=== PATIENT | female | born 1960 ===

== ENCOUNTER 2019-03-21 16:37 | Emergency (ER) | payer SELFPAY ==
[2019-03-21] MEDS ORDERED: SODIUM CHLORIDE 0.9% 1000 ML 1,000 ML IV ONE ×2 (17:40→20:28)
[2019-03-21] MEDS ORDERED: diphenhydrAMINE 50 MG/ML VIAL IV ONE (17:40)
[2019-03-21] MEDS ORDERED: METOCLOPRAMIDE 10 MG/2 ML INJ IV ONE (17:40)
[2019-03-21] MEDS ORDERED: HYOSCYAMINE SUBL 0.125 MG TAB SL ONE (17:41)
--- NOTE | 2019-03-21 17:43 | Emergency Department Report ---
Blank Doc - Documentation Documentation: 58-year-old -Citizen Of [place] female status post gastric balloon procedure for weight loss reports emergency department complaining of profuse nausea vomiting and abdominal pain since the procedure which was just over 1 week ago. She is been unable to keep down food and has had a decreased appetite. Reports no hemoptysis no hematemesis no hematochezia or diarrhea. Reports no fever, chills, sweats no chest pain no palpitations no shortness of breath. Plan GI labs and a CT scan as well as urine she will be started on IV fluids in conjunction with anti-medic and antispasmodic
[2019-03-21 18:58] LABS: Basophils # (Auto) 0.1 K/mm3 (0.0-0.1); Basophils % (Auto) 0.4 % (0.0-1.8); Eosinophils % (Auto) 0.1 % (0.0-4.3); Hemoglobin 16.9 gm/dl (10.1-14.3); Lymphocytes # (Auto) 0.7 K/mm3 (1.2-5.4); Lymphocytes % (Auto) 5.6 % (13.4-35.0); Mean Corpuscular HGB Conc 33 % (30-34); Mean Corpuscular Volume 91 fl (79-97); Monocytes # (Auto) 1.1 K/mm3 (0.0-0.8); Monocytes % (Auto) 8.1 % (0.0-7.3); Platelet Count 216 K/mm3 (140-440); Red Blood Count 5.74 M/mm3 (3.65-5.03); Red Cell Distribution Width 13.7 % (13.2-15.2)
[2019-03-21] MEDS ORDERED: MORPHINE 4 MG/1 ML INJ IV ONE (19:15)
[2019-03-21 19:18] LABS: Albumin 4.3 g/dL (3.9-5); BUN/Creatinine Ratio 31; Blood Urea Nitrogen 28 mg/dL (7-17); Calcium 9.5 mg/dL (8.4-10.2); Hemolysis Index 93
[2019-03-21] MEDS ORDERED: PANTOPRAZOLE 40 MG INJ IV ONE (19:20)
[2019-03-21 19:28] LABS: Alanine Aminotransferase 12 units/L (7-56)
--- NOTE | 2019-03-21 20:37 | Emergency Department Report ---
ED N/V/D HPI - General Chief complaint: Nausea/Vomiting/Diarrhea Stated complaint: N/V/WEAKNESS Time Seen by Provider: 03/21/19 18:36 Source: EMS Mode of arrival: Stretcher Limitations: No Limitations - History of Present Illness Initial comments: 58-year-old female w with no known past medical history status post endoscopic bariatric procedure on March 07 presents to the hospital complaining of persistent nausea and vomiting without bowel movement for the past 2 weeks since her surgery. Patient states her last bowel movement was March 06. She has been unable to tolerate any food or liquid intake since this bariatric procedure. She states a balloon was placed down her esophagus and inflated in her stomach. Patient has had 2 visits to this surgical clinic since her procedure for IV hydration due to persistent nausea and vomiting. She last saw the doctors today and received 2 L of IV fluids and a prescription for Zofran. Patient presents here due to persistent symptoms. She complains of generalized body pain and now is having bloody emesis. Patient denies any other previous abdominal surgery. Patient's bariatric surgeons are affiliated with [facility] [phone] Dr. Reinaldo Vidal evaluated pt today office Dr Mikael Galdamez performed initial surgery - Related Data Allergies Allergy/AdvReac Type Severity Reaction Status Date / Time No Known Allergies Allergy Unverified 03/21/19 17:21 ED Review of Systems ROS: Stated complaint: N/V/WEAKNESS Other details as noted in HPI ED Past Medical Hx - Past Medical History Previous Medical History?: No - Surgical History Past Surgical History?: Yes Additional Surgical History: Endoscopic bariatric surgery with balloon placement 03/07/19 - Social History Smoking Status: Light Tobacco Smoker Substance Use Type: Alcohol ED Physical Exam - General Limitations: No Limitations ED Course Vital Signs 03/21/19 03/21/19 03/21/19 17:13 17:15 17:18 Temperature Pulse Rate 86 Respiratory 14 Rate Blood Pressure 122/60 Blood Pressure 122/60 [Right] O2 Sat by Pulse 100 100 100 Oximetry 03/21/19 03/21/19 03/21/19 17:31 17:45 18:00 Temperature Pulse Rate Respiratory Rate Blood Pressure 122/60 122/60 141/68 Blood Pressure [Right] O2 Sat by Pulse 97 75 L 89 Oximetry 03/21/19 03/21/19 03/21/19 18:15 18:31 18:49 Temperature Pulse Rate Respiratory Rate Blood Pressure 141/68 141/68 141/68 Blood Pressure [Right] O2 Sat by Pulse 89 99 93 Oximetry 03/21/19 03/21/19 03/21/19 19:01 19:28 19:40 Temperature 97.4 F L Pulse Rate Respiratory Rate Blood Pressure 141/68 128/69 Blood Pressure [Right] O2 Sat by Pulse 91 Oximetry 03/21/19 03/21/19 03/21/19 20:01 20:15 20:31 Temperature Pulse Rate Respiratory Rate Blood Pressure 128/69 128/69 142/84 Blood Pressure [Right] O2 Sat by Pulse 98 91 87 Oximetry 03/21/19 03/21/19 03/21/19 20:45 21:00 21:15 Temperature Pulse Rate Respiratory Rate Blood Pressure 128/69 147/76 147/76 Blood Pressure [Right] O2 Sat by Pulse 91 95 91 Oximetry 03/21/19 03/21/19 03/21/19 21:31 21:45 22:01 Temperature Pulse Rate Respiratory Rate Blood Pressure 147/76 147/76 159/78 Blood Pressure [Right] O2 Sat by Pulse 94 95 99 Oximetry 03/21/19 22:08 Temperature 97.4 F L Pulse Rate 79 Respiratory 20 Rate Blood Pressure Blood Pressure 159/78 [Right] O2 Sat by Pulse 96 Oximetry - Consultations Consultation #1: 03/21/19 21:06 case d/w [employer] vessel operator surgeon Dr Reid. He does not have bariatric surgery experience and requests transfer to the care of her primary surgeons. 03/21/19 21:25 Case d/w Dr Thompson with [facility], he discussed case with Dr. Campbell and request that patient be sent to [facility] ER so that she may be reevaluated by the bariatric surgeon group for possible balloon deflation. 03/21/19 21:39 Case d/w Dr Vu, ER doctor at [facility]. He will verify with surgeon and call back. 03/21/19 21:54 pt accepted by [facility] ED at this time Surgeon requests Zosysn 4.5g IV x 1 prior to transfer Nurse here provided Number to give nurse to nurse report for transfer ED Medical Decision Making - Lab Data Result diagrams: 03/21/19 18:36 03/21/19 18:36 Lab Results 03/21/19 03/21/19 03/21/19 Range/Units 18:36 18:36 Unknown WBC 13.3 H (4.5-11.0) K/mm3 RBC 5.74 H (3.65-5.03) M/mm3 Hgb 16.9 H (10.1-14.3) gm/dl Hct 52.0 H (30.3-42.9) % MCV 91 (79-97) fl MCH 30 (28-32) pg MCHC 33 (30-34) % RDW 13.7 (13.2-15.2) % Plt Count 216 (140-440) K/mm3 Lymph % (Auto) 5.6 L (13.4-35.0) % Curry % (Auto) 8.1 H (0.0-7.3) % Eos % (Auto) 0.1 (0.0-4.3) % Baso % (Auto) 0.4 (0.0-1.8) % Lymph # 0.7 L (1.2-5.4) K/mm3 Curry # 1.1 H (0.0-0.8) K/mm3 Eos # 0.0 (0.0-0.4) K/mm3 Baso # 0.1 (0.0-0.1) K/mm3 Seg Neutrophils % 85.8 H (40.0-70.0) % Seg Neutrophils # 11.4 H (1.8-7.7) K/mm3 Sodium 138 (137-145) mmol/L Potassium 2.9 L* (3.6-5.0) mmol/L Chloride 77.8 L (98-107) mmol/L Carbon Dioxide 36 H (22-30) mmol/L Anion Gap 27 mmol/L BUN 28 H (7-17) mg/dL Creatinine 0.9 (0.7-1.2) mg/dL Estimated GFR > 60 ml/min BUN/Creatinine Ratio 31 % Glucose 147 H (65-100) mg/dL Calcium 9.5 (8.4-10.2) mg/dL Magnesium 3.10 H (1.7-2.3) mg/dL Total Bilirubin 0.70 (0.1-1.2) mg/dL AST 26 (5-40) units/L ALT 12 (7-56) units/L Alkaline Phosphatase 72 (35-129) units/L Total Protein 8.1 (6.3-8.2) g/dL Albumin 4.3 (3.9-5) g/dL Albumin/Globulin Ratio 1.1 % Lipase 28 (13-60) units/L - Radiology Data Radiology results: report reviewed CT abdomen pelvis w con INDICATION / CLINICAL INFORMATION: Nausea, Vomiting and Diarrhea. Recent gastric bypass surgery on 03/07/2019 TECHNIQUE: Axial CT imaging of abdomen and pelvis was obtained with IV contrast. Coronal and sagittal r eformatted imaging obtained and reviewed. All CT scans at this location are performed using CT dose reduction for ALARA by means of automated exposure control. COMPARISON: None available. FINDINGS: CT abdomen demonstrates a large balloon type device within the distal gastric antrum, there is small amount of air surrounding this balloon device. There is some gastric wall thickening more proximally as well as possible pneumatosis in the distal gastric antrum. Additionally, and if significant concern, is the presence of a large amount of portal venous gas throughout the liver. I do not see any free air or free fluid within the abdomen. Spleen, pancreas, kidneys, and adrenal glands are unremarka ble. Incidental note is made of a small hemangioma in the posterior aspect of the liver. CT pelvis with contrast demonstrates normal appearance of the appendix. No pelvic mass, free fluid, or focal inflammatory change is noted. The small bowel and colon all appear grossly unremarkable. Visualized lung bases are clear. No significant osseous abnormality. IMPRESSION: 1. This is an abnormal CT scan. 2. Large balloon foreign object device is present in the distal stomach, presumably placed there is part of bariatric weight loss surgery. There is the suggestion of pneumatosis of the stomach surrounding this foreign object. Additionally there is large amount of portal venous gas noted throughout the liver. This would imply the presence of ischemic bowel, presumably from the stomach as the remainder of the intestinal tract is unremarkable. 3. No other significant finding. 4. 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 - Medical Decision Making Patient presents with vomiting and p.o. intolerance after bariatric procedure. CT concerning for pneumatosis of the stomach and air in portal venous system. Case discussed with patient's bariatric surgeon who request transfer to [facility] ER for definitive management. Patient treated in the ED with normal saline, Reglan, Protonix, morphine, and Zosyn. IV potassium was ordered to s upplement hypokalemia. - Differential Diagnosis Gastric outlet obstruction, dehydration, electrolyte abnormality Critical Care Time: Yes Critical care time in (mins) excluding proc time.: 35 Critical care attestation.: If time is entered above; I have spent that time in minutes in the direct care of this critically ill patient, excluding procedure time. ED Disposition Clinical Impression: Intractable nausea and vomiting, S/P bariatric surgery, Hypokalemia, Dehydration, Hematemesis Disposition: DC/TX-70 ANOTHER TYPE HLTHCARE Is pt being admited?: No Condition: Stable Time of Disposition: 22:06 (Transfer to ER at [facility] accepted by Dr. Vu/Zan low)
--- NOTE | 2019-03-21 20:56 | Cat Scan Report ---
CT abdomen pelvis w con INDICATION / CLINICAL INFORMATION: Nausea, Vomiting and Diarrhea. Recent gastric bypass surgery on 03/07/2019 TECHNIQUE: Axial CT imaging of abdomen and pelvis was obtained with IV contrast. Coronal and sagittal reformatte d imaging obtained and reviewed. All CT scans at this location are performed using CT dose reductio n for ALARA by means of automated exposure control. COMPARISON: None available. FINDINGS: CT abdomen demonstrates a large balloon type device within the distal gastric antrum, there is small amount of air surrounding this balloon device. There is some gastric wall thickening more proximally as well as possible pneumatosis in the distal gastric antrum. Additionally, and if significant concer n, is the presence of a large amount of portal venous gas throughout the liver. I do not see any free air or free fluid within the abdomen. Spleen, pancreas, kidneys, and adrenal glands are unremarkable. Incidental note is made of a small he mangioma in the posterior aspect of the liver. CT pelvis with contrast demonstrates normal appearance of the appendix. No pelvic mass, free fluid, o r focal inflammatory change is noted. The small bowel and colon all appear grossly unremarkable. Visualized lung bases are clear. No significant osseous abnormality. IMPRESSION: 1. This is an abnormal CT scan. 2. Large balloon foreign object device is present in the distal stomach, presumably placed there is p art of bariatric weight loss surgery. There is the suggestion of pneumatosis of the stomach surroundi ng this foreign object. Additionally there is large amount of portal venous gas noted throughout the liver. This would imply the presence of ischemic bowel, presumably from the stomach as the remainder of the intestinal tract is unremarkable. 3. No other significant finding. 4. This report was called to Dr. 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 Signer Name: Brianna Preston MD Signed: 03/21/2019 8:52 PM Workstation Name: [id number]
[2019-03-21] MEDS: POTASSIUM CHLORIDE 10 MEQ 10 MEQ/100 ML BAG IV SCH ×2 (21:08→23:12)
[2019-03-21] MEDS ORDERED: PIPERACIL/TAZOBACTA 4.5/NS 100 4.5 GM/100 ML VIAL IV ONE (21:53)
[2019-03-21 22:05] VITALS: BP 159/78
== END 2019-03-21 23:40 | disposition other institution (70) ==
LOC: ED 16:37
DX: E87.6 Hypokalemia (principal); E86.0 Dehydration; K92.0 Hematemesis; F17.200 Nicotine dependence, unspecified, uncomplicated; Z98.84 Bariatric surgery status
CPT/HCPCS: 36415; 74177; 80053; 83690; 83735; 85025; 96365; 96366; 96375; 99285; C9113; J1200; J2270; J2543; J2765; J3480; J7030; Q9967

== ENCOUNTER 2020-09-22 12:41 | Inpatient (IN) | payer OTHER, SELFPAY ==
[2020-09-22] MEDS ORDERED: ACETAMINOPHEN 325 MG TAB PO ONE (15:19)
--- NOTE | 2020-09-22 15:19 | Event Note ---
ED Screening Note ED Screening Note: pt reports she has not "been feeling well" for over a week +SOB +cough +chest pain with coughing no n/v/d no fever no chills no sore throat or ear pain states she was tested for COVID 19 on Sunday and is awaiting results she has not been vaccinated no PMHx no allergies +cigar use no sick contact +traveled [place] just return on 09/19/20 This initial assessment/diagnostic orders/clinical plan/treatment(s) is/are subject to change based on patients health status, clinical progression and re-assessment by fellow clinical providers in the ED. Further treatment and workup at subsequent clinical providers discretion. Patient/guardian urged not to elope from the ED as their condition may be serious if not clinically assessed and managed. Initial orders include: labs, xr oxygen is 83% at rest placed on 4L NC given tylenol charge nurse notified pt needs room SAD[facility]
[2020-09-22] MEDS ORDERED: dexAMETHasone 4 MG/ML VIAL IV ONE (15:42)
[2020-09-22] MEDS ORDERED: AZITHROMYCIN/NS 500 MG/250 ML 500 MG/250 ML BAG IV ONE (15:42)
[2020-09-22] MEDS ORDERED: cefTRIAXone/NS 1 GM/50 ML 1 GM/50 ML BAG IV ONE (15:42)
[2020-09-22] MEDS ORDERED: SODIUM CHLORIDE 0.9% 1000 ML 1,000 ML IV ONE (15:42)
--- NOTE | 2020-09-22 15:49 | Emergency Department Report ---
HPI - General Chief Complaint: Dyspnea/Respdistress Time Seen by Provider: 09/22/20 15:14 - HPI HPI: 60-year-old -[place] female presents to the emergency department with a complaint of a 1 week history of chills, shortness of breath, mixed dry and productive cough, chest discomfort, and body aches. She denies any past medical history. She is a cigarette smoker, but denies any illicit drug use. The patient just recently traveled to and from [place]. She has not taken anything for symptoms prior to presentation today. She is not vaccinated against COVID-19. Patient was found to have a room air pulse ox of 76% through triage. She was placed on 4 L oxygen via nasal cannula and went up to 90%. ED Past Medical Hx - Past Medical History Previous Medical History?: No - Surgical History Past Surgical History?: Yes Additional Surgical History: Endoscopic bariatric surgery with balloon placement 03/07/19 - Social History Smoking Status: Smoker, Current Status Unknown Substance Use Type: Alcohol ED Review of Systems ROS: Stated complaint: ERIC Other details as noted in HPI Comment: All other systems reviewed and negative Constitutional: chills. denies: fever Eyes: denies: eye pain, vision change ENT: denies: ear pain, throat pain Respiratory: cough, shortness of breath Cardiovascular: chest pain. denies: edema Gastrointestinal: denies: abdominal pain, vomiting Genitourinary: denies: dysuria, discharge Musculoskeletal: myalgia. denies: joint swelling Skin: denies: rash, lesions Neurological: denies: numbness, paresthesias Physical Exam - Physical Exam Vital Signs: Vital Signs 09/22/20 09/22/20 13:21 13:22 Temperature 100 F H 100.2 F H Pulse Rate 83 Respiratory 18 Rate Blood Pressure 121/52 O2 Sat by Pulse 76 L Oximetry Physical Exam: GENERAL: The patient is well-developed well-nourished. HENT: Normocephalic. Atraumatic. Patient has moist mucous membranes. EYES: Extraocular motions are intact. NECK: Supple. Trachea is midline. CHEST/LUNGS: Bilateral rhonchi heard. There is tachypnea. HEART/CARDIOVASCULAR: Regular. There is mild tachycardia. There is no murmur. ABDOMEN: Abdomen is soft, nontender. Patient has normal bowel sounds. SKIN: Skin is warm and dry. NEURO: The patient is awake, alert, and oriented. The patient is cooperative. The patient has no focal neurologic deficits. Normal speech. MUSCULOSKELETAL: There is no tenderness or deformity. There is no limitation range of motion. ED Course Vital Signs 09/22/20 09/22/20 13:21 13:22 Temperature 100 F H 100.2 F H Pulse Rate 83 Respiratory 18 Rate Blood Pressure 121/52 O2 Sat by Pulse 76 L Oximetry ED Medical Decision Making - Lab Data Result diagrams: 09/22/20 15:17 09/22/20 15:17 Lab Results 09/22/20 09/22/20 09/22/20 Range/Units 15:17 15:17 15:30 WBC 6.2 (4.5-11.0) K/mm3 RBC 4.41 (3.65-5.03) M/mm3 Hgb 13.3 (10.1-14.3) gm/dl Hct 39.8 (30.3-42.9) % MCV 90 (79-97) fl MCH 30 (28-32) pg MCHC 33 (30-34) % RDW 14.4 (13.2-15.2) % Plt Count 349 (140-440) K/mm3 Lymph % (Auto) 8.0 L (13.4-35.0) % Bradford % (Auto) 6.7 (0.0-7.3) % Eos % (Auto) 0.0 (0.0-4.3) % Baso % (Auto) 0.5 (0.0-1.8) % Lymph # (Auto) 0.5 L (1.2-5.4) K/mm3 Bradford # (Auto) 0.4 (0.0-0.8) K/mm3 Eos # (Auto) 0.0 (0.0-0.4) K/mm3 Baso # (Auto) 0.0 (0.0-0.1) K/mm3 Seg Neutrophils % 84.8 H (40.0-70.0) % Seg Neutrophils # 5.2 (1.8-7.7) K/mm3 D-Dimer 1693.52 H (0-234) ng/mlDDU Sodium 134 L (137-145) mmol/L Chloride 98.9 (98-107) mmol/L Carbon Dioxide 26 (22-30) mmol/L Anion Gap 14 mmol/L BUN 16 (7-17) mg/dL Creatinine 0.8 (0.6-1.2) mg/dL Estimated GFR > 60 ml/min BUN/Creatinine Ratio 20 % Glucose 101 H (65-100) mg/dL Calcium 8.1 L (8.4-10.2) mg/dL Ferritin (10.0-200.0) ng/mL Total Bilirubin 0.40 (0.1-1.2) mg/dL Lactate Dehydrogenase 666 H (91-180) units/L C-Reactive Protein 14.50 H (0.00-1.30) mg/dL Total Protein 7.2 (6.3-8.2) g/dL Albumin 2.9 L (3.9-5) g/dL Albumin/Globulin Ratio 0.7 % // Range/Units 15:30 WBC (4.5-11.0) K/mm3 RBC (3.65-5.03) M/mm3 Hgb (10.1-14.3) gm/dl Hct (30.3-42.9) % MCV (79-97) fl MCH (28-32) pg MCHC (30-34) % RDW (13.2-15.2) % Plt Count (140-440) K/mm3 Lymph % (Auto) (13.4-35.0) % Bradford % (Auto) (0.0-7.3) % Eos % (Auto) (0.0-4.3) % Baso % (Auto) (0.0-1.8) % Lymph # (Auto) (1.2-5.4) K/mm3 Bradford # (Auto) (0.0-0.8) K/mm3 Eos # (Auto) (0.0-0.4) K/mm3 Baso # (Auto) (0.0-0.1) K/mm3 Seg Neutrophils % (40.0-70.0) % Seg Neutrophils # (1.8-7.7) K/mm3 D-Dimer (0-234) ng/mlDDU Sodium (137-145) mmol/L Chloride (98-107) mmol/L Carbon Dioxide (22-30) mmol/L Anion Gap mmol/L BUN (7-17) mg/dL Creatinine (0.6-1.2) mg/dL Estimated GFR ml/min BUN/Creatinine Ratio % Glucose (65-100) mg/dL Calcium (8.4-10.2) mg/dL Ferritin 723.4 H (10.0-200.0) ng/mL Total Bilirubin (0.1-1.2) mg/dL Lactate Dehydrogenase (91-180) units/L C-Reactive Protein (0.00-1.30) mg/dL Total Protein (6.3-8.2) g/dL Albumin (3.9-5) g/dL Albumin/Globulin Ratio % - EKG Data -: EKG Interpreted by Me EKG shows normal: sinus rhythm, axis, intervals, QRS complexes, ST-T waves Rate: normal - EKG Data When compared to previous EKG there are: previous EKG unavailable Interpretation: normal EKG - Radiology Data Radiology results: image reviewed interpreted by me: Chest x-ray shows bilateral patchy opacities concerning for pneumonia. No widened mediastinum. No pneumothorax. - Medical Decision Making This patient presents to the emergency department with progressively worsening URI symptoms. She had a room air pulse ox of 76%. She was placed on 5 L oxygen via nasal cannula and went up into the mid to high nineties. Patient is not vaccinated against COVID-19. Chest x-ray shows bilateral patchy opacities concerning for pneumonia. With the patient's URI symptoms, hypoxia, or unvaccinated status, and bilateral pneumonia on x-ray, the patient has high suspicion for COVID-19. Patient was given some IV Decadron, IV antibiotics, IV fluid resuscitation. Labs show elevated inflammatory markers of D-dimer, CRP, LDH and ferritin levels. She will be admitted to the hospital for further evaluation and treatment was accepted for admission by the hospitalist, Dr. Her. Critical Care Time: Yes Critical care time in (mins) excluding proc time.: 31 Critical care attestation.: If time is entered above; I have spent that time in minutes in the direct care of this critically ill patient, excluding procedure time. Critical care time was spent on this patient in doing her initial evaluation, multiple reevaluations, ordering and interpretation of labs and imaging, IV steroids, IV antibiotics, IV fluid resuscitation, multiple discussions with the patient, supplemental oxygen for her hypoxia. Critical Care Time: 31 minutes ED Disposition Clinical Impression: Suspected COVID-19 virus infection, Hypoxia Bilateral pneumonia Qualifiers: Pneumonia type: due to unspecified organism Lung location: unspecified part of lung Qualified Code(s): J18.9 - Pneumonia, unspecified organism Disposition: 09 ADMITTED INPATIENT Is pt being admited?: Yes Condition: Serious Time of Disposition: 19:37
--- NOTE | 2020-09-22 16:05 | XRay Report ---
CHEST 1 VIEW INDICATION: cough, sob, fever. COMPARISON: None. FINDINGS: Support devices: None. Heart: Normal. Lungs/Pleura: There is somewhat diffuse, mild to moderate bilateral airspace disease. No pleural abno rmality. IMPRESSION: 1. Bilateral airspace disease. Given the patient's symptoms, this is concerning for bilateral pneumon ia. Signer Name: Remy Owens MD Signed: 09/22/2020 4:01 PM Workstation Name: [id number]
--- NOTE | 2020-09-22 18:15 | History and Physical Report ---
History of Present Illness Chief complaint: I have not been feeling well History of present illness: 60 YO Female with Obesity Hypoventilation Syndrome, Nicotine Dependence presents to ED for evaluation. Patient reports I have not been feeling well". Patient states that she has experienced mixed dry and productive cough, shortness of breath, subjective fever, chills, body aches, chest discomfort, malaise, fatigue over the past 1 week with persistent and worsening symptoms over the same timeframe. Patient acknowledges loss of sense of smell, as well as loss of sense of taste. EMS was notified and upon arrival the patient was found to be in distress and subsequently transported to [facility] for further care and evaluation of the aforementioned symptoms. The patient was seen and evaluated in the emergency department. All lab and imaging studies reviewed. Patient was found to have a pulse oximetry of 70% percent on room air which is consistent with acute hypoxemic respiratory failure. Patient was placed on supplemental oxygen with mild improvement in symptoms. Chest x-ray revealed bilateral pneumonia. Patient admitted to medical floor and initiated on pneumonia protocol as well as coronavirus protocol. Patient denies chest pain, palpitation, skin rash, recent ill contacts. No prior admission for review. NO medication listed at time of admission. Past History Past Medical History: other (see HPI) Past Surgical History: Other (bariatric surgery) Social history: single. denies: smoking, alcohol abuse Family history: hypertension Medications and Allergies Allergies Allergy/AdvReac Type Severity Reaction Status Date / Time No Known Allergies Allergy Verified 09/22/20 13:21 Active Meds: Active Medications Sodium Chloride (Nacl 0.9% 1000 Ml) 1,000 mls @ 125 mls/hr IV ONCE ONE Stop: 09/22/20 23:41 Last Admin: 09/22/20 16:22 Dose: 125 mls/hr Documented by: Review of Systems Constitutional: fever, fatigue, weakness, malaise, lethargy, no weight loss, no weight gain Ears, nose, mouth and throat: no ear pain, no nasal congestion, no nasal discharge, no sinus pressure Breasts: no change in shape, no swelling, no mass Cardiovascular: no chest pain, no orthopnea, no palpitations Respiratory: cough, cough with sputum, no hemoptysis, no shortness of breath Gastrointestinal: no abdominal pain, no nausea, no vomiting, no constipation Genitourinary Female: no pelvic pain, no flank pain, no dysuria, no urinary frequency, no urgency Rectal: no pain, no incontinence, no bleeding Musculoskeletal: no neck stiffness, no shooting arm pain, no arm numbness /tingling, no shooting leg pain, no leg numbness/tingling Integumentary: no rash, no pruritis, no redness, no sores, no wounds, no jaundice Neurological: no head injury, no paralysis, no weakness, no parathesias, no tingling, no seizures, no syncope Psychiatric: no change in sleep habits, no insomnia, no change in appetite Endocrine: no cold intolerance, no heat intolerance, no polyphagia, no excessive thirst, no polydipsia Hematologic/Lymphatic: no easy bruising Allergic/Immunologic: no urticaria, no persistent infections, no angioedema Exam - Constitutional Vitals: Temp Pulse Resp BP Pulse Ox 99.1 F 83 24 127/54 95 09/22/20 13:40 09/22/20 16:31 09/22/20 16:31 09/22/20 16:31 09/22/20 16:31 General appearance: Present: mild distress, obese - EENT Eyes: Present: PERRL ENT: hearing intact, clear oral mucosa - Neck Neck: Present: supple, normal ROM - Respiratory Respiratory effort: labored, accessory muscle use Respiratory: bilateral: diminished, rhonchi - Cardiovascular Heart Sounds: Present: S1 & S2. Absent: rub, click - Extremities Extremities: pulses symmetrical, No edema Peripheral Pulses: within normal limits - Abdominal General gastrointestinal: Present: soft, non-tender, non-distended, normal bowel sounds Female genitourinary: Present: normal - Integumentary Integumentary: Present: clear, warm, dry - Musculoskeletal Musculoskeletal: generalized weakness - Psychiatric Psychiatric: appropriate mood/affect, intact judgment & insight - Neurologic Neurologic: CNII-XII intact, moves all extremities Results - Labs CBC & Chem 7: 09/22/20 15:17 09/22/20 15:17 Assessment and Plan - Patient Problems (1) Acute hypoxemic respiratory failure Current Visit: Yes Status: Acute Plan to address problem: Supplemental oxygen, pulse oximetry, Chest X ray, nebulizer therapy (2) Bilateral pneumonia Current Visit: Yes Status: Acute Qualifiers: Pneumonia type: due to unspecified organism Lung location: unspecified part of lung Qualified Code(s): J18.9 - Pneumonia, unspecified organism Plan to address problem: Pneumonia Protocol: IV antibiotic therapy, supplemental oxygen, pulse oximetry, nebulizer therapy, chest x ray, blood culture (3) Suspected COVID-19 virus infection Current Visit: Yes Status: Acute Plan to address problem: coronavirus protocol: IV steroid therapy, IV antibiotic therapy, vitamin c therapy, vitamin d therapy, zinc therapy, supplemental oxygen, pulse oximetry, (4) Obesity hypoventilation syndrome Current Visit: Yes Status: Acute Plan to address problem: balanced diet, increased physical activity at discharge, outpatient pulmonary f/u for sleep study (5) DVT prophylaxis Current Visit: Yes Status: Acute Plan to address problem: SCD to BLE while in bed, prophylactic anticoagulation.
[2020-09-22] MEDS ORDERED: ALBUTEROL 2.5 MG/3 ML NEBU IH PRN (18:16)
[2020-09-22] MEDS ORDERED: ONDANSETRON 4 MG/2 ML INJ IV PRN (18:16)
[2020-09-22 18:41] LABS: Basophils % (Auto) 0.5 % (0.0-1.8); Hematocrit 39.8 % (30.3-42.9); Hemoglobin 13.3 gm/dl (10.1-14.3); Lymphocytes # (Auto) 0.5 K/mm3 (1.2-5.4); Mean Corpuscular HGB Conc 33 % (30-34); Mean Corpuscular Volume 90 fl (79-97); Monocytes # (Auto) 0.4 K/mm3 (0.0-0.8); Monocytes % (Auto) 6.7 % (0.0-7.3); Platelet Count 349 K/mm3 (140-440); Red Blood Count 4.41 M/mm3 (3.65-5.03); Red Cell Distribution Width 14.4 % (13.2-15.2)
[2020-09-22 18:59] LABS: Alanine Aminotransferase 30 units/L (7-56); Albumin 2.9 g/dL (3.9-5); BUN/Creatinine Ratio 20; Blood Urea Nitrogen 16 mg/dL (7-17); Calcium 8.1 mg/dL (8.4-10.2); Hemolysis Index 298
[2020-09-22] MEDS ORDERED: cefTRIAXone/NS 2 GM/100 ML 2 GM/100 ML BAG IV SCH (19:00)
[2020-09-22] MEDS: ASCORBIC ACID 500 MG TAB PO SCH (21:35)
[2020-09-22] MEDS: HEPARIN 5,000 UNIT/1 ML VIAL SUB-Q SCH (21:35)
[2020-09-22] MEDS: methylPREDNISolone Sod Succinate 40 MG/1 ML INJ IV SCH (21:35)
[2020-09-22] MEDS: ZINC SULFATE 220 MG CAP PO SCH (21:36)
[2020-09-23] MEDS: methylPREDNISolone Sod Succinate 40 MG/1 ML INJ IV SCH ×3 (06:27→22:34)
[2020-09-23 07:04] LABS: Basophils % (Auto) 0.6 % (0.0-1.8); Hematocrit 41.7 % (30.3-42.9); Hemoglobin 13.6 gm/dl (10.1-14.3); Lymphocytes # (Auto) 0.4 K/mm3 (1.2-5.4); Lymphocytes % (Auto) 12.3 % (13.4-35.0); Mean Corpuscular HGB Conc 33 % (30-34); Mean Corpuscular Volume 90 fl (79-97); Monocytes # (Auto) 0.3 K/mm3 (0.0-0.8); Monocytes % (Auto) 7.6 % (0.0-7.3); Platelet Count 306 K/mm3 (140-440); Red Blood Count 4.64 M/mm3 (3.65-5.03); Red Cell Distribution Width 14.1 % (13.2-15.2)
[2020-09-23 07:33] LABS: Alanine Aminotransferase 33 units/L (7-56); Albumin 3.2 g/dL (3.9-5); Blood Urea Nitrogen 17 mg/dL (7-17); Calcium 8.2 mg/dL (8.4-10.2); Hemolysis Index 10
[2020-09-23 07:45] LABS: BUN/Creatinine Ratio 24
--- NOTE | 2020-09-23 10:00 | Electrocardiograph Report ---
[facility] Test Date: 2020-09-22 Test Time: 13:32:05 Pat Name: CHRISTOS LOCO Department: Room: [facility] Gender: F Traffic Representative: NOEMY : 1960 Requested By: ED DOC Order Number: [id number] Reading MD: Omid Martinez Measurements Intervals [place] Rate: 80 P: 68 LA: 155 QRS: 21 QRSD: 73 T: 48 QT: 369 QTc: 427 Interpretive Statements Sinus rhythm Probable left atrial enlargement NSTW'S No previous ECG available for comparison Electronically Signed On 09-23-2020 9:59:34 EDT by Omid Martinez
[2020-09-23] MEDS: HYDROmorphone 1 MG/1 ML INJ IV PRN (10:33)
[2020-09-23] MEDS: HEPARIN 5,000 UNIT/1 ML VIAL SUB-Q SCH (10:34)
[2020-09-23] MEDS: ASCORBIC ACID 500 MG TAB PO SCH ×2 (10:37→22:34)
[2020-09-23] MEDS: CHOLECALCIFEROL (VIT D3) 1000 UNIT (25 mcg) TAB PO SCH (10:37)
[2020-09-23] MEDS: ZINC SULFATE 220 MG CAP PO SCH ×2 (10:37→22:34)
--- NOTE | 2020-09-23 14:47 | Progress Note ---
Assessment and Plan Assessment and plan: -- Acute hypoxemic respiratory failure/on high flow oxygen/BiPAP Current Visit: Yes Status: Acute Supplemental oxygen, high flow oxygen Hypoxia, wean as tolerated Pulmonary consult as needed -- Bilateral pneumonia Current Visit: Yes Status: Acute Empiric antibiotics, follow cultures Follow procalcitonin levels --Positive COVID-19 virus infection Current Visit: Yes Status: Acute Isolation droplet and contact, ID consult Patient is hypoxic, remdesivir, Solu-Medrol Inflammatory markers, pulmonary consult if needed Prone positioning, home O2 evaluation Supportive medications zinc, vitamin D, ascorbic acid --Hyperkalemia; Current Visit: Yes Status: Acute Kayexalate, calcium gluconate Closely monitor electrolytes -- Obesity hypoventilation syndrome/BMI 36.0 Current Visit: Yes Status: Acute Dietary modification , exercise as tolerated , lifestyle changes Weight reduction when medically stable Outpatient sleep study to rule out obstructive sleep apnea --Severe protein calorie malnutrition; hypoalbuminemia Current Visit: Yes Status: Chronic Nutrition supplements, nutrition consult -- DVT prophylaxis Current Visit: Yes Status: Acute SCD to BLE while in bed, prophylactic anticoagulation. Closely monitor the patient and adjust management as needed Plan of care reviewed with the patient and her nurse Patient is obese critically ill, severe Covid infection Guarded prognosis 09/23/2020; Positive COVID-19, Hypoxemia on high flow oxygen Morbidly obese, ID following Continue therapies per protocol Consult pulmonary in the morning History Interval history: I have seen and examined the patient in ER awaiting room assignment Patient's chart and medications reviewed Patient is positive COVID-19 admitted with worsening shortness of breath On high flow oxygen In mild distress Vital signs noted Hospitalist Physical - Constitutional Vitals: Temp Pulse Resp BP Pulse Ox 99.1 F 74 28 H 123/79 96 09/22/20 13:40 09/23/20 13:31 09/23/20 13:31 09/23/20 13:31 09/23/20 13:31 General appearance: Present: severe distress, obese, other (On high flow oxygen) - EENT Eyes: Present: PERRL, EOM intact - Neck Neck: Present: supple, normal ROM - Respiratory Respiratory effort: normal Respiratory: bilateral: diminished, rhonchi, negative: rales, wheezing - Cardiovascular Rhythm: regular Heart Sounds: Present: S1 & S2 - Extremities Extremities: no ischemia, No edema - Abdominal General gastrointestinal: soft, non-tender, non-distended, normal bowel sounds - Integumentary Integumentary: Present: clear, warm - Psychiatric Psychiatric: appropriate mood/affect, cooperative - Neurologic Neurologic: CNII-XII intact, moves all extremities Results - Labs CBC & Chem 7: 09/23/20 06:16 09/23/20 15:28 Labs: Laboratory Last Values WBC 3.7 K/mm3 (4.5-11.0) L 09/23/20 06:16 RBC 4.64 M/mm3 (3.65-5.03) 09/23/20 06:16 Hgb 13.6 gm/dl (10.1-14.3) 09/23/20 06:16 Hct 41.7 % (30.3-42.9) 09/23/20 06:16 MCV 90 fl (79-97) 09/23/20 06:16 MCH 29 pg (28-32) 09/23/20 06:16 MCHC 33 % (30-34) 09/23/20 06:16 RDW 14.1 % (13.2-15.2) 09/23/20 06:16 Plt Count 306 K/mm3 (140-440) 09/23/20 06:16 Lymph % (Auto) 12.3 % (13.4-35.0) L 09/23/20 06:16 [place] % (Auto) 7.6 % (0.0-7.3) H 09/23/20 06:16 Eos % (Auto) 0.0 % (0.0-4.3) 09/23/20 06:16 Baso % (Auto) 0.6 % (0.0-1.8) 09/23/20 06:16 Lymph # (Auto) 0.4 K/mm3 (1.2-5.4) L 09/23/20 06:16 [place] # (Auto) 0.3 K/mm3 (0.0-0.8) 09/23/20 06:16 Eos # (Auto) 0.0 K/mm3 (0.0-0.4) 09/23/20 06:16 Baso # (Auto) 0.0 K/mm3 (0.0-0.1) 09/23/20 06:16 Seg Neutrophils % 79.5 % (40.0-70.0) H 09/23/20 06:16 Seg Neutrophils # 2.9 K/mm3 (1.8-7.7) 09/23/20 06:16 D-Dimer 1693.52 ng/mlDDU (0-234) H 09/22/20 15:30 Sodium 137 mmol/L (137-145) 09/23/20 06:16 Potassium 4.4 mmol/L (3.6-5.0) 09/23/20 06:16 Chloride 100.4 mmol/L (98-107) 09/23/20 06:16 Carbon Dioxide 26 mmol/L (22-30) 09/23/20 06:16 Anion Gap 15 mmol/L 09/23/20 06:16 BUN 17 mg/dL (7-17) 09/23/20 06:16 Creatinine 0.7 mg/dL (0.6-1.2) 09/23/20 06:16 Estimated GFR > 60 ml/min 09/23/20 06:16 BUN/Creatinine Ratio 24 % 09/23/20 06:16 Glucose 110 mg/dL (65-100) H 09/23/20 06:16 Lactic Acid 1.10 mmol/L (0.7-2.0) 09/22/20 18:17 Calcium 8.2 mg/dL (8.4-10.2) L 09/23/20 06:16 Ferritin 723.4 ng/mL (10.0-200.0) H 09/22/20 15:30 Total Bilirubin 0.40 mg/dL (0.1-1.2) 09/23/20 06:16 AST 52 units/L (5-40) H 09/23/20 06:16 ALT 33 units/L (7-56) 09/23/20 06:16 Alkaline Phosphatase 78 units/L (35-129) 09/23/20 06:16 Lactate Dehydrogenase 666 units/L (91-180) H 09/22/20 15:17 C-Reactive Protein 14.50 mg/dL (0.00-1.30) H 09/22/20 15:17 Total Protein 6.6 g/dL (6.3-8.2) 09/23/20 06:16 Albumin 3.2 g/dL (3.9-5) L 09/23/20 06:16 Albumin/Globulin Ratio 0.9 % 09/23/20 06:16 Procalcitonin 0.06 ng/mL (<0.15) 09/22/20 18:17 Coronavirus (PCR) Positive (Negative) A 09/23/20 Unknown Microbiology: Microbiology 09/22/20 18:03 Peripheral/Venous Blood Culture - Preliminary Culture in Progress 09/22/20 18:03 Peripheral/Venous Blood Culture - Preliminary Culture in Progress Active Medications - Current Medications Current Medications: Generic Name Dose Route Start Last Admin Trade Name Freq PRN Reason Stop Dose Admin Acetaminophen 650 mg 09/22/20 18:16 Acetaminophen 325 Mg Tab PO Q4H PRN Pain MILD(1-3)/Fever >100.5/GRAMAJO Albuterol 2.5 mg 09/22/20 18:16 Albuterol 2.5 Mg/3 Ml Nebu IH Q4HRT PRN Shortness Of Breath Ascorbic Acid 500 mg 09/22/20 22:00 09/23/20 10:37 Ascorbic Acid 500 Mg Tab PO Not Given BID SAYDA Cholecalciferol 1,000 unit 09/23/20 10:00 09/23/20 10:37 Cholecalciferol (Vit D3) 1000 Unit (25 Mcg) Tab PO Not Given QDAY SAYDA Heparin Sodium (Porcine) 5,000 unit 09/22/20 22:00 09/23/20 10:34 Heparin 5,000 Unit/1 Ml Vial SUB-Q 5,000 unit Q12HR SAYDA Administration Hydromorphone HCl 0.5 mg 09/22/20 18:16 09/23/20 10:33 Hydromorphone 1 Mg/1 Ml Inj IV 0.5 mg Q12H PRN Administration Pain , Severe (7-10) Ceftriaxone Sodium 2 gm in 100 mls @ 200 mls/hr 09/22/20 19:00 09/22/20 21:22 Rocephin/Ns 2 Gm/100 Ml IV 09/26/20 19:29 200 mls/hr Q24H SAYDA Administration Protocol Azithromycin 500 mg in 250 mls @ 250 mls/hr 09/23/20 16:00 Zithromax/Ns IV 09/26/20 16:59 Q24H SAYDA Protocol Methylprednisolone Sodium Succinate 40 mg 09/22/20 22:00 09/23/20 06:27 Methylprednisolone Sod Succinate 40 Mg/1 Ml Inj IV 40 mg Q8H SAYDA Administration Ondansetron HCl 4 mg 09/22/20 18:16 09/23/20 10:34 Ondansetron 4 Mg/2 Ml Inj IV 4 mg Q8H PRN Administration Nausea And Vomiting Oxycodone/Acetaminophen 1 tab 09/22/20 18:16 Oxycodone /Acetaminophen 5-325mg Tab PO Q12H PRN Pain, Moderate (4-6) Sodium Chloride 10 ml 09/22/20 22:00 09/23/20 10:37 Sodium Chloride 0.9% 10 Ml Flush Syringe IV 10 ml BID SAYDA Administration Sodium Chloride 10 ml 09/22/20 18:16 Sodium Chloride 0.9% 10 Ml Flush Syringe IV PRN PRN LINE FLUSH Zinc Sulfate 220 mg 09/22/20 22:00 09/23/20 10:37 Zinc Sulfate 220 Mg Cap PO Not Given BID SAYDA
[2020-09-23] MEDS ORDERED: TOCILIZUMAB 800 MG in SODIUM CHLORIDE 0.9% 100 ML IV ONE (14:59)
--- NOTE | 2020-09-23 15:01 | Consultation ---
History of Present Illness - Reason for Consult Consult date: 09/23/20 COVID pneumonia requiring HFNC Requesting physician: CARRIE ROSE - History of Present Illness The patient is a 60-year-old female with tobacco use, obesity hypoventilation, obesity was admitted with COVID-19 and bilateral pneumonia with significant hypoxia. She is currently on high flow nasal cannula. Infectious diseases was consulted for additional evaluation. Low-grade fevers present. Labs revealed procalcitonin 0.06, ferritin 723, LDH 666, CRP 14.5, D-dimer 1693 Review of Systems: reviewed in the chart, unable to obtain, minimize risk of transmission Past History Past Medical History: other (see HPI) Past Surgical History: Other (bariatric surgery) Social history: single. denies: smoking, alcohol abuse Family history: hypertension Medications and Allergies Allergies Allergy/AdvReac Type Severity Reaction Status Date / Time No Known Allergies Allergy Verified 09/22/20 13:21 Active Meds: Active Medications Acetaminophen (Acetaminophen 325 Mg Tab) 650 mg PO Q4H PRN PRN Reason: Pain MILD(1-3)/Fever >100.5/GRAMAJO Albuterol (Albuterol 2.5 Mg/3 Ml Nebu) 2.5 mg IH Q4HRT PRN PRN Reason: Shortness Of Breath Ascorbic Acid (Ascorbic Acid 500 Mg Tab) 500 mg PO BID [facility] Last Admin: 09/23/20 10:37 Dose: Not Given Documented by: Cholecalciferol (Cholecalciferol (Vit D3) 1000 Unit (25 Mcg) Tab) 1,000 unit PO QDAY [facility] Last Admin: 09/23/20 10:37 Dose: Not Given Documented by: Heparin Sodium (Porcine) (Heparin 5,000 Unit/1 Ml Vial) 5,000 unit SUB-Q Q12HR [facility] Last Admin: 09/23/20 10:34 Dose: 5,000 unit Documented by: Hydromorphone HCl (Hydromorphone 1 Mg/1 Ml Inj) 0.5 mg IV Q12H PRN PRN Reason: Pain , Severe (7-10) Last Admin: 09/23/20 10:33 Dose: 0.5 mg Documented by: REMDESIVIR 200 mg/ Sodium (Chloride) 250 mls @ 500 mls/hr IV ONCE ONE Stop: 09/23/20 15:19 REMDESIVIR 100 mg/ Sodium (Chloride) 250 mls @ 500 mls/hr IV Q24HR@2100 [facility] Stop: 09/27/20 21:29 TOCILIZUMAB 800 mg/ Sodium (Chloride) 140 mls @ 120 mls/hr IV ONCE ONE Stop: 09/23/20 16:08 Methylprednisolone Sodium Succinate (Methylprednisolone Sod Succinate 40 Mg/1 Ml Inj) 40 mg IV Q8H [facility] Last Admin: 09/23/20 06:27 Dose: 40 mg Documented by: Ondansetron HCl (Ondansetron 4 Mg/2 Ml Inj) 4 mg IV Q8H PRN PRN Reason: Nausea And Vomiting Last Admin: 09/23/20 10:34 Dose: 4 mg Documented by: Oxycodone/Acetaminophen (Oxycodone /Acetaminophen 5-325mg Tab) 1 tab PO Q12H PRN PRN Reason: Pain, Moderate (4-6) Sodium Chloride (Sodium Chloride 0.9% 10 Ml Flush Syringe) 10 ml IV BID [facility] Last Admin: 09/23/20 10:37 Dose: 10 ml Documented by: Sodium Chloride (Sodium Chloride 0.9% 10 Ml Flush Syringe) 10 ml IV PRN PRN PRN Reason: LINE FLUSH Sodium Chloride (Sodium Chloride 0.9% 50 Ml Ivpb) 50 ml IV Q24HR@2100 [facility] Stop: 09/27/20 21:01 Zinc Sulfate (Zinc Sulfate 220 Mg Cap) 220 mg PO BID [facility] Last Admin: 09/23/20 10:37 Dose: Not Given Documented by: Physical Examination - Physical Exam Narrative exam: Physical Exam (reviewed in chart to minimize risk of transmission) Constitutional: deferred Head, Ears, Nose: deferred Eyes: deferred Neck: deferred Oral: deferred Cardiovascular: deferred Respiratory: deferred GI: deferred Musculoskeletal: deferred Skin: deferred Hem/Lymphatic: deferred Psych: deferred Neurological: deferred - Constitutional Vitals: Vital Signs Temp Pulse Resp BP Pulse Ox 99.1 F 74 28 H 123/79 96 09/22/20 13:40 09/23/20 13:31 09/23/20 13:31 09/23/20 13:31 09/23/20 13:31 Results - Labs CBC & Chem 7: 09/23/20 06:16 09/23/20 06:16 Labs: Abnormal lab results 09/22/20 09/22/20 09/22/20 Range/Units 15:17 15:17 15:30 WBC (4.5-11.0) K/mm3 Lymph % (Auto) 8.0 L (13.4-35.0) % [place] % (Auto) (0.0-7.3) % Lymph # (Auto) 0.5 L (1.2-5.4) K/mm3 Seg Neutrophils % 84.8 H (40.0-70.0) % D-Dimer 1693.52 H (0-234) ng/mlDDU Sodium 134 L (137-145) mmol/L Potassium 5.3 H (3.6-5.0) mmol/L Glucose 101 H (65-100) mg/dL Calcium 8.1 L (8.4-10.2) mg/dL Ferritin (10.0-200.0) ng/mL AST 60 H (5-40) units/L Lactate Dehydrogenase 666 H (91-180) units/L C-Reactive Protein 14.50 H (0.00-1.30) mg/dL Albumin 2.9 L (3.9-5) g/dL Coronavirus (PCR) (Negative) 09/22/20 09/23/20 09/23/20 Range/Units 15:30 06:16 06:16 WBC 3.7 L (4.5-11.0) K/mm3 Lymph % (Auto) 12.3 L (13.4-35.0) % [place] % (Auto) 7.6 H (0.0-7.3) % Lymph # (Auto) 0.4 L (1.2-5.4) K/mm3 Seg Neutrophils % 79.5 H (40.0-70.0) % D-Dimer (0-234) ng/mlDDU Sodium (137-145) mmol/L Potassium (3.6-5.0) mmol/L Glucose 110 H (65-100) mg/dL Calcium 8.2 L (8.4-10.2) mg/dL Ferritin 723.4 H (10.0-200.0) ng/mL AST 52 H (5-40) units/L Lactate Dehydrogenase (91-180) units/L C-Reactive Protein (0.00-1.30) mg/dL Albumin 3.2 L (3.9-5) g/dL Coronavirus (PCR) (Negative) 09/23/20 Range/Units Unknown WBC (4.5-11.0) K/mm3 Lymph % (Auto) (13.4-35.0) % [place] % (Auto) (0.0-7.3) % Lymph # (Auto) (1.2-5.4) K/mm3 Seg Neutrophils % (40.0-70.0) % D-Dimer (0-234) ng/mlDDU Sodium (137-145) mmol/L Potassium (3.6-5.0) mmol/L Glucose (65-100) mg/dL Calcium (8.4-10.2) mg/dL Ferritin (10.0-200.0) ng/mL AST (5-40) units/L Lactate Dehydrogenase (91-180) units/L C-Reactive Protein (0.00-1.30) mg/dL Albumin (3.9-5) g/dL Coronavirus (PCR) Positive A (Negative) - Imaging and Cardiology Chest x-ray: report reviewed (b/l PNA) Assessment and Plan Cultures: SARS CoV2 PCR: Positive 09/22/2020 blood culture: In process A/P: 60-year-old female with obesity hypoventilation, tobacco abuse admitted with: #Bilateral pneumonia: Secondary to COVID-19. Severe disease. #Acute hypoxic respiratory failure: Secondary to above. On high flow nasal cannula and possible BiPAP. #Obesity #Leukopenia, likely secondary to viral illness Recs: IV/PO Dexamethasone 6 mg daily x 10 days Remdesivir and Actemra ordered Antibiotics discontinued prophylactic anticoagulation based on d-dimer per hospital protocol trend ferritin, LDH, d-dimer, CRP every 2-3 days for risk stratification and to assess disease progression Janet Kelley MD, FACP [facility] O: [phone] F: [phone]
[2020-09-23] MEDS ORDERED: REMDESIVIR 200 MG in SODIUM CHLORIDE 0.9% 250ML 250 ML IV ONE (16:00)
[2020-09-23] MEDS ORDERED: AZITHROMYCIN/NS 500 MG/250 ML 500 MG/250 ML BAG IV SCH (16:00)
[2020-09-23 16:12] LABS: Alanine Aminotransferase 36 units/L (7-56); Albumin 3.1 g/dL (3.9-5); Blood Urea Nitrogen 20 mg/dL (7-17); Calcium 8.2 mg/dL (8.4-10.2); Hemolysis Index 232
[2020-09-23 16:16] LABS: BUN/Creatinine Ratio 33
[2020-09-23] MEDS: SODIUM CHLORIDE 0.9% 50 ML IVPB IV SCH ×2 (19:01→22:17)
[2020-09-23] MEDS: LORazepam 2 MG/ML VIAL IV PRN (20:24)
[2020-09-23] MEDS ORDERED: SODIUM POLYSTYRENE 15 GM/60 ML ORAL LIQD PO NR (20:35)
[2020-09-23] MEDS ORDERED: CALCIUM GLUCONATE 1,000 MG in SODIUM CHLORIDE 0.9% 100 ML IV ONE (21:30)
[2020-09-23] MEDS: ENOXAPARIN 100 MG/1 ML INJ SUB-Q SCH (22:33)
[2020-09-24] MEDS: methylPREDNISolone Sod Succinate 40 MG/1 ML INJ IV SCH ×3 (06:39→23:57)
--- NOTE | 2020-09-24 10:20 | Electrocardiograph Report ---
[facility] Test Date: 2020-09-23 Test Time: 00:12:08 Pat Name: CHRISTOS LOCO Department: Room: [place] [address] Gender: F Shingle Sawyer: PADILLA : 1960 Requested By: ODIN WHITMAN Order Number: [id number] Reading MD: Omid Martinez Measurements Intervals [place] Rate: 73 P: 55 CO: 172 QRS: 18 QRSD: 74 T: 11 QT: 417 QTc: 460 Interpretive Statements Sinus rhythm [id number] Compared to ECG 09/22/2020 13:32:05 No significant changes Electronically Signed On 09-24-2020 10:20:42 EDT by Omid Martinez
[2020-09-24] MEDS: ZINC SULFATE 220 MG CAP PO SCH ×2 (11:10→22:44)
[2020-09-24] MEDS: CHOLECALCIFEROL (VIT D3) 1000 UNIT (25 mcg) TAB PO SCH (11:10)
[2020-09-24] MEDS: ASCORBIC ACID 500 MG TAB PO SCH ×2 (11:10→22:44)
[2020-09-24] MEDS: LORazepam 2 MG/ML VIAL IV PRN (11:16)
[2020-09-24] MEDS: ENOXAPARIN 100 MG/1 ML INJ SUB-Q SCH ×2 (11:17→22:43)
[2020-09-24] MEDS ORDERED: TOCILIZUMAB 810 MG in SODIUM CHLORIDE 0.9% 100 ML IV ONE (13:00)
--- NOTE | 2020-09-24 14:02 | Progress Note ---
Assessment and Plan Cultures: SARS CoV2 PCR: Positive 09/22/2020 blood culture: no growth A/P: 60-year-old female with obesity hypoventilation, tobacco abuse admitted with: #Bilateral pneumonia: Secondary to COVID-19. Severe disease. #Acute hypoxic respiratory failure: Secondary to above. On high flow nasal sylvia jacklyn and BiPAP. #Obesity #Leukopenia, likely secondary to viral illness Recs: continue steroids x 10 days continue Remdesivir Actemra administered today prophylactic anticoagulation based on d-dimer per hospital protocol trend ferritin, LDH, d-dimer, CRP every 2-3 days for risk stratification and to assess disease progression, repeats ordered Janet Kelley MD, FACP [facility] ([facility] O: [phone] F: [phone] Subjective Date of service: 09/24/20 Interval history: Afebrile today. Remains on BiPAP. Actemra administered today. Objective - Exam Narrative Exam: Physical Exam (reviewed in chart to minimize risk of transmission) Constitutional: deferred Head, Ears, Nose: deferred Eyes: deferred Neck: deferred Oral: deferred Cardiovascular: deferred Respiratory: deferred GI: deferred Musculoskeletal: deferred Skin: deferred Hem/Lymphatic: deferred Psych: deferred Neurological: deferred - Constitutional Vitals: Vital Signs Temp Pulse Resp BP Pulse Ox 97.9 F 71 32 H 132/56 90 09/24/20 08:25 09/24/20 10:30 09/24/20 10:30 09/24/20 11:02 09/24/20 11:02 Temperature -Last 24 Hours Temperature 97.9 F - Labs CBC & Chem 7: 09/23/20 06:16 09/23/20 15:28 Labs: Abnormal lab results 09/23/20 09/23/20 Range/Units 15:28 Unknown Sodium 133 L (137-145) mmol/L Potassium 5.8 H D (3.6-5.0) mmol/L Carbon Dioxide 20 L (22-30) mmol/L BUN 20 H (7-17) mg/dL Glucose 115 H (65-100) mg/dL Calcium 8.2 L (8.4-10.2) mg/dL AST 49 H (5-40) units/L Albumin 3.1 L (3.9-5) g/dL Coronavirus (PCR) Positive A (Negative)
[2020-09-24 16:20] LABS: Alanine Aminotransferase 28 units/L (7-56); Albumin 3.3 g/dL (3.9-5); Basophils # (Auto) 0.1 K/mm3 (0.0-0.1); Basophils % (Auto) 0.7 % (0.0-1.8); Blood Urea Nitrogen 26 mg/dL (7-17); Calcium 8.2 mg/dL (8.4-10.2); Hematocrit 42.2 % (30.3-42.9); Hemoglobin 13.8 gm/dl (10.1-14.3); Hemolysis Index 22; Lymphocytes # (Auto) 0.6 K/mm3 (1.2-5.4); Lymphocytes % (Auto) 5.5 % (13.4-35.0); Mean Corpuscular HGB Conc 33 % (30-34); Mean Corpuscular Volume 91 fl (79-97); Monocytes # (Auto) 0.9 K/mm3 (0.0-0.8); Monocytes % (Auto) 8.1 % (0.0-7.3); Platelet Count 333 K/mm3 (140-440); Red Blood Count 4.65 M/mm3 (3.65-5.03); Red Cell Distribution Width 14.5 % (13.2-15.2)
[2020-09-24 16:25] LABS: BUN/Creatinine Ratio 43
--- NOTE | 2020-09-24 19:12 | Progress Note ---
Assessment and Plan - Patient Problems (1) Acute hypoxemic respiratory failure Current Visit: Yes Status: Acute Plan to address problem: Supplemental oxygen, pulse oximetry, Chest X ray, nebulizer therapy, high flow submental oxygen, prone positioning while in bed. (2) Bilateral pneumonia Current Visit: Yes Status: Acute Qualifiers: Pneumonia type: due to unspecified organism Lung location: unspecified part of lung Qualified Code(s): J18.9 - Pneumonia, unspecified organism Plan to address problem: Pneumonia Protocol: IV antibiotic therapy, supplemental oxygen, pulse oximetry, nebulizer therapy, chest x ray, blood culture (3) Suspected COVID-19 virus infection Current Visit: Yes Status: Acute Plan to address problem: coronavirus protocol: IV steroid therapy, IV antibiotic therapy, vitamin c therapy, vitamin d therapy, zinc therapy, supplemental oxygen, pulse oximetry, (4) Obesity hypoventilation syndrome Current Visit: Yes Status: Acute Plan to address problem: balanced diet, increased physical activity at discharge, outpatient pulmonary f/u for sleep study (5) DVT prophylaxis Current Visit: Yes Status: Acute Plan to address problem: SCD to BLE while in bed, prophylactic anticoagulation. History Interval history: 60 YO Female HD #3 with Pneumonia, Coronavirus Infection, Acute hypoxemic Respiratory failure on High Flow supplemental oxygen. Patient understands see you shortness of breath. Patient is comfortable. Patient denies pain. Patient continues to have mild respiratory distress. Hospitalist Physical - Constitutional Vitals: Temp Pulse Resp BP Pulse Ox 97.9 F 73 40 H 107/78 81 L 09/24/20 08:25 09/24/20 18:30 09/24/20 18:30 09/24/20 18:30 09/24/20 18:30 General appearance: Present: severe distress, obese, other (On high flow oxygen) - EENT Eyes: Present: PERRL, EOM intact ENT: hearing intact - Neck Neck: Present: supple - Respiratory Respiratory effort: labored Respiratory: bilateral: diminished, rhonchi - Cardiovascular Rhythm: regular Heart Sounds: Present: S1 & S2 - Extremities Extremities: no ischemia Peripheral Pulses: within normal limits - Abdominal General gastrointestinal: soft, non-distended - Integumentary Integumentary: Present: clear, dry - Psychiatric Psychiatric: cooperative - Neurologic Neurologic: CNII-XII intact Results - Labs CBC & Chem 7: 09/24/20 15:20 09/24/20 15:20 Labs: Laboratory Last Values WBC 11.1 K/mm3 (4.5-11.0) H 09/24/20 15:20 RBC 4.65 M/mm3 (3.65-5.03) 09/24/20 15:20 Hgb 13.8 gm/dl (10.1-14.3) 09/24/20 15:20 Hct 42.2 % (30.3-42.9) 09/24/20 15:20 MCV 91 fl (79-97) 09/24/20 15:20 MCH 30 pg (28-32) 09/24/20 15:20 MCHC 33 % (30-34) 09/24/20 15:20 RDW 14.5 % (13.2-15.2) 09/24/20 15:20 Plt Count 333 K/mm3 (140-440) 09/24/20 15:20 Lymph % (Auto) 5.5 % (13.4-35.0) L 09/24/20 15:20 [place] % (Auto) 8.1 % (0.0-7.3) H 09/24/20 15:20 Eos % (Auto) 0.0 % (0.0-4.3) 09/24/20 15:20 Baso % (Auto) 0.7 % (0.0-1.8) 09/24/20 15:20 Lymph # (Auto) 0.6 K/mm3 (1.2-5.4) L 09/24/20 15:20 [place] # (Auto) 0.9 K/mm3 (0.0-0.8) H 09/24/20 15:20 Eos # (Auto) 0.0 K/mm3 (0.0-0.4) 09/24/20 15:20 Baso # (Auto) 0.1 K/mm3 (0.0-0.1) 09/24/20 15:20 Seg Neutrophils % 85.7 % (40.0-70.0) H 09/24/20 15:20 Seg Neutrophils # 9.6 K/mm3 (1.8-7.7) H 09/24/20 15:20 D-Dimer 1693.52 ng/mlDDU (0-234) H 09/22/20 15:30 Sodium 139 mmol/L (137-145) 09/24/20 15:20 Potassium 4.7 mmol/L (3.6-5.0) 09/24/20 15:20 Chloride 103.7 mmol/L (98-107) 09/24/20 15:20 Carbon Dioxide 24 mmol/L (22-30) 09/24/20 15:20 Anion Gap 16 mmol/L 09/24/20 15:20 BUN 26 mg/dL (7-17) H 09/24/20 15:20 Creatinine 0.6 mg/dL (0.6-1.2) 09/24/20 15:20 Estimated GFR > 60 ml/min 09/24/20 15:20 BUN/Creatinine Ratio 43 % 09/24/20 15:20 Glucose 111 mg/dL (65-100) H 09/24/20 15:20 Lactic Acid 1.10 mmol/L (0.7-2.0) 09/22/20 18:17 Calcium 8.2 mg/dL (8.4-10.2) L 09/24/20 15:20 Magnesium 3.10 mg/dL (1.7-2.3) H 09/24/20 15:20 Ferritin 723.4 ng/mL (10.0-200.0) H 09/22/20 15:30 Total Bilirubin 0.30 mg/dL (0.1-1.2) 09/24/20 15:20 AST 29 units/L (5-40) 09/24/20 15:20 ALT 28 units/L (7-56) 09/24/20 15:20 Alkaline Phosphatase 79 units/L (35-129) 09/24/20 15:20 Lactate Dehydrogenase 666 units/L (91-180) H 09/22/20 15:17 C-Reactive Protein 14.50 mg/dL (0.00-1.30) H 09/22/20 15:17 Total Protein 6.8 g/dL (6.3-8.2) 09/24/20 15:20 Albumin 3.3 g/dL (3.9-5) L 09/24/20 15:20 Albumin/Globulin Ratio 0.9 % 09/24/20 15:20 Procalcitonin 0.06 ng/mL (<0.15) 09/22/20 18:17 Coronavirus (PCR) Positive (Negative) A 09/23/20 Unknown Microbiology: Microbiology 09/22/20 18:03 Peripheral/Venous Blood Culture - Preliminary NO GROWTH AFTER 24 HOURS 09/22/20 18:03 Peripheral/Venous Blood Culture - Preliminary NO GROWTH AFTER 24 HOURS Active Medications - Current Medications Current Medications: Generic Name Dose Route Start Last Admin Trade Name Freq PRN Reason Stop Dose Admin Acetaminophen 650 mg 09/22/20 18:16 Acetaminophen 325 Mg Tab PO Q4H PRN Pain MILD(1-3)/Fever >100.5/GRAMAJO Albuterol 2.5 mg 09/22/20 18:16 Albuterol 2.5 Mg/3 Ml Nebu IH Q4HRT PRN Shortness Of Breath Ascorbic Acid 500 mg 09/22/20 22:00 09/24/20 11:10 Ascorbic Acid 500 Mg Tab PO 500 mg BID SAYDA Administration Cholecalciferol 1,000 unit 09/23/20 10:00 09/24/20 11:10 Cholecalciferol (Vit D3) 1000 Unit (25 Mcg) Tab PO 1,000 unit QDAY [facility] Administration Enoxaparin Sodium 100 mg 09/23/20 22:00 09/24/20 11:17 Enoxaparin 100 Mg/1 Ml Inj 1 mg/kg (100 mg) 100 mg SUB-Q Administration Q12HR [facility] Protocol Hydromorphone HCl 0.5 mg 09/22/20 18:16 09/23/20 10:33 Hydromorphone 1 Mg/1 Ml Inj IV 0.5 mg Q12H PRN Administration Pain , Severe (7-10) REMDESIVIR 100 mg/ Sodium 250 mls @ 500 mls/hr 09/24/20 21:00 Chloride IV 09/27/20 21:29 Q24HR@2100 [facility] Lorazepam 1 mg 09/23/20 20:07 09/24/20 11:16 Lorazepam 2 Mg/Ml Vial IV 1 mg Q3H PRN Administration Anxiety Methylprednisolone Sodium Succinate 40 mg 09/22/20 22:00 09/24/20 17:35 Methylprednisolone Sod Succinate 40 Mg/1 Ml Inj IV 40 mg Q8H SAYDA Administration Ondansetron HCl 4 mg 09/22/20 18:16 09/23/20 10:34 Ondansetron 4 Mg/2 Ml Inj IV 4 mg Q8H PRN Administration Nausea And Vomiting Oxycodone/Acetaminophen 1 tab 09/22/20 18:16 Oxycodone /Acetaminophen 5-325mg Tab PO Q12H PRN Pain, Moderate (4-6) Sodium Chloride 10 ml 09/22/20 22:00 09/24/20 11:17 Sodium Chloride 0.9% 10 Ml Flush Syringe IV 10 ml BID SAYDA Administration Sodium Chloride 10 ml 09/22/20 18:16 Sodium Chloride 0.9% 10 Ml Flush Syringe IV PRN PRN LINE FLUSH Sodium Chloride 50 ml 09/23/20 16:00 09/23/20 22:17 Sodium Chloride 0.9% 50 Ml Ivpb IV 09/26/20 21:01 Not Given Q24HR@2100 SAYDA Zinc Sulfate 220 mg 09/22/20 22:00 09/24/20 11:10 Zinc Sulfate 220 Mg Cap PO 220 mg BID SAYDA Administration
[2020-09-24] MEDS: REMDESIVIR 100 MG in SODIUM CHLORIDE 0.9% 250ML 250 ML IV SCH (23:57)
[2020-09-25] MEDS: SODIUM CHLORIDE 0.9% 50 ML IVPB IV SCH ×2 (01:00→23:52)
[2020-09-25 06:07] LABS: Alanine Aminotransferase 27 units/L (7-56); Albumin 3.1 g/dL (3.9-5); Blood Urea Nitrogen 27 mg/dL (7-17); Calcium 8.8 mg/dL (8.4-10.2); Hemolysis Index 21
[2020-09-25 06:08] LABS: BUN/Creatinine Ratio 39
[2020-09-25] MEDS: methylPREDNISolone Sod Succinate 40 MG/1 ML INJ IV SCH ×3 (10:40→21:51)
[2020-09-25] MEDS: ENOXAPARIN 100 MG/1 ML INJ SUB-Q SCH ×2 (10:41→21:48)
[2020-09-25] MEDS: ASCORBIC ACID 500 MG TAB PO SCH ×2 (10:41→21:50)
[2020-09-25] MEDS: CHOLECALCIFEROL (VIT D3) 1000 UNIT (25 mcg) TAB PO SCH (10:41)
[2020-09-25] MEDS: ZINC SULFATE 220 MG CAP PO SCH ×2 (10:41→21:50)
--- NOTE | 2020-09-25 16:58 | Consultation ---
History of Present Illness Consult date: 09/25/20 Requesting physician: FISH MAURICE Reason for consult: dyspnea History of present illness: 60 yo with progressively worsening SOB, cough, fatigue, fevers. Found to be Covid-19 positive and hypoxic in ED, now on BIPAP alternating with HFNC. Active Medications Acetaminophen (Acetaminophen 325 Mg Tab) 650 mg PO Q4H PRN PRN Reason: Pain MILD(1-3)/Fever >100.5/GRAMAJO Albuterol (Albuterol 2.5 Mg/3 Ml Nebu) 2.5 mg IH Q4HRT PRN PRN Reason: Shortness Of Breath Ascorbic Acid (Ascorbic Acid 500 Mg Tab) 500 mg PO BID [facility] Last Admin: 09/25/20 10:41 Dose: 500 mg Documented by: Cholecalciferol (Cholecalciferol (Vit D3) 1000 Unit (25 Mcg) Tab) 1,000 unit PO QDAY [facility] Last Admin: 09/25/20 10:41 Dose: 1,000 unit Documented by: Enoxaparin Sodium (Enoxaparin 100 Mg/1 Ml Inj) 100 mg 1 mg/kg (100 mg) SUB-Q Q12HR [facility]; Protocol Last Admin: 09/25/20 10:41 Dose: 100 mg Documented by: Hydromorphone HCl (Hydromorphone 1 Mg/1 Ml Inj) 0.5 mg IV Q12H PRN PRN Reason: Pain , Severe (7-10) Last Admin: 09/23/20 10:33 Dose: 0.5 mg Documented by: REMDESIVIR 100 mg/ Sodium (Chloride) 250 mls @ 500 mls/hr IV Q24HR@2100 [facility] Stop: 09/27/20 21:29 Last Admin: 09/24/20 23:57 Dose: 500 mls/hr Documented by: Lorazepam (Lorazepam 2 Mg/Ml Vial) 1 mg IV Q3H PRN PRN Reason: Anxiety Last Admin: 09/24/20 11:16 Dose: 1 mg Documented by: Methylprednisolone Sodium Succinate (Methylprednisolone Sod Succinate 40 Mg/1 Ml Inj) 40 mg IV Q8H [facility] Last Admin: 09/25/20 10:40 Dose: 40 mg Documented by: Ondansetron HCl (Ondansetron 4 Mg/2 Ml Inj) 4 mg IV Q8H PRN PRN Reason: Nausea And Vomiting Last Admin: 09/23/20 10:34 Dose: 4 mg Documented by: Oxycodone/Acetaminophen (Oxycodone /Acetaminophen 5-325mg Tab) 1 tab PO Q12H PRN PRN Reason: Pain, Moderate (4-6) Sodium Chloride (Sodium Chloride 0.9% 10 Ml Flush Syringe) 10 ml IV BID [facility] Last Admin: 09/25/20 10:41 Dose: 10 ml Documented by: Sodium Chloride (Sodium Chloride 0.9% 10 Ml Flush Syringe) 10 ml IV PRN PRN PRN Reason: LINE FLUSH Sodium Chloride (Sodium Chloride 0.9% 50 Ml Ivpb) 50 ml IV Q24HR@2100 [facility] Stop: 09/26/20 21:01 Last Admin: 09/25/20 01:00 Dose: 50 ml Documented by: Zinc Sulfate (Zinc Sulfate 220 Mg Cap) 220 mg PO BID [facility] Last Admin: 09/25/20 10:41 Dose: 220 mg Documented by: Past History Past Medical History: other (None) Past Surgical History: Other (bariatric surgery) Social history: single, full code. denies: smoking, alcohol abuse, prescription drug abuse, IV drug use Family history: hypertension Medications and Allergies Allergies Allergy/AdvReac Type Severity Reaction Status Date / Time No Known Allergies Allergy Verified 09/22/20 13:21 Active Meds: Active Medications Acetaminophen (Acetaminophen 325 Mg Tab) 650 mg PO Q4H PRN PRN Reason: Pain MILD(1-3)/Fever >100.5/GRAMAJO Albuterol (Albuterol 2.5 Mg/3 Ml Nebu) 2.5 mg IH Q4HRT PRN PRN Reason: Shortness Of Breath Ascorbic Acid (Ascorbic Acid 500 Mg Tab) 500 mg PO BID [facility] Last Admin: 09/25/20 10:41 Dose: 500 mg Documented by: Cholecalciferol (Cholecalciferol (Vit D3) 1000 Unit (25 Mcg) Tab) 1,000 unit PO QDAY [facility] Last Admin: 09/25/20 10:41 Dose: 1,000 unit Documented by: Enoxaparin Sodium (Enoxaparin 100 Mg/1 Ml Inj) 100 mg 1 mg/kg (100 mg) SUB-Q Q12HR [facility]; Protocol Last Admin: 09/25/20 10:41 Dose: 100 mg Documented by: Hydromorphone HCl (Hydromorphone 1 Mg/1 Ml Inj) 0.5 mg IV Q12H PRN PRN Reason: Pain , Severe (7-10) Last Admin: 09/23/20 10:33 Dose: 0.5 mg Documented by: REMDESIVIR 100 mg/ Sodium (Chloride) 250 mls @ 500 mls/hr IV Q24HR@2100 [facility] Stop: 09/27/20 21:29 Last Admin: 09/24/20 23:57 Dose: 500 mls/hr Documented by: Lorazepam (Lorazepam 2 Mg/Ml Vial) 1 mg IV Q3H PRN PRN Reason: Anxiety Last Admin: 09/24/20 11:16 Dose: 1 mg Documented by: Methylprednisolone Sodium Succinate (Methylprednisolone Sod Succinate 40 Mg/1 Ml Inj) 40 mg IV Q8H [facility] Last Admin: 09/25/20 10:40 Dose: 40 mg Documented by: Ondansetron HCl (Ondansetron 4 Mg/2 Ml Inj) 4 mg IV Q8H PRN PRN Reason: Nausea And Vomiting Last Admin: 09/23/20 10:34 Dose: 4 mg Documented by: Oxycodone/Acetaminophen (Oxycodone /Acetaminophen 5-325mg Tab) 1 tab PO Q12H PRN PRN Reason: Pain, Moderate (4-6) Sodium Chloride (Sodium Chloride 0.9% 10 Ml Flush Syringe) 10 ml IV BID [facility] Last Admin: 09/25/20 10:41 Dose: 10 ml Documented by: Sodium Chloride (Sodium Chloride 0.9% 10 Ml Flush Syringe) 10 ml IV PRN PRN PRN Reason: LINE FLUSH Sodium Chloride (Sodium Chloride 0.9% 50 Ml Ivpb) 50 ml IV Q24HR@2100 [facility] Stop: 09/26/20 21:01 Last Admin: 09/25/20 01:00 Dose: 50 ml Documented by: Zinc Sulfate (Zinc Sulfate 220 Mg Cap) 220 mg PO BID [facility] Last Admin: 09/25/20 10:41 Dose: 220 mg Documented by: Review of Systems All systems: negative Physical Examination Vital signs: Vital Signs Temp 100 F H 09/22/20 13:21 Exam deferred to reduce risk of Covid-19 transmission and preserve PPE (Reviewed exams in chart) Results - Laboratory Findings CBC and BMP: 09/24/20 15:20 09/25/20 05:10 PT/INR, D-dimer D-Dimer 1267.92 ng/mlDDU (0-234) H 09/25/20 05:10 Abnormal lab findings: Abnormal Labs 09/22/20 09/22/20 09/22/20 15:17 15:17 15:30 WBC Lymph % (Auto) 8.0 L [place] % (Auto) Lymph # (Auto) 0.5 L [place] # (Auto) Seg Neutrophils % 84.8 H Seg Neutrophils # D-Dimer 1693.52 H Sodium 134 L Potassium 5.3 H Carbon Dioxide BUN Glucose 101 H Calcium 8.1 L Magnesium Ferritin AST 60 H Lactate Dehydrogenase 666 H C-Reactive Protein 14.50 H Albumin 2.9 L Coronavirus (PCR) 09/22/20 09/23/20 09/23/20 15:30 06:16 06:16 WBC 3.7 L Lymph % (Auto) 12.3 L [place] % (Auto) 7.6 H Lymph # (Auto) 0.4 L [place] # (Auto) Seg Neutrophils % 79.5 H Seg Neutrophils # D-Dimer Sodium Potassium Carbon Dioxide BUN Glucose 110 H Calcium 8.2 L Magnesium Ferritin 723.4 H AST 52 H Lactate Dehydrogenase C-Reactive Protein Albumin 3.2 L Coronavirus (PCR) 09/23/20 09/23/20 09/24/20 15:28 Unknown 15:20 WBC Lymph % (Auto) [place] % (Auto) Lymph # (Auto) [place] # (Auto) Seg Neutrophils % Seg Neutrophils # D-Dimer Sodium 133 L Potassium 5.8 H D Carbon Dioxide 20 L BUN 20 H 26 H Glucose 115 H 111 H Calcium 8.2 L 8.2 L Magnesium Ferritin AST 49 H Lactate Dehydrogenase C-Reactive Protein Albumin 3.1 L 3.3 L Coronavirus (PCR) Positive A 09/24/20 09/24/20 09/25/20 15:20 15:20 05:10 WBC 11.1 H Lymph % (Auto) 5.5 L [place] % (Auto) 8.1 H Lymph # (Auto) 0.6 L [place] # (Auto) 0.9 H Seg Neutrophils % 85.7 H Seg Neutrophils # 9.6 H D-Dimer Sodium Potassium Carbon Dioxide BUN 27 H Glucose 104 H Calcium Magnesium 3.10 H Ferritin AST Lactate Dehydrogenase C-Reactive Protein Albumin 3.1 L Coronavirus (PCR) 09/25/20 09/25/20 09/25/20 05:10 05:10 05:10 WBC Lymph % (Auto) [place] % (Auto) Lymph # (Auto) [place] # (Auto) Seg Neutrophils % Seg Neutrophils # D-Dimer 1267.92 H Sodium Potassium Carbon Dioxide BUN Glucose Calcium Magnesium Ferritin 847.4 H AST Lactate Dehydrogenase C-Reactive Protein 4.10 H Albumin Coronavirus (PCR) - Diagnostic Findings Chest x-ray: report reviewed, image reviewed Assessment and Plan Imp: 1. Covid-19 2. Viral pneumonia 3. Acute respiratory failure, hypoxia 4. Hyperkalemia 5. Obesity Rec: 1. Remdesivir 2. IV Steroids 3. S/p Actemra 4. Proning 5. Wean HFNC as tolerated to keep sats 88% or >; would do BIPAP QHS and prn 6. Full dose anticoagulation 7. Prognosis guarded Thanks for the consult. Will follow.
--- NOTE | 2020-09-25 20:28 | Progress Note ---
Assessment and Plan - Patient Problems (1) Acute hypoxemic respiratory failure Current Visit: Yes Status: Acute Plan to address problem: Supplemental oxygen, pulse oximetry, , nebulizer therapy, high flow supplemental oxygen, prone positioning while in bed. HFNC wean as tolerated, NIPPV qhs (2) Bilateral pneumonia Current Visit: Yes Status: Acute Qualifiers: Pneumonia type: due to unspecified organism Lung location: unspecified part of lung Qualified Code(s): J18.9 - Pneumonia, unspecified organism Plan to address problem: Pneumonia Protocol: IV antibiotic therapy, supplemental oxygen, pulse oximetry, nebulizer therapy, chest x ray, blood culture (3) Suspected COVID-19 virus infection Current Visit: Yes Status: Acute Plan to address problem: coronavirus protocol: IV steroid therapy, IV antibiotic therapy, vitamin c therapy, vitamin d therapy, zinc therapy, supplemental oxygen, pulse oximetry, (4) Obesity hypoventilation syndrome Current Visit: Yes Status: Acute Plan to address problem: balanced diet, increased physical activity at discharge, outpatient pulmonary f/u for sleep study (5) DVT prophylaxis Current Visit: Yes Status: Acute Plan to address problem: SCD to BLE while in bed, prophylactic anticoagulation. History Interval history: 60 YO Female HD #4 with Severe Pneumonia, Coronavirus Infection, Acute hypoxemic Respiratory failure on High Flow supplemental oxygen/NIPPV. Patient acknowledges continued shortness of breath. Patient is comfortable. Patient denies pain. No significant improvement in symptoms overnight. Hospitalist Physical - Constitutional Vitals: Temp Pulse Resp BP Pulse Ox 97.9 F 65 27 H 117/62 97 09/24/20 08:25 09/25/20 19:00 09/25/20 19:00 09/25/20 19:00 09/25/20 19:00 General appearance: Present: severe distress, obese, other (On high flow oxygen) - EENT Eyes: Present: PERRL - Neck Neck: Present: supple - Respiratory Respiratory effort: labored Respiratory: bilateral: diminished, rhonchi - Cardiovascular Rhythm: regular Heart Sounds: Present: S1 & S2 - Extremities Extremities: no ischemia Peripheral Pulses: within normal limits - Abdominal General gastrointestinal: soft, non-tender, non-distended - Integumentary Integumentary: Present: clear, dry - Psychiatric Psychiatric: cooperative - Neurologic Neurologic: CNII-XII intact Results - Labs CBC & Chem 7: 09/24/20 15:20 09/25/20 05:10 Labs: Laboratory Last Values WBC 11.1 K/mm3 (4.5-11.0) H 09/24/20 15:20 RBC 4.65 M/mm3 (3.65-5.03) 09/24/20 15:20 Hgb 13.8 gm/dl (10.1-14.3) 09/24/20 15:20 Hct 42.2 % (30.3-42.9) 09/24/20 15:20 MCV 91 fl (79-97) 09/24/20 15:20 MCH 30 pg (28-32) 09/24/20 15:20 MCHC 33 % (30-34) 09/24/20 15:20 RDW 14.5 % (13.2-15.2) 09/24/20 15:20 Plt Count 333 K/mm3 (140-440) 09/24/20 15:20 Lymph % (Auto) 5.5 % (13.4-35.0) L 09/24/20 15:20 [place] % (Auto) 8.1 % (0.0-7.3) H 09/24/20 15:20 Eos % (Auto) 0.0 % (0.0-4.3) 09/24/20 15:20 Baso % (Auto) 0.7 % (0.0-1.8) 09/24/20 15:20 Lymph # (Auto) 0.6 K/mm3 (1.2-5.4) L 09/24/20 15:20 [place] # (Auto) 0.9 K/mm3 (0.0-0.8) H 09/24/20 15:20 Eos # (Auto) 0.0 K/mm3 (0.0-0.4) 09/24/20 15:20 Baso # (Auto) 0.1 K/mm3 (0.0-0.1) 09/24/20 15:20 Seg Neutrophils % 85.7 % (40.0-70.0) H 09/24/20 15:20 Seg Neutrophils # 9.6 K/mm3 (1.8-7.7) H 09/24/20 15:20 D-Dimer 1267.92 ng/mlDDU (0-234) H 09/25/20 05:10 Sodium 139 mmol/L (137-145) 09/25/20 05:10 Potassium 4.3 mmol/L (3.6-5.0) 09/25/20 05:10 Chloride 103.5 mmol/L (98-107) 09/25/20 05:10 Carbon Dioxide 25 mmol/L (22-30) 09/25/20 05:10 Anion Gap 15 mmol/L 09/25/20 05:10 BUN 27 mg/dL (7-17) H 09/25/20 05:10 Creatinine 0.7 mg/dL (0.6-1.2) 09/25/20 05:10 Estimated GFR > 60 ml/min 09/25/20 05:10 BUN/Creatinine Ratio 39 % 09/25/20 05:10 Glucose 104 mg/dL (65-100) H 09/25/20 05:10 Lactic Acid 1.10 mmol/L (0.7-2.0) 09/22/20 18:17 Calcium 8.8 mg/dL (8.4-10.2) 09/25/20 05:10 Magnesium 3.10 mg/dL (1.7-2.3) H 09/24/20 15:20 Ferritin 847.4 ng/mL (10.0-200.0) H 09/25/20 05:10 Total Bilirubin 0.40 mg/dL (0.1-1.2) 09/25/20 05:10 AST 32 units/L (5-40) 09/25/20 05:10 ALT 27 units/L (7-56) 09/25/20 05:10 Alkaline Phosphatase 72 units/L (35-129) 09/25/20 05:10 Lactate Dehydrogenase 666 units/L (91-180) H 09/22/20 15:17 C-Reactive Protein 4.10 mg/dL (0.00-1.30) H 09/25/20 05:10 Total Protein 7.2 g/dL (6.3-8.2) 09/25/20 05:10 Albumin 3.1 g/dL (3.9-5) L 09/25/20 05:10 Albumin/Globulin Ratio 0.8 % 09/25/20 05:10 Procalcitonin 0.06 ng/mL (<0.15) 09/22/20 18:17 Coronavirus (PCR) Positive (Negative) A 09/23/20 Unknown Microbiology: Microbiology 09/22/20 18:03 Peripheral/Venous Blood Culture - Preliminary NO GROWTH AFTER 48 HOURS 09/22/20 18:03 Peripheral/Venous Blood Culture - Preliminary NO GROWTH AFTER 48 HOURS Active Medications - Current Medications Current Medications: Generic Name Dose Route Start Last Admin Trade Name Freq PRN Reason Stop Dose Admin Acetaminophen 650 mg 09/22/20 18:16 Acetaminophen 325 Mg Tab PO Q4H PRN Pain MILD(1-3)/Fever >100.5/GRAMAJO Albuterol 2.5 mg 09/22/20 18:16 Albuterol 2.5 Mg/3 Ml Nebu IH Q4HRT PRN Shortness Of Breath Ascorbic Acid 500 mg 09/22/20 22:00 09/25/20 10:41 Ascorbic Acid 500 Mg Tab PO 500 mg BID SAYDA Administration Cholecalciferol 1,000 unit 09/23/20 10:00 09/25/20 10:41 Cholecalciferol (Vit D3) 1000 Unit (25 Mcg) Tab PO 1,000 unit QDAY [facility] Administration Enoxaparin Sodium 100 mg 09/23/20 22:00 09/25/20 10:41 Enoxaparin 100 Mg/1 Ml Inj 1 mg/kg (100 mg) 100 mg SUB-Q Administration Q12HR [facility] Protocol Hydromorphone HCl 0.5 mg 09/22/20 18:16 09/23/20 10:33 Hydromorphone 1 Mg/1 Ml Inj IV 0.5 mg Q12H PRN Administration Pain , Severe (7-10) REMDESIVIR 100 mg/ Sodium 250 mls @ 500 mls/hr 09/24/20 21:00 09/24/20 23:57 Chloride IV 09/27/20 21:29 500 mls/hr Q24HR@2100 [facility] Administration Lorazepam 1 mg 09/23/20 20:07 09/24/20 11:16 Lorazepam 2 Mg/Ml Vial IV 1 mg Q3H PRN Administration Anxiety Methylprednisolone Sodium Succinate 40 mg 09/22/20 22:00 09/25/20 18:21 Methylprednisolone Sod Succinate 40 Mg/1 Ml Inj IV 40 mg Q8H SAYDA Administration Ondansetron HCl 4 mg 09/22/20 18:16 09/23/20 10:34 Ondansetron 4 Mg/2 Ml Inj IV 4 mg Q8H PRN Administration Nausea And Vomiting Oxycodone/Acetaminophen 1 tab 09/22/20 18:16 Oxycodone /Acetaminophen 5-325mg Tab PO Q12H PRN Pain, Moderate (4-6) Sodium Chloride 10 ml 09/22/20 22:00 09/25/20 10:41 Sodium Chloride 0.9% 10 Ml Flush Syringe IV 10 ml BID SAYDA Administration Sodium Chloride 10 ml 09/22/20 18:16 Sodium Chloride 0.9% 10 Ml Flush Syringe IV PRN PRN LINE FLUSH Sodium Chloride 50 ml 09/23/20 16:00 09/25/20 01:00 Sodium Chloride 0.9% 50 Ml Ivpb IV 09/26/20 21:01 50 ml Q24HR@2100 SAYDA Administration Zinc Sulfate 220 mg 09/22/20 22:00 09/25/20 10:41 Zinc Sulfate 220 Mg Cap PO 220 mg BID SAYDA Administration
[2020-09-25] MEDS: REMDESIVIR 100 MG in SODIUM CHLORIDE 0.9% 250ML 250 ML IV SCH (21:46)
[2020-09-26] MEDS: methylPREDNISolone Sod Succinate 40 MG/1 ML INJ IV SCH ×3 (05:55→21:31)
[2020-09-26] MEDS: ZINC SULFATE 220 MG CAP PO SCH ×2 (10:20→21:29)
[2020-09-26] MEDS: CHOLECALCIFEROL (VIT D3) 1000 UNIT (25 mcg) TAB PO SCH (10:20)
[2020-09-26] MEDS: ASCORBIC ACID 500 MG TAB PO SCH ×2 (10:20→21:29)
[2020-09-26] MEDS: ENOXAPARIN 100 MG/1 ML INJ SUB-Q SCH ×2 (10:20→21:29)
[2020-09-26 11:06] LABS: Alanine Aminotransferase 45 units/L (7-56); Albumin 3.4 g/dL (3.9-5); Blood Urea Nitrogen 30 mg/dL (7-17); Calcium 8.7 mg/dL (8.4-10.2); Hemolysis Index 5
[2020-09-26 11:07] LABS: BUN/Creatinine Ratio 43
[2020-09-26] MEDS: HYDROmorphone 1 MG/1 ML INJ IV PRN (15:30)
--- NOTE | 2020-09-26 17:00 | Progress Note ---
Assessment and Plan Imp: 1. Covid-19 2. Viral pneumonia 3. Acute respiratory failure, hypoxia 4. Hyperkalemia, better 5. Obesity Rec: 1. Remdesivir 2. IV Steroids 3. S/p Actemra 4. Proning 5. Wean HFNC as tolerated to keep sats 88% or >; would do BIPAP QHS and prn 6. Full dose anticoagulation 7. Prognosis guarded Subjective Date of service: 09/26/20 Principal diagnosis: Covid-19 Interval history: No events. On HFNC 100% FiO2 and 40LPM. + SOB and cough. Active Medications Acetaminophen (Acetaminophen 325 Mg Tab) 650 mg PO Q4H PRN PRN Reason: Pain MILD(1-3)/Fever >100.5/GRAMAJO Albuterol (Albuterol 2.5 Mg/3 Ml Nebu) 2.5 mg IH Q4HRT PRN PRN Reason: Shortness Of Breath Ascorbic Acid (Ascorbic Acid 500 Mg Tab) 500 mg PO BID [facility] Last Admin: 09/26/20 10:20 Dose: 500 mg Documented by: Cholecalciferol (Cholecalciferol (Vit D3) 1000 Unit (25 Mcg) Tab) 1,000 unit PO QDAY [facility] Last Admin: 09/26/20 10:20 Dose: 1,000 unit Documented by: Enoxaparin Sodium (Enoxaparin 100 Mg/1 Ml Inj) 100 mg 1 mg/kg (100 mg) SUB-Q Q12HR [facility]; Protocol Last Admin: 09/26/20 10:20 Dose: 100 mg Documented by: Hydromorphone HCl (Hydromorphone 1 Mg/1 Ml Inj) 0.5 mg IV Q12H PRN PRN Reason: Pain , Severe (7-10) Last Admin: 09/26/20 15:30 Dose: 0.5 mg Documented by: REMDESIVIR 100 mg/ Sodium (Chloride) 250 mls @ 500 mls/hr IV Q24HR@2100 [facility] Stop: 09/27/20 21:29 Last Admin: 09/25/20 21:46 Dose: 500 mls/hr Documented by: Lorazepam (Lorazepam 2 Mg/Ml Vial) 1 mg IV Q3H PRN PRN Reason: Anxiety Last Admin: 09/24/20 11:16 Dose: 1 mg Documented by: Methylprednisolone Sodium Succinate (Methylprednisolone Sod Succinate 40 Mg/1 Ml Inj) 40 mg IV Q8H [facility] Last Admin: 09/26/20 15:06 Dose: 40 mg Documented by: Ondansetron HCl (Ondansetron 4 Mg/2 Ml Inj) 4 mg IV Q8H PRN PRN Reason: Nausea And Vomiting Last Admin: 09/23/20 10:34 Dose: 4 mg Documented by: Oxycodone/Acetaminophen (Oxycodone /Acetaminophen 5-325mg Tab) 1 tab PO Q12H PRN PRN Reason: Pain, Moderate (4-6) Sodium Chloride (Sodium Chloride 0.9% 10 Ml Flush Syringe) 10 ml IV BID [facility] Last Admin: 09/26/20 10:20 Dose: 10 ml Documented by: Sodium Chloride (Sodium Chloride 0.9% 10 Ml Flush Syringe) 10 ml IV PRN PRN PRN Reason: LINE FLUSH Sodium Chloride (Sodium Chloride 0.9% 50 Ml Ivpb) 50 ml IV Q24HR@2100 [facility] Stop: 09/26/20 21:01 Last Admin: 09/25/20 23:52 Dose: 50 ml Documented by: Zinc Sulfate (Zinc Sulfate 220 Mg Cap) 220 mg PO BID [facility] Last Admin: 09/26/20 10:20 Dose: 220 mg Documented by: Objective - Exam Narrative Exam: Physical Exam (reviewed in chart to minimize risk of transmission) Constitutional: deferred Head, Ears, Nose: deferred Eyes: deferred Neck: deferred Oral: deferred Cardiovascular: deferred Respiratory: deferred GI: deferred Musculoskeletal: deferred Skin: deferred Hem/Lymphatic: deferred Psych: deferred Neurological: deferred Vital Signs - 12hr 09/26/20 09/26/20 09/26/20 05:00 05:11 05:16 Temperature Pulse Rate 61 57 L Respiratory 24 26 H 22 Rate Blood Pressure 153/84 153/84 O2 Sat by Pulse 91 95 94 Oximetry 09/26/20 09/26/20 09/26/20 05:30 05:46 06:00 Temperature Pulse Rate 56 L 57 L 57 L Respiratory 26 H 22 25 H Rate Blood Pressure 156/78 156/78 149/68 O2 Sat by Pulse 97 97 98 Oximetry 09/26/20 09/26/20 09/26/20 06:16 06:30 07:00 Temperature Pulse Rate 78 62 78 Respiratory 17 26 H 25 H Rate Blood Pressure 149/68 149/68 149/68 O2 Sat by Pulse 99 93 96 Oximetry 09/26/20 09/26/20 09/26/20 07:16 07:30 07:46 Temperature Pulse Rate 68 60 63 Respiratory 28 H 21 25 H Rate Blood Pressure 149/68 149/68 149/68 O2 Sat by Pulse 99 94 97 Oximetry 09/26/20 09/26/20 09/26/20 08:00 08:16 08:19 Temperature Pulse Rate 76 63 75 Respiratory 16 21 28 H Rate Blood Pressure 149/68 149/68 O2 Sat by Pulse 95 96 95 Oximetry 09/26/20 09/26/20 09/26/20 08:30 08:53 10:00 Temperature Pulse Rate 67 74 Respiratory 24 Rate Blood Pressure 149/68 O2 Sat by Pulse 95 98 Oximetry 09/26/20 09/26/20 09/26/20 10:12 10:44 12:33 Temperature Pulse Rate 80 Respiratory Rate Blood Pressure 99/76 O2 Sat by Pulse 92 Oximetry 09/26/20 09/26/20 09/26/20 12:42 12:48 12:50 Temperature 97.6 F Pulse Rate Respiratory Rate Blood Pressure O2 Sat by Pulse 96 94 Oximetry 09/26/20 09/26/20 09/26/20 13:00 13:10 14:00 Temperature Pulse Rate Respiratory Rate Blood Pressure 124/68 99/76 O2 Sat by Pulse 95 97 97 Oximetry CBC and BMP: 09/24/20 15:20 09/26/20 10:35 ABG, PT/INR, D-dimer: PT/INR, D-dimer D-Dimer 1267.92 ng/mlDDU (0-234) H 09/25/20 05:10 Abnormal lab findings: Abnormal Labs 09/22/20 09/22/20 09/22/20 15:17 15:17 15:30 WBC Lymph % (Auto) 8.0 L [place] % (Auto) Lymph # (Auto) 0.5 L [place] # (Auto) Seg Neutrophils % 84.8 H Seg Neutrophils # D-Dimer 1693.52 H Sodium 134 L Potassium 5.3 H Carbon Dioxide BUN Glucose 101 H Calcium 8.1 L Magnesium Ferritin AST 60 H Lactate Dehydrogenase 666 H C-Reactive Protein 14.50 H Albumin 2.9 L Coronavirus (PCR) 09/22/20 09/23/20 09/23/20 15:30 06:16 06:16 WBC 3.7 L Lymph % (Auto) 12.3 L [place] % (Auto) 7.6 H Lymph # (Auto) 0.4 L [place] # (Auto) Seg Neutrophils % 79.5 H Seg Neutrophils # D-Dimer Sodium Potassium Carbon Dioxide BUN Glucose 110 H Calcium 8.2 L Magnesium Ferritin 723.4 H AST 52 H Lactate Dehydrogenase C-Reactive Protein Albumin 3.2 L Coronavirus (PCR) 09/23/20 09/23/20 09/24/20 15:28 Unknown 15:20 WBC Lymph % (Auto) [place] % (Auto) Lymph # (Auto) [place] # (Auto) Seg Neutrophils % Seg Neutrophils # D-Dimer Sodium 133 L Potassium 5.8 H D Carbon Dioxide 20 L BUN 20 H 26 H Glucose 115 H 111 H Calcium 8.2 L 8.2 L Magnesium Ferritin AST 49 H Lactate Dehydrogenase C-Reactive Protein Albumin 3.1 L 3.3 L Coronavirus (PCR) Positive A 09/24/20 09/24/20 09/25/20 15:20 15:20 05:10 WBC 11.1 H Lymph % (Auto) 5.5 L [place] % (Auto) 8.1 H Lymph # (Auto) 0.6 L [place] # (Auto) 0.9 H Seg Neutrophils % 85.7 H Seg Neutrophils # 9.6 H D-Dimer Sodium Potassium Carbon Dioxide BUN 27 H Glucose 104 H Calcium Magnesium 3.10 H Ferritin AST Lactate Dehydrogenase C-Reactive Protein Albumin 3.1 L Coronavirus (PCR) 09/25/20 09/25/20 09/25/20 05:10 05:10 05:10 WBC Lymph % (Auto) [place] % (Auto) Lymph # (Auto) [place] # (Auto) Seg Neutrophils % Seg Neutrophils # D-Dimer 1267.92 H Sodium Potassium Carbon Dioxide BUN Glucose Calcium Magnesium Ferritin 847.4 H AST Lactate Dehydrogenase C-Reactive Protein 4.10 H Albumin Coronavirus (PCR) 09/26/20 10:35 WBC Lymph % (Auto) [place] % (Auto) Lymph # (Auto) [place] # (Auto) Seg Neutrophils % Seg Neutrophils # D-Dimer Sodium Potassium Carbon Dioxide BUN 30 H Glucose 102 H Calcium Magnesium Ferritin AST 53 H Lactate Dehydrogenase C-Reactive Protein Albumin 3.4 L Coronavirus (PCR) Chest x-ray: report reviewed, image reviewed
--- NOTE | 2020-09-26 20:58 | Progress Note ---
Assessment and Plan - Patient Problems (1) Acute hypoxemic respiratory failure Current Visit: Yes Status: Acute Plan to address problem: Supplemental oxygen, pulse oximetry, , nebulizer therapy, high flow supplemental oxygen, prone positioning while in bed. HFNC wean as tolerated, NIPPV qhs (2) Bilateral pneumonia Current Visit: Yes Status: Acute Qualifiers: Pneumonia type: due to unspecified organism Lung location: unspecified part of lung Qualified Code(s): J18.9 - Pneumonia, unspecified organism Plan to address problem: Pneumonia Protocol: IV antibiotic therapy, supplemental oxygen, pulse oximetry, nebulizer therapy, chest x ray, blood culture (3) Suspected COVID-19 virus infection Current Visit: Yes Status: Acute Plan to address problem: coronavirus protocol: IV steroid therapy, IV antibiotic therapy, vitamin c therapy, vitamin d therapy, zinc therapy, supplemental oxygen, pulse oximetry, (4) Obesity hypoventilation syndrome Current Visit: Yes Status: Acute Plan to address problem: balanced diet, increased physical activity at discharge, outpatient pulmonary f/u for sleep study (5) DVT prophylaxis Current Visit: Yes Status: Acute Plan to address problem: SCD to BLE while in bed, prophylactic anticoagulation. History Interval history: 60 YO Female HD #5 with Severe Pneumonia, Coronavirus Infection, Acute hypoxemic Respiratory failure on High Flow supplemental oxygen/NIPPV. Patient acknowledges continued shortness of breath. Patient is comfortable. Patient denies pain. No significant improvement in symptoms overnight. Patient remains in previous date of health. Hospitalist Physical - Constitutional Vitals: Temp Pulse Resp BP Pulse Ox 98.6 F 59 L 19 144/67 100 09/26/20 20:00 09/26/20 18:30 09/26/20 18:30 09/26/20 18:30 09/26/20 20:26 General appearance: Present: severe distress, obese, other (On high flow oxygen) - EENT Eyes: Present: PERRL ENT: hearing intact - Neck Neck: Present: supple - Respiratory Respiratory effort: labored Respiratory: bilateral: diminished, rhonchi - Cardiovascular Rhythm: regular Heart Sounds: Present: S1 & S2 - Extremities Extremities: no ischemia Peripheral Pulses: within normal limits - Abdominal General gastrointestinal: soft, non-tender, non-distended - Integumentary Integumentary: Present: clear, dry - Psychiatric Psychiatric: cooperative - Neurologic Neurologic: CNII-XII intact Results - Labs CBC & Chem 7: 09/24/20 15:20 09/26/20 10:35 Labs: Laboratory Last Values WBC 11.1 K/mm3 (4.5-11.0) H 09/24/20 15:20 RBC 4.65 M/mm3 (3.65-5.03) 09/24/20 15:20 Hgb 13.8 gm/dl (10.1-14.3) 09/24/20 15:20 Hct 42.2 % (30.3-42.9) 09/24/20 15:20 MCV 91 fl (79-97) 09/24/20 15:20 MCH 30 pg (28-32) 09/24/20 15:20 MCHC 33 % (30-34) 09/24/20 15:20 RDW 14.5 % (13.2-15.2) 09/24/20 15:20 Plt Count 333 K/mm3 (140-440) 09/24/20 15:20 Lymph % (Auto) 5.5 % (13.4-35.0) L 09/24/20 15:20 [place] % (Auto) 8.1 % (0.0-7.3) H 09/24/20 15:20 Eos % (Auto) 0.0 % (0.0-4.3) 09/24/20 15:20 Baso % (Auto) 0.7 % (0.0-1.8) 09/24/20 15:20 Lymph # (Auto) 0.6 K/mm3 (1.2-5.4) L 09/24/20 15:20 [place] # (Auto) 0.9 K/mm3 (0.0-0.8) H 09/24/20 15:20 Eos # (Auto) 0.0 K/mm3 (0.0-0.4) 09/24/20 15:20 Baso # (Auto) 0.1 K/mm3 (0.0-0.1) 09/24/20 15:20 Seg Neutrophils % 85.7 % (40.0-70.0) H 09/24/20 15:20 Seg Neutrophils # 9.6 K/mm3 (1.8-7.7) H 09/24/20 15:20 D-Dimer 1267.92 ng/mlDDU (0-234) H 09/25/20 05:10 Sodium 141 mmol/L (137-145) 09/26/20 10:35 Potassium 4.4 mmol/L (3.6-5.0) 09/26/20 10:35 Chloride 104.2 mmol/L (98-107) 09/26/20 10:35 Carbon Dioxide 28 mmol/L (22-30) 09/26/20 10:35 Anion Gap 13 mmol/L 09/26/20 10:35 BUN 30 mg/dL (7-17) H 09/26/20 10:35 Creatinine 0.7 mg/dL (0.6-1.2) 09/26/20 10:35 Estimated GFR > 60 ml/min 09/26/20 10:35 BUN/Creatinine Ratio 43 % 09/26/20 10:35 Glucose 102 mg/dL (65-100) H 09/26/20 10:35 Lactic Acid 1.10 mmol/L (0.7-2.0) 09/22/20 18:17 Calcium 8.7 mg/dL (8.4-10.2) 09/26/20 10:35 Magnesium 3.10 mg/dL (1.7-2.3) H 09/24/20 15:20 Ferritin 847.4 ng/mL (10.0-200.0) H 09/25/20 05:10 Total Bilirubin 0.50 mg/dL (0.1-1.2) 09/26/20 10:35 AST 53 units/L (5-40) H 09/26/20 10:35 ALT 45 units/L (7-56) 09/26/20 10:35 Alkaline Phosphatase 69 units/L (35-129) 09/26/20 10:35 Lactate Dehydrogenase 666 units/L (91-180) H 09/22/20 15:17 C-Reactive Protein 4.10 mg/dL (0.00-1.30) H 09/25/20 05:10 Total Protein 6.5 g/dL (6.3-8.2) 09/26/20 10:35 Albumin 3.4 g/dL (3.9-5) L 09/26/20 10:35 Albumin/Globulin Ratio 1.1 % 09/26/20 10:35 Procalcitonin 0.06 ng/mL (<0.15) 09/22/20 18:17 Coronavirus (PCR) Positive (Negative) A 09/23/20 Unknown Microbiology: Microbiology 09/22/20 18:03 Peripheral/Venous Blood Culture - Preliminary NO GROWTH AFTER 72 HOURS 09/22/20 18:03 Peripheral/Venous Blood Culture - Preliminary NO GROWTH AFTER 72 HOURS Dhillon/IV: Voiding Method External Female Catheter Active Medications - Current Medications Current Medications: Generic Name Dose Route Start Last Admin Trade Name Freq PRN Reason Stop Dose Admin Acetaminophen 650 mg 09/22/20 18:16 Acetaminophen 325 Mg Tab PO Q4H PRN Pain MILD(1-3)/Fever >100.5/GRAMAJO Albuterol 2.5 mg 09/22/20 18:16 Albuterol 2.5 Mg/3 Ml Nebu IH Q4HRT PRN Shortness Of Breath Ascorbic Acid 500 mg 09/22/20 22:00 09/26/20 10:20 Ascorbic Acid 500 Mg Tab PO 500 mg BID SAYDA Administration Cholecalciferol 1,000 unit 09/23/20 10:00 09/26/20 10:20 Cholecalciferol (Vit D3) 1000 Unit (25 Mcg) Tab PO 1,000 unit QDAY SAYDA Administration Enoxaparin Sodium 100 mg 09/23/20 22:00 09/26/20 10:20 Enoxaparin 100 Mg/1 Ml Inj 1 mg/kg (100 mg) 100 mg SUB-Q Administration Q12HR [facility] Protocol Hydromorphone HCl 0.5 mg 09/22/20 18:16 09/26/20 15:30 Hydromorphone 1 Mg/1 Ml Inj IV 0.5 mg Q12H PRN Administration Pain , Severe (7-10) REMDESIVIR 100 mg/ Sodium 250 mls @ 500 mls/hr 09/24/20 21:00 09/25/20 21:46 Chloride IV 09/27/20 21:29 500 mls/hr Q24HR@2100 SAYDA Administration Lorazepam 1 mg 09/23/20 20:07 09/24/20 11:16 Lorazepam 2 Mg/Ml Vial IV 1 mg Q3H PRN Administration Anxiety Methylprednisolone Sodium Succinate 40 mg 09/22/20 22:00 09/26/20 15:06 Methylprednisolone Sod Succinate 40 Mg/1 Ml Inj IV 40 mg Q8H SAYDA Administration Ondansetron HCl 4 mg 09/22/20 18:16 09/23/20 10:34 Ondansetron 4 Mg/2 Ml Inj IV 4 mg Q8H PRN Administration Nausea And Vomiting Oxycodone/Acetaminophen 1 tab 09/22/20 18:16 Oxycodone /Acetaminophen 5-325mg Tab PO Q12H PRN Pain, Moderate (4-6) Sodium Chloride 10 ml 09/22/20 22:00 09/26/20 10:20 Sodium Chloride 0.9% 10 Ml Flush Syringe IV 10 ml BID SAYDA Administration Sodium Chloride 10 ml 09/22/20 18:16 Sodium Chloride 0.9% 10 Ml Flush Syringe IV PRN PRN LINE FLUSH Sodium Chloride 50 ml 09/23/20 16:00 09/25/20 23:52 Sodium Chloride 0.9% 50 Ml Ivpb IV 09/26/20 21:01 50 ml Q24HR@2100 SAYDA Administration Zinc Sulfate 220 mg 09/22/20 22:00 09/26/20 10:20 Zinc Sulfate 220 Mg Cap PO 220 mg BID SAYDA Administration
[2020-09-26] MEDS: REMDESIVIR 100 MG in SODIUM CHLORIDE 0.9% 250ML 250 ML IV SCH (21:28)
[2020-09-26] MEDS: ACETAMINOPHEN 325 MG TAB PO PRN (21:29)
[2020-09-26] MEDS: oxyCODONE /ACETAMINOPHEN 5-325MG TAB PO PRN (21:31)
[2020-09-26] MEDS: SODIUM CHLORIDE 0.9% 50 ML IVPB IV SCH (21:32)
[2020-09-27] MEDS: HYDROmorphone 1 MG/1 ML INJ IV PRN (03:04)
[2020-09-27] MEDS: methylPREDNISolone Sod Succinate 40 MG/1 ML INJ IV SCH ×3 (06:09→22:12)
[2020-09-27] MEDS: ENOXAPARIN 100 MG/1 ML INJ SUB-Q SCH ×2 (10:30→22:07)
[2020-09-27] MEDS: ZINC SULFATE 220 MG CAP PO SCH ×2 (10:30→22:08)
[2020-09-27] MEDS: ASCORBIC ACID 500 MG TAB PO SCH ×2 (10:30→22:08)
[2020-09-27] MEDS: CHOLECALCIFEROL (VIT D3) 1000 UNIT (25 mcg) TAB PO SCH (10:30)
[2020-09-27] MEDS: oxyCODONE /ACETAMINOPHEN 5-325MG TAB PO PRN (10:43)
--- NOTE | 2020-09-27 11:29 | Progress Note ---
Assessment and Plan Cultures: SARS CoV2 PCR: Positive 09/22/2020 blood culture: no growth A/P: 60-year-old female with obesity hypoventilation, tobacco abuse admitted with: #Bilateral pneumonia: Secondary to COVID-19. Severe disease. #Acute hypoxic respiratory failure: Secondary to above. On high flow nasal sylvia jacklyn and BiPAP. #Obesity #Leukopenia, likely secondary to viral illness Recs: continue steroids x 10 days continue Remdesivir s/p Actemra prophylactic anticoagulation based on d-dimer per hospital protocol trend d-dimer, CRP every 2-3 days Janet Kelley MD, FACP [facility] ([facility] O: [phone] F: [phone] Subjective Date of service: 09/27/20 Principal diagnosis: Covid-19 Interval history: No fever. On HFNC. Objective - Exam Narrative Exam: Physical Exam (reviewed in chart to minimize risk of transmission) Constitutional: deferred Head, Ears, Nose: deferred Eyes: deferred Neck: deferred Oral: deferred Cardiovascular: deferred Respiratory: deferred GI: deferred Musculoskeletal: deferred Skin: deferred Hem/Lymphatic: deferred Psych: deferred Neurological: deferred - Constitutional Vitals: Vital Signs Temp Pulse Resp BP Pulse Ox 97.5 F L 65 22 141/115 100 09/27/20 07:42 09/27/20 10:00 09/27/20 10:00 09/27/20 10:00 09/27/20 10:00 Temperature -Last 24 Hours Temperature 97.5 F Temperature 97.5 F Temperature 97.8 F Temperature 98.6 F Temperature 97.9 F Temperature 97.6 F - Labs CBC & Chem 7: 09/24/20 15:20 09/26/20 10:35
--- NOTE | 2020-09-27 13:01 | Progress Note ---
Assessment and Plan 60 y/o female with acute respiratory failure secondary to COVID 19 pneumonia, unvaccinated. 1. Long discussion at bedside about proning. Patient has agreed to do so and numbers are better already. Wean for sats >88% 2. Continue IV steroids 3. Continue Remdesivir 4. Follow up ID recs 5. Agree with full dose anticoagulation Guarded prognosis. Subjective Date of service: 09/27/20 Principal diagnosis: Covid-19 Interval history: Sitting up in room, no mask and actively coughing. on HFNC at 40 and 100 Objective Vital Signs - 12hr 09/27/20 09/27/20 09/27/20 01:00 01:10 01:20 Temperature Pulse Rate 60 60 60 Pulse Rate [ From Monitor] Respiratory 20 19 17 Rate Blood Pressure 146/67 146/67 146/67 O2 Sat by Pulse 100 100 100 Oximetry 09/27/20 09/27/20 09/27/20 01:30 01:40 01:50 Temperature Pulse Rate 61 64 65 Pulse Rate [ From Monitor] Respiratory 20 12 23 Rate Blood Pressure 158/68 158/68 158/68 O2 Sat by Pulse 100 100 100 Oximetry 09/27/20 09/27/20 09/27/20 02:00 02:10 02:20 Temperature Pulse Rate 64 62 60 Pulse Rate [ From Monitor] Respiratory 18 19 17 Rate Blood Pressure 158/68 147/63 147/63 O2 Sat by Pulse 99 100 100 Oximetry 09/27/20 09/27/20 09/27/20 02:30 02:40 02:50 Temperature Pulse Rate 82 80 76 Pulse Rate [ From Monitor] Respiratory 35 H 16 23 Rate Blood Pressure 171/80 171/80 171/80 O2 Sat by Pulse 97 98 99 Oximetry 09/27/20 09/27/20 09/27/20 03:00 03:04 03:10 Temperature Pulse Rate 69 69 Pulse Rate [ From Monitor] Respiratory 23 20 21 Rate Blood Pressure 171/80 149/57 O2 Sat by Pulse 100 100 Oximetry 09/27/20 09/27/20 09/27/20 03:20 03:30 03:40 Temperature Pulse Rate 61 62 62 Pulse Rate [ From Monitor] Respiratory 16 20 19 Rate Blood Pressure 149/57 132/58 132/58 O2 Sat by Pulse 100 98 98 Oximetry 09/27/20 09/27/20 09/27/20 03:50 04:00 04:25 Temperature 97.5 F L Pulse Rate 67 65 61 Pulse Rate [ From Monitor] Respiratory 20 16 Rate Blood Pressure 132/58 155/65 O2 Sat by Pulse 97 99 Oximetry 09/27/20 09/27/20 09/27/20 04:30 05:00 05:30 Temperature Pulse Rate 62 59 L 63 Pulse Rate [ From Monitor] Respiratory 17 20 21 Rate Blood Pressure 156/74 147/71 148/74 O2 Sat by Pulse 95 98 96 Oximetry 09/27/20 09/27/20 09/27/20 06:00 06:30 07:00 Temperature Pulse Rate 66 76 66 Pulse Rate [ 65 From Monitor] Respiratory 16 18 26 H Rate Blood Pressure 149/67 149/67 157/80 O2 Sat by Pulse 99 82 L 100 Oximetry 09/27/20 09/27/20 09/27/20 07:30 07:42 08:00 Temperature 97.5 F L Pulse Rate 58 L 60 Pulse Rate [ From Monitor] Respiratory 18 15 Rate Blood Pressure 152/74 136/75 O2 Sat by Pulse 100 99 Oximetry 09/27/20 09/27/20 09/27/20 08:30 08:44 09:00 Temperature Pulse Rate 54 L 83 Pulse Rate [ From Monitor] Respiratory 21 22 Rate Blood Pressure 136/75 147/121 O2 Sat by Pulse 99 94 93 Oximetry 09/27/20 09/27/20 09/27/20 09:09 09:30 10:00 Temperature Pulse Rate 84 65 Pulse Rate [ From Monitor] Respiratory 27 H 22 Rate Blood Pressure 141/115 141/115 O2 Sat by Pulse 98 94 100 Oximetry 09/27/20 09/27/20 09/27/20 10:30 11:00 11:30 Temperature Pulse Rate 75 Pulse Rate [ From Monitor] Respiratory 17 Rate Blood Pressure 110/57 101/49 114/44 O2 Sat by Pulse 97 100 100 Oximetry 09/27/20 09/27/20 12:00 12:12 Temperature 97.7 F Pulse Rate Pulse Rate [ From Monitor] Respiratory Rate Blood Pressure 125/66 O2 Sat by Pulse 100 Oximetry CBC and BMP: 09/24/20 15:20 09/26/20 10:35 ABG, PT/INR, D-dimer: PT/INR, D-dimer D-Dimer 1267.92 ng/mlDDU (0-234) H 09/25/20 05:10 Abnormal lab findings: Abnormal Labs 09/22/20 09/22/20 09/22/20 15:17 15:17 15:30 WBC Lymph % (Auto) 8.0 L [place] % (Auto) Lymph # (Auto) 0.5 L [place] # (Auto) Seg Neutrophils % 84.8 H Seg Neutrophils # D-Dimer 1693.52 H Sodium 134 L Potassium 5.3 H Carbon Dioxide BUN Glucose 101 H Calcium 8.1 L Magnesium Ferritin AST 60 H Lactate Dehydrogenase 666 H C-Reactive Protein 14.50 H Albumin 2.9 L Coronavirus (PCR) 09/22/20 09/23/20 09/23/20 15:30 06:16 06:16 WBC 3.7 L Lymph % (Auto) 12.3 L [place] % (Auto) 7.6 H Lymph # (Auto) 0.4 L [place] # (Auto) Seg Neutrophils % 79.5 H Seg Neutrophils # D-Dimer Sodium Potassium Carbon Dioxide BUN Glucose 110 H Calcium 8.2 L Magnesium Ferritin 723.4 H AST 52 H Lactate Dehydrogenase C-Reactive Protein Albumin 3.2 L Coronavirus (PCR) 09/23/20 09/23/20 09/24/20 15:28 Unknown 15:20 WBC Lymph % (Auto) [place] % (Auto) Lymph # (Auto) [place] # (Auto) Seg Neutrophils % Seg Neutrophils # D-Dimer Sodium 133 L Potassium 5.8 H D Carbon Dioxide 20 L BUN 20 H 26 H Glucose 115 H 111 H Calcium 8.2 L 8.2 L Magnesium Ferritin AST 49 H Lactate Dehydrogenase C-Reactive Protein Albumin 3.1 L 3.3 L Coronavirus (PCR) Positive A 09/24/20 09/24/20 09/25/20 15:20 15:20 05:10 WBC 11.1 H Lymph % (Auto) 5.5 L [place] % (Auto) 8.1 H Lymph # (Auto) 0.6 L [place] # (Auto) 0.9 H Seg Neutrophils % 85.7 H Seg Neutrophils # 9.6 H D-Dimer Sodium Potassium Carbon Dioxide BUN 27 H Glucose 104 H Calcium Magnesium 3.10 H Ferritin AST Lactate Dehydrogenase C-Reactive Protein Albumin 3.1 L Coronavirus (PCR) 09/25/20 09/25/20 09/25/20 05:10 05:10 05:10 WBC Lymph % (Auto) [place] % (Auto) Lymph # (Auto) [place] # (Auto) Seg Neutrophils % Seg Neutrophils # D-Dimer 1267.92 H Sodium Potassium Carbon Dioxide BUN Glucose Calcium Magnesium Ferritin 847.4 H AST Lactate Dehydrogenase C-Reactive Protein 4.10 H Albumin Coronavirus (PCR) 09/26/20 10:35 WBC Lymph % (Auto) [place] % (Auto) Lymph # (Auto) [place] # (Auto) Seg Neutrophils % Seg Neutrophils # D-Dimer Sodium Potassium Carbon Dioxide BUN 30 H Glucose 102 H Calcium Magnesium Ferritin AST 53 H Lactate Dehydrogenase C-Reactive Protein Albumin 3.4 L Coronavirus (PCR)
[2020-09-27] MEDS: LORazepam 2 MG/ML VIAL IV PRN ×2 (13:30→22:09)
--- NOTE | 2020-09-27 21:07 | Progress Note ---
Assessment and Plan - Patient Problems (1) Acute hypoxemic respiratory failure Current Visit: Yes Status: Acute Plan to address problem: Supplemental oxygen, pulse oximetry, , nebulizer therapy, high flow supplemental oxygen, prone positioning while in bed. HFNC wean as tolerated, NIPPV qhs (2) Bilateral pneumonia Current Visit: Yes Status: Acute Qualifiers: Pneumonia type: due to unspecified organism Lung location: unspecified part of lung Qualified Code(s): J18.9 - Pneumonia, unspecified organism Plan to address problem: Pneumonia Protocol: IV antibiotic therapy, supplemental oxygen, pulse oximetry, nebulizer therapy, chest x ray, blood culture (3) Suspected COVID-19 virus infection Current Visit: Yes Status: Acute Plan to address problem: coronavirus protocol: IV steroid therapy, IV antibiotic therapy, vitamin c therapy, vitamin d therapy, zinc therapy, supplemental oxygen, pulse oximetry, (4) Obesity hypoventilation syndrome Current Visit: Yes Status: Acute Plan to address problem: balanced diet, increased physical activity at discharge, outpatient pulmonary f/u for sleep study (5) DVT prophylaxis Current Visit: Yes Status: Acute Plan to address problem: SCD to BLE while in bed, prophylactic anticoagulation. History Interval history: 60 YO Female HD #6 with Severe Pneumonia, Coronavirus Infection, Acute hypoxemic Respiratory failure on High Flow supplemental oxygen. Patient acknowledges continued shortness of breath. Patient comfortable. Patient denies pain. No significant improvement in symptoms overnight. Hospitalist Physical - Constitutional Vitals: Temp Pulse Resp BP Pulse Ox 97.6 F 64 23 117/57 95 09/27/20 20:00 09/27/20 18:00 09/27/20 18:00 09/27/20 18:00 09/27/20 18:00 General appearance: Present: severe distress, obese, other (On high flow oxygen) - EENT Eyes: Present: PERRL, EOM intact ENT: hearing intact - Neck Neck: Present: supple - Respiratory Respiratory effort: labored Respiratory: bilateral: diminished, rhonchi - Cardiovascular Rhythm: regular Heart Sounds: Present: S1 & S2 - Extremities Extremity abnormal: edema Peripheral Pulses: within normal limits - Abdominal General gastrointestinal: soft, non-tender, non-distended - Integumentary Integumentary: Present: clear, dry - Psychiatric Psychiatric: cooperative - Neurologic Neurologic: CNII-XII intact Results - Labs CBC & Chem 7: 09/24/20 15:20 09/26/20 10:35 Labs: Laboratory Last Values WBC 11.1 K/mm3 (4.5-11.0) H 09/24/20 15:20 RBC 4.65 M/mm3 (3.65-5.03) 09/24/20 15:20 Hgb 13.8 gm/dl (10.1-14.3) 09/24/20 15:20 Hct 42.2 % (30.3-42.9) 09/24/20 15:20 MCV 91 fl (79-97) 09/24/20 15:20 MCH 30 pg (28-32) 09/24/20 15:20 MCHC 33 % (30-34) 09/24/20 15:20 RDW 14.5 % (13.2-15.2) 09/24/20 15:20 Plt Count 333 K/mm3 (140-440) 09/24/20 15:20 Lymph % (Auto) 5.5 % (13.4-35.0) L 09/24/20 15:20 [place] % (Auto) 8.1 % (0.0-7.3) H 09/24/20 15:20 Eos % (Auto) 0.0 % (0.0-4.3) 09/24/20 15:20 Baso % (Auto) 0.7 % (0.0-1.8) 09/24/20 15:20 Lymph # (Auto) 0.6 K/mm3 (1.2-5.4) L 09/24/20 15:20 [place] # (Auto) 0.9 K/mm3 (0.0-0.8) H 09/24/20 15:20 Eos # (Auto) 0.0 K/mm3 (0.0-0.4) 09/24/20 15:20 Baso # (Auto) 0.1 K/mm3 (0.0-0.1) 09/24/20 15:20 Seg Neutrophils % 85.7 % (40.0-70.0) H 09/24/20 15:20 Seg Neutrophils # 9.6 K/mm3 (1.8-7.7) H 09/24/20 15:20 D-Dimer 1267.92 ng/mlDDU (0-234) H 09/25/20 05:10 Sodium 141 mmol/L (137-145) 09/26/20 10:35 Potassium 4.4 mmol/L (3.6-5.0) 09/26/20 10:35 Chloride 104.2 mmol/L (98-107) 09/26/20 10:35 Carbon Dioxide 28 mmol/L (22-30) 09/26/20 10:35 Anion Gap 13 mmol/L 09/26/20 10:35 BUN 30 mg/dL (7-17) H 09/26/20 10:35 Creatinine 0.7 mg/dL (0.6-1.2) 09/26/20 10:35 Estimated GFR > 60 ml/min 09/26/20 10:35 BUN/Creatinine Ratio 43 % 09/26/20 10:35 Glucose 102 mg/dL (65-100) H 09/26/20 10:35 Lactic Acid 1.10 mmol/L (0.7-2.0) 09/22/20 18:17 Calcium 8.7 mg/dL (8.4-10.2) 09/26/20 10:35 Magnesium 3.10 mg/dL (1.7-2.3) H 09/24/20 15:20 Ferritin 847.4 ng/mL (10.0-200.0) H 09/25/20 05:10 Total Bilirubin 0.50 mg/dL (0.1-1.2) 09/26/20 10:35 AST 53 units/L (5-40) H 09/26/20 10:35 ALT 45 units/L (7-56) 09/26/20 10:35 Alkaline Phosphatase 69 units/L (35-129) 09/26/20 10:35 Lactate Dehydrogenase 666 units/L (91-180) H 09/22/20 15:17 C-Reactive Protein 4.10 mg/dL (0.00-1.30) H 09/25/20 05:10 Total Protein 6.5 g/dL (6.3-8.2) 09/26/20 10:35 Albumin 3.4 g/dL (3.9-5) L 09/26/20 10:35 Albumin/Globulin Ratio 1.1 % 09/26/20 10:35 Procalcitonin 0.06 ng/mL (<0.15) 09/22/20 18:17 Coronavirus (PCR) Positive (Negative) A 09/23/20 Unknown Microbiology: Microbiology 09/22/20 18:03 Peripheral/Venous Blood Culture - Preliminary NO GROWTH AFTER 4 DAYS 09/22/20 18:03 Peripheral/Venous Blood Culture - Preliminary NO GROWTH AFTER 4 DAYS Dhillon/IV: Voiding Method External Female Catheter Active Medications - Current Medications Current Medications: Generic Name Dose Route Start Last Admin Trade Name Freq PRN Reason Stop Dose Admin Acetaminophen 650 mg 09/22/20 18:16 09/26/20 21:29 Acetaminophen 325 Mg Tab PO 650 mg Q4H PRN Administration Pain MILD(1-3)/Fever >100.5/GRAMAJO Albuterol 2.5 mg 09/22/20 18:16 Albuterol 2.5 Mg/3 Ml Nebu IH Q4HRT PRN Shortness Of Breath Ascorbic Acid 500 mg 09/22/20 22:00 09/27/20 10:30 Ascorbic Acid 500 Mg Tab PO 500 mg BID SAYDA Administration Cholecalciferol 1,000 unit 09/23/20 10:00 09/27/20 10:30 Cholecalciferol (Vit D3) 1000 Unit (25 Mcg) Tab PO 1,000 unit QDAY [facility] Administration Enoxaparin Sodium 100 mg 09/23/20 22:00 09/27/20 10:30 Enoxaparin 100 Mg/1 Ml Inj 1 mg/kg (100 mg) 100 mg SUB-Q Administration Q12HR [facility] Protocol Hydromorphone HCl 0.5 mg 09/22/20 18:16 09/27/20 03:04 Hydromorphone 1 Mg/1 Ml Inj IV 0.5 mg Q12H PRN Administration Pain , Severe (7-10) REMDESIVIR 100 mg/ Sodium 250 mls @ 500 mls/hr 09/24/20 21:00 09/26/20 21:28 Chloride IV 09/27/20 21:29 500 mls/hr Q24HR@2100 SAYDA Administration Lorazepam 1 mg 09/27/20 12:59 09/27/20 13:30 Lorazepam 2 Mg/Ml Vial IV 1 mg Q4H PRN Administration Anxiety Methylprednisolone Sodium Succinate 40 mg 09/22/20 22:00 09/27/20 14:26 Methylprednisolone Sod Succinate 40 Mg/1 Ml Inj IV 40 mg Q8H SAYDA Administration Ondansetron HCl 4 mg 09/22/20 18:16 09/23/20 10:34 Ondansetron 4 Mg/2 Ml Inj IV 4 mg Q8H PRN Administration Nausea And Vomiting Oxycodone/Acetaminophen 1 tab 09/22/20 18:16 09/27/20 10:43 Oxycodone /Acetaminophen 5-325mg Tab PO 1 tab Q12H PRN Administration Pain, Moderate (4-6) Sodium Chloride 10 ml 09/22/20 22:00 09/27/20 16:38 Sodium Chloride 0.9% 10 Ml Flush Syringe IV 10 ml BID SAYDA Administration Sodium Chloride 10 ml 09/22/20 18:16 Sodium Chloride 0.9% 10 Ml Flush Syringe IV PRN PRN LINE FLUSH Zinc Sulfate 220 mg 09/22/20 22:00 09/27/20 10:30 Zinc Sulfate 220 Mg Cap PO 220 mg BID SAYDA Administration Nutrition/Malnutrition Assess - Dietary Evaluation Nutrition/Malnutrition Findings: Nutrition Notes Start: 09/27/20 15:17 Freq: Status: Active Protocol: Document 09/27/20 15:18 (Rec: 09/27/20 15:25 [id number]) Nutrition Notes 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 Unable to contact pt. RN did not answer phone x3. Is patient on ventilator? No Is Patient Ambulatory and/or Out of Bed No REE-([facility]-confined to bed) 1990.376 Kcal/Kg value to use for calculation 14 Approximate Energy Requirements Using 1461 kcal/Kg Calculation Used for Recommendations Kcal/kg Additional Notes Protein: (0.8-1g/kg AdjBW: 83kg) 66-83g Fluid: 1 ml/kcal Nutrition Intervention Add Supplement/Snack (indicate name/kcal Ensure daily /protein ) Provides kCal: 350 Provides Protein (gm) 20 Follow-Up By: 09/28/20 Additional Comments F/u: assessment and intakes
[2020-09-27] MEDS: REMDESIVIR 100 MG in SODIUM CHLORIDE 0.9% 250ML 250 ML IV SCH (22:06)
[2020-09-27] MEDS: ACETAMINOPHEN 325 MG TAB PO PRN (22:07)
[2020-09-28] MEDS: methylPREDNISolone Sod Succinate 125 MG/2 ML INJ IV SCH ×3 (06:59→22:15)
--- NOTE | 2020-09-28 08:17 | Progress Note ---
Assessment and Plan Assessment and plan: --COVID-19 positive infection; with hypoxia -- Acute hypoxemic respiratory failure/on high flow oxygen/BiPAP Current Visit: Yes Status: Acute prone positioning while in bed. Patient remains on high flow nasal cannula oxygen; 30 L FiO2 90% O2 sats 96% With intermittent BiPAP, wean as tolerated Home O2 evaluation prior to discharge Pulmonary following -- Bilateral pneumonia Current Visit: Yes Status: Acute Empiric antibiotics discontinued As procalcitonin level is normal --Positive COVID-19 virus infection Current Visit: Yes Status: Acute Isolation droplet and contact, ID consult Patient is hypoxic, on high flow nasal cannula oxygen Completed remdesivir, continue Solu-Medrol Inflammatory markers, pulmonary following Prone positioning, home O2 evaluation Supportive medications zinc, vitamin D, ascorbic acid --Hyperkalemia; resolved Current Visit: Yes Status: Acute Monitor electrolytes -- Obesity hypoventilation syndrome/BMI 36.0 Current Visit: Yes Status: Acute Dietary modification , exercise as tolerated , lifestyle changes Weight reduction when medically stable Outpatient sleep study to rule out obstructive sleep apnea --Severe protein calorie malnutrition; hypoalbuminemia Current Visit: Yes Status: Chronic Nutrition supplements, nutrition consult -- DVT prophylaxis Current Visit: Yes Status: Acute Full dose therapeutic anticoagulation with Lovenox Closely monitor the patient and adjust management as needed Plan of care reviewed with the patient and her nurse Patient is obese critically ill, severe Covid infection Guarded prognosis The high probability of a clinically significant, sudden or life threatening deterioration of the multiple system(s) required my full and direct attention, intervention and personal management. The aggregate critical care time was [45] minutes. This time is in addition to time spent performing reported procedures but includes the following: [x] Data Review and interpretation [x] Patient assessment and monitoring of vital signs [x] Documentation [x] Medication orders and management Daily management 09/23/2020; Positive COVID-19, Hypoxemia on high flow oxygen Morbidly obese, ID following Continue therapies per protocol Consult pulmonary in the morning Resume service; 09/28/2020; Patient continues to require high flow nasal cannula oxygen with intermittent BiPAP Wean as tolerated, home O2 evaluation at discharge History Interval history: I have seen and examined the patient in IMCU this morning at bedside Strict isolation precautions and PPE protocols followed per COVID-19 guidelines Patient remains on high flow oxygen at 30 L of 90% FiO2 saturating 96% Patient complains of mild shortness of breath and generalized weakness Vital signs noted Hospitalist Physical - Constitutional Vitals: Temp Pulse Resp BP Pulse Ox 97.6 F 61 29 H 138/51 95 09/27/20 20:00 09/28/20 07:30 09/28/20 07:30 09/28/20 07:30 09/28/20 07:30 General appearance: Present: mild distress, obese, other (On high flow nasal cannula oxygen) - EENT Eyes: Present: PERRL, EOM intact - Neck Neck: Present: supple, normal ROM - Respiratory Respiratory effort: normal Respiratory: bilateral: diminished, rhonchi, negative: rales, wheezing - Cardiovascular Rhythm: regular Heart Sounds: Present: S1 & S2 - Extremities Extremities: no ischemia, No edema - Abdominal General gastrointestinal: soft, non-tender, non-distended, normal bowel sounds - Integumentary Integumentary: Present: clear, warm - Psychiatric Psychiatric: agitated - Neurologic Neurologic: moves all extremities Results - Labs CBC & Chem 7: 09/24/20 15:20 09/26/20 10:35 Labs: Laboratory Last Values WBC 11.1 K/mm3 (4.5-11.0) H 09/24/20 15:20 RBC 4.65 M/mm3 (3.65-5.03) 09/24/20 15:20 Hgb 13.8 gm/dl (10.1-14.3) 09/24/20 15:20 Hct 42.2 % (30.3-42.9) 09/24/20 15:20 MCV 91 fl (79-97) 09/24/20 15:20 MCH 30 pg (28-32) 09/24/20 15:20 MCHC 33 % (30-34) 09/24/20 15:20 RDW 14.5 % (13.2-15.2) 09/24/20 15:20 Plt Count 333 K/mm3 (140-440) 09/24/20 15:20 Lymph % (Auto) 5.5 % (13.4-35.0) L 09/24/20 15:20 [place] % (Auto) 8.1 % (0.0-7.3) H 09/24/20 15:20 Eos % (Auto) 0.0 % (0.0-4.3) 09/24/20 15:20 Baso % (Auto) 0.7 % (0.0-1.8) 09/24/20 15:20 Lymph # (Auto) 0.6 K/mm3 (1.2-5.4) L 09/24/20 15:20 [place] # (Auto) 0.9 K/mm3 (0.0-0.8) H 09/24/20 15:20 Eos # (Auto) 0.0 K/mm3 (0.0-0.4) 09/24/20 15:20 Baso # (Auto) 0.1 K/mm3 (0.0-0.1) 09/24/20 15:20 Seg Neutrophils % 85.7 % (40.0-70.0) H 09/24/20 15:20 Seg Neutrophils # 9.6 K/mm3 (1.8-7.7) H 09/24/20 15:20 D-Dimer 1267.92 ng/mlDDU (0-234) H 09/25/20 05:10 Sodium 141 mmol/L (137-145) 09/26/20 10:35 Potassium 4.4 mmol/L (3.6-5.0) 09/26/20 10:35 Chloride 104.2 mmol/L (98-107) 09/26/20 10:35 Carbon Dioxide 28 mmol/L (22-30) 09/26/20 10:35 Anion Gap 13 mmol/L 09/26/20 10:35 BUN 30 mg/dL (7-17) H 09/26/20 10:35 Creatinine 0.7 mg/dL (0.6-1.2) 09/26/20 10:35 Estimated GFR > 60 ml/min 09/26/20 10:35 BUN/Creatinine Ratio 43 % 09/26/20 10:35 Glucose 102 mg/dL (65-100) H 09/26/20 10:35 Lactic Acid 1.10 mmol/L (0.7-2.0) 09/22/20 18:17 Calcium 8.7 mg/dL (8.4-10.2) 09/26/20 10:35 Magnesium 3.10 mg/dL (1.7-2.3) H 09/24/20 15:20 Ferritin 847.4 ng/mL (10.0-200.0) H 09/25/20 05:10 Total Bilirubin 0.50 mg/dL (0.1-1.2) 09/26/20 10:35 AST 53 units/L (5-40) H 09/26/20 10:35 ALT 45 units/L (7-56) 09/26/20 10:35 Alkaline Phosphatase 69 units/L (35-129) 09/26/20 10:35 Lactate Dehydrogenase 666 units/L (91-180) H 09/22/20 15:17 C-Reactive Protein 4.10 mg/dL (0.00-1.30) H 09/25/20 05:10 Total Protein 6.5 g/dL (6.3-8.2) 09/26/20 10:35 Albumin 3.4 g/dL (3.9-5) L 09/26/20 10:35 Albumin/Globulin Ratio 1.1 % 09/26/20 10:35 Procalcitonin 0.06 ng/mL (<0.15) 09/22/20 18:17 Coronavirus (PCR) Positive (Negative) A 09/23/20 Unknown Microbiology: Microbiology 09/22/20 18:03 Peripheral/Venous Blood Culture - Final NO GROWTH AFTER 5 DAYS 09/22/20 18:03 Peripheral/Venous Blood Culture - Final NO GROWTH AFTER 5 DAYS Dhillon/IV: Voiding Method External Female Catheter Active Medications - Current Medications Current Medications: Generic Name Dose Route Start Last Admin Trade Name Freq PRN Reason Stop Dose Admin Acetaminophen 650 mg 09/22/20 18:16 09/27/20 22:07 Acetaminophen 325 Mg Tab PO 650 mg Q4H PRN Administration Pain MILD(1-3)/Fever >100.5/GRAMAJO Albuterol 2.5 mg 09/22/20 18:16 Albuterol 2.5 Mg/3 Ml Nebu IH Q4HRT PRN Shortness Of Breath Ascorbic Acid 500 mg 09/22/20 22:00 09/27/20 22:08 Ascorbic Acid 500 Mg Tab PO 500 mg BID SAYDA Administration Cholecalciferol 1,000 unit 09/23/20 10:00 09/27/20 10:30 Cholecalciferol (Vit D3) 1000 Unit (25 Mcg) Tab PO 1,000 unit QDAY SAYDA Administration Enoxaparin Sodium 100 mg 09/23/20 22:00 09/27/20 22:07 Enoxaparin 100 Mg/1 Ml Inj 1 mg/kg (100 mg) 100 mg SUB-Q Administration Q12HR [facility] Protocol Hydromorphone HCl 0.5 mg 09/22/20 18:16 09/27/20 03:04 Hydromorphone 1 Mg/1 Ml Inj IV 0.5 mg Q12H PRN Administration Pain , Severe (7-10) Lorazepam 1 mg 09/27/20 12:59 09/27/20 22:09 Lorazepam 2 Mg/Ml Vial IV 1 mg Q4H PRN Administration Anxiety Methylprednisolone Sodium Succinate 40 mg 09/28/20 06:00 09/28/20 06:59 Methylprednisolone Sod Succinate 125 Mg/2 Ml Inj IV 10/07/20 22:01 40 mg Q8H SAYDA Administration Ondansetron HCl 4 mg 09/22/20 18:16 09/23/20 10:34 Ondansetron 4 Mg/2 Ml Inj IV 4 mg Q8H PRN Administration Nausea And Vomiting Oxycodone/Acetaminophen 1 tab 09/22/20 18:16 09/27/20 10:43 Oxycodone /Acetaminophen 5-325mg Tab PO 1 tab Q12H PRN Administration Pain, Moderate (4-6) Sodium Chloride 10 ml 09/22/20 22:00 09/27/20 22:12 Sodium Chloride 0.9% 10 Ml Flush Syringe IV 10 ml BID SAYDA Administration Sodium Chloride 10 ml 09/22/20 18:16 Sodium Chloride 0.9% 10 Ml Flush Syringe IV PRN PRN LINE FLUSH Zinc Sulfate 220 mg 09/22/20 22:00 09/27/20 22:08 Zinc Sulfate 220 Mg Cap PO 220 mg BID SAYDA Administration Nutrition/Malnutrition Assess - Dietary Evaluation Nutrition/Malnutrition Findings: Nutrition Notes Start: 09/27/20 15:17 Freq: Status: Active Protocol: Document 09/27/20 15:18 SOTO (Rec: 09/27/20 15:25 SOTO [id number]) Nutrition Notes 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 Unable to contact pt. RN did not answer phone x3. Is patient on ventilator? No Is Patient Ambulatory and/or Out of Bed No REE-([facility]-confined to bed) 1990.376 Kcal/Kg value to use for calculation 14 Approximate Energy Requirements Using 1461 kcal/Kg Calculation Used for Recommendations Kcal/kg Additional Notes Protein: (0.8-1g/kg AdjBW: 83kg) 66-83g Fluid: 1 ml/kcal Nutrition Intervention Add Supplement/Snack (indicate name/kcal Ensure daily /protein ) Provides kCal: 350 Provides Protein (gm) 20 Follow-Up By: 09/28/20 Additional Comments F/u: assessment and intakes
[2020-09-28] MEDS: CHOLECALCIFEROL (VIT D3) 1000 UNIT (25 mcg) TAB PO SCH (09:20)
[2020-09-28] MEDS: ENOXAPARIN 100 MG/1 ML INJ SUB-Q SCH ×2 (09:20→22:14)
[2020-09-28] MEDS: ZINC SULFATE 220 MG CAP PO SCH ×2 (09:20→22:15)
[2020-09-28] MEDS: ASCORBIC ACID 500 MG TAB PO SCH ×2 (09:20→22:15)
[2020-09-28] MEDS: oxyCODONE /ACETAMINOPHEN 5-325MG TAB PO PRN (09:34)
[2020-09-28 10:05] LABS: C-Reactive Protein 0.6 mg/dL (0.00-1.30)
--- NOTE | 2020-09-28 10:22 | Progress Note ---
Assessment and Plan 60 y/o female with acute respiratory failure secondary to COVID 19 pneumonia, unvaccinated. 09/28/20: Continue proning. Continue Remdesivir and IV steroids. Monitor fluid intake and fluid balance. Guarded prognosis. 1. Long discussion at bedside about proning. Patient has agreed to do so and numbers are better already. Wean for sats >88% 2. Continue IV steroids 3. Continue Remdesivir 4. Follow up ID recs 5. Agree with full dose anticoagulation Guarded prognosis. Subjective Date of service: 09/28/20 Principal diagnosis: Covid-19 Interval history: Patient did well when proned. Down to 30 and 90. Awake eating breakfast but just spilled her OJ all over herself. Still coughing. Objective Vital Signs - 12hr 09/27/20 09/27/20 09/27/20 22:30 23:00 23:07 Pulse Rate 73 70 Pulse Rate [ From Monitor] Respiratory 32 H 15 20 Rate Blood Pressure 121/58 124/58 O2 Sat by Pulse 95 94 Oximetry 09/27/20 09/27/20 09/28/20 23:30 23:42 00:00 Pulse Rate 72 64 63 Pulse Rate [ From Monitor] Respiratory 21 30 H 30 H Rate Blood Pressure 124/58 124/58 115/56 O2 Sat by Pulse 98 96 98 Oximetry 09/28/20 09/28/20 09/28/20 00:05 00:30 01:00 Pulse Rate 63 64 65 Pulse Rate [ From Monitor] Respiratory 28 H 29 H Rate Blood Pressure 115/56 115/56 O2 Sat by Pulse 99 97 Oximetry 09/28/20 09/28/20 09/28/20 01:30 02:00 02:30 Pulse Rate 71 64 74 Pulse Rate [ From Monitor] Respiratory 12 17 26 H Rate Blood Pressure 121/56 121/64 121/64 O2 Sat by Pulse 97 99 100 Oximetry 09/28/20 09/28/20 09/28/20 03:00 03:30 03:40 Pulse Rate 60 61 60 Pulse Rate [ From Monitor] Respiratory 25 H 24 Rate Blood Pressure 115/49 115/49 O2 Sat by Pulse 100 98 Oximetry 09/28/20 09/28/20 09/28/20 04:00 05:00 05:30 Pulse Rate 62 58 L 78 Pulse Rate [ 26 L From Monitor] Respiratory 26 H 26 H 12 Rate Blood Pressure 117/52 100/41 100/41 O2 Sat by Pulse 100 100 99 Oximetry 09/28/20 09/28/20 09/28/20 06:00 06:30 07:00 Pulse Rate 73 68 74 Pulse Rate [ From Monitor] Respiratory 25 H 17 24 Rate Blood Pressure 112/68 133/66 138/51 O2 Sat by Pulse 91 94 100 Oximetry 09/28/20 09/28/20 09/28/20 07:30 08:00 08:30 Pulse Rate 61 59 L 56 L Pulse Rate [ 59 L From Monitor] Respiratory 29 H 34 H 21 Rate Blood Pressure 138/51 124/58 124/58 O2 Sat by Pulse 95 95 95 Oximetry 09/28/20 09/28/20 09/28/20 09:00 09:30 10:00 Pulse Rate 61 80 74 Pulse Rate [ From Monitor] Respiratory 35 H 45 H 34 H Rate Blood Pressure 118/52 118/52 118/52 O2 Sat by Pulse 94 91 89 Oximetry CBC and BMP: 09/24/20 15:20 09/26/20 10:35 ABG, PT/INR, D-dimer: PT/INR, D-dimer D-Dimer 1267.92 ng/mlDDU (0-234) H 09/25/20 05:10 Abnormal lab findings: Abnormal Labs 09/22/20 09/22/20 09/22/20 15:17 15:17 15:30 WBC Lymph % (Auto) 8.0 L Price % (Auto) Lymph # (Auto) 0.5 L Price # (Auto) Seg Neutrophils % 84.8 H Seg Neutrophils # D-Dimer 1693.52 H Sodium 134 L Potassium 5.3 H Carbon Dioxide BUN Glucose 101 H Calcium 8.1 L Magnesium Ferritin AST 60 H Lactate Dehydrogenase 666 H C-Reactive Protein 14.50 H Albumin 2.9 L Coronavirus (PCR) 09/22/20 09/23/20 09/23/20 15:30 06:16 06:16 WBC 3.7 L Lymph % (Auto) 12.3 L Price % (Auto) 7.6 H Lymph # (Auto) 0.4 L Price # (Auto) Seg Neutrophils % 79.5 H Seg Neutrophils # D-Dimer Sodium Potassium Carbon Dioxide BUN Glucose 110 H Calcium 8.2 L Magnesium Ferritin 723.4 H AST 52 H Lactate Dehydrogenase C-Reactive Protein Albumin 3.2 L Coronavirus (PCR) 09/23/20 09/23/20 09/24/20 15:28 Unknown 15:20 WBC Lymph % (Auto) Price % (Auto) Lymph # (Auto) Price # (Auto) Seg Neutrophils % Seg Neutrophils # D-Dimer Sodium 133 L Potassium 5.8 H D Carbon Dioxide 20 L BUN 20 H 26 H Glucose 115 H 111 H Calcium 8.2 L 8.2 L Magnesium Ferritin AST 49 H Lactate Dehydrogenase C-Reactive Protein Albumin 3.1 L 3.3 L Coronavirus (PCR) Positive A 09/24/20 09/24/20 09/25/20 15:20 15:20 05:10 WBC 11.1 H Lymph % (Auto) 5.5 L Price % (Auto) 8.1 H Lymph # (Auto) 0.6 L Price # (Auto) 0.9 H Seg Neutrophils % 85.7 H Seg Neutrophils # 9.6 H D-Dimer Sodium Potassium Carbon Dioxide BUN 27 H Glucose 104 H Calcium Magnesium 3.10 H Ferritin AST Lactate Dehydrogenase C-Reactive Protein Albumin 3.1 L Coronavirus (PCR) 09/25/20 09/25/20 09/25/20 05:10 05:10 05:10 WBC Lymph % (Auto) Price % (Auto) Lymph # (Auto) Price # (Auto) Seg Neutrophils % Seg Neutrophils # D-Dimer 1267.92 H Sodium Potassium Carbon Dioxide BUN Glucose Calcium Magnesium Ferritin 847.4 H AST Lactate Dehydrogenase C-Reactive Protein 4.10 H Albumin Coronavirus (PCR) 09/26/20 09/28/20 09/28/20 10:35 09:07 09:07 WBC Lymph % (Auto) Price % (Auto) Lymph # (Auto) Price # (Auto) Seg Neutrophils % Seg Neutrophils # D-Dimer Sodium Potassium Carbon Dioxide BUN 30 H Glucose 102 H Calcium Magnesium Ferritin 795.8 H AST 53 H Lactate Dehydrogenase 455 H C-Reactive Protein Albumin 3.4 L Coronavirus (PCR)
--- NOTE | 2020-09-28 14:26 | Progress Note ---
Assessment and Plan Cultures: SARS CoV2 PCR: Positive 09/22/2020 blood culture: no growth A/P: 60-year-old female with obesity hypoventilation, tobacco abuse admitted with: #Bilateral pneumonia: Secondary to COVID-19. Severe disease. #Acute hypoxic respiratory failure: Secondary to above. On high flow nasal sylvia jacklyn. #Obesity #Leukopenia, likely secondary to viral illness Recs: continue steroids x 10 days completed Remdesivir s/p Actemra prophylactic anticoagulation based on d-dimer per hospital protocol trend d-dimer, CRP every 2-3 days Janet Kelley MD, FACP [facility] O: [phone] F: [phone] Subjective Date of service: 09/28/20 Principal diagnosis: Covid-19 Interval history: No fever. Remains on high flow nasal cannula. Objective - Exam Narrative Exam: Physical Exam (reviewed in chart to minimize risk of transmission) Constitutional: deferred Head, Ears, Nose: deferred Eyes: deferred Neck: deferred Oral: deferred Cardiovascular: deferred Respiratory: deferred GI: deferred Musculoskeletal: deferred Skin: deferred Hem/Lymphatic: deferred Psych: deferred Neurological: deferred - Constitutional Vitals: Vital Signs Temp Pulse Resp BP Pulse Ox 98.5 F 60 10 L 118/52 100 09/28/20 12:00 09/28/20 13:00 09/28/20 13:00 09/28/20 13:00 09/28/20 13:00 Temperature -Last 24 Hours Temperature 98.5 F Temperature 98.8 F Temperature 97.6 F Temperature 97.5 F - Labs CBC & Chem 7: 09/24/20 15:20 09/26/20 10:35 Labs: Abnormal lab results 09/28/20 09/28/20 09/28/20 Range/Units 09:07 09:07 09:07 D-Dimer 1161.67 H (0-234) ng/mlDDU Ferritin 795.8 H (10.0-200.0) ng/mL Lactate Dehydrogenase 455 H (91-180) units/L
[2020-09-28] MEDS: LORazepam 2 MG/ML VIAL IV PRN (22:25)
[2020-09-29] MEDS: methylPREDNISolone Sod Succinate 125 MG/2 ML INJ IV SCH ×3 (05:35→21:18)
--- NOTE | 2020-09-29 07:25 | Progress Note ---
Assessment and Plan Assessment and plan: --COVID-19 positive infection; with hypoxia Remains on high flow nasal cannula oxygen at 30 L -- Acute hypoxemic respiratory failure/on high flow oxygen/BiPAP Current Visit: Yes Status: Acute prone positioning while in bed as much as possible Continue high flow nasal cannula oxygen; 30 L FiO2 90% O2 sats 93% With intermittent BiPAP, wean as tolerated Home O2 evaluation prior to discharge Pulmonary following --Elevated D-dimers; Current Visit: Yes Status: Acute In the setting of severe hypoxemia requiring high flow oxygen and BiPAP Severe COVID-19 pneumonia, obesity High risk patient, patient is placed on therapeutic dose of anticoagulation with Lovenox Closely monitor, CTA chest requested when patient is stable -- Bilateral pneumonia Current Visit: Yes Status: Acute Empiric antibiotics discontinued As procalcitonin level is normal --COVID-19 virus infection Current Visit: Yes Status: Acute Isolation droplet and contact, Patient is hypoxic, on high flow nasal cannula oxygen Completed remdesivir, s/p Actemra continue Solu-Medrol Inflammatory markers trending down, Prone positioning, home O2 evaluation pulmonary and ID following Continue zinc, vitamin D, ascorbic acid --Hyperkalemia; resolved Current Visit: Yes Status: Acute Monitor electrolytes -- Obesity hypoventilation syndrome/BMI 36.0 Current Visit: Yes Status: Acute Dietary modification , exercise as tolerated , lifestyle changes Weight reduction when medically stable Outpatient sleep study to rule out obstructive sleep apnea --Severe protein calorie malnutrition; hypoalbuminemia Current Visit: Yes Status: Chronic Nutrition supplements, nutrition consult -- DVT prophylaxis Current Visit: Yes Status: Acute Full dose therapeutic anticoagulation with Lovenox Closely monitor the patient and adjust management as needed Plan of care reviewed with the patient and her nurse Critical care time 35 minutes [patient is critically ill severe COVID-19 pneumonia/on high flow nasal cannula oxygen/poor prognosis] The high probability of a clinically significant, sudden or life threatening deterioration of the multiple system(s) required my full and direct attention, intervention and personal management. The aggregate critical care time was [35] minutes. This time is in addition to time spent performing reported procedures but includes the following: [x] Data Review and interpretation [x] Patient assessment and monitoring of vital signs [x] Documentation [x] Medication orders and management Daily management 09/23/2020; Positive COVID-19, Hypoxemia on high flow oxygen Morbidly obese, ID following Continue therapies per protocol Pulmonary consulted Resumed service; 09/28/2020; Patient continues to require high flow nasal cannula oxygen with intermittent BiPAP Wean as tolerated, home O2 evaluation at discharge 09/29/2020 ; Patient remains on high flow nasal cannula oxygen at 30 L/90% FiO2/93 O2 sats Wean as tolerated, evaluation for home oxygen prior to discharge History Interval history: I have seen and examined the patient in the ICU at the bedside this morning Patient's chart and medications reviewed Isolation precautions and PPE protocols followed per guidelines Patient remains on high flow oxygen Complains of shortness of breath and generalized weakness Vital signs noted Hospitalist Physical - Constitutional Vitals: Temp Pulse Resp BP Pulse Ox 98.2 F 69 40 H 123/92 95 09/29/20 04:00 09/29/20 06:00 09/29/20 06:00 09/29/20 06:00 09/29/20 06:00 General appearance: Present: mild distress, obese, other (On high flow nasal c annula oxygen) - EENT Eyes: Present: PERRL, EOM intact - Neck Neck: Present: supple, normal ROM - Respiratory Respiratory effort: normal Respiratory: bilateral: diminished, rhonchi, negative: rales, wheezing - Cardiovascular Rhythm: regular Heart Sounds: Present: S1 & S2 - Extremities Extremities: no ischemia, No edema - Abdominal General gastrointestinal: soft, non-tender, non-distended, normal bowel sounds - Integumentary Integumentary: Present: clear, warm - Psychiatric Psychiatric: appropriate mood/affect, cooperative - Neurologic Neurologic: moves all extremities Results - Labs CBC & Chem 7: 09/24/20 15:20 09/26/20 10:35 Labs: Laboratory Last Values WBC 11.1 K/mm3 (4.5-11.0) H 09/24/20 15:20 RBC 4.65 M/mm3 (3.65-5.03) 09/24/20 15:20 Hgb 13.8 gm/dl (10.1-14.3) 09/24/20 15:20 Hct 42.2 % (30.3-42.9) 09/24/20 15:20 MCV 91 fl (79-97) 09/24/20 15:20 MCH 30 pg (28-32) 09/24/20 15:20 MCHC 33 % (30-34) 09/24/20 15:20 RDW 14.5 % (13.2-15.2) 09/24/20 15:20 Plt Count 333 K/mm3 (140-440) 09/24/20 15:20 Lymph % (Auto) 5.5 % (13.4-35.0) L 09/24/20 15:20 [place] % (Auto) 8.1 % (0.0-7.3) H 09/24/20 15:20 Eos % (Auto) 0.0 % (0.0-4.3) 09/24/20 15:20 Baso % (Auto) 0.7 % (0.0-1.8) 09/24/20 15:20 Lymph # (Auto) 0.6 K/mm3 (1.2-5.4) L 09/24/20 15:20 [place] # (Auto) 0.9 K/mm3 (0.0-0.8) H 09/24/20 15:20 Eos # (Auto) 0.0 K/mm3 (0.0-0.4) 09/24/20 15:20 Baso # (Auto) 0.1 K/mm3 (0.0-0.1) 09/24/20 15:20 Seg Neutrophils % 85.7 % (40.0-70.0) H 09/24/20 15:20 Seg Neutrophils # 9.6 K/mm3 (1.8-7.7) H 09/24/20 15:20 D-Dimer 1161.67 ng/mlDDU (0-234) H 09/28/20 09:07 Sodium 141 mmol/L (137-145) 09/26/20 10:35 Potassium 4.4 mmol/L (3.6-5.0) 09/26/20 10:35 Chloride 104.2 mmol/L (98-107) 09/26/20 10:35 Carbon Dioxide 28 mmol/L (22-30) 09/26/20 10:35 Anion Gap 13 mmol/L 09/26/20 10:35 BUN 30 mg/dL (7-17) H 09/26/20 10:35 Creatinine 0.7 mg/dL (0.6-1.2) 09/26/20 10:35 Estimated GFR > 60 ml/min 09/26/20 10:35 BUN/Creatinine Ratio 43 % 09/26/20 10:35 Glucose 102 mg/dL (65-100) H 09/26/20 10:35 Lactic Acid 1.10 mmol/L (0.7-2.0) 09/22/20 18:17 Calcium 8.7 mg/dL (8.4-10.2) 09/26/20 10:35 Magnesium 3.10 mg/dL (1.7-2.3) H 09/24/20 15:20 Ferritin 795.8 ng/mL (10.0-200.0) H 09/28/20 09:07 Total Bilirubin 0.50 mg/dL (0.1-1.2) 09/26/20 10:35 AST 53 units/L (5-40) H 09/26/20 10:35 ALT 45 units/L (7-56) 09/26/20 10:35 Alkaline Phosphatase 69 units/L (35-129) 09/26/20 10:35 Lactate Dehydrogenase 455 units/L (91-180) H 09/28/20 09:07 C-Reactive Protein 0.60 mg/dL (0.00-1.30) 09/28/20 09:07 Total Protein 6.5 g/dL (6.3-8.2) 09/26/20 10:35 Albumin 3.4 g/dL (3.9-5) L 09/26/20 10:35 Albumin/Globulin Ratio 1.1 % 09/26/20 10:35 Procalcitonin 0.06 ng/mL (<0.15) 09/22/20 18:17 Coronavirus (PCR) Positive (Negative) A 09/23/20 Unknown Dhillon/IV: Voiding Method External Female Catheter Active Medications - Current Medications Current Medications: Generic Name Dose Route Start Last Admin Trade Name Freq PRN Reason Stop Dose Admin Acetaminophen 650 mg 09/22/20 18:16 09/27/20 22:07 Acetaminophen 325 Mg Tab PO 650 mg Q4H PRN Administration Pain MILD(1-3)/Fever >100.5/GRAMAJO Albuterol 2.5 mg 09/22/20 18:16 Albuterol 2.5 Mg/3 Ml Nebu IH Q4HRT PRN Shortness Of Breath Ascorbic Acid 500 mg 09/22/20 22:00 09/28/20 22:15 Ascorbic Acid 500 Mg Tab PO 500 mg BID SAYDA Administration Cholecalciferol 1,000 unit 09/23/20 10:00 09/28/20 09:20 Cholecalciferol (Vit D3) 1000 Unit (25 Mcg) Tab PO 1,000 unit QDAY SAYDA Administration Enoxaparin Sodium 100 mg 09/23/20 22:00 09/28/20 22:14 Enoxaparin 100 Mg/1 Ml Inj 1 mg/kg (100 mg) 100 mg SUB-Q Administration Q12HR [facility] Protocol Hydromorphone HCl 0.5 mg 09/22/20 18:16 09/27/20 03:04 Hydromorphone 1 Mg/1 Ml Inj IV 0.5 mg Q12H PRN Administration Pain , Severe (7-10) Lorazepam 1 mg 09/27/20 12:59 09/28/20 22:25 Lorazepam 2 Mg/Ml Vial IV 1 mg Q4H PRN Administration Anxiety Methylprednisolone Sodium Succinate 40 mg 09/28/20 06:00 09/29/20 05:35 Methylprednisolone Sod Succinate 125 Mg/2 Ml Inj IV 10/07/20 22:01 40 mg Q8H SAYDA Administration Ondansetron HCl 4 mg 09/22/20 18:16 09/23/20 10:34 Ondansetron 4 Mg/2 Ml Inj IV 4 mg Q8H PRN Administration Nausea And Vomiting Oxycodone/Acetaminophen 1 tab 09/22/20 18:16 09/28/20 09:34 Oxycodone /Acetaminophen 5-325mg Tab PO 1 tab Q12H PRN Administration Pain, Moderate (4-6) Sodium Chloride 10 ml 09/22/20 22:00 09/28/20 22:16 Sodium Chloride 0.9% 10 Ml Flush Syringe IV 10 ml BID SAYDA Administration Sodium Chloride 10 ml 09/22/20 18:16 Sodium Chloride 0.9% 10 Ml Flush Syringe IV PRN PRN LINE FLUSH Zinc Sulfate 220 mg 09/22/20 22:00 09/28/20 22:15 Zinc Sulfate 220 Mg Cap PO 220 mg BID SAYDA Administration Nutrition/Malnutrition Assess - Dietary Evaluation Nutrition/Malnutrition Findings: Nutrition Notes Start: 09/27/20 15:17 Freq: Status: Active Protocol: Document 09/28/20 13:06 DONNA (Rec: 09/28/20 13:15 [facility] [id number]) Nutrition Notes Initial or Follow up Assessment Current Diagnosis Respiratory Failure Other Pertinent Diagnosis COVID-19 pneu Current Diet Cardiac + Ensure Enlive daily Labs/Tests Reviewed Pertinent Medications Solumedrol Height 5 ft 7 in Weight 104.3 kg [place] Body Weight (kg) 61.36 BMI 36.0 Weight Status Obese Subjective/Other Information Unable to reach pt via phone at 13:04. Pt received high- flow oxygen and intemittent BiPap support. Per RN note, pt self-proning from 10:45am - 14:00 yesterday. No PO intakes documented. Minimum of two criteria No #1 Nutrition Diagnosis Predicted suboptimal energy intake Etiology COVID-19 pneu As Evidenced by Signs and Symptoms pt receiving high-flow oxygen therapy and intermittent BiPap support Is patient on ventilator? No Is Patient Ambulatory and/or Out of Bed No REE-(Estill-St. Jeor-confined to bed) 1990.064 Kcal/Kg value to use for calculation 14 Approximate Energy Requirements Using 1460 kcal/Kg Additional Notes Pro needs 0.8-1g/kg adjBW: 66- 83g/day Fluid needs 1ml/kcal Nutrition Intervention Change Diet Order: Continue current diet order Add Supplement/Snack (indicate name/kcal Ensure once daily /protein ) Provides kCal: 350 Provides Protein (gm) 20 Goal #1 PO tolerance Goal #2 PO intake of meals plus ONS to meet at least 75% energy and pro needs Anticipated Discharge Needs: Unable to identify at this time Follow-Up By: 09/30/20 Additional Comments F/U: intakes (meals/ONS)
[2020-09-29] MEDS: ENOXAPARIN 100 MG/1 ML INJ SUB-Q SCH ×2 (09:32→21:18)
[2020-09-29] MEDS: guaiFENesin DM 200/20 MG ORAL LIQD 10 ML PO PRN ×2 (09:33→21:22)
[2020-09-29] MEDS: CHOLECALCIFEROL (VIT D3) 1000 UNIT (25 mcg) TAB PO SCH (09:33)
[2020-09-29] MEDS: ZINC SULFATE 220 MG CAP PO SCH ×2 (09:33→21:18)
[2020-09-29] MEDS: ASCORBIC ACID 500 MG TAB PO SCH ×2 (09:33→21:18)
[2020-09-29] MEDS: LORazepam 2 MG/ML VIAL IV PRN ×2 (11:33→21:22)
--- NOTE | 2020-09-29 13:09 | Progress Note ---
Assessment and Plan 60 y/o female with acute respiratory failure secondary to COVID 19 pneumonia, unvaccinated. 09/28/20: Once patient awake will ask her to prone again and sleep prone at night. Continue IV steroids. Guarded prognosis. 09/28/20: Continue proning. Continue Remdesivir and IV steroids. Monitor fluid intake and fluid balance. Guarded prognosis. 1. Long discussion at bedside about proning. Patient has agreed to do so and numbers are better already. Wean for sats >88% 2. Continue IV steroids 3. Continue Remdesivir 4. Follow up ID recs 5. Agree with full dose anticoagulation Guarded prognosis. Subjective Date of service: 09/29/20 Principal diagnosis: Covid-19 Interval history: patient asleep, stable. I dropped FiO2 down to 80%. Patient wearing mask while asleep. Objective Vital Signs - 12hr 09/29/20 09/29/20 09/29/20 01:30 02:00 02:30 Temperature Pulse Rate 66 63 78 Pulse Rate [ From Monitor] Respiratory 31 H 33 H 23 Rate Blood Pressure 127/62 110/55 110/55 O2 Sat by Pulse 100 93 92 Oximetry 09/29/20 09/29/20 09/29/20 03:00 03:30 04:00 Temperature 98.2 F Pulse Rate 63 67 79 Pulse Rate [ 79 From Monitor] Respiratory 35 H 37 H 37 H Rate Blood Pressure 119/58 119/58 119/58 O2 Sat by Pulse 94 91 96 Oximetry 09/29/20 09/29/20 09/29/20 04:30 05:00 05:30 Temperature Pulse Rate 76 66 73 Pulse Rate [ From Monitor] Respiratory 38 H 34 H 44 H Rate Blood Pressure 123/92 123/92 123/92 O2 Sat by Pulse 90 92 73 L Oximetry 09/29/20 09/29/20 09/29/20 06:00 06:30 07:00 Temperature Pulse Rate 69 74 74 Pulse Rate [ From Monitor] Respiratory 40 H 8 L 22 Rate Blood Pressure 123/92 140/60 140/60 O2 Sat by Pulse 95 98 98 Oximetry 09/29/20 09/29/20 09/29/20 07:30 08:00 08:30 Temperature Pulse Rate 70 66 64 Pulse Rate [ From Monitor] Respiratory 30 H 30 H 34 H Rate Blood Pressure 99/76 99/76 155/57 O2 Sat by Pulse 99 95 96 Oximetry 09/29/20 09/29/20 08:40 09:00 Temperature Pulse Rate 63 Pulse Rate [ From Monitor] Respiratory 30 H Rate Blood Pressure 155/57 O2 Sat by Pulse 97 94 Oximetry CBC and BMP: 09/24/20 15:20 09/26/20 10:35 ABG, PT/INR, D-dimer: PT/INR, D-dimer D-Dimer 1161.67 ng/mlDDU (0-234) H 09/28/20 09:07 Abnormal lab findings: Abnormal Labs 09/22/20 09/22/20 09/22/20 15:17 15:17 15:30 WBC Lymph % (Auto) 8.0 L Patrick % (Auto) Lymph # (Auto) 0.5 L Patrick # (Auto) Seg Neutrophils % 84.8 H Seg Neutrophils # D-Dimer 1693.52 H Sodium 134 L Potassium 5.3 H Carbon Dioxide BUN Glucose 101 H Calcium 8.1 L Magnesium Ferritin AST 60 H Lactate Dehydrogenase 666 H C-Reactive Protein 14.50 H Albumin 2.9 L Coronavirus (PCR) 09/22/20 09/23/20 09/23/20 15:30 06:16 06:16 WBC 3.7 L Lymph % (Auto) 12.3 L Patrick % (Auto) 7.6 H Lymph # (Auto) 0.4 L Patrick # (Auto) Seg Neutrophils % 79.5 H Seg Neutrophils # D-Dimer Sodium Potassium Carbon Dioxide BUN Glucose 110 H Calcium 8.2 L Magnesium Ferritin 723.4 H AST 52 H Lactate Dehydrogenase C-Reactive Protein Albumin 3.2 L Coronavirus (PCR) 09/23/20 09/23/20 09/24/20 15:28 Unknown 15:20 WBC Lymph % (Auto) Patrick % (Auto) Lymph # (Auto) Patrick # (Auto) Seg Neutrophils % Seg Neutrophils # D-Dimer Sodium 133 L Potassium 5.8 H D Carbon Dioxide 20 L BUN 20 H 26 H Glucose 115 H 111 H Calcium 8.2 L 8.2 L Magnesium Ferritin AST 49 H Lactate Dehydrogenase C-Reactive Protein Albumin 3.1 L 3.3 L Coronavirus (PCR) Positive A 09/24/20 09/24/20 09/25/20 15:20 15:20 05:10 WBC 11.1 H Lymph % (Auto) 5.5 L Patrick % (Auto) 8.1 H Lymph # (Auto) 0.6 L Patrick # (Auto) 0.9 H Seg Neutrophils % 85.7 H Seg Neutrophils # 9.6 H D-Dimer Sodium Potassium Carbon Dioxide BUN 27 H Glucose 104 H Calcium Magnesium 3.10 H Ferritin AST Lactate Dehydrogenase C-Reactive Protein Albumin 3.1 L Coronavirus (PCR) 09/25/20 09/25/20 09/25/20 05:10 05:10 05:10 WBC Lymph % (Auto) Patrick % (Auto) Lymph # (Auto) Patrick # (Auto) Seg Neutrophils % Seg Neutrophils # D-Dimer 1267.92 H Sodium Potassium Carbon Dioxide BUN Glucose Calcium Magnesium Ferritin 847.4 H AST Lactate Dehydrogenase C-Reactive Protein 4.10 H Albumin Coronavirus (PCR) 09/26/20 09/28/20 09/28/20 10:35 09:07 09:07 WBC Lymph % (Auto) Patrick % (Auto) Lymph # (Auto) Patrick # (Auto) Seg Neutrophils % Seg Neutrophils # D-Dimer 1161.67 H Sodium Potassium Carbon Dioxide BUN 30 H Glucose 102 H Calcium Magnesium Ferritin 795.8 H AST 53 H Lactate Dehydrogenase C-Reactive Protein Albumin 3.4 L Coronavirus (PCR) 09/28/20 09:07 WBC Lymph % (Auto) Patrick % (Auto) Lymph # (Auto) Patrick # (Auto) Seg Neutrophils % Seg Neutrophils # D-Dimer Sodium Potassium Carbon Dioxide BUN Glucose Calcium Magnesium Ferritin AST Lactate Dehydrogenase 455 H C-Reactive Protein Albumin Coronavirus (PCR)
--- NOTE | 2020-09-29 13:15 | Progress Note ---
Assessment and Plan Cultures: SARS CoV2 PCR: Positive 09/22/2020 blood culture: no growth A/P: 60-year-old female with obesity hypoventilation, tobacco abuse admitted with: #Bilateral pneumonia: Secondary to COVID-19. Severe disease. #Acute hypoxic respiratory failure: Secondary to above. On high flow nasal sylvia jacklyn. #Obesity #Leukopenia, likely secondary to viral illness Recs: continue steroids x 10 days, dosing per pulmonary completed Remdesivir s/p Actemra prophylactic anticoagulation based on d-dimer per hospital protocol guarded prognosis Janet Kelley MD, FACP [facility] O: [phone] F: [phone] Subjective Date of service: 09/29/20 Principal diagnosis: Covid-19 Interval history: No fever. Remains on HFNC Objective - Exam Narrative Exam: Physical Exam (reviewed in chart to minimize risk of transmission) Constitutional: deferred Head, Ears, Nose: deferred Eyes: deferred Neck: deferred Oral: deferred Cardiovascular: deferred Respiratory: deferred GI: deferred Musculoskeletal: deferred Skin: deferred Hem/Lymphatic: deferred Psych: deferred Neurological: deferred - Constitutional Vitals: Vital Signs Temp Pulse Resp BP Pulse Ox 98.2 F 63 30 H 155/57 94 09/29/20 04:00 09/29/20 09:00 09/29/20 09:00 09/29/20 09:00 09/29/20 09:00 Temperature -Last 24 Hours Temperature 98.2 F Temperature 98.3 F Temperature 98.0 F Temperature 98.1 F - Labs CBC & Chem 7: 09/24/20 15:20 09/26/20 10:35
[2020-09-30 05:18] LABS: Hematocrit 38.9 % (30.3-42.9); Hemoglobin 13.6 gm/dl (10.1-14.3); Mean Corpuscular HGB Conc 35 % (30-34); Mean Corpuscular Volume 89 fl (79-97); Platelet Count 360 K/mm3 (140-440); Red Blood Count 4.36 M/mm3 (3.65-5.03); Red Cell Distribution Width 14.1 % (13.2-15.2)
[2020-09-30 05:36] LABS: Alanine Aminotransferase 51 units/L (7-56); Albumin 2.8 g/dL (3.9-5); BUN/Creatinine Ratio 37; Blood Urea Nitrogen 26 mg/dL (7-17); Calcium 8.4 mg/dL (8.4-10.2); Hemolysis Index 3
[2020-09-30 06:10] LABS: Total Cells Counted 100
[2020-09-30 06:11] LABS: Platelet Estimate Consistent w Auto; RBC Morphology Normal
[2020-09-30] MEDS: methylPREDNISolone Sod Succinate 125 MG/2 ML INJ IV SCH ×3 (06:29→22:54)
--- NOTE | 2020-09-30 08:38 | Progress Note ---
Assessment and Plan Assessment and plan: --COVID-19 positive infection; with hypoxia Slightly improved , FiO2 requirement decreased from 100 to 80% remains on high flow nasal cannula oxygen at 30 L/80% FiO2/92 O2 sats Wean as tolerated, patient critically ill, poor prognosis -- Acute hypoxemic respiratory failure/on high flow oxygen/BiPAP Current Visit: Yes Status: Acute prone positioning while in bed as much as possible Continue high flow nasal cannula oxygen; 30 L FiO2 80% O2 sats 92% With intermittent BiPAP, wean as tolerated Home O2 evaluation prior to discharge Pulmonary following --Elevated D-dimers; Current Visit: Yes Status: Acute In the setting of severe hypoxemia requiring high flow oxygen and BiPAP Severe COVID-19 pneumonia, obesity High risk patient, patient is placed on therapeutic dose of anticoagulation with Lovenox Closely monitor, CTA chest requested when patient is stable -- Bilateral pneumonia Current Visit: Yes Status: Acute Empiric antibiotics discontinued As procalcitonin level is normal --COVID-19 virus infection Current Visit: Yes Status: Acute Isolation droplet and contact, Patient is hypoxic, on high flow nasal cannula oxygen Completed remdesivir, s/p Actemra continue Solu-Medrol Inflammatory markers trending down, Prone positioning, home O2 evaluation pulmonary and ID following Continue zinc, vitamin D, ascorbic acid --Hyperkalemia; resolved Current Visit: Yes Status: Acute Monitor electrolytes -- Obesity hypoventilation syndrome/BMI 36.0 Current Visit: Yes Status: Acute Dietary modification , exercise as tolerated , lifestyle changes Weight reduction when medically stable Outpatient sleep study to rule out obstructive sleep apnea --Severe protein calorie malnutrition; hypoalbuminemia Current Visit: Yes Status: Chronic Nutrition supplements, nutrition consult -- DVT prophylaxis Current Visit: Yes Status: Acute Full dose therapeutic anticoagulation with Lovenox Closely monitor the patient and adjust management as needed Plan of care reviewed with the patient and her nurse Critical care time 35 minutes [patient is critically ill severe COVID-19 pneumonia/on high flow nasal cannula oxygen/poor prognosis] The high probability of a clinically significant, sudden or life threatening deterioration of the multiple system(s) required my full and direct attention, intervention and personal management. The aggregate critical care time was [35] minutes. This time is in addition to time spent performing reported procedures but includes the following: [x] Data Review and interpretation [x] Patient assessment and monitoring of vital signs [x] Documentation [x] Medication orders and management Daily management 09/23/2020; Positive COVID-19, Hypoxemia on high flow oxygen Morbidly obese, ID following Continue therapies per protocol Pulmonary consulted Resumed service; 09/28/2020; Patient continues to require high flow nasal cannula oxygen with intermittent BiPAP Wean as tolerated, home O2 evaluation at discharge 09/29/2020 ; Patient remains on high flow nasal cannula oxygen at 30 L/90% FiO2/93 O2 sats Wean as tolerated, evaluation for home oxygen prior to discharge 09/30/2020; Patient remains on high flow oxygen 30 L/FiO2 80% Wean as tolerated Overall prognosis poor History Interval history: Patient continues to require high flow nasal cannula oxygen 30 L/80% FiO2 92% O2 sats Have seen and examined the patient at the bedside in [facility] Isolation precautions PPE protocols observed Patient complains of shortness of breath On high flow oxygen Mild distress Vital signs noted Hospitalist Physical - Constitutional Vitals: Temp Pulse Resp BP Pulse Ox 98.8 F 59 L 11 L 109/60 95 09/30/20 04:00 09/30/20 06:00 09/30/20 06:00 09/30/20 06:00 09/30/20 06:00 General appearance: Present: mild distress, obese, other (On high flow nasal cannula oxygen) - EENT Eyes: Present: PERRL, EOM intact - Neck Neck: Present: supple, normal ROM - Respiratory Respiratory effort: normal Respiratory: bilateral: diminished, rhonchi, negative: rales, wheezing - Cardiovascular Rhythm: regular Heart Sounds: Present: S1 & S2 - Extremities Extremities: no ischemia, No edema - Abdominal General gastrointestinal: soft, non-tender, non-distended, normal bowel sounds - Integumentary Integumentary: Present: clear, warm - Psychiatric Psychiatric: appropriate mood/affect, cooperative - Neurologic Neurologic: CNII-XII intact, moves all extremities Results - Labs CBC & Chem 7: 09/30/20 04:39 09/30/20 04:39 Labs: Laboratory Last Values WBC 12.3 K/mm3 (4.5-11.0) H 09/30/20 04:39 RBC 4.36 M/mm3 (3.65-5.03) 09/30/20 04:39 Hgb 13.6 gm/dl (10.1-14.3) 09/30/20 04:39 Hct 38.9 % (30.3-42.9) 09/30/20 04:39 MCV 89 fl (79-97) 09/30/20 04:39 MCH 31 pg (28-32) 09/30/20 04:39 MCHC 35 % (30-34) H 09/30/20 04:39 RDW 14.1 % (13.2-15.2) 09/30/20 04:39 Plt Count 360 K/mm3 (140-440) 09/30/20 04:39 Lymph % (Auto) 5.5 % (13.4-35.0) L 09/24/20 15:20 [place] % (Auto) 8.1 % (0.0-7.3) H 09/24/20 15:20 Eos % (Auto) 0.0 % (0.0-4.3) 09/24/20 15:20 Baso % (Auto) 0.7 % (0.0-1.8) 09/24/20 15:20 Lymph # (Auto) 0.6 K/mm3 (1.2-5.4) L 09/24/20 15:20 [place] # (Auto) 0.9 K/mm3 (0.0-0.8) H 09/24/20 15:20 Eos # (Auto) 0.0 K/mm3 (0.0-0.4) 09/24/20 15:20 Baso # (Auto) 0.1 K/mm3 (0.0-0.1) 09/24/20 15:20 Add Manual Diff Complete 09/30/20 04:39 Total Counted 100 09/30/20 04:39 Seg Neutrophils % Piercing Machine Operator 09/30/20 04:39 Seg Neuts % (Manual) 91.0 % (40.0-70.0) H 09/30/20 04:39 Lymphocytes % (Manual) 6.0 % (13.4-35.0) L 09/30/20 04:39 Monocytes % (Manual) 3.0 % (0.0-7.3) 09/30/20 04:39 Nucleated RBC % Not Reportable 09/30/20 04:39 Seg Neutrophils # 9.6 K/mm3 (1.8-7.7) H 09/24/20 15:20 Seg Neutrophils # Man 11.2 K/mm3 (1.8-7.7) H 09/30/20 04:39 Band Neutrophils # 0.0 K/mm3 09/30/20 04:39 Lymphocytes # (Manual) 0.7 K/mm3 (1.2-5.4) L 09/30/20 04:39 Abs React Lymphs (Man) 0.0 K/mm3 09/30/20 04:39 Monocytes # (Manual) 0.4 K/mm3 (0.0-0.8) 09/30/20 04:39 Eosinophils # (Manual) 0.0 K/mm3 (0.0-0.4) 09/30/20 04:39 Basophils # (Manual) 0.0 K/mm3 (0.0-0.1) 09/30/20 04:39 Metamyelocytes # 0.0 K/mm3 09/30/20 04:39 Myelocytes # 0.0 K/mm3 09/30/20 04:39 Promyelocytes # 0.0 K/mm3 09/30/20 04:39 Blast Cells # 0.0 K/mm3 09/30/20 04:39 WBC Morphology Not Reportable 09/30/20 04:39 Hypersegmented Neuts Not Reportable 09/30/20 04:39 Hyposegmented Neuts Not Reportable 09/30/20 04:39 Hypogranular Neuts Not Reportable 09/30/20 04:39 Smudge Cells Not Reportable 09/30/20 04:39 Toxic Granulation Not Reportable 09/30/20 04:39 Toxic Vacuolation Not Reportable 09/30/20 04:39 Dohle Bodies Not Reportable 09/30/20 04:39 Pelger-Huet Anomaly Not Reportable 09/30/20 04:39 Gemini Rods Not Reportable 09/30/20 04:39 Platelet Estimate Consistent w auto 09/30/20 04:39 Clumped Platelets Not Reportable 09/30/20 04:39 Plt Clumps, EDTA Not Reportable 09/30/20 04:39 Large Platelets Not Reportable 09/30/20 04:39 Giant Platelets Not Reportable 09/30/20 04:39 Platelet Satelliting Not Reportable 09/30/20 04:39 Plt Morphology Comment Not Reportable 09/30/20 04:39 RBC Morphology Normal 09/30/20 04:39 Dimorphic RBCs Not Reportable 09/30/20 04:39 Polychromasia Not Reportable 09/30/20 04:39 Hypochromasia Not Reportable 09/30/20 04:39 Poikilocytosis Not Reportable 09/30/20 04:39 Anisocytosis Not Reportable 09/30/20 04:39 Microcytosis Not Reportable 09/30/20 04:39 Macrocytosis Not Reportable 09/30/20 04:39 Spherocytes Not Reportable 09/30/20 04:39 Pappenheimer Bodies Not Reportable 09/30/20 04:39 Sickle Cells Not Reportable 09/30/20 04:39 Target Cells Not Reportable 09/30/20 04:39 Tear Drop Cells Not Reportable 09/30/20 04:39 Ovalocytes Not Reportable 09/30/20 04:39 Helmet Cells Not Reportable 09/30/20 04:39 Fuchs-[place] Bodies Not Reportable 09/30/20 04:39 [place] Rings Not Reportable 09/30/20 04:39 Evelio Cells Not Reportable 09/30/20 04:39 Bite Cells Not Reportable 09/30/20 04:39 Crenated Cell Not Reportable 09/30/20 04:39 Elliptocytes Not Reportable 09/30/20 04:39 Acanthocytes (Spur) Not Reportable 09/30/20 04:39 Rouleaux Not Reportable 09/30/20 04:39 Hemoglobin C Crystals Not Reportable 09/30/20 04:39 Schistocytes Not Reportable 09/30/20 04:39 Malaria parasites Not Reportable 09/30/20 04:39 Tor Bodies Not Reportable 09/30/20 04:39 Hem Pathologist Commnt No 09/30/20 04:39 D-Dimer 1161.67 ng/mlDDU (0-234) H 09/28/20 09:07 Sodium 136 mmol/L (137-145) L 09/30/20 04:39 Potassium 4.6 mmol/L (3.6-5.0) 09/30/20 04:39 Chloride 103.7 mmol/L (98-107) 09/30/20 04:39 Carbon Dioxide 26 mmol/L (22-30) 09/30/20 04:39 Anion Gap 11 mmol/L 09/30/20 04:39 BUN 26 mg/dL (7-17) H 09/30/20 04:39 Creatinine 0.7 mg/dL (0.6-1.2) 09/30/20 04:39 Estimated GFR > 60 ml/min 09/30/20 04:39 BUN/Creatinine Ratio 37 % 09/30/20 04:39 Glucose 112 mg/dL (65-100) H 09/30/20 04:39 Lactic Acid 1.10 mmol/L (0.7-2.0) 09/22/20 18:17 Calcium 8.4 mg/dL (8.4-10.2) 09/30/20 04:39 Magnesium 3.10 mg/dL (1.7-2.3) H 09/24/20 15:20 Ferritin 795.8 ng/mL (10.0-200.0) H 09/28/20 09:07 Total Bilirubin 0.40 mg/dL (0.1-1.2) 09/30/20 04:39 AST 32 units/L (5-40) 09/30/20 04:39 ALT 51 units/L (7-56) 09/30/20 04:39 Alkaline Phosphatase 81 units/L (35-129) 09/30/20 04:39 Lactate Dehydrogenase 455 units/L (91-180) H 09/28/20 09:07 C-Reactive Protein 0.60 mg/dL (0.00-1.30) 09/28/20 09:07 Total Protein 5.8 g/dL (6.3-8.2) L 09/30/20 04:39 Albumin 2.8 g/dL (3.9-5) L 09/30/20 04:39 Albumin/Globulin Ratio 0.9 % 09/30/20 04:39 Procalcitonin 0.06 ng/mL (<0.15) 09/22/20 18:17 Coronavirus (PCR) Positive (Negative) A 09/23/20 Unknown Dhillon/IV: Voiding Method External Female Catheter Active Medications - Current Medications Current Medications: Generic Name Dose Route Start Last Admin Trade Name Freq PRN Reason Stop Dose Admin Acetaminophen 650 mg 09/22/20 18:16 09/27/20 22:07 Acetaminophen 325 Mg Tab PO 650 mg Q4H PRN Administration Pain MILD(1-3)/Fever >100.5/GRAMAJO Albuterol 2.5 mg 09/22/20 18:16 Albuterol 2.5 Mg/3 Ml Nebu IH Q4HRT PRN Shortness Of Breath Ascorbic Acid 500 mg 09/22/20 22:00 09/29/20 21:18 Ascorbic Acid 500 Mg Tab PO 500 mg BID COUNTS INCLUDE 234 BEDS AT THE [facility] Administration Cholecalciferol 1,000 unit 09/23/20 10:00 09/29/20 09:33 Cholecalciferol (Vit D3) 1000 Unit (25 Mcg) Tab PO 1,000 unit QDAY COUNTS INCLUDE 234 BEDS AT THE [facility] Administration Enoxaparin Sodium 100 mg 09/23/20 22:00 09/29/20 21:18 Enoxaparin 100 Mg/1 Ml Inj 1 mg/kg (100 mg) 100 mg SUB-Q Administration Q12HR COUNTS INCLUDE 234 BEDS AT THE [facility] Protocol Guaifenesin 10 ml 09/29/20 08:56 09/29/20 21:22 Guaifenesin Dm 200/20 Mg Oral Liqd 10 Ml PO 10 ml Q4H PRN Administration Cough Hydromorphone HCl 0.5 mg 09/22/20 18:16 09/27/20 03:04 Hydromorphone 1 Mg/1 Ml Inj IV 0.5 mg Q12H PRN Administration Pain , Severe (7-10) Lorazepam 1 mg 09/27/20 12:59 09/29/20 21:22 Lorazepam 2 Mg/Ml Vial IV 1 mg Q4H PRN Administration Anxiety Methylprednisolone Sodium Succinate 40 mg 09/28/20 06:00 09/30/20 06:29 Methylprednisolone Sod Succinate 125 Mg/2 Ml Inj IV 10/07/20 22:01 40 mg Q8H SAYDA Administration Ondansetron HCl 4 mg 09/22/20 18:16 09/23/20 10:34 Ondansetron 4 Mg/2 Ml Inj IV 4 mg Q8H PRN Administration Nausea And Vomiting Oxycodone/Acetaminophen 1 tab 09/22/20 18:16 09/28/20 09:34 Oxycodone /Acetaminophen 5-325mg Tab PO 1 tab Q12H PRN Administration Pain, Moderate (4-6) Sodium Chloride 10 ml 09/22/20 22:00 09/29/20 21:19 Sodium Chloride 0.9% 10 Ml Flush Syringe IV 10 ml BID SAYDA Administration Sodium Chloride 10 ml 09/22/20 18:16 Sodium Chloride 0.9% 10 Ml Flush Syringe IV PRN PRN LINE FLUSH Zinc Sulfate 220 mg 09/22/20 22:00 09/29/20 21:18 Zinc Sulfate 220 Mg Cap PO 220 mg BID SAYDA Administration Nutrition/Malnutrition Assess - Dietary Evaluation Nutrition/Malnutrition Findings: Nutrition Notes Start: 09/27/20 15:17 Freq: Status: Active Protocol: Document 09/28/20 13:06 DONNA (Rec: 09/28/20 13:15 [facility] [id number]) Nutrition Notes Initial or Follow up Assessment Current Diagnosis Respiratory Failure Other Pertinent Diagnosis COVID-19 pneu Current Diet Cardiac + Ensure Enlive daily Labs/Tests Reviewed Pertinent Medications Solumedrol Height 5 ft 7 in Weight 104.3 kg [place] Body Weight (kg) 61.36 BMI 36.0 Weight Status Obese Subjective/Other Information Unable to reach pt via phone at 13:04. Pt received high- flow oxygen and intemittent BiPap support. Per RN note, pt self-proning from 10:45am - 14:00 yesterday. No PO intakes documented. Minimum of two criteria No #1 Nutrition Diagnosis Predicted suboptimal energy intake Etiology COVID-19 pneu As Evidenced by Signs and Symptoms pt receiving high-flow oxygen therapy and intermittent BiPap support Is patient on ventilator? No Is Patient Ambulatory and/or Out of Bed No REE-([place]-confined to bed) 1990.064 Kcal/Kg value to use for calculation 14 Approximate Energy Requirements Using 1460 kcal/Kg Additional Notes Pro needs 0.8-1g/kg adjBW: 66- 83g/day Fluid needs 1ml/kcal Nutrition Intervention Change Diet Order: Continue current diet order Add Supplement/Snack (indicate name/kcal Ensure once daily /protein ) Provides kCal: 350 Provides Protein (gm) 20 Goal #1 PO tolerance Goal #2 PO intake of meals plus ONS to meet at least 75% energy and pro needs Anticipated Discharge Needs: Unable to identify at this time Follow-Up By: 09/30/20 Additional Comments F/U: intakes (meals/ONS)
--- NOTE | 2020-09-30 08:43 | Progress Note ---
Assessment and Plan Assessment and plan: --COVID-19 positive infection; with hypoxia Slightly improved , FiO2 requirement decreased from 100 to 80% remains on high flow nasal cannula oxygen at 30 L/80% FiO2/92 O2 sats Wean as tolerated, patient critically ill, poor prognosis -- Acute hypoxemic respiratory failure/on high flow oxygen/BiPAP Current Visit: Yes Status: Acute prone positioning while in bed as much as possible Continue high flow nasal cannula oxygen; 30 L FiO2 80% O2 sats 92% With intermittent BiPAP, wean as tolerated Home O2 evaluation prior to discharge Pulmonary following --Elevated D-dimers; Current Visit: Yes Status: Acute In the setting of severe hypoxemia requiring high flow oxygen and BiPAP Severe COVID-19 pneumonia, obesity High risk patient, patient is placed on therapeutic dose of anticoagulation with Lovenox Closely monitor, CTA chest requested when patient is stable -- Bilateral pneumonia Current Visit: Yes Status: Acute Empiric antibiotics discontinued As procalcitonin level is normal --COVID-19 virus infection Current Visit: Yes Status: Acute Isolation droplet and contact, Patient is hypoxic, on high flow nasal cannula oxygen Completed remdesivir, s/p Actemra continue Solu-Medrol Inflammatory markers trending down, Prone positioning, home O2 evaluation pulmonary and ID following Continue zinc, vitamin D, ascorbic acid --Hyperkalemia; resolved Current Visit: Yes Status: Acute Monitor electrolytes -- Obesity hypoventilation syndrome/BMI 36.0 Current Visit: Yes Status: Acute Dietary modification , exercise as tolerated , lifestyle changes Weight reduction when medically stable Outpatient sleep study to rule out obstructive sleep apnea --Severe protein calorie malnutrition; hypoalbuminemia Current Visit: Yes Status: Chronic Nutrition supplements, nutrition consult -- DVT prophylaxis Current Visit: Yes Status: Acute Full dose therapeutic anticoagulation with Lovenox Closely monitor the patient and adjust management as needed Plan of care reviewed with the patient and her nurse Critical care time 35 minutes [patient is critically ill severe COVID-19 pneumonia/on high flow nasal cannula oxygen/poor prognosis] The high probability of a clinically significant, sudden or life threatening deterioration of the multiple system(s) required my full and direct attention, intervention and personal management. The aggregate critical care time was [35] minutes. This time is in addition to time spent performing reported procedures but includes the following: [x] Data Review and interpretation [x] Patient assessment and monitoring of vital signs [x] Documentation [x] Medication orders and management Daily management 09/23/2020; Positive COVID-19, Hypoxemia on high flow oxygen Morbidly obese, ID following Continue therapies per protocol Pulmonary consulted Resumed service; 09/28/2020; Patient continues to require high flow nasal cannula oxygen with intermittent BiPAP Wean as tolerated, home O2 evaluation at discharge 09/29/2020 ; Patient remains on high flow nasal cannula oxygen at 30 L/90% FiO2/93 O2 sats Wean as tolerated, evaluation for home oxygen prior to discharge 09/30/2020; Patient remains on high flow oxygen 30 L/FiO2 80% Wean as tolerated Overall prognosis poor History Interval history: I have seen and examined the patient at the bedside in IMCU Patient continues to require high flow oxygen In mild distress Anxious to go home Vital signs noted Hospitalist Physical - Constitutional Vitals: Temp Pulse Resp BP Pulse Ox 98.8 F 59 L 11 L 109/60 95 09/30/20 04:00 09/30/20 06:00 09/30/20 06:00 09/30/20 06:00 09/30/20 06:00 General appearance: Present: mild distress, obese, other (On high flow nasal cannula oxygen) - EENT Eyes: Present: PERRL, EOM intact - Neck Neck: Present: supple, normal ROM - Respiratory Respiratory effort: normal Respiratory: bilateral: diminished, rhonchi, negative: rales, wheezing - Cardiovascular Rhythm: regular Heart Sounds: Present: S1 & S2 - Extremities Extremities: no ischemia, No edema - Abdominal General gastrointestinal: soft, non-tender, non-distended, normal bowel sounds - Integumentary Integumentary: Present: clear, warm - Psychiatric Psychiatric: appropriate mood/affect, cooperative - Neurologic Neurologic: CNII-XII intact, moves all extremities Results - Labs CBC & Chem 7: 09/30/20 04:39 09/30/20 04:39 Labs: Laboratory Last Values WBC 12.3 K/mm3 (4.5-11.0) H 09/30/20 04:39 RBC 4.36 M/mm3 (3.65-5.03) 09/30/20 04:39 Hgb 13.6 gm/dl (10.1-14.3) 09/30/20 04:39 Hct 38.9 % (30.3-42.9) 09/30/20 04:39 MCV 89 fl (79-97) 09/30/20 04:39 MCH 31 pg (28-32) 09/30/20 04:39 MCHC 35 % (30-34) H 09/30/20 04:39 RDW 14.1 % (13.2-15.2) 09/30/20 04:39 Plt Count 360 K/mm3 (140-440) 09/30/20 04:39 Lymph % (Auto) 5.5 % (13.4-35.0) L 09/24/20 15:20 [place] % (Auto) 8.1 % (0.0-7.3) H 09/24/20 15:20 Eos % (Auto) 0.0 % (0.0-4.3) 09/24/20 15:20 Baso % (Auto) 0.7 % (0.0-1.8) 09/24/20 15:20 Lymph # (Auto) 0.6 K/mm3 (1.2-5.4) L 09/24/20 15:20 [place] # (Auto) 0.9 K/mm3 (0.0-0.8) H 09/24/20 15:20 Eos # (Auto) 0.0 K/mm3 (0.0-0.4) 09/24/20 15:20 Baso # (Auto) 0.1 K/mm3 (0.0-0.1) 09/24/20 15:20 Add Manual Diff Complete 09/30/20 04:39 Total Counted 100 09/30/20 04:39 Seg Neutrophils % Java [id number] Lead 09/30/20 04:39 Seg Neuts % (Manual) 91.0 % (40.0-70.0) H 09/30/20 04:39 Lymphocytes % (Manual) 6.0 % (13.4-35.0) L 09/30/20 04:39 Monocytes % (Manual) 3.0 % (0.0-7.3) 09/30/20 04:39 Nucleated RBC % Not Reportable 09/30/20 04:39 Seg Neutrophils # 9.6 K/mm3 (1.8-7.7) H 09/24/20 15:20 Seg Neutrophils # Man 11.2 K/mm3 (1.8-7.7) H 09/30/20 04:39 Band Neutrophils # 0.0 K/mm3 09/30/20 04:39 Lymphocytes # (Manual) 0.7 K/mm3 (1.2-5.4) L 09/30/20 04:39 Abs React Lymphs (Man) 0.0 K/mm3 09/30/20 04:39 Monocytes # (Manual) 0.4 K/mm3 (0.0-0.8) 09/30/20 04:39 Eosinophils # (Manual) 0.0 K/mm3 (0.0-0.4) 09/30/20 04:39 Basophils # (Manual) 0.0 K/mm3 (0.0-0.1) 09/30/20 04:39 Metamyelocytes # 0.0 K/mm3 09/30/20 04:39 Myelocytes # 0.0 K/mm3 09/30/20 04:39 Promyelocytes # 0.0 K/mm3 09/30/20 04:39 Blast Cells # 0.0 K/mm3 09/30/20 04:39 WBC Morphology Not Reportable 09/30/20 04:39 Hypersegmented Neuts Not Reportable 09/30/20 04:39 Hyposegmented Neuts Not Reportable 09/30/20 04:39 Hypogranular Neuts Not Reportable 09/30/20 04:39 Smudge Cells Not Reportable 09/30/20 04:39 Toxic Granulation Not Reportable 09/30/20 04:39 Toxic Vacuolation Not Reportable 09/30/20 04:39 Dohle Bodies Not Reportable 09/30/20 04:39 Pelger-Huet Anomaly Not Reportable 09/30/20 04:39 Gemini Rods Not Reportable 09/30/20 04:39 Platelet Estimate Consistent w auto 09/30/20 04:39 Clumped Platelets Not Reportable 09/30/20 04:39 Plt Clumps, EDTA Not Reportable 09/30/20 04:39 Large Platelets Not Reportable 09/30/20 04:39 Giant Platelets Not Reportable 09/30/20 04:39 Platelet Satelliting Not Reportable 09/30/20 04:39 Plt Morphology Comment Not Reportable 09/30/20 04:39 RBC Morphology Normal 09/30/20 04:39 Dimorphic RBCs Not Reportable 09/30/20 04:39 Polychromasia Not Reportable 09/30/20 04:39 Hypochromasia Not Reportable 09/30/20 04:39 Poikilocytosis Not Reportable 09/30/20 04:39 Anisocytosis Not Reportable 09/30/20 04:39 Microcytosis Not Reportable 09/30/20 04:39 Macrocytosis Not Reportable 09/30/20 04:39 Spherocytes Not Reportable 09/30/20 04:39 Pappenheimer Bodies Not Reportable 09/30/20 04:39 Sickle Cells Not Reportable 09/30/20 04:39 Target Cells Not Reportable 09/30/20 04:39 Tear Drop Cells Not Reportable 09/30/20 04:39 Ovalocytes Not Reportable 09/30/20 04:39 Helmet Cells Not Reportable 09/30/20 04:39 Fuchs-[place] Bodies Not Reportable 09/30/20 04:39 [place] Rings Not Reportable 09/30/20 04:39 Evelio Cells Not Reportable 09/30/20 04:39 Bite Cells Not Reportable 09/30/20 04:39 Crenated Cell Not Reportable 09/30/20 04:39 Elliptocytes Not Reportable 09/30/20 04:39 Acanthocytes (Spur) Not Reportable 09/30/20 04:39 Rouleaux Not Reportable 09/30/20 04:39 Hemoglobin C Crystals Not Reportable 09/30/20 04:39 Schistocytes Not Reportable 09/30/20 04:39 Malaria parasites Not Reportable 09/30/20 04:39 Tor Bodies Not Reportable 09/30/20 04:39 Hem Pathologist Commnt No 09/30/20 04:39 D-Dimer 1161.67 ng/mlDDU (0-234) H 09/28/20 09:07 Sodium 136 mmol/L (137-145) L 09/30/20 04:39 Potassium 4.6 mmol/L (3.6-5.0) 09/30/20 04:39 Chloride 103.7 mmol/L (98-107) 09/30/20 04:39 Carbon Dioxide 26 mmol/L (22-30) 09/30/20 04:39 Anion Gap 11 mmol/L 09/30/20 04:39 BUN 26 mg/dL (7-17) H 09/30/20 04:39 Creatinine 0.7 mg/dL (0.6-1.2) 09/30/20 04:39 Estimated GFR > 60 ml/min 09/30/20 04:39 BUN/Creatinine Ratio 37 % 09/30/20 04:39 Glucose 112 mg/dL (65-100) H 09/30/20 04:39 Lactic Acid 1.10 mmol/L (0.7-2.0) 09/22/20 18:17 Calcium 8.4 mg/dL (8.4-10.2) 09/30/20 04:39 Magnesium 3.10 mg/dL (1.7-2.3) H 09/24/20 15:20 Ferritin 795.8 ng/mL (10.0-200.0) H 09/28/20 09:07 Total Bilirubin 0.40 mg/dL (0.1-1.2) 09/30/20 04:39 AST 32 units/L (5-40) 09/30/20 04:39 ALT 51 units/L (7-56) 09/30/20 04:39 Alkaline Phosphatase 81 units/L (35-129) 09/30/20 04:39 Lactate Dehydrogenase 455 units/L (91-180) H 09/28/20 09:07 C-Reactive Protein 0.60 mg/dL (0.00-1.30) 09/28/20 09:07 Total Protein 5.8 g/dL (6.3-8.2) L 09/30/20 04:39 Albumin 2.8 g/dL (3.9-5) L 09/30/20 04:39 Albumin/Globulin Ratio 0.9 % 09/30/20 04:39 Procalcitonin 0.06 ng/mL (<0.15) 09/22/20 18:17 Coronavirus (PCR) Positive (Negative) A 09/23/20 Unknown Dhillon/IV: Voiding Method External Female Catheter Active Medications - Current Medications Current Medications: Generic Name Dose Route Start Last Admin Trade Name Freq PRN Reason Stop Dose Admin Acetaminophen 650 mg 09/22/20 18:16 09/27/20 22:07 Acetaminophen 325 Mg Tab PO 650 mg Q4H PRN Administration Pain MILD(1-3)/Fever >100.5/GRAMAJO Albuterol 2.5 mg 09/22/20 18:16 Albuterol 2.5 Mg/3 Ml Nebu IH Q4HRT PRN Shortness Of Breath Ascorbic Acid 500 mg 09/22/20 22:00 09/29/20 21:18 Ascorbic Acid 500 Mg Tab PO 500 mg BID SAYDA Administration Cholecalciferol 1,000 unit 09/23/20 10:00 09/29/20 09:33 Cholecalciferol (Vit D3) 1000 Unit (25 Mcg) Tab PO 1,000 unit QDAY SAYDA Administration Enoxaparin Sodium 100 mg 09/23/20 22:00 09/29/20 21:18 Enoxaparin 100 Mg/1 Ml Inj 1 mg/kg (100 mg) 100 mg SUB-Q Administration Q12HR [facility] Protocol Guaifenesin 10 ml 09/29/20 08:56 09/29/20 21:22 Guaifenesin Dm 200/20 Mg Oral Liqd 10 Ml PO 10 ml Q4H PRN Administration Cough Hydromorphone HCl 0.5 mg 09/22/20 18:16 09/27/20 03:04 Hydromorphone 1 Mg/1 Ml Inj IV 0.5 mg Q12H PRN Administration Pain , Severe (7-10) Lorazepam 1 mg 09/27/20 12:59 09/29/20 21:22 Lorazepam 2 Mg/Ml Vial IV 1 mg Q4H PRN Administration Anxiety Methylprednisolone Sodium Succinate 40 mg 09/28/20 06:00 09/30/20 06:29 Methylprednisolone Sod Succinate 125 Mg/2 Ml Inj IV 10/07/20 22:01 40 mg Q8H SAYDA Administration Ondansetron HCl 4 mg 09/22/20 18:16 09/23/20 10:34 Ondansetron 4 Mg/2 Ml Inj IV 4 mg Q8H PRN Administration Nausea And Vomiting Oxycodone/Acetaminophen 1 tab 09/22/20 18:16 09/28/20 09:34 Oxycodone /Acetaminophen 5-325mg Tab PO 1 tab Q12H PRN Administration Pain, Moderate (4-6) Sodium Chloride 10 ml 09/22/20 22:00 09/29/20 21:19 Sodium Chloride 0.9% 10 Ml Flush Syringe IV 10 ml BID SAYDA Administration Sodium Chloride 10 ml 09/22/20 18:16 Sodium Chloride 0.9% 10 Ml Flush Syringe IV PRN PRN LINE FLUSH Zinc Sulfate 220 mg 09/22/20 22:00 09/29/20 21:18 Zinc Sulfate 220 Mg Cap PO 220 mg BID SAYDA Administration Nutrition/Malnutrition Assess - Dietary Evaluation Nutrition/Malnutrition Findings: Nutrition Notes Start: 09/27/20 1 5:17 Freq: Status: Active Protocol: Document 09/28/20 13:06 DONNA (Rec: 09/28/20 13:15 [id number] Nutrition Notes Initial or Follow up Assessment Current Diagnosis Respiratory Failure Other Pertinent Diagnosis COVID-19 pneu Current Diet Cardiac + Ensure Enlive daily Labs/Tests Reviewed Pertinent Medications Solumedrol Height 5 ft 7 in Weight 104.3 kg [place] Body Weight (kg) 61.36 BMI 36.0 Weight Status Obese Subjective/Other Information Unable to reach pt via phone at 13:04. Pt received high- flow oxygen and intemittent BiPap support. Per RN note, pt self-proning from 10:45am - 14:00 yesterday. No PO intakes documented. Minimum of two criteria No #1 Nutrition Diagnosis Predicted suboptimal energy intake Etiology COVID-19 pneu As Evidenced by Signs and Symptoms pt receiving high-flow oxygen therapy and intermittent BiPap support Is patient on ventilator? No Is Patient Ambulatory and/or Out of Bed No REE-([facility]-confined to bed) 1990.064 Kcal/Kg value to use for calculation 14 Approximate Energy Requirements Using 1460 kcal/Kg Additional Notes Pro needs 0.8-1g/kg adjBW: 66- 83g/day Fluid needs 1ml/kcal Nutrition Intervention Change Diet Order: Continue current diet order Add Supplement/Snack (indicate name/kcal Ensure once daily /protein ) Provides kCal: 350 Provides Protein (gm) 20 Goal #1 PO tolerance Goal #2 PO intake of meals plus ONS to meet at least 75% energy and pro needs Anticipated Discharge Needs: Unable to identify at this time Follow-Up By: 09/30/20 Additional Comments F/U: intakes (meals/ONS)
[2020-09-30] MEDS: ASCORBIC ACID 500 MG TAB PO SCH ×2 (10:03→22:55)
[2020-09-30] MEDS: LORazepam 2 MG/ML VIAL IV PRN (10:03)
[2020-09-30] MEDS: ZINC SULFATE 220 MG CAP PO SCH (10:03)
[2020-09-30] MEDS: ENOXAPARIN 100 MG/1 ML INJ SUB-Q SCH ×2 (10:03→22:52)
[2020-09-30] MEDS: CHOLECALCIFEROL (VIT D3) 1000 UNIT (25 mcg) TAB PO SCH (10:03)
--- NOTE | 2020-09-30 11:14 | Progress Note ---
Assessment and Plan Cultures: SARS CoV2 PCR: Positive 09/22/2020 blood culture: no growth A/P: 60-year-old female with obesity hypoventilation, tobacco abuse admitted with: #Bilateral pneumonia: Secondary to COVID-19. Severe disease. #Acute hypoxic respiratory failure: Secondary to above. On high flow nasal sylvia jacklyn. #Obesity #Leukopenia, likely secondary to viral illness Recs: continue steroids x 10 days, dosing per pulmonary completed Remdesivir s/p Actemra prophylactic anticoagulation based on d-dimer per hospital protocol Poor prognosis ID will sign off. Please call with questions or new ID concerns. Janet Kelley MD, FACP [facility] ([facility]) O: [phone] F: [phone] Subjective Date of service: 09/30/20 Principal diagnosis: Covid-19 Interval history: No fever. Remains on high flow nasal cannula at 30 L/min. Objective - Exam Narrative Exam: Physical Exam (reviewed in chart to minimize risk of transmission) Constitutional: deferred Head, Ears, Nose: deferred Eyes: deferred Neck: deferred Oral: deferred Cardiovascular: deferred Respiratory: deferred GI: deferred Musculoskeletal: deferred Skin: deferred Hem/Lymphatic: deferred Psych: deferred Neurological: deferred - Constitutional Vitals: Vital Signs Temp Pulse Resp BP Pulse Ox 98.8 F 62 24 129/57 96 09/30/20 08:00 09/30/20 10:00 09/30/20 10:00 09/30/20 10:00 09/30/20 10:16 Temperature -Last 24 Hours Temperature 98.8 F Temperature 98.8 F Temperature 99.9 F Temperature 98.7 F Temperature 99.2 F Temperature 99.3 F - Labs CBC & Chem 7: 09/30/20 04:39 09/30/20 04:39 Labs: Abnormal lab results 09/30/20 09/30/20 Range/Units 04:39 04:39 WBC 12.3 H (4.5-11.0) K/mm3 MCHC 35 H (30-34) % Seg Neuts % (Manual) 91.0 H (40.0-70.0) % Lymphocytes % (Manual) 6.0 L (13.4-35.0) % Seg Neutrophils # Man 11.2 H (1.8-7.7) K/mm3 Lymphocytes # (Manual) 0.7 L (1.2-5.4) K/mm3 Sodium 136 L (137-145) mmol/L BUN 26 H (7-17) mg/dL Glucose 112 H (65-100) mg/dL Total Protein 5.8 L (6.3-8.2) g/dL Albumin 2.8 L (3.9-5) g/dL
[2020-09-30] MEDS: guaiFENesin DM 200/20 MG ORAL LIQD 10 ML PO PRN (13:16)
--- NOTE | 2020-09-30 14:26 | Progress Note ---
Assessment and Plan 60 y/o female with acute respiratory failure secondary to COVID 19 pneumonia, unvaccinated. 09/30/20: Continue to wean FiO2 for sats >88%. Prone, IV steroids and Remdesivir. Guarded prognosis. 09/29/20: Continue proning, weaned to fiO2 of 90 09/28/20: Once patient awake will ask her to prone again and sleep prone at night. Continue IV steroids. Guarded prognosis. 09/27/20: Continue proning. Continue Remdesivir and IV steroids. Monitor fluid intake and fluid balance. Guarded prognosis. 1. Long discussion at bedside about proning. Patient has agreed to do so and numbers are better already. Wean for sats >88% 2. Continue IV steroids 3. Continue Remdesivir 4. Follow up ID recs 5. Agree with full dose anticoagulation Guarded prognosis. Subjective Date of service: 09/30/20 Principal diagnosis: Covid-19 Interval history: Down to 80%. Good sats. Patient has been proning. Objective Vital Signs - 12hr 09/30/20 09/30/20 09/30/20 03:00 03:43 04:00 Temperature 98.8 F Pulse Rate 62 65 60 Respiratory 36 H 28 H Rate Blood Pressure 123/60 109/60 O2 Sat by Pulse 93 96 Oximetry 09/30/20 09/30/20 09/30/20 05:00 06:00 07:00 Temperature Pulse Rate 58 L 59 L 57 L Respiratory 19 11 L 35 H Rate Blood Pressure 109/60 109/60 126/57 O2 Sat by Pulse 96 95 94 Oximetry 09/30/20 09/30/20 09/30/20 08:00 09:00 10:00 Temperature 98.8 F Pulse Rate 70 62 Respiratory 18 24 Rate Blood Pressure 126/57 129/57 129/57 O2 Sat by Pulse 91 94 100 Oximetry 09/30/20 09/30/20 09/30/20 10:16 11:00 12:00 Temperature 98.4 F Pulse Rate 64 62 Respiratory 31 H 30 H Rate Blood Pressure 107/54 116/60 O2 Sat by Pulse 96 97 96 Oximetry 09/30/20 09/30/20 13:00 14:00 Temperature Pulse Rate 71 65 Respiratory 16 31 H Rate Blood Pressure 116/60 126/57 O2 Sat by Pulse 100 98 Oximetry CBC and BMP: 09/30/20 04:39 09/30/20 04:39 ABG, PT/INR, D-dimer: PT/INR, D-dimer D-Dimer 1161.67 ng/mlDDU (0-234) H 09/28/20 09:07 Abnormal lab findings: Abnormal Labs 09/22/20 09/22/20 09/22/20 15:17 15:17 15:30 WBC MCHC Lymph % (Auto) 8.0 L [place] % (Auto) Lymph # (Auto) 0.5 L [place] # (Auto) Seg Neutrophils % 84.8 H Seg Neuts % (Manual) Lymphocytes % (Manual) Seg Neutrophils # Seg Neutrophils # Man Lymphocytes # (Manual) D-Dimer 1693.52 H Sodium 134 L Potassium 5.3 H Carbon Dioxide BUN Glucose 101 H Calcium 8.1 L Magnesium Ferritin AST 60 H Lactate Dehydrogenase 666 H C-Reactive Protein 14.50 H Total Protein Albumin 2.9 L Coronavirus (PCR) 09/22/20 09/23/20 09/23/20 15:30 06:16 06:16 WBC 3.7 L MCHC Lymph % (Auto) 12.3 L [place] % (Auto) 7.6 H Lymph # (Auto) 0.4 L [place] # (Auto) Seg Neutrophils % 79.5 H Seg Neuts % (Manual) Lymphocytes % (Manual) Seg Neutrophils # Seg Neutrophils # Man Lymphocytes # (Manual) D-Dimer Sodium Potassium Carbon Dioxide BUN Glucose 110 H Calcium 8.2 L Magnesium Ferritin 723.4 H AST 52 H Lactate Dehydrogenase C-Reactive Protein Total Protein Albumin 3.2 L Coronavirus (PCR) 09/23/20 09/23/20 09/24/20 15:28 Unknown 15:20 WBC MCHC Lymph % (Auto) [place] % (Auto) Lymph # (Auto) [place] # (Auto) Seg Neutrophils % Seg Neuts % (Manual) Lymphocytes % (Manual) Seg Neutrophils # Seg Neutrophils # Man Lymphocytes # (Manual) D-Dimer Sodium 133 L Potassium 5.8 H D Carbon Dioxide 20 L BUN 20 H 26 H Glucose 115 H 111 H Calcium 8.2 L 8.2 L Magnesium Ferritin AST 49 H Lactate Dehydrogenase C-Reactive Protein Total Protein Albumin 3.1 L 3.3 L Coronavirus (PCR) Positive A 09/24/20 09/24/20 09/25/20 15:20 15:20 05:10 WBC 11.1 H MCHC Lymph % (Auto) 5.5 L [place] % (Auto) 8.1 H Lymph # (Auto) 0.6 L [place] # (Auto) 0.9 H Seg Neutrophils % 85.7 H Seg Neuts % (Manual) Lymphocytes % (Manual) Seg Neutrophils # 9.6 H Seg Neutrophils # Man Lymphocytes # (Manual) D-Dimer Sodium Potassium Carbon Dioxide BUN 27 H Glucose 104 H Calcium Magnesium 3.10 H Ferritin AST Lactate Dehydrogenase C-Reactive Protein Total Protein Albumin 3.1 L Coronavirus (PCR) 09/25/20 09/25/20 09/25/20 05:10 05:10 05:10 WBC MCHC Lymph % (Auto) [place] % (Auto) Lymph # (Auto) [place] # (Auto) Seg Neutrophils % Seg Neuts % (Manual) Lymphocytes % (Manual) Seg Neutrophils # Seg Neutrophils # Man Lymphocytes # (Manual) D-Dimer 1267.92 H Sodium Potassium Carbon Dioxide BUN Glucose Calcium Magnesium Ferritin 847.4 H AST Lactate Dehydrogenase C-Reactive Protein 4.10 H Total Protein Albumin Coronavirus (PCR) 09/26/20 09/28/20 09/28/20 10:35 09:07 09:07 WBC MCHC Lymph % (Auto) [place] % (Auto) Lymph # (Auto) [place] # (Auto) Seg Neutrophils % Seg Neuts % (Manual) Lymphocytes % (Manual) Seg Neutrophils # Seg Neutrophils # Man Lymphocytes # (Manual) D-Dimer 1161.67 H Sodium Potassium Carbon Dioxide BUN 30 H Glucose 102 H Calcium Magnesium Ferritin 795.8 H AST 53 H Lactate Dehydrogenase C-Reactive Protein Total Protein Albumin 3.4 L Coronavirus (PCR) 09/28/20 09/30/20 09/30/20 09:07 04:39 04:39 WBC 12.3 H MCHC 35 H Lymph % (Auto) [place] % (Auto) Lymph # (Auto) [place] # (Auto) Seg Neutrophils % Seg Neuts % (Manual) 91.0 H Lymphocytes % (Manual) 6.0 L Seg Neutrophils # Seg Neutrophils # Man 11.2 H Lymphocytes # (Manual) 0.7 L D-Dimer Sodium 136 L Potassium Carbon Dioxide BUN 26 H Glucose 112 H Calcium Magnesium Ferritin AST Lactate Dehydrogenase 455 H C-Reactive Protein Total Protein 5.8 L Albumin 2.8 L Coronavirus (PCR)
[2020-09-30] MEDS: oxyCODONE /ACETAMINOPHEN 5-325MG TAB PO PRN (20:50)
[2020-10-01] MEDS: methylPREDNISolone Sod Succinate 125 MG/2 ML INJ IV SCH ×3 (05:55→22:28)
--- NOTE | 2020-10-01 09:00 | Progress Note ---
Assessment and Plan Assessment and plan: --COVID-19 positive infection; with hypoxia Slightly improved , FiO2 requirement decreased from 100 to 80% remains on high flow nasal cannula oxygen at 30 L/80% FiO2/92 O2 sats Wean as tolerated, patient critically ill, poor prognosis -- Acute hypoxemic respiratory failure/on high flow oxygen/BiPAP Current Visit: Yes Status: Acute prone positioning while in bed as much as possible Continue high flow nasal cannula oxygen; 30 L FiO2 80% O2 sats 92% With intermittent BiPAP, wean as tolerated Home O2 evaluation prior to discharge Pulmonary following --Elevated D-dimers; Current Visit: Yes Status: Acute In the setting of severe hypoxemia requiring high flow oxygen and BiPAP Severe COVID-19 pneumonia, obesity High risk patient, patient is placed on therapeutic dose of anticoagulation with Lovenox Closely monitor, CTA chest requested when patient is stable -- Bilateral pneumonia Current Visit: Yes Status: Acute Empiric antibiotics discontinued As procalcitonin level is normal --COVID-19 virus infection Current Visit: Yes Status: Acute Isolation droplet and contact, Patient is hypoxic, on high flow nasal cannula oxygen Completed remdesivir, s/p Actemra continue Solu-Medrol Inflammatory markers trending down, Prone positioning, home O2 evaluation pulmonary and ID following Continue zinc, vitamin D, ascorbic acid --Hyperkalemia; resolved Current Visit: Yes Status: Acute Monitor electrolytes -- Obesity hypoventilation syndrome/BMI 36.0 Current Visit: Yes Status: Acute Dietary modification , exercise as tolerated , lifestyle changes Weight reduction when medically stable Outpatient sleep study to rule out obstructive sleep apnea --Severe protein calorie malnutrition; hypoalbuminemia Current Visit: Yes Status: Chronic Nutrition supplements, nutrition consult -- DVT prophylaxis Current Visit: Yes Status: Acute Full dose therapeutic anticoagulation with Lovenox Closely monitor the patient and adjust management as needed Plan of care reviewed with the patient and her nurse Critical care time 35 minutes [patient is critically ill severe COVID-19 pneumonia/on high flow nasal cannula oxygen/poor prognosis] The high probability of a clinically significant, sudden or life threatening deterioration of the multiple system(s) required my full and direct attention, intervention and personal management. The aggregate critical care time was [35] minutes. This time is in addition to time spent performing reported procedures but includes the following: [x] Data Review and interpretation [x] Patient assessment and monitoring of vital signs [x] Documentation [x] Medication orders and management Daily management 09/23/2020; Positive COVID-19, Hypoxemia on high flow oxygen Morbidly obese, ID following Continue therapies per protocol Pulmonary consulted Resumed service; 09/28/2020; Patient continues to require high flow nasal cannula oxygen with intermittent BiPAP Wean as tolerated, home O2 evaluation at discharge 09/29/2020 ; Patient remains on high flow nasal cannula oxygen at 30 L/90% FiO2/93 O2 sats Wean as tolerated, evaluation for home oxygen prior to discharge 09/30/2020; Patient remains on high flow oxygen 30 L/FiO2 80% Wean as tolerated Overall prognosis poor 10/01/2020; Patient remains on high flow oxygen but significantly improved Today she is on 20 L/50%/97 FiO2 Wean further as tolerated History Interval history: I have seen and examined the patient in IMCU this morning during morning rounds Patient's chart and medications reviewed Patient feels slightly better still on high flow oxygen Having her breakfast, no new complaints Patient's nurse is in the room at the bedside Hospitalist Physical - Constitutional Vitals: Temp Pulse Resp BP Pulse Ox 97.6 F 63 24 124/56 98 10/01/20 07:00 10/01/20 06:00 10/01/20 06:00 10/01/20 06:00 10/01/20 07:40 General appearance: Present: no acute distress, well-nourished, obese, other (On high flow nasal cannula oxygen) - EENT Eyes: Present: PERRL, EOM intact - Neck Neck: Present: supple, normal ROM - Respiratory Respiratory effort: normal Respiratory: bilateral: diminished, rhonchi, negative: rales, wheezing - Cardiovascular Rhythm: regular Heart Sounds: Present: S1 & S2 - Extremities Extremities: no ischemia, No edema - Abdominal General gastrointestinal: soft, non-tender, non-distended, normal bowel sounds - Integumentary Integumentary: Present: clear, warm - Psychiatric Psychiatric: appropriate mood/affect, cooperative - Neurologic Neurologic: CNII-XII intact, moves all extremities Results - Labs CBC & Chem 7: 09/30/20 04:39 09/30/20 04:39 Labs: Laboratory Last Values WBC 12.3 K/mm3 (4.5-11.0) H 09/30/20 04:39 RBC 4.36 M/mm3 (3.65-5.03) 09/30/20 04:39 Hgb 13.6 gm/dl (10.1-14.3) 09/30/20 04:39 Hct 38.9 % (30.3-42.9) 09/30/20 04:39 MCV 89 fl (79-97) 09/30/20 04:39 MCH 31 pg (28-32) 09/30/20 04:39 MCHC 35 % (30-34) H 09/30/20 04:39 RDW 14.1 % (13.2-15.2) 09/30/20 04:39 Plt Count 360 K/mm3 (140-440) 09/30/20 04:39 Lymph % (Auto) 5.5 % (13.4-35.0) L 09/24/20 15:20 [place] % (Auto) 8.1 % (0.0-7.3) H 09/24/20 15:20 Eos % (Auto) 0.0 % (0.0-4.3) 09/24/20 15:20 Baso % (Auto) 0.7 % (0.0-1.8) 09/24/20 15:20 Lymph # (Auto) 0.6 K/mm3 (1.2-5.4) L 09/24/20 15:20 [place] # (Auto) 0.9 K/mm3 (0.0-0.8) H 09/24/20 15:20 Eos # (Auto) 0.0 K/mm3 (0.0-0.4) 09/24/20 15:20 Baso # (Auto) 0.1 K/mm3 (0.0-0.1) 09/24/20 15:20 Add Manual Diff Complete 09/30/20 04:39 Total Counted 100 09/30/20 04:39 Seg Neutrophils % [employer]iance Project Manager 09/30/20 04:39 Seg Neuts % (Manual) 91.0 % (40.0-70.0) H 09/30/20 04:39 Lymphocytes % (Manual) 6.0 % (13.4-35.0) L 09/30/20 04:39 Monocytes % (Manual) 3.0 % (0.0-7.3) 09/30/20 04:39 Nucleated RBC % Not Reportable 09/30/20 04:39 Seg Neutrophils # 9.6 K/mm3 (1.8-7.7) H 09/24/20 15:20 Seg Neutrophils # Man 11.2 K/mm3 (1.8-7.7) H 09/30/20 04:39 Band Neutrophils # 0.0 K/mm3 09/30/20 04:39 Lymphocytes # (Manual) 0.7 K/mm3 (1.2-5.4) L 09/30/20 04:39 Abs React Lymphs (Man) 0.0 K/mm3 09/30/20 04:39 Monocytes # (Manual) 0.4 K/mm3 (0.0-0.8) 09/30/20 04:39 Eosinophils # (Manual) 0.0 K/mm3 (0.0-0.4) 09/30/20 04:39 Basophils # (Manual) 0.0 K/mm3 (0.0-0.1) 09/30/20 04:39 Metamyelocytes # 0.0 K/mm3 09/30/20 04:39 Myelocytes # 0.0 K/mm3 09/30/20 04:39 Promyelocytes # 0.0 K/mm3 09/30/20 04:39 Blast Cells # 0.0 K/mm3 09/30/20 04:39 WBC Morphology Not Reportable 09/30/20 04:39 Hypersegmented Neuts Not Reportable 09/30/20 04:39 Hyposegmented Neuts Not Reportable 09/30/20 04:39 Hypogranular Neuts Not Reportable 09/30/20 04:39 Smudge Cells Not Reportable 09/30/20 04:39 Toxic Granulation Not Reportable 09/30/20 04:39 Toxic Vacuolation Not Reportable 09/30/20 04:39 Dohle Bodies Not Reportable 09/30/20 04:39 Pelger-Huet Anomaly Not Reportable 09/30/20 04:39 Gemini Rods Not Reportable 09/30/20 04:39 Platelet Estimate Consistent w auto 09/30/20 04:39 Clumped Platelets Not Reportable 09/30/20 04:39 Plt Clumps, EDTA Not Reportable 09/30/20 04:39 Large Platelets Not Reportable 09/30/20 04:39 Giant Platelets Not Reportable 09/30/20 04:39 Platelet Satelliting Not Reportable 09/30/20 04:39 Plt Morphology Comment Not Reportable 09/30/20 04:39 RBC Morphology Normal 09/30/20 04:39 Dimorphic RBCs Not Reportable 09/30/20 04:39 Polychromasia Not Reportable 09/30/20 04:39 Hypochromasia Not Reportable 09/30/20 04:39 Poikilocytosis Not Reportable 09/30/20 04:39 Anisocytosis Not Reportable 09/30/20 04:39 Microcytosis Not Reportable 09/30/20 04:39 Macrocytosis Not Reportable 09/30/20 04:39 Spherocytes Not Reportable 09/30/20 04:39 Pappenheimer Bodies Not Reportable 09/30/20 04:39 Sickle Cells Not Reportable 09/30/20 04:39 Target Cells Not Reportable 09/30/20 04:39 Tear Drop Cells Not Reportable 09/30/20 04:39 Ovalocytes Not Reportable 09/30/20 04:39 Helmet Cells Not Reportable 09/30/20 04:39 [place] Bodies Not Reportable 09/30/20 04:39 Celina Rings Not Reportable 09/30/20 04:39 Evelio Cells Not Reportable 09/30/20 04:39 Bite Cells Not Reportable 09/30/20 04:39 Crenated Cell Not Reportable 09/30/20 04:39 Elliptocytes Not Reportable 09/30/20 04:39 Acanthocytes (Spur) Not Reportable 09/30/20 04:39 Rouleaux Not Reportable 09/30/20 04:39 Hemoglobin C Crystals Not Reportable 09/30/20 04:39 Schistocytes Not Reportable 09/30/20 04:39 Malaria parasites Not Reportable 09/30/20 04:39 Tor Bodies Not Reportable 09/30/20 04:39 Hem Pathologist Commnt No 09/30/20 04:39 D-Dimer 1161.67 ng/mlDDU (0-234) H 09/28/20 09:07 Sodium 136 mmol/L (137-145) L 09/30/20 04:39 Potassium 4.6 mmol/L (3.6-5.0) 09/30/20 04:39 Chloride 103.7 mmol/L (98-107) 09/30/20 04:39 Carbon Dioxide 26 mmol/L (22-30) 09/30/20 04:39 Anion Gap 11 mmol/L 09/30/20 04:39 BUN 26 mg/dL (7-17) H 09/30/20 04:39 Creatinine 0.7 mg/dL (0.6-1.2) 09/30/20 04:39 Estimated GFR > 60 ml/min 09/30/20 04:39 BUN/Creatinine Ratio 37 % 09/30/20 04:39 Glucose 112 mg/dL (65-100) H 09/30/20 04:39 Lactic Acid 1.10 mmol/L (0.7-2.0) 09/22/20 18:17 Calcium 8.4 mg/dL (8.4-10.2) 09/30/20 04:39 Magnesium 3.10 mg/dL (1.7-2.3) H 09/24/20 15:20 Ferritin 795.8 ng/mL (10.0-200.0) H 09/28/20 09:07 Total Bilirubin 0.40 mg/dL (0.1-1.2) 09/30/20 04:39 AST 32 units/L (5-40) 09/30/20 04:39 ALT 51 units/L (7-56) 09/30/20 04:39 Alkaline Phosphatase 81 units/L (35-129) 09/30/20 04:39 Lactate Dehydrogenase 455 units/L (91-180) H 09/28/20 09:07 C-Reactive Protein 0.60 mg/dL (0.00-1.30) 09/28/20 09:07 Total Protein 5.8 g/dL (6.3-8.2) L 09/30/20 04:39 Albumin 2.8 g/dL (3.9-5) L 09/30/20 04:39 Albumin/Globulin Ratio 0.9 % 09/30/20 04:39 Procalcitonin 0.06 ng/mL (<0.15) 09/22/20 18:17 Coronavirus (PCR) Positive (Negative) A 09/23/20 Unknown Dhillon/IV: Voiding Method External Female Catheter Active Medications - Current Medications Current Medications: Generic Name Dose Route Start Last Admin Trade Name Freq PRN Reason Stop Dose Admin Acetaminophen 650 mg 09/22/20 18:16 09/27/20 22:07 Acetaminophen 325 Mg Tab PO 650 mg Q4H PRN Administration Pain MILD(1-3)/Fever >100.5/GRAMAJO Albuterol 2.5 mg 09/22/20 18:16 Albuterol 2.5 Mg/3 Ml Nebu IH Q4HRT PRN Shortness Of Breath Ascorbic Acid 500 mg 09/22/20 22:00 09/30/20 22:55 Ascorbic Acid 500 Mg Tab PO 500 mg BID SAYDA Administration Cholecalciferol 1,000 unit 09/23/20 10:00 09/30/20 10:03 Cholecalciferol (Vit D3) 1000 Unit (25 Mcg) Tab PO 1,000 unit QDAY [facility] Administration Enoxaparin Sodium 100 mg 09/23/20 22:00 09/30/20 22:52 Enoxaparin 100 Mg/1 Ml Inj 1 mg/kg (100 mg) Not Given SUB-Q Q12HR [facility] Protocol Guaifenesin 10 ml 09/29/20 08:56 09/30/20 13:16 Guaifenesin Dm 200/20 Mg Oral Liqd 10 Ml PO 10 ml Q4H PRN Administration Cough Hydromorphone HCl 0.5 mg 09/22/20 18:16 09/27/20 03:04 Hydromorphone 1 Mg/1 Ml Inj IV 0.5 mg Q12H PRN Administration Pain , Severe (7-10) Lorazepam 1 mg 09/27/20 12:59 09/30/20 10:03 Lorazepam 2 Mg/Ml Vial IV 1 mg Q4H PRN Administration Anxiety Methylprednisolone Sodium Succinate 40 mg 09/28/20 06:00 10/01/20 05:55 Methylprednisolone Sod Succinate 125 Mg/2 Ml Inj IV 10/07/20 22:01 40 mg Q8H SAYDA Administration Ondansetron HCl 4 mg 09/22/20 18:16 09/23/20 10:34 Ondansetron 4 Mg/2 Ml Inj IV 4 mg Q8H PRN Administration Nausea And Vomiting Oxycodone/Acetaminophen 1 tab 09/22/20 18:16 09/30/20 20:50 Oxycodone /Acetaminophen 5-325mg Tab PO 1 tab Q12H PRN Administration Pain, Moderate (4-6) Sodium Chloride 10 ml 09/22/20 22:00 09/30/20 22:53 Sodium Chloride 0.9% 10 Ml Flush Syringe IV Not Given BID SAYDA Sodium Chloride 10 ml 09/22/20 18:16 Sodium Chloride 0.9% 10 Ml Flush Syringe IV PRN PRN LINE FLUSH Zinc Sulfate 220 mg 09/22/20 22:00 09/30/20 10:03 Zinc Sulfate 220 Mg Cap PO 220 mg BID SAYDA Administration Nutrition/Malnutrition Assess - Dietary Evaluation Nutrition/Malnutrition Findings: Nutrition Notes Start: 09/27/20 15:17 Freq: Status: Active Protocol: Document 09/30/20 10:26 [facility] (Rec: 09/30/20 10:27 [id number]) Nutrition Notes Initial or Follow up Brief Note Subjective/Other Information Pt consumed 50% of breakfast yesterday. Unable to reach pt via phone at 10:25. Nutrition Intervention Follow-Up By: 10/05/20 Additional Comments F/U: intakes (meals/ONS), resp status, wt
[2020-10-01] MEDS: ASCORBIC ACID 500 MG TAB PO SCH ×2 (09:09→22:32)
[2020-10-01] MEDS: CHOLECALCIFEROL (VIT D3) 1000 UNIT (25 mcg) TAB PO SCH (09:09)
[2020-10-01] MEDS: ZINC SULFATE 220 MG CAP PO SCH ×3 (09:09→22:31)
[2020-10-01] MEDS: guaiFENesin DM 200/20 MG ORAL LIQD 10 ML PO PRN ×2 (09:10→22:27)
[2020-10-01] MEDS: ENOXAPARIN 100 MG/1 ML INJ SUB-Q SCH ×2 (11:13→22:29)
[2020-10-01] MEDS ORDERED: SODIUM CHLORIDE NASAL SPRAY 44ML NS PRN (12:36)
--- NOTE | 2020-10-01 12:41 | Progress Note ---
Assessment and Plan 60 y/o female with acute respiratory failure secondary to COVID 19 pneumonia, unvaccinated. 10/01/20: Stressed the importance of proning again. Dropped FiO2 to 60%. Asked RT to drop Flow down to 20-25 in about an hour. Prognosis still remains guarded. Maybe ready for transfer to floor over the weekend. 09/30/20: Continue to wean FiO2 for sats >88%. Prone, IV steroids and Remdesivir. Guarded prognosis. 09/29/20: Continue proning, weaned to fiO2 of 90 09/28/20: Once patient awake will ask her to prone again and sleep prone at night. Continue IV steroids. Guarded prognosis. 09/27/20: Continue proning. Continue Remdesivir and IV steroids. Monitor fluid intake and fluid balance. Guarded prognosis. 1. Long discussion at bedside about proning. Patient has agreed to do so and numbers are better already. Wean for sats >88% 2. Continue IV steroids 3. Continue Remdesivir 4. Follow up ID recs 5. Agree with full dose anticoagulation Guarded prognosis. Subjective Date of service: 10/01/20 Principal diagnosis: Covid-19 Interval history: No acute events. Down to 70% and 100 on the monitor. Flow at 30. complains of dry nose and drainage from nares. Objective Vital Signs - 12hr 10/01/20 10/01/20 10/01/20 01:00 02:00 03:00 Temperature Pulse Rate 58 L 56 L 59 L Pulse Rate [ From Monitor] Respiratory 25 H 26 H 25 H Rate Blood Pressure 114/62 129/65 119/58 O2 Sat by Pulse 93 100 95 Oximetry 10/01/20 10/01/20 10/01/20 04:00 05:00 06:00 Temperature Pulse Rate 61 58 L 63 Pulse Rate [ From Monitor] Respiratory 26 H 27 H 24 Rate Blood Pressure 111/51 110/40 124/56 O2 Sat by Pulse 95 100 100 Oximetry 10/01/20 10/01/20 10/01/20 07:00 07:40 08:00 Temperature 97.6 F Pulse Rate 68 Pulse Rate [ 68 From Monitor] Respiratory Rate Blood Pressure 124/56 107/55 O2 Sat by Pulse 50 L 98 96 Oximetry 10/01/20 10/01/20 10/01/20 09:00 10:00 11:49 Temperature 97.7 F Pulse Rate 58 L 57 L Pulse Rate [ From Monitor] Respiratory 22 31 H Rate Blood Pressure 103/61 115/59 O2 Sat by Pulse 100 100 Oximetry CBC and BMP: 09/30/20 04:39 09/30/20 04:39 ABG, PT/INR, D-dimer: PT/INR, D-dimer D-Dimer 1161.67 ng/mlDDU (0-234) H 09/28/20 09:07 Abnormal lab findings: Abnormal Labs 09/22/20 09/22/20 09/22/20 15:17 15:17 15:30 WBC MCHC Lymph % (Auto) 8.0 L [place] % (Auto) Lymph # (Auto) 0.5 L [place] # (Auto) Seg Neutrophils % 84.8 H Seg Neuts % (Manual) Lymphocytes % (Manual) Seg Neutrophils # Seg Neutrophils # Man Lymphocytes # (Manual) D-Dimer 1693.52 H Sodium 134 L Potassium 5.3 H Carbon Dioxide BUN Glucose 101 H Calcium 8.1 L Magnesium Ferritin AST 60 H Lactate Dehydrogenase 666 H C-Reactive Protein 14.50 H Total Protein Albumin 2.9 L Coronavirus (PCR) 09/22/20 09/23/20 09/23/20 15:30 06:16 06:16 WBC 3.7 L MCHC Lymph % (Auto) 12.3 L [place] % (Auto) 7.6 H Lymph # (Auto) 0.4 L [place] # (Auto) Seg Neutrophils % 79.5 H Seg Neuts % (Manual) Lymphocytes % (Manual) Seg Neutrophils # Seg Neutrophils # Man Lymphocytes # (Manual) D-Dimer Sodium Potassium Carbon Dioxide BUN Glucose 110 H Calcium 8.2 L Magnesium Ferritin 723.4 H AST 52 H Lactate Dehydrogenase C-Reactive Protein Total Protein Albumin 3.2 L Coronavirus (PCR) 09/23/20 09/23/20 09/24/20 15:28 Unknown 15:20 WBC MCHC Lymph % (Auto) [place] % (Auto) Lymph # (Auto) [place] # (Auto) Seg Neutrophils % Seg Neuts % (Manual) Lymphocytes % (Manual) Seg Neutrophils # Seg Neutrophils # Man Lymphocytes # (Manual) D-Dimer Sodium 133 L Potassium 5.8 H D Carbon Dioxide 20 L BUN 20 H 26 H Glucose 115 H 111 H Calcium 8.2 L 8.2 L Magnesium Ferritin AST 49 H Lactate Dehydrogenase C-Reactive Protein Total Protein Albumin 3.1 L 3.3 L Coronavirus (PCR) Positive A 09/24/20 09/24/20 09/25/20 15:20 15:20 05:10 WBC 11.1 H MCHC Lymph % (Auto) 5.5 L [place] % (Auto) 8.1 H Lymph # (Auto) 0.6 L [place] # (Auto) 0.9 H Seg Neutrophils % 85.7 H Seg Neuts % (Manual) Lymphocytes % (Manual) Seg Neutrophils # 9.6 H Seg Neutrophils # Man Lymphocytes # (Manual) D-Dimer Sodium Potassium Carbon Dioxide BUN 27 H Glucose 104 H Calcium Magnesium 3.10 H Ferritin AST Lactate Dehydrogenase C-Reactive Protein Total Protein Albumin 3.1 L Coronavirus (PCR) 09/25/20 09/25/20 09/25/20 05:10 05:10 05:10 WBC MCHC Lymph % (Auto) [place] % (Auto) Lymph # (Auto) [place] # (Auto) Seg Neutrophils % Seg Neuts % (Manual) Lymphocytes % (Manual) Seg Neutrophils # Seg Neutrophils # Man Lymphocytes # (Manual) D-Dimer 1267.92 H Sodium Potassium Carbon Dioxide BUN Glucose Calcium Magnesium Ferritin 847.4 H AST Lactate Dehydrogenase C-Reactive Protein 4.10 H Total Protein Albumin Coronavirus (PCR) 09/26/20 09/28/20 09/28/20 10:35 09:07 09:07 WBC MCHC Lymph % (Auto) [place] % (Auto) Lymph # (Auto) [place] # (Auto) Seg Neutrophils % Seg Neuts % (Manual) Lymphocytes % (Manual) Seg Neutrophils # Seg Neutrophils # Man Lymphocytes # (Manual) D-Dimer 1161.67 H Sodium Potassium Carbon Dioxide BUN 30 H Glucose 102 H Calcium Magnesium Ferritin 795.8 H AST 53 H Lactate Dehydrogenase C-Reactive Protein Total Protein Albumin 3.4 L Coronavirus (PCR) 09/28/20 09/30/20 09/30/20 09:07 04:39 04:39 WBC 12.3 H MCHC 35 H Lymph % (Auto) [place] % (Auto) Lymph # (Auto) [place] # (Auto) Seg Neutrophils % Seg Neuts % (Manual) 91.0 H Lymphocytes % (Manual) 6.0 L Seg Neutrophils # Seg Neutrophils # Man 11.2 H Lymphocytes # (Manual) 0.7 L D-Dimer Sodium 136 L Potassium Carbon Dioxide BUN 26 H Glucose 112 H Calcium Magnesium Ferritin AST Lactate Dehydrogenase 455 H C-Reactive Protein Total Protein 5.8 L Albumin 2.8 L Coronavirus (PCR)
[2020-10-01] MEDS: LORazepam 2 MG/ML VIAL IV PRN (22:30)
[2020-10-02] MEDS: methylPREDNISolone Sod Succinate 125 MG/2 ML INJ IV SCH ×3 (05:52→22:25)
[2020-10-02] MEDS: guaiFENesin DM 200/20 MG ORAL LIQD 10 ML PO PRN ×3 (05:54→22:28)
[2020-10-02] MEDS: ENOXAPARIN 100 MG/1 ML INJ SUB-Q SCH ×2 (09:41→22:24)
[2020-10-02] MEDS: ASCORBIC ACID 500 MG TAB PO SCH ×2 (09:41→22:26)
[2020-10-02] MEDS: CHOLECALCIFEROL (VIT D3) 1000 UNIT (25 mcg) TAB PO SCH (09:41)
[2020-10-02] MEDS: ZINC SULFATE 220 MG CAP PO SCH ×2 (09:41→22:27)
--- NOTE | 2020-10-02 09:51 | Progress Note ---
Assessment and Plan Assessment and plan: --Constipation; Current Visit: Yes Status: Acute Milk of magnesia 30 mL 1 dose now with Dulcolax suppository May repeat again if no improvement If patient does not respond with 2-3 treatments She may need enema administration --COVID-19 positive infection; with hypoxia Slightly improved , FiO2 requirement decreased from 100 to 80% remains on high flow nasal cannula oxygen at 30 L/80% FiO2/92 O2 sats Wean as tolerated, patient critically ill, poor prognosis -- Acute hypoxemic respiratory failure/on high flow oxygen/BiPAP Current Visit: Yes Status: Acute prone positioning while in bed as much as possible high flow nasal cannula oxygen; 30 L FiO2 80% O2 sats 92% improved significantly Improved to 20 L /50% /O2 sat 99 with intermittent BiPAP, wean as tolerated Home O2 evaluation prior to discharge Pulmonary following --Elevated D-dimers; Current Visit: Yes Status: Acute In the setting of severe hypoxemia requiring high flow oxygen and BiPAP Severe COVID-19 pneumonia, obesity High risk patient, patient is placed on therapeutic dose of anticoagulation with Lovenox Closely monitor, CTA chest requested when patient is stable -- Bilateral pneumonia Current Visit: Yes Status: Acute Empiric antibiotics discontinued As procalcitonin level is normal --COVID-19 virus infection Current Visit: Yes Status: Acute Isolation droplet and contact, Patient is hypoxic, on high flow nasal cannula oxygen Completed remdesivir, s/p Actemra continue Solu-Medrol Inflammatory markers trending down, Prone positioning, home O2 evaluation pulmonary and ID following Continue zinc, vitamin D, ascorbic acid --Hyperkalemia; resolved Current Visit: Yes Status: Acute Monitor electrolytes -- Obesity hypoventilation syndrome/BMI 36.0 Current Visit: Yes Status: Acute Dietary modification , exercise as tolerated , lifestyle changes Weight reduction when medically stable Outpatient sleep study to rule out obstructive sleep apnea --Severe protein calorie malnutrition; hypoalbuminemia Current Visit: Yes Status: Chronic Nutrition supplements, nutrition consult -- DVT prophylaxis Current Visit: Yes Status: Acute Full dose therapeutic anticoagulation with Lovenox Closely monitor the patient and adjust management as needed Plan of care reviewed with the patient and her nurse Critical care time 35 minutes [patient is critically ill severe COVID-19 pneumonia/on high flow nasal cannula oxygen/poor prognosis] The high probability of a clinically significant, sudden or life threatening deterioration of the multiple system(s) required my full and direct attention, intervention and personal management. The aggregate critical care time was [40] minutes. This time is in addition to time spent performing reported procedures but includes the following: [x] Data Review and interpretation [x] Patient assessment and monitoring of vital signs [x] Documentation [x] Medication orders and management Daily management 09/23/2020; Positive COVID-19, Hypoxemia on high flow oxygen Morbidly obese, ID following Continue therapies per protocol Pulmonary consulted Resumed service; 09/28/2020; Patient continues to require high flow nasal cannula oxygen with intermittent BiPAP Wean as tolerated, home O2 evaluation at discharge 09/29/2020 ; Patient remains on high flow nasal cannula oxygen at 30 L/90% FiO2/93 O2 sats Wean as tolerated, evaluation for home oxygen prior to discharge 09/30/2020; Patient remains on high flow oxygen 30 L/FiO2 80% Wean as tolerated Overall prognosis poor 10/02/2020; Patient remains on high flow oxygen but significantly improved Today she is on 20 L/50%/99 FiO2 Wean further as tolerated Constipated, advised MOM and Dulcolax Enema if no improvement after 2 doses History Interval history: Patient's high flow nasal cannula oxygen requirement decreased to 20 L/50% FiO2/O2 sats 99 percent Patient patient feels much better patient complains of constipation of more than a week Vital signs noted Hospitalist Physical - Constitutional Vitals: Temp Pulse Resp BP Pulse Ox 98.2 F 86 15 124/100 99 10/02/20 08:00 10/02/20 06:00 10/02/20 06:00 10/02/20 06:00 10/02/20 08:00 General appearance: Present: no acute distress, well-nourished, obese, other (On high flow nasal cannula oxygen 20 L) - EENT Eyes: Present: PERRL, EOM intact - Neck Neck: Present: supple, normal ROM - Respiratory Respiratory effort: normal Respiratory: bilateral: diminished, rhonchi, negative: rales, wheezing - Cardiovascular Rhythm: regular Heart Sounds: Present: S1 & S2 - Extremities Extremities: no ischemia, No edema - Abdominal General gastrointestinal: soft, non-tender, non-distended, normal bowel sounds - Integumentary Integumentary: Present: clear, warm - Psychiatric Psychiatric: appropriate mood/affect, cooperative - Neurologic Neurologic: CNII-XII intact, moves all extremities Results - Labs CBC & Chem 7: 09/30/20 04:39 09/30/20 04:39 Labs: Laboratory Last Values WBC 12.3 K/mm3 (4.5-11.0) H 09/30/20 04:39 RBC 4.36 M/mm3 (3.65-5.03) 09/30/20 04:39 Hgb 13.6 gm/dl (10.1-14.3) 09/30/20 04:39 Hct 38.9 % (30.3-42.9) 09/30/20 04:39 MCV 89 fl (79-97) 09/30/20 04:39 MCH 31 pg (28-32) 09/30/20 04:39 MCHC 35 % (30-34) H 09/30/20 04:39 RDW 14.1 % (13.2-15.2) 09/30/20 04:39 Plt Count 360 K/mm3 (140-440) 09/30/20 04:39 Lymph % (Auto) 5.5 % (13.4-35.0) L 09/24/20 15:20 [place] % (Auto) 8.1 % (0.0-7.3) H 09/24/20 15:20 Eos % (Auto) 0.0 % (0.0-4.3) 09/24/20 15:20 Baso % (Auto) 0.7 % (0.0-1.8) 09/24/20 15:20 Lymph # (Auto) 0.6 K/mm3 (1.2-5.4) L 09/24/20 15:20 [place] # (Auto) 0.9 K/mm3 (0.0-0.8) H 09/24/20 15:20 Eos # (Auto) 0.0 K/mm3 (0.0-0.4) 09/24/20 15:20 Baso # (Auto) 0.1 K/mm3 (0.0-0.1) 09/24/20 15:20 Add Manual Diff Complete 09/30/20 04:39 Total Counted 100 09/30/20 04:39 Seg Neutrophils % Cytotechnologist/Histotechnologist 09/30/20 04:39 Seg Neuts % (Manual) 91.0 % (40.0-70.0) H 09/30/20 04:39 Lymphocytes % (Manual) 6.0 % (13.4-35.0) L 09/30/20 04:39 Monocytes % (Manual) 3.0 % (0.0-7.3) 09/30/20 04:39 Nucleated RBC % Not Reportable 09/30/20 04:39 Seg Neutrophils # 9.6 K/mm3 (1.8-7.7) H 09/24/20 15:20 Seg Neutrophils # Man 11.2 K/mm3 (1.8-7.7) H 09/30/20 04:39 Band Neutrophils # 0.0 K/mm3 09/30/20 04:39 Lymphocytes # (Manual) 0.7 K/mm3 (1.2-5.4) L 09/30/20 04:39 Abs React Lymphs (Man) 0.0 K/mm3 09/30/20 04:39 Monocytes # (Manual) 0.4 K/mm3 (0.0-0.8) 09/30/20 04:39 Eosinophils # (Manual) 0.0 K/mm3 (0.0-0.4) 09/30/20 04:39 Basophils # (Manual) 0.0 K/mm3 (0.0-0.1) 09/30/20 04:39 Metamyelocytes # 0.0 K/mm3 09/30/20 04:39 Myelocytes # 0.0 K/mm3 09/30/20 04:39 Promyelocytes # 0.0 K/mm3 09/30/20 04:39 Blast Cells # 0.0 K/mm3 09/30/20 04:39 WBC Morphology Not Reportable 09/30/20 04:39 Hypersegmented Neuts Not Reportable 09/30/20 04:39 Hyposegmented Neuts Not Reportable 09/30/20 04:39 Hypogranular Neuts Not Reportable 09/30/20 04:39 Smudge Cells Not Reportable 09/30/20 04:39 Toxic Granulation Not Reportable 09/30/20 04:39 Toxic Vacuolation Not Reportable 09/30/20 04:39 Dohle Bodies Not Reportable 09/30/20 04:39 Pelger-Huet Anomaly Not Reportable 09/30/20 04:39 Gemini Rods Not Reportable 09/30/20 04:39 Platelet Estimate Consistent w auto 09/30/20 04:39 Clumped Platelets Not Reportable 09/30/20 04:39 Plt Clumps, EDTA Not Reportable 09/30/20 04:39 Large Platelets Not Reportable 09/30/20 04:39 Giant Platelets Not Reportable 09/30/20 04:39 Platelet Satelliting Not Reportable 09/30/20 04:39 Plt Morphology Comment Not Reportable 09/30/20 04:39 RBC Morphology Normal 09/30/20 04:39 Dimorphic RBCs Not Reportable 09/30/20 04:39 Polychromasia Not Reportable 09/30/20 04:39 Hypochromasia Not Reportable 09/30/20 04:39 Poikilocytosis Not Reportable 09/30/20 04:39 Anisocytosis Not Reportable 09/30/20 04:39 Microcytosis Not Reportable 09/30/20 04:39 Macrocytosis Not Reportable 09/30/20 04:39 Spherocytes Not Reportable 09/30/20 04:39 Pappenheimer Bodies Not Reportable 09/30/20 04:39 Sickle Cells Not Reportable 09/30/20 04:39 Target Cells Not Reportable 09/30/20 04:39 Tear Drop Cells Not Reportable 09/30/20 04:39 Ovalocytes Not Reportable 09/30/20 04:39 Helmet Cells Not Reportable 09/30/20 04:39 Fuchs-Mar-Mac Bodies Not Reportable 09/30/20 04:39 [place] Rings Not Reportable 09/30/20 04:39 Gillett Cells Not Reportable 09/30/20 04:39 Bite Cells Not Reportable 09/30/20 04:39 Crenated Cell Not Reportable 09/30/20 04:39 Elliptocytes Not Reportable 09/30/20 04:39 Acanthocytes (Spur) Not Reportable 09/30/20 04:39 Rouleaux Not Reportable 09/30/20 04:39 Hemoglobin C Crystals Not Reportable 09/30/20 04:39 Schistocytes Not Reportable 09/30/20 04:39 Malaria parasites Not Reportable 09/30/20 04:39 Tor Bodies Not Reportable 09/30/20 04:39 Hem Pathologist Commnt No 09/30/20 04:39 D-Dimer 1161.67 ng/mlDDU (0-234) H 09/28/20 09:07 Sodium 136 mmol/L (137-145) L 09/30/20 04:39 Potassium 4.6 mmol/L (3.6-5.0) 09/30/20 04:39 Chloride 103.7 mmol/L (98-107) 09/30/20 04:39 Carbon Dioxide 26 mmol/L (22-30) 09/30/20 04:39 Anion Gap 11 mmol/L 09/30/20 04:39 BUN 26 mg/dL (7-17) H 09/30/20 04:39 Creatinine 0.7 mg/dL (0.6-1.2) 09/30/20 04:39 Estimated GFR > 60 ml/min 09/30/20 04:39 BUN/Creatinine Ratio 37 % 09/30/20 04:39 Glucose 112 mg/dL (65-100) H 09/30/20 04:39 Lactic Acid 1.10 mmol/L (0.7-2.0) 09/22/20 18:17 Calcium 8.4 mg/dL (8.4-10.2) 09/30/20 04:39 Magnesium 3.10 mg/dL (1.7-2.3) H 09/24/20 15:20 Ferritin 795.8 ng/mL (10.0-200.0) H 09/28/20 09:07 Total Bilirubin 0.40 mg/dL (0.1-1.2) 09/30/20 04:39 AST 32 units/L (5-40) 09/30/20 04:39 ALT 51 units/L (7-56) 09/30/20 04:39 Alkaline Phosphatase 81 units/L (35-129) 09/30/20 04:39 Lactate Dehydrogenase 455 units/L (91-180) H 09/28/20 09:07 C-Reactive Protein 0.60 mg/dL (0.00-1.30) 09/28/20 09:07 Total Protein 5.8 g/dL (6.3-8.2) L 09/30/20 04:39 Albumin 2.8 g/dL (3.9-5) L 09/30/20 04:39 Albumin/Globulin Ratio 0.9 % 09/30/20 04:39 Procalcitonin 0.06 ng/mL (<0.15) 09/22/20 18:17 Coronavirus (PCR) Positive (Negative) A 09/23/20 Unknown D[place]on/IV: Voiding Method External Female Catheter Active Medications - Current Medications Current Medications: Generic Name Dose Route Start Last Admin Trade Name Freq PRN Reason Stop Dose Admin Acetaminophen 650 mg 09/22/20 18:16 09/27/20 22:07 Acetaminophen 325 Mg Tab PO 650 mg Q4H PRN Administration Pain MILD(1-3)/Fever >100.5/GRAMAJO Albuterol 2.5 mg 09/22/20 18:16 Albuterol 2.5 Mg/3 Ml Nebu IH Q4HRT PRN Shortness Of Breath Ascorbic Acid 500 mg 09/22/20 22:00 10/02/20 09:41 Ascorbic Acid 500 Mg Tab PO 500 mg BID SAYDA Administration Cholecalciferol 1,000 unit 09/23/20 10:00 10/02/20 09:41 Cholecalciferol (Vit D3) 1000 Unit (25 Mcg) Tab PO 1,000 unit QDAY [facility] Administration Enoxaparin Sodium 100 mg 09/23/20 22:00 10/02/20 09:41 Enoxaparin 100 Mg/1 Ml Inj 1 mg/kg (100 mg) 100 mg SUB-Q Administration Q12HR [facility] Protocol Guaifenesin 10 ml 09/29/20 08:56 10/02/20 05:54 Guaifenesin Dm 200/20 Mg Oral Liqd 10 Ml PO 10 ml Q4H PRN Administration Cough Hydromorphone HCl 0.5 mg 09/22/20 18:16 09/27/20 03:04 Hydromorphone 1 Mg/1 Ml Inj IV 0.5 mg Q12H PRN Administration Pain , Severe (7-10) Lorazepam 1 mg 09/27/20 12:59 10/01/20 22:30 Lorazepam 2 Mg/Ml Vial IV 1 mg Q4H PRN Administration Anxiety Methylprednisolone Sodium Succinate 40 mg 09/28/20 06:00 10/02/20 05:52 Methylprednisolone Sod Succinate 125 Mg/2 Ml Inj IV 10/07/20 22:01 40 mg Q8H SAYDA Administration Ondansetron HCl 4 mg 09/22/20 18:16 09/23/20 10:34 Ondansetron 4 Mg/2 Ml Inj IV 4 mg Q8H PRN Administration Nausea And Vomiting Oxycodone/Acetaminophen 1 tab 09/22/20 18:16 09/30/20 20:50 Oxycodone /Acetaminophen 5-325mg Tab PO 1 tab Q12H PRN Administration Pain, Moderate (4-6) Sodium Chloride 10 ml 09/22/20 22:00 10/02/20 09:41 Sodium Chloride 0.9% 10 Ml Flush Syringe IV 10 ml BID SAYDA Administration Sodium Chloride 10 ml 09/22/20 18:16 Sodium Chloride 0.9% 10 Ml Flush Syringe IV PRN PRN LINE FLUSH Sodium Chloride 2 spray 10/01/20 12:36 10/02/20 05:55 Sodium Chloride Nasal [place] 44ml NS 2 spray PRN PRN Administration Dry Nasal Passages Zinc Sulfate 220 mg 09/22/20 22:00 10/02/20 09:41 Zinc Sulfate 220 Mg Cap PO 220 mg BID SAYDA Administration Nutrition/Malnutrition Assess - Dietary Evaluation Nutrition/Malnutrition Findings: Nutrition Notes Start: 09/27/20 15:17 Freq: Status: Active Protocol: Document 09/30/20 10:26 [facility] (Rec: 09/30/20 10:27 [facility] [id number]) Nutrition Notes Initial or Follow up Brief Note Subjective/Other Information Pt consumed 50% of breakfast yesterday. Unable to reach pt via phone at 10:25. Nutrition Intervention Follow-Up By: 10/05/20 Additional Comments F/U: intakes (meals/ONS), resp status, wt
[2020-10-02] MEDS ORDERED: MAGNESIUM HYDROXIDE (MOM) ORAL LIQD UDC PO PRN (10:19)
[2020-10-02] MEDS ORDERED: MAGNESIUM HYDROXIDE (MOM) ORAL LIQD UDC PO ONE (10:19)
--- NOTE | 2020-10-02 10:23 | Progress Note ---
Assessment and Plan 60 y/o female with acute respiratory failure secondary to COVID 19 pneumonia, unvaccinated. 10/02/20: Continue weaning of HFNC, will drop FiO2 down again today. Given improvement, feel patient can be transported to the COVID floor. Continue steroids and proning during the day as well as sleeping prone at night. 10/01/20: Stressed the importance of proning again. Dropped FiO2 to 60%. Asked RT to drop Flow down to 20-25 in about an hour. Prognosis still remains guarded. Maybe ready for transfer to floor over the weekend. 09/30/20: Continue to wean FiO2 for sats >88%. Prone, IV steroids and Remdesivir. Guarded prognosis. 09/29/20: Continue proning, weaned to fiO2 of 90 09/28/20: Once patient awake will ask her to prone again and sleep prone at night. Continue IV steroids. Guarded prognosis. 09/27/20: Continue proning. Continue Remdesivir and IV steroids. Monitor fluid intake and fluid balance. Guarded prognosis. 1. Long discussion at bedside about proning. Patient has agreed to do so and numbers are better already. Wean for sats >88% 2. Continue IV steroids 3. Continue Remdesivir 4. Follow up ID recs 5. Agree with full dose anticoagulation Guarded prognosis. Subjective Date of service: 10/02/20 Principal diagnosis: Covid-19 Interval history: patient continues to improve. Down to 20 and 50% with sats still in the high 90's. Proning at night. Objective Vital Signs - 12hr 10/01/20 10/01/20 10/02/20 23:00 23:35 00:00 Temperature 99.4 F Pulse Rate 69 80 Pulse Rate [ 66 From Monitor] Respiratory 19 30 H Rate Blood Pressure 125/68 133/89 O2 Sat by Pulse 95 94 Oximetry 10/02/20 10/02/20 10/02/20 00:39 01:00 02:01 Temperature Pulse Rate 67 66 Pulse Rate [ From Monitor] Respiratory 15 15 Rate Blood Pressure 130/62 121/56 O2 Sat by Pulse 100 96 95 Oximetry 10/02/20 10/02/20 10/02/20 03:00 03:49 04:00 Temperature 99.1 F Pulse Rate 61 64 Pulse Rate [ 62 From Monitor] Respiratory 18 22 Rate Blood Pressure 126/60 131/64 O2 Sat by Pulse 98 97 Oximetry 10/02/20 10/02/20 10/02/20 05:00 06:00 08:00 Temperature 98.2 F Pulse Rate 55 L 86 Pulse Rate [ From Monitor] Respiratory 30 H 15 Rate Blood Pressure 125/63 124/100 O2 Sat by Pulse 98 99 Oximetry CBC and BMP: 09/30/20 04:39 09/30/20 04:39 ABG, PT/INR, D-dimer: PT/INR, D-dimer D-Dimer 1161.67 ng/mlDDU (0-234) H 09/28/20 09:07 Abnormal lab findings: Abnormal Labs 09/22/20 09/22/20 09/22/20 15:17 15:17 15:30 WBC MCHC Lymph % (Auto) 8.0 L [place] % (Auto) Lymph # (Auto) 0.5 L [place] # (Auto) Seg Neutrophils % 84.8 H Seg Neuts % (Manual) Lymphocytes % (Manual) Seg Neutrophils # Seg Neutrophils # Man Lymphocytes # (Manual) D-Dimer 1693.52 H Sodium 134 L Potassium 5.3 H Carbon Dioxide BUN Glucose 101 H Calcium 8.1 L Magnesium Ferritin AST 60 H Lactate Dehydrogenase 666 H C-Reactive Protein 14.50 H Total Protein Albumin 2.9 L Coronavirus (PCR) 09/22/20 09/23/20 09/23/20 15:30 06:16 06:16 WBC 3.7 L MCHC Lymph % (Auto) 12.3 L [place] % (Auto) 7.6 H Lymph # (Auto) 0.4 L [place] # (Auto) Seg Neutrophils % 79.5 H Seg Neuts % (Manual) Lymphocytes % (Manual) Seg Neutrophils # Seg Neutrophils # Man Lymphocytes # (Manual) D-Dimer Sodium Potassium Carbon Dioxide BUN Glucose 110 H Calcium 8.2 L Magnesium Ferritin 723.4 H AST 52 H Lactate Dehydrogenase C-Reactive Protein Total Protein Albumin 3.2 L Coronavirus (PCR) 09/23/20 09/23/20 09/24/20 15:28 Unknown 15:20 WBC MCHC Lymph % (Auto) [place] % (Auto) Lymph # (Auto) [place] # (Auto) Seg Neutrophils % Seg Neuts % (Manual) Lymphocytes % (Manual) Seg Neutrophils # Seg Neutrophils # Man Lymphocytes # (Manual) D-Dimer Sodium 133 L Potassium 5.8 H D Carbon Dioxide 20 L BUN 20 H 26 H Glucose 115 H 111 H Calcium 8.2 L 8.2 L Magnesium Ferritin AST 49 H Lactate Dehydrogenase C-Reactive Protein Total Protein Albumin 3.1 L 3.3 L Coronavirus (PCR) Positive A 09/24/20 09/24/20 09/25/20 15:20 15:20 05:10 WBC 11.1 H MCHC Lymph % (Auto) 5.5 L [place] % (Auto) 8.1 H Lymph # (Auto) 0.6 L [place] # (Auto) 0.9 H Seg Neutrophils % 85.7 H Seg Neuts % (Manual) Lymphocytes % (Manual) Seg Neutrophils # 9.6 H Seg Neutrophils # Man Lymphocytes # (Manual) D-Dimer Sodium Potassium Carbon Dioxide BUN 27 H Glucose 104 H Calcium Magnesium 3.10 H Ferritin AST Lactate Dehydrogenase C-Reactive Protein Total Protein Albumin 3.1 L Coronavirus (PCR) 09/25/20 09/25/20 09/25/20 05:10 05:10 05:10 WBC MCHC Lymph % (Auto) [place] % (Auto) Lymph # (Auto) [place] # (Auto) Seg Neutrophils % Seg Neuts % (Manual) Lymphocytes % (Manual) Seg Neutrophils # Seg Neutrophils # Man Lymphocytes # (Manual) D-Dimer 1267.92 H Sodium Potassium Carbon Dioxide BUN Glucose Calcium Magnesium Ferritin 847.4 H AST Lactate Dehydrogenase C-Reactive Protein 4.10 H Total Protein Albumin Coronavirus (PCR) 09/26/20 09/28/20 09/28/20 10:35 09:07 09:07 WBC MCHC Lymph % (Auto) [place] % (Auto) Lymph # (Auto) [place] # (Auto) Seg Neutrophils % Seg Neuts % (Manual) Lymphocytes % (Manual) Seg Neutrophils # Seg Neutrophils # Man Lymphocytes # (Manual) D-Dimer 1161.67 H Sodium Potassium Carbon Dioxide BUN 30 H Glucose 102 H Calcium Magnesium Ferritin 795.8 H AST 53 H Lactate Dehydrogenase C-Reactive Protein Total Protein Albumin 3.4 L Coronavirus (PCR) 09/28/20 09/30/20 09/30/20 09:07 04:39 04:39 WBC 12.3 H MCHC 35 H Lymph % (Auto) [place] % (Auto) Lymph # (Auto) [place] # (Auto) Seg Neutrophils % Seg Neuts % (Manual) 91.0 H Lymphocytes % (Manual) 6.0 L Seg Neutrophils # Seg Neutrophils # Man 11.2 H Lymphocytes # (Manual) 0.7 L D-Dimer Sodium 136 L Potassium Carbon Dioxide BUN 26 H Glucose 112 H Calcium Magnesium Ferritin AST Lactate Dehydrogenase 455 H C-Reactive Protein Total Protein 5.8 L Albumin 2.8 L Coronavirus (PCR)
[2020-10-02 12:43] LABS: C-Reactive Protein 0.1 mg/dL (0.00-1.30)
--- NOTE | 2020-10-02 12:55 | Event Note ---
Date: 10/02/20 Dropped patient to 15 and 40. Good sats. Placed transfer orders to Med[facility]
[2020-10-02] MEDS: LORazepam 2 MG/ML VIAL IV PRN (22:27)
[2020-10-03] MEDS: guaiFENesin DM 200/20 MG ORAL LIQD 10 ML PO PRN (06:01)
[2020-10-03] MEDS: LORazepam 2 MG/ML VIAL IV PRN ×2 (06:02→22:25)
[2020-10-03] MEDS: methylPREDNISolone Sod Succinate 125 MG/2 ML INJ IV SCH ×3 (06:02→22:18)
--- NOTE | 2020-10-03 09:06 | Progress Note ---
Assessment and Plan 60 y/o female with acute respiratory failure secondary to COVID 19 pneumonia, unvaccinated. 10/03/20: Continue aggressively wean HFNC, should be ready for at least a salter today. Continue steroids at current dosing. Consider switching to oral anticoagulation. Will need 6 minute walk prior to discharge and prolonged steroid taper. Continue to prone. 10/02/20: Continue weaning of HFNC, will drop FiO2 down again today. Given improvement, feel patient can be transported to the [facility] floor. Continue steroids and proning during the day as well as sleeping prone at night. 10/01/20: Stressed the importance of proning again. Dropped FiO2 to 60%. Asked RT to drop Flow down to 20-25 in about an hour. Prognosis still remains guar ded. Maybe ready for transfer to floor over the weekend. 09/30/20: Continue to wean FiO2 for sats >88%. Prone, IV steroids and Remdesivir. Guarded prognosis. 09/29/20: Continue proning, weaned to fiO2 of 90 09/28/20: Once patient awake will ask her to prone again and sleep prone at night. Continue IV steroids. Guarded prognosis. 09/27/20: Continue proning. Continue Remdesivir and IV steroids. Monitor fluid intake and fluid balance. Guarded prognosis. 1. Long discussion at bedside about proning. Patient has agreed to do so and numbers are better already. Wean for sats >88% 2. Continue IV steroids 3. Continue Remdesivir 4. Follow up ID recs 5. Agree with full dose anticoagulation Guarded prognosis. Subjective Date of service: 10/03/20 Principal diagnosis: Covid-19 Interval history: No acute events. Successful transfer to [facility] floor. No new vitals listed yet with RT but last sat in CPU is 97. Objective Vital Signs - 12hr 10/02/20 10/02/20 10/02/20 22:00 23:00 23:17 Temperature Pulse Rate 69 83 76 Respiratory 23 40 H 21 Rate Blood Pressure 120/68 125/70 125/70 O2 Sat by Pulse 99 89 89 Oximetry 10/03/20 10/03/20 10/03/20 00:52 01:13 05:04 Temperature 98.6 F Pulse Rate 69 Respiratory 22 18 Rate Blood Pressure 122/68 119/56 O2 Sat by Pulse 93 97 Oximetry CBC and BMP: 09/30/20 04:39 09/30/20 04:39 ABG, PT/INR, D-dimer: PT/INR, D-dimer D-Dimer 784.81 ng/mlDDU (0-234) H 10/02/20 11:04 Abnormal lab findings: Abnormal Labs 09/22/20 09/22/20 09/22/20 15:17 15:17 15:30 WBC MCHC Lymph % (Auto) 8.0 L [place] % (Auto) Lymph # (Auto) 0.5 L [place] # (Auto) Seg Neutrophils % 84.8 H Seg Neuts % (Manual) Lymphocytes % (Manual) Seg Neutrophils # Seg Neutrophils # Man Lymphocytes # (Manual) D-Dimer 1693.52 H Sodium 134 L Potassium 5.3 H Carbon Dioxide BUN Glucose 101 H Calcium 8.1 L Magnesium Ferritin AST 60 H Lactate Dehydrogenase 666 H C-Reactive Protein 14.50 H Total Protein Albumin 2.9 L Coronavirus (PCR) 09/22/20 09/23/20 09/23/20 15:30 06:16 06:16 WBC 3.7 L MCHC Lymph % (Auto) 12.3 L [place] % (Auto) 7.6 H Lymph # (Auto) 0.4 L [place] # (Auto) Seg Neutrophils % 79.5 H Seg Neuts % (Manual) Lymphocytes % (Manual) Seg Neutrophils # Seg Neutrophils # Man Lymphocytes # (Manual) D-Dimer Sodium Potassium Carbon Dioxide BUN Glucose 110 H Calcium 8.2 L Magnesium Ferritin 723.4 H AST 52 H Lactate Dehydrogenase C-Reactive Protein Total Protein Albumin 3.2 L Coronavirus (PCR) 09/23/20 09/23/20 09/24/20 15:28 Unknown 15:20 WBC MCHC Lymph % (Auto) [place] % (Auto) Lymph # (Auto) [place] # (Auto) Seg Neutrophils % Seg Neuts % (Manual) Lymphocytes % (Manual) Seg Neutrophils # Seg Neutrophils # Man Lymphocytes # (Manual) D-Dimer Sodium 133 L Potassium 5.8 H D Carbon Dioxide 20 L BUN 20 H 26 H Glucose 115 H 111 H Calcium 8.2 L 8.2 L Magnesium Ferritin AST 49 H Lactate Dehydrogenase C-Reactive Protein Total Protein Albumin 3.1 L 3.3 L Coronavirus (PCR) Positive A 09/24/20 09/24/20 09/25/20 15:20 15:20 05:10 WBC 11.1 H MCHC Lymph % (Auto) 5.5 L [place] % (Auto) 8.1 H Lymph # (Auto) 0.6 L [place] # (Auto) 0.9 H Seg Neutrophils % 85.7 H Seg Neuts % (Manual) Lymphocytes % (Manual) Seg Neutrophils # 9.6 H Seg Neutrophils # Man Lymphocytes # (Manual) D-Dimer Sodium Potassium Carbon Dioxide BUN 27 H Glucose 104 H Calcium Magnesium 3.10 H Ferritin AST Lactate Dehydrogenase C-Reactive Protein Total Protein Albumin 3.1 L Coronavirus (PCR) 09/25/20 09/25/20 09/25/20 05:10 05:10 05:10 WBC MCHC Lymph % (Auto) [place] % (Auto) Lymph # (Auto) [place] # (Auto) Seg Neutrophils % Seg Neuts % (Manual) Lymphocytes % (Manual) Seg Neutrophils # Seg Neutrophils # Man Lymphocytes # (Manual) D-Dimer 1267.92 H Sodium Potassium Carbon Dioxide BUN Glucose Calcium Magnesium Ferritin 847.4 H AST Lactate Dehydrogenase C-Reactive Protein 4.10 H Total Protein Albumin Coronavirus (PCR) 09/26/20 09/28/20 09/28/20 10:35 09:07 09:07 WBC MCHC Lymph % (Auto) [place] % (Auto) Lymph # (Auto) [place] # (Auto) Seg Neutrophils % Seg Neuts % (Manual) Lymphocytes % (Manual) Seg Neutrophils # Seg Neutrophils # Man Lymphocytes # (Manual) D-Dimer 1161.67 H Sodium Potassium Carbon Dioxide BUN 30 H Glucose 102 H Calcium Magnesium Ferritin 795.8 H AST 53 H Lactate Dehydrogenase C-Reactive Protein Total Protein Albumin 3.4 L Coronavirus (PCR) 09/28/20 09/30/20 09/30/20 09:07 04:39 04:39 WBC 12.3 H MCHC 35 H Lymph % (Auto) [place] % (Auto) Lymph # (Auto) [place] # (Auto) Seg Neutrophils % Seg Neuts % (Manual) 91.0 H Lymphocytes % (Manual) 6.0 L Seg Neutrophils # Seg Neutrophils # Man 11.2 H Lymphocytes # (Manual) 0.7 L D-Dimer Sodium 136 L Potassium Carbon Dioxide BUN 26 H Glucose 112 H Calcium Magnesium Ferritin AST Lactate Dehydrogenase 455 H C-Reactive Protein Total Protein 5.8 L Albumin 2.8 L Coronavirus (PCR) 10/02/20 10/02/20 10/02/20 11:04 11:04 11:04 WBC MCHC Lymph % (Auto) [place] % (Auto) Lymph # (Auto) [place] # (Auto) Seg Neutrophils % Seg Neuts % (Manual) Lymphocytes % (Manual) Seg Neutrophils # Seg Neutrophils # Man Lymphocytes # (Manual) D-Dimer 784.81 H Sodium Potassium Carbon Dioxide BUN Glucose Calcium Magnesium Ferritin 890.5 H AST Lactate Dehydrogenase 371 H C-Reactive Protein Total Protein Albumin Coronavirus (PCR)
[2020-10-03] MEDS: ASCORBIC ACID 500 MG TAB PO SCH ×2 (09:31→22:18)
[2020-10-03] MEDS: ENOXAPARIN 100 MG/1 ML INJ SUB-Q SCH (09:31)
[2020-10-03] MEDS: CHOLECALCIFEROL (VIT D3) 1000 UNIT (25 mcg) TAB PO SCH (09:32)
[2020-10-03] MEDS: ZINC SULFATE 220 MG CAP PO SCH ×2 (09:32→22:18)
--- NOTE | 2020-10-03 09:44 | Progress Note ---
Assessment and Plan Assessment and plan: -- Acute hypoxemic respiratory failure/on high flow oxygen/BiPAP Current Visit: Yes Status: Acute prone positioning while in bed as much as possible High flow nasal cannula requirement decreased to 15 L/FiO2 40%/O2 sats 93% Wean further as tolerated, supportive care Pulmonary following --Elevated D-dimers; Current Visit: Yes Status: Acute In the setting of severe hypoxemia requiring high flow oxygen and BiPAP Severe COVID-19 pneumonia, obesity High risk patient, patient is placed on therapeutic dose of anticoagulation with Lovenox Closely monitor, CTA chest requested when patient is stable -- Bilateral pneumonia Current Visit: Yes Status: Acute Empiric antibiotics discontinued As procalcitonin level is normal --COVID-19 virus infection Current Visit: Yes Status: Acute Isolation droplet and contact, Patient is hypoxic, on high flow nasal cannula oxygen Completed remdesivir, s/p Actemra continue Solu-Medrol Inflammatory markers trending down, Prone positioning, home O2 evaluation pulmonary and ID following Continue zinc, vitamin D, ascorbic acid --Hyperkalemia; resolved Current Visit: Yes Status: Acute Monitor electrolytes -- Obesity hypoventilation syndrome/BMI 36.0 Current Visit: Yes Status: Acute Dietary modification , exercise as tolerated , lifestyle changes Weight reduction when medically stable Outpatient sleep study to rule out obstructive sleep apnea --Severe protein calorie malnutrition; hypoalbuminemia Current Visit: Yes Status: Chronic Nutrition supplements, nutrition consult -- DVT prophylaxis Current Visit: Yes Status: Acute Full dose therapeutic anticoagulation with Lovenox Closely monitor the patient and adjust management as needed Plan of care reviewed with the patient and her nurse Critical care time 35 minutes [patient is critically ill severe COVID-19 pneumonia/on high flow nasal cannula oxygen/poor prognosis] The high probability of a clinically significant, sudden or life threatening deterioration of the multiple system(s) required my full and direct attention, intervention and personal management. The aggregate critical care time was [40] minutes. This time is in addition to time spent performing reported procedures but includes the following: [x] Data Review and interpretation [x] Patient assessment and monitoring of vital signs [x] Documentation [x] Medication orders and management Daily management 09/23/2020; Positive COVID-19, Hypoxemia on high flow oxygen Morbidly obese, ID following Continue therapies per protocol Pulmonary consulted Resumed service; 09/28/2020; Patient continues to require high flow nasal cannula oxygen with intermittent BiPAP Wean as tolerated, home O2 evaluation at discharge 09/29/2020 ; Patient remains on high flow nasal cannula oxygen at 30 L/90% FiO2/93 O2 sats Wean as tolerated, evaluation for home oxygen prior to discharge 09/30/2020; Patient remains on high flow oxygen 30 L/FiO2 80% Wean as tolerated Overall prognosis poor 10/02/2020; Patient remains on high flow oxygen but significantly improved Today she is on 20 L/50%/99 FiO2 Wean further as tolerated Constipated, advised MOM and Dulcolax Enema if no improvement after 2 doses 10/03/2020; On high flow oxygen decreased 15 L/40 FiO2/93 O2 sats Wean further as tolerated Empiric therapeutic anticoagulation with Lovenox Changed to Eliquis 5 mg twice a day History Interval history: I have seen and examined the patient at the bedside Isolation precautions PPE protocols followed Patient remains on high flow oxygen however requirement decreased 15 L/FiO2 of 40% saturating at 98% Feels slightly better Hospitalist Physical - Constitutional Vitals: Temp Pulse Resp BP Pulse Ox 98.6 F 69 18 119/56 97 10/03/20 05:04 10/03/20 05:04 10/03/20 05:04 10/03/20 05:04 10/03/20 05:04 General appearance: Present: no acute distress, well-nourished, obese, other (On high flow nasal cannula oxygen 15 L) - EENT Eyes: Present: PERRL, EOM intact - Neck Neck: Present: supple, normal ROM - Respiratory Respiratory effort: normal Respiratory: bilateral: diminished, rhonchi, negative: rales, wheezing - Cardiovascular Rhythm: regular Heart Sounds: Present: S1 & S2 - Extremities Extremities: no ischemia, No edema - Abdominal General gastrointestinal: soft, non-tender, non-distended, normal bowel sounds - Integumentary Integumentary: Present: clear, warm - Psychiatric Psychiatric: appropriate mood/affect, cooperative - Neurologic Neurologic: CNII-XII intact, moves all extremities Results - Labs CBC & Chem 7: 09/30/20 04:39 09/30/20 04:39 Labs: Laboratory Last Values WBC 12.3 K/mm3 (4.5-11.0) H 09/30/20 04:39 RBC 4.36 M/mm3 (3.65-5.03) 09/30/20 04:39 Hgb 13.6 gm/dl (10.1-14.3) 09/30/20 04:39 Hct 38.9 % (30.3-42.9) 09/30/20 04:39 MCV 89 fl (79-97) 09/30/20 04:39 MCH 31 pg (28-32) 09/30/20 04:39 MCHC 35 % (30-34) H 09/30/20 04:39 RDW 14.1 % (13.2-15.2) 09/30/20 04:39 Plt Count 360 K/mm3 (140-440) 09/30/20 04:39 Lymph % (Auto) 5.5 % (13.4-35.0) L 09/24/20 15:20 [place] % (Auto) 8.1 % (0.0-7.3) H 09/24/20 15:20 Eos % (Auto) 0.0 % (0.0-4.3) 09/24/20 15:20 Baso % (Auto) 0.7 % (0.0-1.8) 09/24/20 15:20 Lymph # (Auto) 0.6 K/mm3 (1.2-5.4) L 09/24/20 15:20 [place] # (Auto) 0.9 K/mm3 (0.0-0.8) H 09/24/20 15:20 Eos # (Auto) 0.0 K/mm3 (0.0-0.4) 09/24/20 15:20 Baso # (Auto) 0.1 K/mm3 (0.0-0.1) 09/24/20 15:20 Add Manual Diff Complete 09/30/20 04:39 Total Counted 100 09/30/20 04:39 Seg Neutrophils % Tool Room Lathe Operator 09/30/20 04:39 Seg Neuts % (Manual) 91.0 % (40.0-70.0) H 09/30/20 04:39 Lymphocytes % (Manual) 6.0 % (13.4-35.0) L 09/30/20 04:39 Monocytes % (Manual) 3.0 % (0.0-7.3) 09/30/20 04:39 Nucleated RBC % Not Reportable 09/30/20 04:39 Seg Neutrophils # 9.6 K/mm3 (1.8-7.7) H 09/24/20 15:20 Seg Neutrophils # Man 11.2 K/mm3 (1.8-7.7) H 09/30/20 04:39 Band Neutrophils # 0.0 K/mm3 09/30/20 04:39 Lymphocytes # (Manual) 0.7 K/mm3 (1.2-5.4) L 09/30/20 04:39 Abs React Lymphs (Man) 0.0 K/mm3 09/30/20 04:39 Monocytes # (Manual) 0.4 K/mm3 (0.0-0.8) 09/30/20 04:39 Eosinophils # (Manual) 0.0 K/mm3 (0.0-0.4) 09/30/20 04:39 Basophils # (Manual) 0.0 K/mm3 (0.0-0.1) 09/30/20 04:39 Metamyelocytes # 0.0 K/mm3 09/30/20 04:39 Myelocytes # 0.0 K/mm3 09/30/20 04:39 Promyelocytes # 0.0 K/mm3 09/30/20 04:39 Blast Cells # 0.0 K/mm3 09/30/20 04:39 WBC Morphology Not Reportable 09/30/20 04:39 Hypersegmented Neuts Not Reportable 09/30/20 04:39 Hyposegmented Neuts Not Reportable 09/30/20 04:39 Hypogranular Neuts Not Reportable 09/30/20 04:39 Smudge Cells Not Reportable 09/30/20 04:39 Toxic Granulation Not Reportable 09/30/20 04:39 Toxic Vacuolation Not Reportable 09/30/20 04:39 Dohle Bodies Not Reportable 09/30/20 04:39 Pelger-Huet Anomaly Not Reportable 09/30/20 04:39 Gemini Rods Not Reportable 09/30/20 04:39 Platelet Estimate Consistent w auto 09/30/20 04:39 Clumped Platelets Not Reportable 09/30/20 04:39 Plt Clumps, EDTA Not Reportable 09/30/20 04:39 Large Platelets Not Reportable 09/30/20 04:39 Giant Platelets Not Reportable 09/30/20 04:39 Platelet Satelliting Not Reportable 09/30/20 04:39 Plt Morphology Comment Not Reportable 09/30/20 04:39 RBC Morphology Normal 09/30/20 04:39 Dimorphic RBCs Not Reportable 09/30/20 04:39 Polychromasia Not Reportable 09/30/20 04:39 Hypochromasia Not Reportable 09/30/20 04:39 Poikilocytosis Not Reportable 09/30/20 04:39 Anisocytosis Not Reportable 09/30/20 04:39 Microcytosis Not Reportable 09/30/20 04:39 Macrocytosis Not Reportable 09/30/20 04:39 Spherocytes Not Reportable 09/30/20 04:39 Pappenheimer Bodies Not Reportable 09/30/20 04:39 Sickle Cells Not Reportable 09/30/20 04:39 Target Cells Not Reportable 09/30/20 04:39 Tear Drop Cells Not Reportable 09/30/20 04:39 Ovalocytes Not Reportable 09/30/20 04:39 Helmet Cells Not Reportable 09/30/20 04:39 Fuchs-Coxton Bodies Not Reportable 09/30/20 04:39 Ama Rings Not Reportable 09/30/20 04:39 [place] Cells Not Reportable 09/30/20 04:39 Bite Cells Not Reportable 09/30/20 04:39 Crenated Cell Not Reportable 09/30/20 04:39 Elliptocytes Not Reportable 09/30/20 04:39 Acanthocytes (Spur) Not Reportable 09/30/20 04:39 Rouleaux Not Reportable 09/30/20 04:39 Hemoglobin C Crystals Not Reportable 09/30/20 04:39 Schistocytes Not Reportable 09/30/20 04:39 Malaria parasites Not Reportable 09/30/20 04:39 Tor Bodies Not Reportable 09/30/20 04:39 Hem Pathologist Commnt No 09/30/20 04:39 D-Dimer 784.81 ng/mlDDU (0-234) H 10/02/20 11:04 Sodium 136 mmol/L (137-145) L 09/30/20 04:39 Potassium 4.6 mmol/L (3.6-5.0) 09/30/20 04:39 Chloride 103.7 mmol/L (98-107) 09/30/20 04:39 Carbon Dioxide 26 mmol/L (22-30) 09/30/20 04:39 Anion Gap 11 mmol/L 09/30/20 04:39 BUN 26 mg/dL (7-17) H 09/30/20 04:39 Creatinine 0.7 mg/dL (0.6-1.2) 09/30/20 04:39 Estimated GFR > 60 ml/min 09/30/20 04:39 BUN/Creatinine Ratio 37 % 09/30/20 04:39 Glucose 112 mg/dL (65-100) H 09/30/20 04:39 Lactic Acid 1.10 mmol/L (0.7-2.0) 09/22/20 18:17 Calcium 8.4 mg/dL (8.4-10.2) 09/30/20 04:39 Magnesium 3.10 mg/dL (1.7-2.3) H 09/24/20 15:20 Ferritin 890.5 ng/mL (10.0-200.0) H 10/02/20 11:04 Total Bilirubin 0.40 mg/dL (0.1-1.2) 09/30/20 04:39 AST 32 units/L (5-40) 09/30/20 04:39 ALT 51 units/L (7-56) 09/30/20 04:39 Alkaline Phosphatase 81 units/L (35-129) 09/30/20 04:39 Lactate Dehydrogenase 371 units/L (91-180) H 10/02/20 11:04 C-Reactive Protein 0.10 mg/dL (0.00-1.30) 10/02/20 11:04 Total Protein 5.8 g/dL (6.3-8.2) L 09/30/20 04:39 Albumin 2.8 g/dL (3.9-5) L 09/30/20 04:39 Albumin/Globulin Ratio 0.9 % 09/30/20 04:39 Procalcitonin 0.06 ng/mL (<0.15) 09/22/20 18:17 Coronavirus (PCR) Positive (Negative) A 09/23/20 Unknown [place]/IV: Voiding Method External Female Catheter Active Medications - Current Medications Current Medications: Generic Name Dose Route Start Last Admin Trade Name Freq PRN Reason Stop Dose Admin Acetaminophen 650 mg 09/22/20 18:16 09/27/20 22:07 Acetaminophen 325 Mg Tab PO 650 mg Q4H PRN Administration Pain MILD(1-3)/Fever >100.5/GRAMAJO Ascorbic Acid 500 mg 09/22/20 22:00 10/03/20 09:31 Ascorbic Acid 500 Mg Tab PO 500 mg BID SAYDA Administration Bisacodyl 10 mg 10/02/20 10:19 Bisacodyl 10 Mg Rect Supp VA QDAY PRN Constipation Cholecalciferol 1,000 unit 09/23/20 10:00 10/03/20 09:32 Cholecalciferol (Vit D3) 1000 Unit (25 Mcg) Tab PO 1,000 unit QDAY SAYDA Administration Enoxaparin Sodium 100 mg 09/23/20 22:00 10/03/20 09:31 Enoxaparin 100 Mg/1 Ml Inj 1 mg/kg (100 mg) 100 mg SUB-Q Administration Q12HR [facility] Protocol Guaifenesin 10 ml 09/29/20 08:56 10/03/20 06:01 Guaifenesin Dm 200/20 Mg Oral Liqd 10 Ml PO 10 ml Q4H PRN Administration Cough Hydromorphone HCl 0.5 mg 09/22/20 18:16 09/27/20 03:04 Hydromorphone 1 Mg/1 Ml Inj IV 0.5 mg Q12H PRN Administration Pain , Severe (7-10) Lorazepam 1 mg 09/27/20 12:59 10/03/20 06:02 Lorazepam 2 Mg/Ml Vial IV 1 mg Q4H PRN Administration Anxiety Magnesium Hydroxide 30 ml 10/02/20 10:19 Magnesium Hydroxide (Mom) Oral Liqd Udc PO QDAY PRN Constipation Methylprednisolone Sodium Succinate 40 mg 09/28/20 06:00 10/03/20 06:02 Methylprednisolone Sod Succinate 125 Mg/2 Ml Inj IV 10/07/20 22:01 40 mg Q8H SAYDA Administration Ondansetron HCl 4 mg 09/22/20 18:16 09/23/20 10:34 Ondansetron 4 Mg/2 Ml Inj IV 4 mg Q8H PRN Administration Nausea And Vomiting Oxycodone/Acetaminophen 1 tab 09/22/20 18:16 09/30/20 20:50 Oxycodone /Acetaminophen 5-325mg Tab PO 1 tab Q12H PRN Administration Pain, Moderate (4-6) Sodium Chloride 10 ml 09/22/20 22:00 10/03/20 09:32 Sodium Chloride 0.9% 10 Ml Flush Syringe IV 10 ml BID SAYDA Administration Sodium Chloride 10 ml 09/22/20 18:16 Sodium Chloride 0.9% 10 Ml Flush Syringe IV PRN PRN LINE FLUSH Sodium Chloride 2 spray 10/01/20 12:36 10/02/20 05:55 Sodium Chloride Nasal [place] 44ml NS 2 spray PRN PRN Administration Dry Nasal Passages Zinc Sulfate 220 mg 09/22/20 22:00 10/03/20 09:32 Zinc Sulfate 220 Mg Cap PO 220 mg BID SAYDA Administration Nutrition/Malnutrition Assess - Dietary Evaluation Nutrition/Malnutrition Findings: Nutrition Notes Start: 09/27/20 15:17 Freq: Status: Active Protocol: Document 09/30/20 10:26 [facility] (Rec: 09/30/20 10:27 [facility] [id number]) Nutrition Notes Initial or Follow up Brief Note Subjective/Other Information Pt consumed 50% of breakfast yesterday. Unable to reach pt via phone at 10:25. Nutrition Intervention Follow-Up By: 10/05/20 Additional Comments F/U: intakes (meals/ONS), resp status, wt
[2020-10-03 10:47] LABS: Hematocrit 47.7 % (30.3-42.9); Hemoglobin 15.4 gm/dl (10.1-14.3); Mean Corpuscular HGB Conc 32 % (30-34); Mean Corpuscular Volume 91 fl (79-97); Platelet Count 298 K/mm3 (140-440); Red Blood Count 5.25 M/mm3 (3.65-5.03); Red Cell Distribution Width 14.4 % (13.2-15.2)
[2020-10-03 10:55] LABS: INR 0.95 (0.87-1.13)
[2020-10-03] MEDS: APIXABAN 5 MG TAB PO SCH (22:18)
[2020-10-04] MEDS: methylPREDNISolone Sod Succinate 125 MG/2 ML INJ IV SCH ×3 (06:57→21:46)
--- NOTE | 2020-10-04 09:54 | Progress Note ---
Assessment and Plan Assessment and plan: Patient remains on high flow oxygen 20 L/50% FiO2/97% O2 sats -- Acute hypoxemic respiratory failure/on high flow oxygen/BiPAP Current Visit: Yes Status: Acute prone positioning while in bed as much as possible High flow nasal cannula requirement decreased to 15 L/FiO2 40%/O2 sats 93% Wean further as tolerated, supportive care Pulmonary following --Elevated D-dimers; Current Visit: Yes Status: Acute In the setting of severe hypoxemia requiring high flow oxygen and BiPAP Severe COVID-19 pneumonia, obesity High risk patient, patient is placed on therapeutic dose of anticoagulation with Lovenox Closely monitor, CTA chest requested when patient is stable -- Bilateral pneumonia Current Visit: Yes Status: Acute Empiric antibiotics discontinued As procalcitonin level is normal --COVID-19 virus infection Current Visit: Yes Status: Acute Isolation droplet and contact, Patient is hypoxic, on high flow nasal cannula oxygen Completed remdesivir, s/p Actemra continue Solu-Medrol Inflammatory markers trending down, Prone positioning, home O2 evaluation pulmonary and ID following Continue zinc, vitamin D, ascorbic acid --Hyperkalemia; resolved Current Visit: Yes Status: Acute Monitor electrolytes -- Obesity hypoventilation syndrome/BMI 36.0 Current Visit: Yes Status: Acute Dietary modification , exercise as tolerated , lifestyle changes Weight reduction when medically stable Outpatient sleep study to rule out obstructive sleep apnea --Severe protein calorie malnutrition; hypoalbuminemia Current Visit: Yes Status: Chronic Nutrition supplements, nutrition consult -- DVT prophylaxis Current Visit: Yes Status: Acute Full dose therapeutic anticoagulation with Lovenox Closely monitor the patient and adjust management as needed Plan of care reviewed with the patient and her nurse Critical care time 40 minutes [patient is critically ill severe COVID-19 pneumonia/on high flow nasal cannula oxygen/poor prognosis] The high probability of a clinically significant, sudden or life threatening deterioration of the multiple system(s) required my full and direct attention, intervention and personal management. The aggregate critical care time was [40] minutes. This time is in addition to time spent performing reported procedures but includes the following: [x] Data Review and interpretation [x] Patient assessment and monitoring of vital signs [x] Documentation [x] Medication orders and management Daily management 09/23/2020; Positive COVID-19, Hypoxemia on high flow oxygen Morbidly obese, ID following Continue therapies per protocol Pulmonary consulted Resumed service; 09/28/2020; Patient continues to require high flow nasal cannula oxygen with intermittent BiPAP Wean as tolerated, home O2 evaluation at discharge 09/29/2020 ; Patient remains on high flow nasal cannula oxygen at 30 L/90% FiO2/93 O2 sats Wean as tolerated, evaluation for home oxygen prior to discharge 09/30/2020; Patient remains on high flow oxygen 30 L/FiO2 80% Wean as tolerated Overall prognosis poor 10/02/2020; Patient remains on high flow oxygen but significantly improved Today she is on 20 L/50%/99 FiO2 Wean further as tolerated Constipated, advised MOM and Dulcolax Enema if no improvement after 2 doses 10/03/2020; On high flow oxygen decreased 15 L/40 FiO2/93 O2 sats Wean further as tolerated Empiric therapeutic anticoagulation with Lovenox Changed to Eliquis 5 mg twice a day 10/04/2020; Patient remains on high flow oxygen Slightly better, advise proning Wean as tolerated History Interval history: Patient remains on high flow oxygen 20 L/50% FiO2/97% O2 sats Patient feels slightly better still has shortness of breath At anxious Vital signs noted Hospitalist Physical - Constitutional Vitals: Temp Pulse Resp BP Pulse Ox 98.0 F 65 18 124/62 97 10/04/20 05:51 10/04/20 05:51 10/04/20 05:51 10/04/20 05:51 10/04/20 08:28 General appearance: Present: no acute distress, well-nourished, obese, other (On high flow nasal cannula oxygen 15 L) - EENT Eyes: Present: PERRL, EOM intact - Neck Neck: Present: supple, normal ROM - Respiratory Respiratory effort: normal Respiratory: bilateral: diminished, negative: rales, rhonchi, wheezing - Cardiovascular Rhythm: regular (I hope 362 will be okay) Heart Sounds: Present: S1 & S2 - Extremities Extremities: no ischemia, No edema - Abdominal General gastrointestinal: soft, non-tender, non-distended, normal bowel sounds - Integumentary Integumentary: Present: clear, warm - Psychiatric Psychiatric: appropriate mood/affect, cooperative - Neurologic Neurologic: CNII-XII intact, moves all extremities (Independently generate letter mother) Results - Labs CBC & Chem 7: 10/03/20 10:02 10/03/20 10:02 Labs: Laboratory Last Values WBC 21.3 K/mm3 (4.5-11.0) H 10/03/20 10:02 RBC 5.25 M/mm3 (3.65-5.03) H 10/03/20 10:02 Hgb 15.4 gm/dl (10.1-14.3) H 10/03/20 10:02 Hct 47.7 % (30.3-42.9) H 10/03/20 10:02 MCV 91 fl (79-97) 10/03/20 10:02 MCH 29 pg (28-32) 10/03/20 10:02 MCHC 32 % (30-34) 10/03/20 10:02 RDW 14.4 % (13.2-15.2) 10/03/20 10:02 Plt Count 298 K/mm3 (140-440) 10/03/20 10:02 Lymph % (Auto) 5.5 % (13.4-35.0) L 09/24/20 15:20 [place] % (Auto) 8.1 % (0.0-7.3) H 09/24/20 15:20 Eos % (Auto) 0.0 % (0.0-4.3) 09/24/20 15:20 Baso % (Auto) 0.7 % (0.0-1.8) 09/24/20 15:20 Lymph # (Auto) 0.6 K/mm3 (1.2-5.4) L 09/24/20 15:20 [place] # (Auto) 0.9 K/mm3 (0.0-0.8) H 09/24/20 15:20 Eos # (Auto) 0.0 K/mm3 (0.0-0.4) 09/24/20 15:20 Baso # (Auto) 0.1 K/mm3 (0.0-0.1) 09/24/20 15:20 Add Manual Diff Complete 09/30/20 04:39 Total Counted 100 09/30/20 04:39 Seg Neutrophils % Medicaid Billing Clerk 09/30/20 04:39 Seg Neuts % (Manual) 91.0 % (40.0-70.0) H 09/30/20 04:39 Lymphocytes % (Manual) 6.0 % (13.4-35.0) L 09/30/20 04:39 Monocytes % (Manual) 3.0 % (0.0-7.3) 09/30/20 04:39 Nucleated RBC % Not Reportable 09/30/20 04:39 Seg Neutrophils # 9.6 K/mm3 (1.8-7.7) H 09/24/20 15:20 Seg Neutrophils # Man 11.2 K/mm3 (1.8-7.7) H 09/30/20 04:39 Band Neutrophils # 0.0 K/mm3 09/30/20 04:39 Lymphocytes # (Manual) 0.7 K/mm3 (1.2-5.4) L 09/30/20 04:39 Abs React Lymphs (Man) 0.0 K/mm3 09/30/20 04:39 Monocytes # (Manual) 0.4 K/mm3 (0.0-0.8) 09/30/20 04:39 Eosinophils # (Manual) 0.0 K/mm3 (0.0-0.4) 09/30/20 04:39 Basophils # (Manual) 0.0 K/mm3 (0.0-0.1) 09/30/20 04:39 Metamyelocytes # 0.0 K/mm3 09/30/20 04:39 Myelocytes # 0.0 K/mm3 09/30/20 04:39 Promyelocytes # 0.0 K/mm3 09/30/20 04:39 Blast Cells # 0.0 K/mm3 09/30/20 04:39 WBC Morphology Not Reportable 09/30/20 04:39 Hypersegmented Neuts Not Reportable 09/30/20 04:39 Hyposegmented Neuts Not Reportable 09/30/20 04:39 Hypogranular Neuts Not Reportable 09/30/20 04:39 Smudge Cells Not Reportable 09/30/20 04:39 Toxic Granulation Not Reportable 09/30/20 04:39 Toxic Vacuolation Not Reportable 09/30/20 04:39 Dohle Bodies Not Reportable 09/30/20 04:39 Pelger-Huet Anomaly Not Reportable 09/30/20 04:39 Gemini Rods Not Reportable 09/30/20 04:39 Platelet Estimate Consistent w auto 09/30/20 04:39 Clumped Platelets Not Reportable 09/30/20 04:39 Plt Clumps, EDTA Not Reportable 09/30/20 04:39 Large Platelets Not Reportable 09/30/20 04:39 Giant Platelets Not Reportable 09/30/20 04:39 Platelet Satelliting Not Reportable 09/30/20 04:39 Plt Morphology Comment Not Reportable 09/30/20 04:39 RBC Morphology Normal 09/30/20 04:39 Dimorphic RBCs Not Reportable 09/30/20 04:39 Polychromasia Not Reportable 09/30/20 04:39 Hypochromasia Not Reportable 09/30/20 04:39 Poikilocytosis Not Reportable 09/30/20 04:39 Anisocytosis Not Reportable 09/30/20 04:39 Microcytosis Not Reportable 09/30/20 04:39 Macrocytosis Not Reportable 09/30/20 04:39 Spherocytes Not Reportable 09/30/20 04:39 Pappenheimer Bodies Not Reportable 09/30/20 04:39 Sickle Cells Not Reportable 09/30/20 04:39 Target Cells Not Reportable 09/30/20 04:39 Tear Drop Cells Not Reportable 09/30/20 04:39 Ovalocytes Not Reportable 09/30/20 04:39 Helmet Cells Not Reportable 09/30/20 04:39 Fuchs-Campti Bodies Not Reportable 09/30/20 04:39 [place] Rings Not Reportable 09/30/20 04:39 Ribera Cells Not Reportable 09/30/20 04:39 Bite Cells Not Reportable 09/30/20 04:39 Crenated Cell Not Reportable 09/30/20 04:39 Elliptocytes Not Reportable 09/30/20 04:39 Acanthocytes (Spur) Not Reportable 09/30/20 04:39 Rouleaux Not Reportable 09/30/20 04:39 Hemoglobin C Crystals Not Reportable 09/30/20 04:39 Schistocytes Not Reportable 09/30/20 04:39 Malaria parasites Not Reportable 09/30/20 04:39 Tor Bodies Not Reportable 09/30/20 04:39 Hem Pathologist Commnt No 09/30/20 04:39 PT 13.3 Sec. (12.2-14.9) 10/03/20 10:02 INR 0.95 (0.87-1.13) 10/03/20 10:02 APTT 29.0 Sec. (24.2-36.6) 10/03/20 10:02 D-Dimer 784.81 ng/mlDDU (0-234) H 10/02/20 11:04 Sodium 136 mmol/L (137-145) L 09/30/20 04:39 Potassium 4.6 mmol/L (3.6-5.0) 09/30/20 04:39 Chloride 103.7 mmol/L (98-107) 09/30/20 04:39 Carbon Dioxide 26 mmol/L (22-30) 09/30/20 04:39 Anion Gap 11 mmol/L 09/30/20 04:39 BUN 26 mg/dL (7-17) H 09/30/20 04:39 Creatinine 0.7 mg/dL (0.6-1.2) 10/03/20 10:02 Estimated GFR > 60 ml/min 10/03/20 10:02 BUN/Creatinine Ratio 37 % 09/30/20 04:39 Glucose 112 mg/dL (65-100) H 09/30/20 04:39 Lactic Acid 1.10 mmol/L (0.7-2.0) 09/22/20 18:17 Calcium 8.4 mg/dL (8.4-10.2) 09/30/20 04:39 Magnesium 3.10 mg/dL (1.7-2.3) H 09/24/20 15:20 Ferritin 890.5 ng/mL (10.0-200.0) H 10/02/20 11:04 Total Bilirubin 0.40 mg/dL (0.1-1.2) 09/30/20 04:39 AST 32 units/L (5-40) 09/30/20 04:39 ALT 51 units/L (7-56) 09/30/20 04:39 Alkaline Phosphatase 81 units/L (35-129) 09/30/20 04:39 Lactate Dehydrogenase 371 units/L (91-180) H 10/02/20 11:04 C-Reactive Protein 0.10 mg/dL (0.00-1.30) 10/02/20 11:04 Total Protein 5.8 g/dL (6.3-8.2) L 09/30/20 04:39 Albumin 2.8 g/dL (3.9-5) L 09/30/20 04:39 Albumin/Globulin Ratio 0.9 % 09/30/20 04:39 Procalcitonin 0.06 ng/mL (<0.15) 09/22/20 18:17 Coronavirus (PCR) Positive (Negative) A 09/23/20 Unknown Dhillon/IV: Voiding Method External Female Catheter Active Medications - Current Medications Current Medications: Generic Name Dose Route Start Last Admin Trade Name Freq PRN Reason Stop Dose Admin Acetaminophen 650 mg 09/22/20 18:16 09/27/20 22:07 Acetaminophen 325 Mg Tab PO 650 mg Q4H PRN Administration Pain MILD(1-3)/Fever >100.5/GRAMAJO Apixaban 5 mg 10/03/20 22:00 10/03/20 22:18 Apixaban 5 Mg Tab PO 5 mg Q12HR SAYDA Administration Protocol Ascorbic Acid 500 mg 09/22/20 22:00 10/03/20 22:18 Ascorbic Acid 500 Mg Tab PO 500 mg BID SAYDA Administration Bisacodyl 10 mg 10/02/20 10:19 Bisacodyl 10 Mg Rect Supp RI QDAY PRN Constipation Cholecalciferol 1,000 unit 09/23/20 10:00 10/03/20 09:32 Cholecalciferol (Vit D3) 1000 Unit (25 Mcg) Tab PO 1,000 unit QDAY SAYDA Administration Guaifenesin 10 ml 09/29/20 08:56 10/03/20 06:01 Guaifenesin Dm 200/20 Mg Oral Liqd 10 Ml PO 10 ml Q4H PRN Administration Cough Hydromorphone HCl 0.5 mg 09/22/20 18:16 09/27/20 03:04 Hydromorphone 1 Mg/1 Ml Inj IV 0.5 mg Q12H PRN Administration Pain , Severe (7-10) Lorazepam 1 mg 09/27/20 12:59 10/03/20 22:25 Lorazepam 2 Mg/Ml Vial IV 1 mg Q4H PRN Administration Anxiety Magnesium Hydroxide 30 ml 10/02/20 10:19 Magnesium Hydroxide (Mom) Oral Liqd Udc PO QDAY PRN Constipation Methylprednisolone Sodium Succinate 40 mg 09/28/20 06:00 10/04/20 06:57 Methylprednisolone Sod Succinate 125 Mg/2 Ml Inj IV 10/07/20 22:01 40 mg Q8H SAYDA Administration Ondansetron HCl 4 mg 09/22/20 18:16 09/23/20 10:34 Ondansetron 4 Mg/2 Ml Inj IV 4 mg Q8H PRN Administration Nausea And Vomiting Oxycodone/Acetaminophen 1 tab 09/22/20 18:16 09/30/20 20:50 Oxycodone /Acetaminophen 5-325mg Tab PO 1 tab Q12H PRN Administration Pain, Moderate (4-6) Sodium Chloride 10 ml 09/22/20 22:00 10/03/20 22:18 Sodium Chloride 0.9% 10 Ml Flush Syringe IV 10 ml BID SAYDA Administration Sodium Chloride 10 ml 09/22/20 18:16 Sodium Chloride 0.9% 10 Ml Flush Syringe IV PRN PRN LINE FLUSH Sodium Chloride 2 spray 10/01/20 12:36 10/02/20 05:55 Sodium Chloride Nasal [place] 44ml NS 2 spray PRN PRN Administration Dry Nasal Passages Zinc Sulfate 220 mg 09/22/20 22:00 10/03/20 22:18 Zinc Sulfate 220 Mg Cap PO 220 mg BID SAYDA Administration Nutrition/Malnutrition Assess - Dietary Evaluation Nutrition/Malnutrition Findings: Nutrition Notes Start: 09/27/20 1 5:17 Freq: Status: Active Protocol: Document 09/30/20 10:26 [facility] (Rec: 09/30/20 10:27 [facility] [id number]) Nutrition Notes Initial or Follow up Brief Note Subjective/Other Information Pt consumed 50% of breakfast yesterday. Unable to reach pt via phone at 10:25. Nutrition Intervention Follow-Up By: 10/05/20 Additional Comments F/U: intakes (meals/ONS), resp status, wt
[2020-10-04] MEDS: ASCORBIC ACID 500 MG TAB PO SCH ×2 (10:40→21:46)
[2020-10-04] MEDS: CHOLECALCIFEROL (VIT D3) 1000 UNIT (25 mcg) TAB PO SCH (10:40)
[2020-10-04] MEDS: ZINC SULFATE 220 MG CAP PO SCH ×2 (10:40→21:46)
[2020-10-04] MEDS: APIXABAN 5 MG TAB PO SCH ×2 (10:40→21:46)
--- NOTE | 2020-10-04 14:19 | Progress Note ---
Assessment and Plan 60 y/o female with acute respiratory failure secondary to COVID 19 pneumonia, unvaccinated. 10/04/20: Will speak with RT about weaning FiO2 and flow. I think patient could tolerate salter, maybe 10-15 liters. Sats of 88-92% are acceptable. Continue current dose of steroids. 10/03/20: Continue aggressively wean HFNC, should be ready for at least a salter today. Continue steroids at current dosing. Consider switching to oral antico agulation. Will need 6 minute walk prior to discharge and prolonged steroid taper. Continue to prone. 10/02/20: Continue weaning of HFNC, will drop FiO2 down again today. Given improvement, feel patient can be transported to the COVID floor. Continue steroids and proning during the day as well as sleeping prone at night. 10/01/20: Stressed the importance of proning again. Dropped FiO2 to 60%. Asked RT to drop Flow down to 20-25 in about an hour. Prognosis still remains guarded. Maybe ready for transfer to floor over the weekend. 09/30/20: Continue to wean FiO2 for sats >88%. Prone, IV steroids and Remdesivir. Guarded prognosis. 09/29/20: Continue proning, weaned to fiO2 of 90 09/28/20: Once patient awake will ask her to prone again and sleep prone at night. Continue IV steroids. Guarded prognosis. 09/27/20: Continue proning. Continue Remdesivir and IV steroids. Monitor fluid intake and fluid balance. Guarded prognosis. 1. Long discussion at bedside about proning. Patient has agreed to do so and numbers are better already. Wean for sats >88% 2. Continue IV steroids 3. Continue Remdesivir 4. Follow up ID recs 5. Agree with full dose anticoagulation Guarded prognosis. Subjective Date of service: 10/04/20 Principal diagnosis: Covid-19 Interval history: No weaning since leaving the [facility]. Objective Vital Signs - 12hr 10/04/20 10/04/20 10/04/20 05:51 08:28 10:32 Temperature 98.0 F 97.8 F Pulse Rate 65 69 Respiratory 18 16 Rate Blood Pressure 124/62 103/56 O2 Sat by Pulse 93 97 94 Oximetry CBC and BMP: 10/03/20 10:02 10/03/20 10:02 ABG, PT/INR, D-dimer: PT/INR, D-dimer PT 13.3 Sec. (12.2-14.9) 10/03/20 10:02 INR 0.95 (0.87-1.13) 10/03/20 10:02 D-Dimer 784.81 ng/mlDDU (0-234) H 10/02/20 11:04 Abnormal lab findings: Abnormal Labs 09/22/20 09/22/20 09/22/20 15:17 15:17 15:30 WBC RBC Hgb Hct MCHC Lymph % (Auto) 8.0 L [place] % (Auto) Lymph # (Auto) 0.5 L [place] # (Auto) Seg Neutrophils % 84.8 H Seg Neuts % (Manual) Lymphocytes % (Manual) Seg Neutrophils # Seg Neutrophils # Man Lymphocytes # (Manual) D-Dimer 1693.52 H Sodium 134 L Potassium 5.3 H Carbon Dioxide BUN Glucose 101 H Calcium 8.1 L Magnesium Ferritin AST 60 H Lactate Dehydrogenase 666 H C-Reactive Protein 14.50 H Total Protein Albumin 2.9 L Coronavirus (PCR) 09/22/20 09/23/20 09/23/20 15:30 06:16 06:16 WBC 3.7 L RBC Hgb Hct MCHC Lymph % (Auto) 12.3 L [place] % (Auto) 7.6 H Lymph # (Auto) 0.4 L [place] # (Auto) Seg Neutrophils % 79.5 H Seg Neuts % (Manual) Lymphocytes % (Manual) Seg Neutrophils # Seg Neutrophils # Man Lymphocytes # (Manual) D-Dimer Sodium Potassium Carbon Dioxide BUN Glucose 110 H Calcium 8.2 L Magnesium Ferritin 723.4 H AST 52 H Lactate Dehydrogenase C-Reactive Protein Total Protein Albumin 3.2 L Coronavirus (PCR) 09/23/20 09/23/20 09/24/20 15:28 Unknown 15:20 WBC RBC Hgb Hct MCHC Lymph % (Auto) [place] % (Auto) Lymph # (Auto) [place] # (Auto) Seg Neutrophils % Seg Neuts % (Manual) Lymphocytes % (Manual) Seg Neutrophils # Seg Neutrophils # Man Lymphocytes # (Manual) D-Dimer Sodium 133 L Potassium 5.8 H D Carbon Dioxide 20 L BUN 20 H 26 H Glucose 115 H 111 H Calcium 8.2 L 8.2 L Magnesium Ferritin AST 49 H Lactate Dehydrogenase C-Reactive Protein Total Protein Albumin 3.1 L 3.3 L Coronavirus (PCR) Positive A 09/24/20 09/24/20 09/25/20 15:20 15:20 05:10 WBC 11.1 H RBC Hgb Hct MCHC Lymph % (Auto) 5.5 L [place] % (Auto) 8.1 H Lymph # (Auto) 0.6 L [place] # (Auto) 0.9 H Seg Neutrophils % 85.7 H Seg Neuts % (Manual) Lymphocytes % (Manual) Seg Neutrophils # 9.6 H Seg Neutrophils # Man Lymphocytes # (Manual) D-Dimer Sodium Potassium Carbon Dioxide BUN 27 H Glucose 104 H Calcium Magnesium 3.10 H Ferritin AST Lactate Dehydrogenase C-Reactive Protein Total Protein Albumin 3.1 L Coronavirus (PCR) 09/25/20 09/25/20 09/25/20 05:10 05:10 05:10 WBC RBC Hgb Hct MCHC Lymph % (Auto) [place] % (Auto) Lymph # (Auto) [place] # (Auto) Seg Neutrophils % Seg Neuts % (Manual) Lymphocytes % (Manual) Seg Neutrophils # Seg Neutrophils # Man Lymphocytes # (Manual) D-Dimer 1267.92 H Sodium Potassium Carbon Dioxide BUN Glucose Calcium Magnesium Ferritin 847.4 H AST Lactate Dehydrogenase C-Reactive Protein 4.10 H Total Protein Albumin Coronavirus (PCR) 09/26/20 09/28/20 09/28/20 10:35 09:07 09:07 WBC RBC Hgb Hct MCHC Lymph % (Auto) [place] % (Auto) Lymph # (Auto) [place] # (Auto) Seg Neutrophils % Seg Neuts % (Manual) Lymphocytes % (Manual) Seg Neutrophils # Seg Neutrophils # Man Lymphocytes # (Manual) D-Dimer 1161.67 H Sodium Potassium Carbon Dioxide BUN 30 H Glucose 102 H Calcium Magnesium Ferritin 795.8 H AST 53 H Lactate Dehydrogenase C-Reactive Protein Total Protein Albumin 3.4 L Coronavirus (PCR) 09/28/20 09/30/20 09/30/20 09:07 04:39 04:39 WBC 12.3 H RBC Hgb Hct MCHC 35 H Lymph % (Auto) [place] % (Auto) Lymph # (Auto) [place] # (Auto) Seg Neutrophils % Seg Neuts % (Manual) 91.0 H Lymphocytes % (Manual) 6.0 L Seg Neutrophils # Seg Neutrophils # Man 11.2 H Lymphocytes # (Manual) 0.7 L D-Dimer Sodium 136 L Potassium Carbon Dioxide BUN 26 H Glucose 112 H Calcium Magnesium Ferritin AST Lactate Dehydrogenase 455 H C-Reactive Protein Total Protein 5.8 L Albumin 2.8 L Coronavirus (PCR) 10/02/20 10/02/20 10/02/20 11:04 11:04 11:04 WBC RBC Hgb Hct MCHC Lymph % (Auto) [place] % (Auto) Lymph # (Auto) [place] # (Auto) Seg Neutrophils % Seg Neuts % (Manual) Lymphocytes % (Manual) Seg Neutrophils # Seg Neutrophils # Man Lymphocytes # (Manual) D-Dimer 784.81 H Sodium Potassium Carbon Dioxide BUN Glucose Calcium Magnesium Ferritin 890.5 H AST Lactate Dehydrogenase 371 H C-Reactive Protein Total Protein Albumin Coronavirus (PCR) 10/03/20 10:02 WBC 21.3 H RBC 5.25 H Hgb 15.4 H Hct 47.7 H MCHC Lymph % (Auto) [place] % (Auto) Lymph # (Auto) [place] # (Auto) Seg Neutrophils % Seg Neuts % (Manual) Lymphocytes % (Manual) Seg Neutrophils # Seg Neutrophils # Man Lymphocytes # (Manual) D-Dimer Sodium Potassium Carbon Dioxide BUN Glucose Calcium Magnesium Ferritin AST Lactate Dehydrogenase C-Reactive Protein Total Protein Albumin Coronavirus (PCR)
[2020-10-05] MEDS: methylPREDNISolone Sod Succinate 125 MG/2 ML INJ IV SCH ×3 (05:24→21:54)
[2020-10-05 06:15] LABS: Hematocrit 44.4 % (30.3-42.9); Hemoglobin 14.4 gm/dl (10.1-14.3); Mean Corpuscular HGB Conc 32 % (30-34); Mean Corpuscular Volume 89 fl (79-97); Platelet Count 289 K/mm3 (140-440); Red Blood Count 4.96 M/mm3 (3.65-5.03); Red Cell Distribution Width 14.2 % (13.2-15.2)
--- NOTE | 2020-10-05 09:37 | Progress Note ---
Assessment and Plan Assessment and plan: Patient remains on high flow oxygen 20 L/50% FiO2/97% O2 sats -- Acute hypoxemic respiratory failure/on high flow oxygen/BiPAP Current Visit: Yes Status: Acute prone positioning while in bed as much as possible High flow nasal cannula requirement decreased to 15 L/FiO2 40%/O2 sats 93% Wean further as tolerated, supportive care Pulmonary following --Elevated D-dimers; Current Visit: Yes Status: Acute In the setting of severe hypoxemia requiring high flow oxygen and BiPAP Severe COVID-19 pneumonia, obesity High risk patient, patient is placed on therapeutic dose of anticoagulation with Lovenox Closely monitor, CTA chest requested when patient is stable -- Bilateral pneumonia Current Visit: Yes Status: Acute Empiric antibiotics discontinued As procalcitonin level is normal --COVID-19 virus infection Current Visit: Yes Status: Acute Isolation droplet and contact, Patient is hypoxic, on high flow nasal cannula oxygen Completed remdesivir, s/p Actemra continue Solu-Medrol Inflammatory markers trending down, Prone positioning, home O2 evaluation pulmonary and ID following Continue zinc, vitamin D, ascorbic acid --Hyperkalemia; resolved Current Visit: Yes Status: Acute Monitor electrolytes -- Obesity hypoventilation syndrome/BMI 36.0 Current Visit: Yes Status: Acute Dietary modification , exercise as tolerated , lifestyle changes Weight reduction when medically stable Outpatient sleep study to rule out obstructive sleep apnea --Severe protein calorie malnutrition; hypoalbuminemia Current Visit: Yes Status: Chronic Nutrition supplements, nutrition consult -- DVT prophylaxis Current Visit: Yes Status: Acute Full dose therapeutic anticoagulation with Lovenox Closely monitor the patient and adjust management as needed Plan of care reviewed with the patient and her nurse Critical care time 40 minutes [patient is critically ill severe COVID-19 pneumonia/on high flow nasal cannula oxygen/poor prognosis] The high probability of a clinically significant, sudden or life threatening deterioration of the multiple system(s) required my full and direct attention, intervention and personal management. The aggregate critical care time was [40] minutes. This time is in addition to time spent performing reported procedures but includes the following: [x] Data Review and interpretation [x] Patient assessment and monitoring of vital signs [x] Documentation [x] Medication orders and management Daily management 09/23/2020; Positive COVID-19, Hypoxemia on high flow oxygen Morbidly obese, ID following Continue therapies per protocol Pulmonary consulted Resumed service; 09/28/2020; Patient continues to require high flow nasal cannula oxygen with intermittent BiPAP Wean as tolerated, home O2 evaluation at discharge 09/29/2020 ; Patient remains on high flow nasal cannula oxygen at 30 L/90% FiO2/93 O2 sats Wean as tolerated, evaluation for home oxygen prior to discharge 09/30/2020; Patient remains on high flow oxygen 30 L/FiO2 80% Wean as tolerated Overall prognosis poor 10/02/2020; Patient remains on high flow oxygen but significantly improved Today she is on 20 L/50%/99 FiO2 Wean further as tolerated Constipated, advised MOM and Dulcolax Enema if no improvement after 2 doses 10/03/2020; On high flow oxygen decreased 15 L/40 FiO2/93 O2 sats Wean further as tolerated Empiric therapeutic anticoagulation with Lovenox Changed to Eliquis 5 mg twice a day 10/04/2020; Patient remains on high flow oxygen Slightly better, advise proning Wean as tolerated 10/05/2020; High flow oxygen today 20 L/50% FiO2./100% saturation Wean as tolerated Brief history; 60-year-old female patient with ongoing tobacco use obesity hypoventilation obesity was admitted with COVID-19 bilateral pneumonia with significant hypoxemia requiring high flow oxygen, ID and pulmonary evaluated medications optimized, patient continues to require high flow oxygen though the requirement significantly reduced to 20 L. Today patient is on 20 L O2 /50% FiO2 saturating well nearly 100%, wean as tolerated recommend prone positioning PT evaluation when stable disposition; discharge when medically stable History Interval history: Patient feels better complains weakness remains on high flow oxygen Hospitalist Physical - Constitutional Vitals: Temp Pulse Resp BP Pulse Ox 98.3 F 55 L 20 119/53 93 10/05/20 04:41 10/05/20 04:41 10/05/20 04:41 10/05/20 04:41 10/05/20 07:29 General appearance: Present: no acute distress, well-nourished, obese, other (On high flow nasal cannula oxygen 15 L) - EENT Eyes: Present: PERRL, EOM intact - Neck Neck: Present: supple, normal ROM - Respiratory Respiratory effort: normal Respiratory: bilateral: diminished, rhonchi, negative: rales, wheezing - Cardiovascular Rhythm: regular Heart Sounds: Present: S1 & S2 - Extremities Extremities: no ischemia, No edema - Abdominal General gastrointestinal: soft, non-tender, non-distended, normal bowel sounds - Integumentary Integumentary: Present: clear, warm - Psychiatric Psychiatric: appropriate mood/affect, cooperative - Neurologic Neurologic: CNII-XII intact, moves all extremities Results - Labs CBC & Chem 7: 10/05/20 05:48 10/03/20 10:02 Labs: Laboratory Last Values WBC 23.7 K/mm3 (4.5-11.0) H 10/05/20 05:48 RBC 4.96 M/mm3 (3.65-5.03) 10/05/20 05:48 Hgb 14.4 gm/dl (10.1-14.3) H 10/05/20 05:48 Hct 44.4 % (30.3-42.9) H 10/05/20 05:48 MCV 89 fl (79-97) 10/05/20 05:48 MCH 29 pg (28-32) 10/05/20 05:48 MCHC 32 % (30-34) 10/05/20 05:48 RDW 14.2 % (13.2-15.2) 10/05/20 05:48 Plt Count 289 K/mm3 (140-440) 10/05/20 05:48 Lymph % (Auto) 5.5 % (13.4-35.0) L 09/24/20 15:20 [place] % (Auto) 8.1 % (0.0-7.3) H 09/24/20 15:20 Eos % (Auto) 0.0 % (0.0-4.3) 09/24/20 15:20 Baso % (Auto) 0.7 % (0.0-1.8) 09/24/20 15:20 Lymph # (Auto) 0.6 K/mm3 (1.2-5.4) L 09/24/20 15:20 [place] # (Auto) 0.9 K/mm3 (0.0-0.8) H 09/24/20 15:20 Eos # (Auto) 0.0 K/mm3 (0.0-0.4) 09/24/20 15:20 Baso # (Auto) 0.1 K/mm3 (0.0-0.1) 09/24/20 15:20 Add Manual Diff Complete 09/30/20 04:39 Total Counted 100 09/30/20 04:39 Seg Neutrophils % [facility] Resident 09/30/20 04:39 Seg Neuts % (Manual) 91.0 % (40.0-70.0) H 09/30/20 04:39 Lymphocytes % (Manual) 6.0 % (13.4-35.0) L 09/30/20 04:39 Monocytes % (Manual) 3.0 % (0.0-7.3) 09/30/20 04:39 Nucleated RBC % Not Reportable 09/30/20 04:39 Seg Neutrophils # 9.6 K/mm3 (1.8-7.7) H 09/24/20 15:20 Seg Neutrophils # Man 11.2 K/mm3 (1.8-7.7) H 09/30/20 04:39 Band Neutrophils # 0.0 K/mm3 09/30/20 04:39 Lymphocytes # (Manual) 0.7 K/mm3 (1.2-5.4) L 09/30/20 04:39 Abs React Lymphs (Man) 0.0 K/mm3 09/30/20 04:39 Monocytes # (Manual) 0.4 K/mm3 (0.0-0.8) 09/30/20 04:39 Eosinophils # (Manual) 0.0 K/mm3 (0.0-0.4) 09/30/20 04:39 Basophils # (Manual) 0.0 K/mm3 (0.0-0.1) 09/30/20 04:39 Metamyelocytes # 0.0 K/mm3 09/30/20 04:39 Myelocytes # 0.0 K/mm3 09/30/20 04:39 Promyelocytes # 0.0 K/mm3 09/30/20 04:39 Blast Cells # 0.0 K/mm3 09/30/20 04:39 WBC Morphology Not Reportable 09/30/20 04:39 Hypersegmented Neuts Not Reportable 09/30/20 04:39 Hyposegmented Neuts Not Reportable 09/30/20 04:39 Hypogranular Neuts Not Reportable 09/30/20 04:39 Smudge Cells Not Reportable 09/30/20 04:39 Toxic Granulation Not Reportable 09/30/20 04:39 Toxic Vacuolation Not Reportable 09/30/20 04:39 Dohle Bodies Not Reportable 09/30/20 04:39 Pelger-Huet Anomaly Not Reportable 09/30/20 04:39 Gemini Rods Not Reportable 09/30/20 04:39 Platelet Estimate Consistent w auto 09/30/20 04:39 Clumped Platelets Not Reportable 09/30/20 04:39 Plt Clumps, EDTA Not Reportable 09/30/20 04:39 Large Platelets Not Reportable 09/30/20 04:39 Giant Platelets Not Reportable 09/30/20 04:39 Platelet Satelliting Not Reportable 09/30/20 04:39 Plt Morphology Comment Not Reportable 09/30/20 04:39 RBC Morphology Normal 09/30/20 04:39 Dimorphic RBCs Not Reportable 09/30/20 04:39 Polychromasia Not Reportable 09/30/20 04:39 Hypochromasia Not Reportable 09/30/20 04:39 Poikilocytosis Not Reportable 09/30/20 04:39 Anisocytosis Not Reportable 09/30/20 04:39 Microcytosis Not Reportable 09/30/20 04:39 Macrocytosis Not Reportable 09/30/20 04:39 Spherocytes Not Reportable 09/30/20 04:39 Pappenheimer Bodies Not Reportable 09/30/20 04:39 Sickle Cells Not Reportable 09/30/20 04:39 Target Cells Not Reportable 09/30/20 04:39 Tear Drop Cells Not Reportable 09/30/20 04:39 Ovalocytes Not Reportable 09/30/20 04:39 Helmet Cells Not Reportable 09/30/20 04:39 Fuchs-Section Bodies Not Reportable 09/30/20 04:39 [place] Rings Not Reportable 09/30/20 04:39 Evelio Cells Not Reportable 09/30/20 04:39 Bite Cells Not Reportable 09/30/20 04:39 Crenated Cell Not Reportable 09/30/20 04:39 Elliptocytes Not Reportable 09/30/20 04:39 Acanthocytes (Spur) Not Reportable 09/30/20 04:39 Rouleaux Not Reportable 09/30/20 04:39 Hemoglobin C Crystals Not Reportable 09/30/20 04:39 Schistocytes Not Reportable 09/30/20 04:39 Malaria parasites Not Reportable 09/30/20 04:39 Tor Bodies Not Reportable 09/30/20 04:39 Hem Pathologist Commnt No 09/30/20 04:39 PT 13.3 Sec. (12.2-14.9) 10/03/20 10:02 INR 0.95 (0.87-1.13) 10/03/20 10:02 APTT 29.0 Sec. (24.2-36.6) 10/03/20 10:02 D-Dimer 784.81 ng/mlDDU (0-234) H 10/02/20 11:04 Sodium 136 mmol/L (137-145) L 09/30/20 04:39 Potassium 4.6 mmol/L (3.6-5.0) 09/30/20 04:39 Chloride 103.7 mmol/L (98-107) 09/30/20 04:39 Carbon Dioxide 26 mmol/L (22-30) 09/30/20 04:39 Anion Gap 11 mmol/L 09/30/20 04:39 BUN 26 mg/dL (7-17) H 09/30/20 04:39 Creatinine 0.7 mg/dL (0.6-1.2) 10/03/20 10:02 Estimated GFR > 60 ml/min 10/03/20 10:02 BUN/Creatinine Ratio 37 % 09/30/20 04:39 Glucose 112 mg/dL (65-100) H 09/30/20 04:39 Lactic Acid 1.10 mmol/L (0.7-2.0) 09/22/20 18:17 Calcium 8.4 mg/dL (8.4-10.2) 09/30/20 04:39 Magnesium 3.10 mg/dL (1.7-2.3) H 09/24/20 15:20 Ferritin 890.5 ng/mL (10.0-200.0) H 10/02/20 11:04 Total Bilirubin 0.40 mg/dL (0.1-1.2) 09/30/20 04:39 AST 32 units/L (5-40) 09/30/20 04:39 ALT 51 units/L (7-56) 09/30/20 04:39 Alkaline Phosphatase 81 units/L (35-129) 09/30/20 04:39 Lactate Dehydrogenase 371 units/L (91-180) H 10/02/20 11:04 C-Reactive Protein 0.10 mg/dL (0.00-1.30) 10/02/20 11:04 Total Protein 5.8 g/dL (6.3-8.2) L 09/30/20 04:39 Albumin 2.8 g/dL (3.9-5) L 09/30/20 04:39 Albumin/Globulin Ratio 0.9 % 09/30/20 04:39 Procalcitonin 0.06 ng/mL (<0.15) 09/22/20 18:17 Coronavirus (PCR) Positive (Negative) A 09/23/20 Unknown [place]/IV: Voiding Method External Female Catheter Active Medications - Current Medications Current Medications: Generic Name Dose Route Start Last Admin Trade Name Freq PRN Reason Stop Dose Admin Acetaminophen 650 mg 09/22/20 18:16 09/27/20 22:07 Acetaminophen 325 Mg Tab PO 650 mg Q4H PRN Administration Pain MILD(1-3)/Fever >100.5/GRAMAJO Apixaban 5 mg 10/03/20 22:00 10/04/20 21:46 Apixaban 5 Mg Tab PO 5 mg Q12HR SAYDA Administration Protocol Ascorbic Acid 500 mg 09/22/20 22:00 10/04/20 21:46 Ascorbic Acid 500 Mg Tab PO 500 mg BID SAYDA Administration Bisacodyl 10 mg 10/02/20 10:19 Bisacodyl 10 Mg Rect Supp [place] QDAY PRN Constipation Cholecalciferol 1,000 unit 09/23/20 10:00 10/04/20 10:40 Cholecalciferol (Vit D3) 1000 Unit (25 Mcg) Tab PO 1,000 unit QDAY SAYDA Administration Guaifenesin 10 ml 09/29/20 08:56 10/03/20 06:01 Guaifenesin Dm 200/20 Mg Oral Liqd 10 Ml PO 10 ml Q4H PRN Administration Cough Hydromorphone HCl 0.5 mg 09/22/20 18:16 09/27/20 03:04 Hydromorphone 1 Mg/1 Ml Inj IV 0.5 mg Q12H PRN Administration Pain , Severe (7-10) Lorazepam 1 mg 09/27/20 12:59 10/03/20 22:25 Lorazepam 2 Mg/Ml Vial IV 1 mg Q4H PRN Administration Anxiety Magnesium Hydroxide 30 ml 10/02/20 10:19 Magnesium Hydroxide (Mom) Oral Liqd Udc PO QDAY PRN Constipation Methylprednisolone Sodium Succinate 40 mg 09/28/20 06:00 10/05/20 05:24 Methylprednisolone Sod Succinate 125 Mg/2 Ml Inj IV 10/07/20 22:01 40 mg Q8H SAYDA Administration Ondansetron HCl 4 mg 09/22/20 18:16 09/23/20 10:34 Ondansetron 4 Mg/2 Ml Inj IV 4 mg Q8H PRN Administration Nausea And Vomiting Oxycodone/Acetaminophen 1 tab 09/22/20 18:16 09/30/20 20:50 Oxycodone /Acetaminophen 5-325mg Tab PO 1 tab Q12H PRN Administration Pain, Moderate (4-6) Sodium Chloride 10 ml 09/22/20 22:00 10/04/20 21:46 Sodium Chloride 0.9% 10 Ml Flush Syringe IV 10 ml BID SAYDA Administration Sodium Chloride 10 ml 09/22/20 18:16 Sodium Chloride 0.9% 10 Ml Flush Syringe IV PRN PRN LINE FLUSH Sodium Chloride 2 spray 10/01/20 12:36 10/02/20 05:55 Sodium Chloride Nasal [place] 44ml NS 2 spray PRN PRN Administration Dry Nasal Passages Zinc Sulfate 220 mg 09/22/20 22:00 10/04/20 21:46 Zinc Sulfate 220 Mg Cap PO 220 mg BID SAYDA Administration Nutrition/Malnutrition Assess - Dietary Evaluation Nutrition/Malnutrition Findings: Nutrition Notes Start: 09/27/20 15:17 Freq: Status: Active Protocol: Document 09/30/20 10:26 [facility] (Rec: 09/30/20 10:27 [facility] [id number]) Nutrition Notes Initial or Follow up Brief Note Subjective/Other Information Pt consumed 50% of breakfast yesterday. Unable to reach pt via phone at 10:25. Nutrition Intervention Follow-Up By: 10/05/20 Additional Comments F/U: intakes (meals/ONS), resp status, wt
[2020-10-05] MEDS: ZINC SULFATE 220 MG CAP PO SCH ×2 (10:17→21:54)
[2020-10-05] MEDS: ASCORBIC ACID 500 MG TAB PO SCH ×2 (10:17→21:54)
[2020-10-05] MEDS: APIXABAN 5 MG TAB PO SCH ×2 (10:17→21:54)
[2020-10-05] MEDS: CHOLECALCIFEROL (VIT D3) 1000 UNIT (25 mcg) TAB PO SCH (10:17)
--- NOTE | 2020-10-05 11:03 | Progress Note ---
Assessment and Plan 60 y/o female with acute respiratory failure secondary to COVID 19 pneumonia, unvaccinated. 10/05/20: Do not understand RT note from yesterday regarding placing patient on salter. will decrease HFNC myself this am. Continue to prone. Continue solumedrol 40q8 10/04/20: Will speak with RT about weaning FiO2 and flow. I think patient could tolerate salter, maybe 10-15 liters. Sats of 88-92% are acceptable. Continue current dose of steroids. 10/03/20: Continue aggressively wean HFNC, should be ready for at least a salter today. Continue steroids at current dosing. Consider switching to oral anticoagulation. Will need 6 minute walk prior to discharge and prolonged steroid taper. Continue to prone. 10/02/20: Continue weaning of HFNC, will drop FiO2 down again today. Given improvement, feel patient can be transported to the COVID floor. Continue steroids and proning during the day as well as sleeping prone at night. 10/01/20: Stressed the importance of proning again. Dropped FiO2 to 60%. Asked RT to drop Flow down to 20-25 in about an hour. Prognosis still remains guarded. Maybe ready for transfer to floor over the weekend. 09/30/20: Continue to wean FiO2 for sats >88%. Prone, IV steroids and Remdesivir. Guarded prognosis. 09/29/20: Continue proning, weaned to fiO2 of 90 09/28/20: Once patient awake will ask her to prone again and sleep prone at night. Continue IV steroids. Guarded prognosis. 09/27/20: Continue proning. Continue Remdesivir and IV steroids. Monitor fluid intake and fluid balance. Guarded prognosis. 1. Long discussion at bedside about proning. Patient has agreed to do so and numbers are better already. Wean for sats >88% 2. Continue IV steroids 3. Continue Remdesivir 4. Follow up ID recs 5. Agree with full dose anticoagulation Guarded prognosis. Subjective Date of service: 10/05/20 Principal diagnosis: Covid-19 Interval history: Patient still on 20 and 50 with sats ranging from 95-100%. Objective Vital Signs - 12hr 10/05/20 10/05/20 10/05/20 04:03 04:41 07:29 Temperature 98.3 F Pulse Rate 55 L Respiratory 20 Rate Blood Pressure 119/53 O2 Sat by Pulse 100 98 93 Oximetry 10/05/20 09:50 Temperature Pulse Rate Respiratory Rate Blood Pressure O2 Sat by Pulse 95 Oximetry CBC and BMP: 10/05/20 05:48 10/03/20 10:02 ABG, PT/INR, D-dimer: PT/INR, D-dimer PT 13.3 Sec. (12.2-14.9) 10/03/20 10:02 INR 0.95 (0.87-1.13) 10/03/20 10:02 D-Dimer 784.81 ng/mlDDU (0-234) H 10/02/20 11:04 Abnormal lab findings: Abnormal Labs 09/22/20 09/22/20 09/22/20 15:17 15:17 15:30 WBC RBC Hgb Hct MCHC Lymph % (Auto) 8.0 L [place] % (Auto) Lymph # (Auto) 0.5 L [place] # (Auto) Seg Neutrophils % 84.8 H Seg Neuts % (Manual) Lymphocytes % (Manual) Seg Neutrophils # Seg Neutrophils # Man Lymphocytes # (Manual) D-Dimer 1693.52 H Sodium 134 L Potassium 5.3 H Carbon Dioxide BUN Glucose 101 H Calcium 8.1 L Magnesium Ferritin AST 60 H Lactate Dehydrogenase 666 H C-Reactive Protein 14.50 H Total Protein Albumin 2.9 L Coronavirus (PCR) 09/22/20 09/23/20 09/23/20 15:30 06:16 06:16 WBC 3.7 L RBC Hgb Hct MCHC Lymph % (Auto) 12.3 L [place] % (Auto) 7.6 H Lymph # (Auto) 0.4 L [place] # (Auto) Seg Neutrophils % 79.5 H Seg Neuts % (Manual) Lymphocytes % (Manual) Seg Neutrophils # Seg Neutrophils # Man Lymphocytes # (Manual) D-Dimer Sodium Potassium Carbon Dioxide BUN Glucose 110 H Calcium 8.2 L Magnesium Ferritin 723.4 H AST 52 H Lactate Dehydrogenase C-Reactive Protein Total Protein Albumin 3.2 L Coronavirus (PCR) 09/23/20 09/23/20 09/24/20 15:28 Unknown 15:20 WBC RBC Hgb Hct MCHC Lymph % (Auto) [place] % (Auto) Lymph # (Auto) [place] # (Auto) Seg Neutrophils % Seg Neuts % (Manual) Lymphocytes % (Manual) Seg Neutrophils # Seg Neutrophils # Man Lymphocytes # (Manual) D-Dimer Sodium 133 L Potassium 5.8 H D Carbon Dioxide 20 L BUN 20 H 26 H Glucose 115 H 111 H Calcium 8.2 L 8.2 L Magnesium Ferritin AST 49 H Lactate Dehydrogenase C-Reactive Protein Total Protein Albumin 3.1 L 3.3 L Coronavirus (PCR) Positive A 09/24/20 09/24/20 09/25/20 15:20 15:20 05:10 WBC 11.1 H RBC Hgb Hct MCHC Lymph % (Auto) 5.5 L [place] % (Auto) 8.1 H Lymph # (Auto) 0.6 L [place] # (Auto) 0.9 H Seg Neutrophils % 85.7 H Seg Neuts % (Manual) Lymphocytes % (Manual) Seg Neutrophils # 9.6 H Seg Neutrophils # Man Lymphocytes # (Manual) D-Dimer Sodium Potassium Carbon Dioxide BUN 27 H Glucose 104 H Calcium Magnesium 3.10 H Ferritin AST Lactate Dehydrogenase C-Reactive Protein Total Protein Albumin 3.1 L Coronavirus (PCR) 09/25/20 09/25/20 09/25/20 05:10 05:10 05:10 WBC RBC Hgb Hct MCHC Lymph % (Auto) [place] % (Auto) Lymph # (Auto) [place] # (Auto) Seg Neutrophils % Seg Neuts % (Manual) Lymphocytes % (Manual) Seg Neutrophils # Seg Neutrophils # Man Lymphocytes # (Manual) D-Dimer 1267.92 H Sodium Potassium Carbon Dioxide BUN Glucose Calcium Magnesium Ferritin 847.4 H AST Lactate Dehydrogenase C-Reactive Protein 4.10 H Total Protein Albumin Coronavirus (PCR) 09/26/20 09/28/20 09/28/20 10:35 09:07 09:07 WBC RBC Hgb Hct MCHC Lymph % (Auto) [place] % (Auto) Lymph # (Auto) [place] # (Auto) Seg Neutrophils % Seg Neuts % (Manual) Lymphocytes % (Manual) Seg Neutrophils # Seg Neutrophils # Man Lymphocytes # (Manual) D-Dimer 1161.67 H Sodium Potassium Carbon Dioxide BUN 30 H Glucose 102 H Calcium Magnesium Ferritin 795.8 H AST 53 H Lactate Dehydrogenase C-Reactive Protein Total Protein Albumin 3.4 L Coronavirus (PCR) 09/28/20 09/30/20 09/30/20 09:07 04:39 04:39 WBC 12.3 H RBC Hgb Hct MCHC 35 H Lymph % (Auto) [place] % (Auto) Lymph # (Auto) [place] # (Auto) Seg Neutrophils % Seg Neuts % (Manual) 91.0 H Lymphocytes % (Manual) 6.0 L Seg Neutrophils # Seg Neutrophils # Man 11.2 H Lymphocytes # (Manual) 0.7 L D-Dimer Sodium 136 L Potassium Carbon Dioxide BUN 26 H Glucose 112 H Calcium Magnesium Ferritin AST Lactate Dehydrogenase 455 H C-Reactive Protein Total Protein 5.8 L Albumin 2.8 L Coronavirus (PCR) 10/02/20 10/02/20 10/02/20 11:04 11:04 11:04 WBC RBC Hgb Hct MCHC Lymph % (Auto) [place] % (Auto) Lymph # (Auto) [place] # (Auto) Seg Neutrophils % Seg Neuts % (Manual) Lymphocytes % (Manual) Seg Neutrophils # Seg Neutrophils # Man Lymphocytes # (Manual) D-Dimer 784.81 H Sodium Potassium Carbon Dioxide BUN Glucose Calcium Magnesium Ferritin 890.5 H AST Lactate Dehydrogenase 371 H C-Reactive Protein Total Protein Albumin Coronavirus (PCR) 10/03/20 10/05/20 10:02 05:48 WBC 21.3 H 23.7 H RBC 5.25 H Hgb 15.4 H 14.4 H Hct 47.7 H 44.4 H MCHC Lymph % (Auto) [place] % (Auto) Lymph # (Auto) [place] # (Auto) Seg Neutrophils % Seg Neuts % (Manual) Lymphocytes % (Manual) Seg Neutrophils # Seg Neutrophils # Man Lymphocytes # (Manual) D-Dimer Sodium Potassium Carbon Dioxide BUN Glucose Calcium Magnesium Ferritin AST Lactate Dehydrogenase C-Reactive Protein Total Protein Albumin Coronavirus (PCR)
[2020-10-05] MEDS: HYDROmorphone 1 MG/1 ML INJ IV PRN (14:07)
[2020-10-06] MEDS: methylPREDNISolone Sod Succinate 125 MG/2 ML INJ IV SCH ×3 (05:19→22:43)
[2020-10-06] MEDS: ASCORBIC ACID 500 MG TAB PO SCH ×2 (13:39→22:45)
[2020-10-06] MEDS: CHOLECALCIFEROL (VIT D3) 1000 UNIT (25 mcg) TAB PO SCH (13:39)
[2020-10-06] MEDS: APIXABAN 5 MG TAB PO SCH ×2 (13:39→22:44)
[2020-10-06] MEDS: guaiFENesin DM 200/20 MG ORAL LIQD 10 ML PO PRN (13:41)
[2020-10-06] MEDS: ZINC SULFATE 220 MG CAP PO SCH ×2 (13:43→22:45)
--- NOTE | 2020-10-06 15:00 | Progress Note ---
Assessment and Plan 60 y/o female with acute respiratory failure secondary to COVID 19 pneumonia, unvaccinated. 10/06/20: Agree with going to cannula. Suggest walk test tomorrow to assess oxygen need if any. Would be ok with discharge in the next 24 to 48 hours with the following steroid taper: Pred 60 daily for 4 days, 40 daily for 4 days, 20 daily for 4 days, then 10 daily for 4 days then stop. 10/05/20: Do not understand RT note from yesterday regarding placing patient on salter. will decrease HFNC myself this am. Continue to prone. Continue so lumedrol 40q8 10/04/20: Will speak with RT about weaning FiO2 and flow. I think patient could tolerate salter, maybe 10-15 liters. Sats of 88-92% are acceptable. Continue current dose of steroids. 10/03/20: Continue aggressively wean HFNC, should be ready for at least a salter today. Continue steroids at current dosing. Consider switching to oral anticoagulation. Will need 6 minute walk prior to discharge and prolonged steroid taper. Continue to prone. 10/02/20: Continue weaning of HFNC, will drop FiO2 down again today. Given improvement, feel patient can be transported to the COVID floor. Continue steroids and proning during the day as well as sleeping prone at night. 10/01/20: Stressed the importance of proning again. Dropped FiO2 to 60%. Asked RT to drop Flow down to 20-25 in about an hour. Prognosis still remains guarded. Maybe ready for transfer to floor over the weekend. 09/30/20: Continue to wean FiO2 for sats >88%. Prone, IV steroids and Remdesivir. Guarded prognosis. 09/29/20: Continue proning, weaned to fiO2 of 90 09/28/20: Once patient awake will ask her to prone again and sleep prone at night. Continue IV steroids. Guarded prognosis. 09/27/20: Continue proning. Continue Remdesivir and IV steroids. Monitor fluid intake and fluid balance. Guarded prognosis. 1. Long discussion at bedside about proning. Patient has agreed to do so and numbers are better already. Wean for sats >88% 2. Continue IV steroids 3. Continue Remdesivir 4. Follow up ID recs 5. Agree with full dose anticoagulation Guarded prognosis. Subjective Date of service: 10/06/20 Principal diagnosis: Covid-19 Interval history: Down to 6 liters and RT is about to place on regular nasal cannula. Good sats. Objective Vital Signs - 12hr 10/06/20 10/06/20 10/06/20 05:09 10:21 12:00 Temperature 97.9 F 98.3 F Pulse Rate 55 L 60 Respiratory 22 24 Rate Blood Pressure 113/52 Blood Pressure 110/40 [Left] O2 Sat by Pulse 93 94 96 Oximetry 10/06/20 12:59 Temperature Pulse Rate Respiratory Rate Blood Pressure Blood Pressure [Left] O2 Sat by Pulse 0 L Oximetry CBC and BMP: 10/05/20 05:48 10/06/20 04:35 ABG, PT/INR, D-dimer: PT/INR, D-dimer PT 13.3 Sec. (12.2-14.9) 10/03/20 10:02 INR 0.95 (0.87-1.13) 10/03/20 10:02 D-Dimer 374.17 ng/mlDDU (0-234) H 10/05/20 11:13 Abnormal lab findings: Abnormal Labs 09/22/20 09/22/20 09/22/20 15:17 15:17 15:30 WBC RBC Hgb Hct MCHC Lymph % (Auto) 8.0 L Wilkin % (Auto) Lymph # (Auto) 0.5 L Wilkin # (Auto) Seg Neutrophils % 84.8 H Seg Neuts % (Manual) Lymphocytes % (Manual) Seg Neutrophils # Seg Neutrophils # Man Lymphocytes # (Manual) D-Dimer 1693.52 H Sodium 134 L Potassium 5.3 H Carbon Dioxide BUN Glucose 101 H Calcium 8.1 L Magnesium Ferritin AST 60 H Lactate Dehydrogenase 666 H C-Reactive Protein 14.50 H Total Protein Albumin 2.9 L Coronavirus (PCR) 09/22/20 09/23/20 09/23/20 15:30 06:16 06:16 WBC 3.7 L RBC Hgb Hct MCHC Lymph % (Auto) 12.3 L Wilkin % (Auto) 7.6 H Lymph # (Auto) 0.4 L Wilkin # (Auto) Seg Neutrophils % 79.5 H Seg Neuts % (Manual) Lymphocytes % (Manual) Seg Neutrophils # Seg Neutrophils # Man Lymphocytes # (Manual) D-Dimer Sodium Potassium Carbon Dioxide BUN Glucose 110 H Calcium 8.2 L Magnesium Ferritin 723.4 H AST 52 H Lactate Dehydrogenase C-Reactive Protein Total Protein Albumin 3.2 L Coronavirus (PCR) 09/23/20 09/23/20 09/24/20 15:28 Unknown 15:20 WBC RBC Hgb Hct MCHC Lymph % (Auto) Wilkin % (Auto) Lymph # (Auto) Wilkin # (Auto) Seg Neutrophils % Seg Neuts % (Manual) Lymphocytes % (Manual) Seg Neutrophils # Seg Neutrophils # Man Lymphocytes # (Manual) D-Dimer Sodium 133 L Potassium 5.8 H D Carbon Dioxide 20 L BUN 20 H 26 H Glucose 115 H 111 H Calcium 8.2 L 8.2 L Magnesium Ferritin AST 49 H Lactate Dehydrogenase C-Reactive Protein Total Protein Albumin 3.1 L 3.3 L Coronavirus (PCR) Positive A 09/24/20 09/24/20 09/25/20 15:20 15:20 05:10 WBC 11.1 H RBC Hgb Hct MCHC Lymph % (Auto) 5.5 L Wilkin % (Auto) 8.1 H Lymph # (Auto) 0.6 L Wilkin # (Auto) 0.9 H Seg Neutrophils % 85.7 H Seg Neuts % (Manual) Lymphocytes % (Manual) Seg Neutrophils # 9.6 H Seg Neutrophils # Man Lymphocytes # (Manual) D-Dimer Sodium Potassium Carbon Dioxide BUN 27 H Glucose 104 H Calcium Magnesium 3.10 H Ferritin AST Lactate Dehydrogenase C-Reactive Protein Total Protein Albumin 3.1 L Coronavirus (PCR) 09/25/20 09/25/20 09/25/20 05:10 05:10 05:10 WBC RBC Hgb Hct MCHC Lymph % (Auto) Wilkin % (Auto) Lymph # (Auto) Wilkin # (Auto) Seg Neutrophils % Seg Neuts % (Manual) Lymphocytes % (Manual) Seg Neutrophils # Seg Neutrophils # Man Lymphocytes # (Manual) D-Dimer 1267.92 H Sodium Potassium Carbon Dioxide BUN Glucose Calcium Magnesium Ferritin 847.4 H AST Lactate Dehydrogenase C-Reactive Protein 4.10 H Total Protein Albumin Coronavirus (PCR) 09/26/20 09/28/20 09/28/20 10:35 09:07 09:07 WBC RBC Hgb Hct MCHC Lymph % (Auto) Wilkin % (Auto) Lymph # (Auto) Wilkin # (Auto) Seg Neutrophils % Seg Neuts % (Manual) Lymphocytes % (Manual) Seg Neutrophils # Seg Neutrophils # Man Lymphocytes # (Manual) D-Dimer 1161.67 H Sodium Potassium Carbon Dioxide BUN 30 H Glucose 102 H Calcium Magnesium Ferritin 795.8 H AST 53 H Lactate Dehydrogenase C-Reactive Protein Total Protein Albumin 3.4 L Coronavirus (PCR) 09/28/20 09/30/20 09/30/20 09:07 04:39 04:39 WBC 12.3 H RBC Hgb Hct MCHC 35 H Lymph % (Auto) Wilkin % (Auto) Lymph # (Auto) Wilkin # (Auto) Seg Neutrophils % Seg Neuts % (Manual) 91.0 H Lymphocytes % (Manual) 6.0 L Seg Neutrophils # Seg Neutrophils # Man 11.2 H Lymphocytes # (Manual) 0.7 L D-Dimer Sodium 136 L Potassium Carbon Dioxide BUN 26 H Glucose 112 H Calcium Magnesium Ferritin AST Lactate Dehydrogenase 455 H C-Reactive Protein Total Protein 5.8 L Albumin 2.8 L Coronavirus (PCR) 10/02/20 10/02/20 10/02/20 11:04 11:04 11:04 WBC RBC Hgb Hct MCHC Lymph % (Auto) Wilkin % (Auto) Lymph # (Auto) Wilkin # (Auto) Seg Neutrophils % Seg Neuts % (Manual) Lymphocytes % (Manual) Seg Neutrophils # Seg Neutrophils # Man Lymphocytes # (Manual) D-Dimer 784.81 H Sodium Potassium Carbon Dioxide BUN Glucose Calcium Magnesium Ferritin 890.5 H AST Lactate Dehydrogenase 371 H C-Reactive Protein Total Protein Albumin Coronavirus (PCR) 10/03/20 10/05/20 10/05/20 10:02 05:48 11:13 WBC 21.3 H 23.7 H RBC 5.25 H Hgb 15.4 H 14.4 H Hct 47.7 H 44.4 H MCHC Lymph % (Auto) Wilkin % (Auto) Lymph # (Auto) Wilkin # (Auto) Seg Neutrophils % Seg Neuts % (Manual) Lymphocytes % (Manual) Seg Neutrophils # Seg Neutrophils # Man Lymphocytes # (Manual) D-Dimer 374.17 H Sodium Potassium Carbon Dioxide BUN Glucose Calcium Magnesium Ferritin AST Lactate Dehydrogenase C-Reactive Protein Total Protein Albumin Coronavirus (PCR) 10/05/20 10/05/20 11:13 11:13 WBC RBC Hgb Hct MCHC Lymph % (Auto) Wilkin % (Auto) Lymph # (Auto) Wilkin # (Auto) Seg Neutrophils % Seg Neuts % (Manual) Lymphocytes % (Manual) Seg Neutrophils # Seg Neutrophils # Man Lymphocytes # (Manual) D-Dimer Sodium Potassium Carbon Dioxide BUN Glucose Calcium Magnesium Ferritin 846.6 H AST Lactate Dehydrogenase 254 H C-Reactive Protein Total Protein Albumin Coronavirus (PCR)
--- NOTE | 2020-10-06 18:43 | Progress Note ---
Assessment and Plan Assessment and plan: 60-year-old female patient with ongoing tobacco use obesity hypoventilation obesity was admitted with COVID-19 bilateral pneumonia with significant hypoxemia requiring high flow oxygen, ID and pulmonary evaluated medications optimized, patient continues to require high flow oxygen though the requirement significantly reduced to 20 L. Patient remains on 20 L O2 /50% FiO2 saturating well nearly 100%, wean as tolerated recommend prone positioning PT evaluation when stable She is generally feeling and doing well. disposition; discharge when O2 requirement improves to below 5 L and medically stable Discussed with the patient. History Interval history: Patient reports that she is breathing better. Tolerating diet. Generally feels better. Hospitalist Physical - Constitutional Vitals: Temp Pulse Resp BP Pulse Ox 98.3 F 60 24 110/40 91 10/06/20 12:00 10/06/20 12:00 10/06/20 12:10/06/20 12:10/06/20 15:55 General appearance: Present: no acute distress, well-nourished, obese, other (On high flow nasal cannula oxygen 15 L) - EENT Eyes: Present: PERRL - Neck Neck: Present: supple - Respiratory Respiratory: bilateral: diminished - Cardiovascular Rhythm: regular - Extremities Extremities: No edema - Abdominal General gastrointestinal: soft, non-tender - Integumentary Integumentary: Absent: rash - Neurologic Neurologic: no focal deficits Results - Labs CBC & Chem 7: 10/05/20 05:48 10/06/20 04:35 Labs: Laboratory Last Values WBC 23.7 K/mm3 (4.5-11.0) H 10/05/20 05:48 RBC 4.96 M/mm3 (3.65-5.03) 10/05/20 05:48 Hgb 14.4 gm/dl (10.1-14.3) H 10/05/20 05:48 Hct 44.4 % (30.3-42.9) H 10/05/20 05:48 MCV 89 fl (79-97) 10/05/20 05:48 MCH 29 pg (28-32) 10/05/20 05:48 MCHC 32 % (30-34) 10/05/20 05:48 RDW 14.2 % (13.2-15.2) 10/05/20 05:48 Plt Count 289 K/mm3 (140-440) 10/05/20 05:48 Lymph % (Auto) 5.5 % (13.4-35.0) L 09/24/20 15:20 George % (Auto) 8.1 % (0.0-7.3) H 09/24/20 15:20 Eos % (Auto) 0.0 % (0.0-4.3) 09/24/20 15:20 Baso % (Auto) 0.7 % (0.0-1.8) 09/24/20 15:20 Lymph # (Auto) 0.6 K/mm3 (1.2-5.4) L 09/24/20 15:20 George # (Auto) 0.9 K/mm3 (0.0-0.8) H 09/24/20 15:20 Eos # (Auto) 0.0 K/mm3 (0.0-0.4) 09/24/20 15:20 Baso # (Auto) 0.1 K/mm3 (0.0-0.1) 09/24/20 15:20 Add Manual Diff Complete 09/30/20 04:39 Total Counted 100 09/30/20 04:39 Seg Neutrophils % [place] 09/30/20 04:39 Seg Neuts % (Manual) 91.0 % (40.0-70.0) H 09/30/20 04:39 Lymphocytes % (Manual) 6.0 % (13.4-35.0) L 09/30/20 04:39 Monocytes % (Manual) 3.0 % (0.0-7.3) 09/30/20 04:39 Nucleated RBC % Not Reportable 09/30/20 04:39 Seg Neutrophils # 9.6 K/mm3 (1.8-7.7) H 09/24/20 15:20 Seg Neutrophils # Man 11.2 K/mm3 (1.8-7.7) H 09/30/20 04:39 Band Neutrophils # 0.0 K/mm3 09/30/20 04:39 Lymphocytes # (Manual) 0.7 K/mm3 (1.2-5.4) L 09/30/20 04:39 Abs React Lymphs (Man) 0.0 K/mm3 09/30/20 04:39 Monocytes # (Manual) 0.4 K/mm3 (0.0-0.8) 09/30/20 04:39 Eosinophils # (Manual) 0.0 K/mm3 (0.0-0.4) 09/30/20 04:39 Basophils # (Manual) 0.0 K/mm3 (0.0-0.1) 09/30/20 04:39 Metamyelocytes # 0.0 K/mm3 09/30/20 04:39 Myelocytes # 0.0 K/mm3 09/30/20 04:39 Promyelocytes # 0.0 K/mm3 09/30/20 04:39 Blast Cells # 0.0 K/mm3 09/30/20 04:39 WBC Morphology Not Reportable 09/30/20 04:39 Hypersegmented Neuts Not Reportable 09/30/20 04:39 Hyposegmented Neuts Not Reportable 09/30/20 04:39 Hypogranular Neuts Not Reportable 09/30/20 04:39 Smudge Cells Not Reportable 09/30/20 04:39 Toxic Granulation Not Reportable 09/30/20 04:39 Toxic Vacuolation Not Reportable 09/30/20 04:39 Dohle Bodies Not Reportable 09/30/20 04:39 Pelger-Huet Anomaly Not Reportable 09/30/20 04:39 Gemini Rods Not Reportable 09/30/20 04:39 Platelet Estimate Consistent w auto 09/30/20 04:39 Clumped Platelets Not Reportable 09/30/20 04:39 Plt Clumps, EDTA Not Reportable 09/30/20 04:39 Large Platelets Not Reportable 09/30/20 04:39 Giant Platelets Not Reportable 09/30/20 04:39 Platelet Satelliting Not Reportable 09/30/20 04:39 Plt Morphology Comment Not Reportable 09/30/20 04:39 RBC Morphology Normal 09/30/20 04:39 Dimorphic RBCs Not Reportable 09/30/20 04:39 Polychromasia Not Reportable 09/30/20 04:39 Hypochromasia Not Reportable 09/30/20 04:39 Poikilocytosis Not Reportable 09/30/20 04:39 Anisocytosis Not Reportable 09/30/20 04:39 Microcytosis Not Reportable 09/30/20 04:39 Macrocytosis Not Reportable 09/30/20 04:39 Spherocytes Not Reportable 09/30/20 04:39 Pappenheimer Bodies Not Reportable 09/30/20 04:39 Sickle Cells Not Reportable 09/30/20 04:39 Target Cells Not Reportable 09/30/20 04:39 Tear Drop Cells Not Reportable 09/30/20 04:39 Ovalocytes Not Reportable 09/30/20 04:39 Helmet Cells Not Reportable 09/30/20 04:39 Fuchs-Lushton Bodies Not Reportable 09/30/20 04:39 [place] Rings Not Reportable 09/30/20 04:39 [place] Cells Not Reportable 09/30/20 04:39 Bite Cells Not Reportable 09/30/20 04:39 Crenated Cell Not Reportable 09/30/20 04:39 Elliptocytes Not Reportable 09/30/20 04:39 Acanthocytes (Spur) Not Reportable 09/30/20 04:39 Rouleaux Not Reportable 09/30/20 04:39 Hemoglobin C Crystals Not Reportable 09/30/20 04:39 Schistocytes Not Reportable 09/30/20 04:39 Malaria parasites Not Reportable 09/30/20 04:39 Tor Bodies Not Reportable 09/30/20 04:39 Hem Pathologist Commnt No 09/30/20 04:39 PT 13.3 Sec. (12.2-14.9) 10/03/20 10:02 INR 0.95 (0.87-1.13) 10/03/20 10:02 APTT 29.0 Sec. (24.2-36.6) 10/03/20 10:02 D-Dimer 374.17 ng/mlDDU (0-234) H 10/05/20 11:13 Sodium 136 mmol/L (137-145) L 09/30/20 04:39 Potassium 4.6 mmol/L (3.6-5.0) 09/30/20 04:39 Chloride 103.7 mmol/L (98-107) 09/30/20 04:39 Carbon Dioxide 26 mmol/L (22-30) 09/30/20 04:39 Anion Gap 11 mmol/L 09/30/20 04:39 BUN 26 mg/dL (7-17) H 09/30/20 04:39 Creatinine 0.7 mg/dL (0.6-1.2) 10/06/20 04:35 Estimated GFR > 60 ml/min 10/06/20 04:35 BUN/Creatinine Ratio 37 % 09/30/20 04:39 Glucose 112 mg/dL (65-100) H 09/30/20 04:39 Lactic Acid 1.10 mmol/L (0.7-2.0) 09/22/20 18:17 Calcium 8.4 mg/dL (8.4-10.2) 09/30/20 04:39 Magnesium 3.10 mg/dL (1.7-2.3) H 09/24/20 15:20 Ferritin 846.6 ng/mL (10.0-200.0) H 10/05/20 11:13 Total Bilirubin 0.40 mg/dL (0.1-1.2) 09/30/20 04:39 AST 32 units/L (5-40) 09/30/20 04:39 ALT 51 units/L (7-56) 09/30/20 04:39 Alkaline Phosphatase 81 units/L (35-129) 09/30/20 04:39 Lactate Dehydrogenase 254 units/L (91-180) H 10/05/20 11:13 C-Reactive Protein 0.00 mg/dL (0.00-1.30) 10/05/20 11:13 Total Protein 5.8 g/dL (6.3-8.2) L 09/30/20 04:39 Albumin 2.8 g/dL (3.9-5) L 09/30/20 04:39 Albumin/Globulin Ratio 0.9 % 09/30/20 04:39 Procalcitonin 0.06 ng/mL (<0.15) 09/22/20 18:17 Coronavirus (PCR) Positive (Negative) A 09/23/20 Unknown Dhillon/IV: Voiding Method External Female Catheter Active Medications - Current Medications Current Medications: Generic Name Dose Route Start Last Admin Trade Name Freq PRN Reason Stop Dose Admin Acetaminophen 650 mg 09/22/20 18:16 09/27/20 22:07 Acetaminophen 325 Mg Tab PO 650 mg Q4H PRN Administration Pain MILD(1-3)/Fever >100.5/GRAMAJO Apixaban 5 mg 10/03/20 22:00 10/06/20 13:39 Apixaban 5 Mg Tab PO 5 mg Q12HR SAYDA Administration Protocol Ascorbic Acid 500 mg 09/22/20 22:00 10/06/20 13:39 Ascorbic Acid 500 Mg Tab PO 500 mg BID SAYDA Administration Bisacodyl 10 mg 10/02/20 10:19 Bisacodyl 10 Mg Rect Supp SD QDAY PRN Constipation Cholecalciferol 1,000 unit 09/23/20 10:00 10/06/20 13:39 Cholecalciferol (Vit D3) 1000 Unit (25 Mcg) Tab PO 1,000 unit QDAY SAYDA Administration Guaifenesin 10 ml 09/29/20 08:56 10/06/20 13:41 Guaifenesin Dm 200/20 Mg Oral Liqd 10 Ml PO 10 ml Q4H PRN Administration Cough Hydromorphone HCl 0.5 mg 09/22/20 18:16 10/05/20 14:07 Hydromorphone 1 Mg/1 Ml Inj IV 0.5 mg Q12H PRN Administration Pain , Severe (7-10) Lorazepam 1 mg 09/27/20 12:59 10/03/20 22:25 Lorazepam 2 Mg/Ml Vial IV 1 mg Q4H PRN Administration Anxiety Magnesium Hydroxide 30 ml 10/02/20 10:19 Magnesium Hydroxide (Mom) Oral Liqd Udc PO QDAY PRN Constipation Methylprednisolone Sodium Succinate 40 mg 09/28/20 06:00 10/06/20 13:56 Methylprednisolone Sod Succinate 125 Mg/2 Ml Inj IV 10/07/20 22:01 40 mg Q8H SAYDA Administration Ondansetron HCl 4 mg 09/22/20 18:16 09/23/20 10:34 Ondansetron 4 Mg/2 Ml Inj IV 4 mg Q8H PRN Administration Nausea And Vomiting Oxycodone/Acetaminophen 1 tab 09/22/20 18:16 09/30/20 20:50 Oxycodone /Acetaminophen 5-325mg Tab PO 1 tab Q12H PRN Administration Pain, Moderate (4-6) Sodium Chloride 10 ml 09/22/20 22:00 10/06/20 13:40 Sodium Chloride 0.9% 10 Ml Flush Syringe IV 10 ml BID SAYDA Administration Sodium Chloride 10 ml 09/22/20 18:16 Sodium Chloride 0.9% 10 Ml Flush Syringe IV PRN PRN LINE FLUSH Sodium Chloride 2 spray 10/01/20 12:36 10/02/20 05:55 Sodium Chloride Nasal [place] 44ml NS 2 spray PRN PRN Administration Dry Nasal Passages Zinc Sulfate 220 mg 09/22/20 22:00 10/06/20 13:43 Zinc Sulfate 220 Mg Cap PO 220 mg BID SAYDA Administration Nutrition/Malnutrition Assess - Dietary Evaluation Nutrition/Malnutrition Findings: Nutrition Notes Start: 09/27/20 1 5:17 Freq: Status: Active Protocol: Document 10/05/20 12:30 (Rec: 10/05/20 12:35 [id number]) Nutrition Notes Initial or Follow up Reassessment Current Diagnosis Respiratory Failure Other Pertinent Diagnosis COVID-19 pneu Current Diet Cardiac + Ensure Enlive daily Labs/Tests Reviewed Pertinent Medications Reviewed Height 5 ft 7 in Weight 107.4 kg Usual Body Weight 109.09 kg [place] Body Weight (kg) 61.36 BMI 37.0 Weight change and time frame 1.5% wt loss in 3 weeks (not significant) Weight Status Obese Subjective/Other Information Pt reports eating 25-50% of meals and drinking 100% of 1 ONS. She typically only eats the meat for lunch and dinner. Percent of energy/protein needs met: 72%/73%% Burn Absent Trauma Absent Current % PO Poor (25-49%) Minimum of two criteria No #1 Nutrition Diagnosis Inadequate oral intake Comments: CHANGED Etiology COVID-19 pneu As Evidenced by Signs and Symptoms pt meeting 72%/73% if energy and protein needs Is patient on ventilator? No Is Patient Ambulatory and/or Out of Bed No REE-([facility]-confined to bed) 2027.228 Kcal/Kg value to use for calculation 14 Approximate Energy Requirements Using 1504 kcal/Kg Additional Notes Pro needs 0.8-1g/kg adjBW: 66- 83g/day Fluid needs 1ml/kcal Nutrition Intervention Change Diet Order: Continue current diet order Add Supplement/Snack (indicate name/kcal Ensure BID /protein ) Provides kCal: 700 Provides Protein (gm) 40 Goal #1 PO tolerance Goal #2 PO intake of meals plus ONS to meet at least 75% energy and pro needs Anticipated Discharge Needs: Unable to identify at this time Follow-Up By: 10/11/20 Additional Comments F/U: stable intakes and ONS tolerance
[2020-10-06] MEDS: LORazepam 2 MG/ML VIAL IV PRN (22:54)
[2020-10-07 06:14] LABS: Hematocrit 42.5 % (30.3-42.9); Mean Corpuscular HGB Conc 33 % (30-34); Mean Corpuscular Volume 91 fl (79-97); Platelet Count 234 K/mm3 (140-440); Red Blood Count 4.67 M/mm3 (3.65-5.03); Red Cell Distribution Width 13.9 % (13.2-15.2)
[2020-10-07] MEDS: methylPREDNISolone Sod Succinate 125 MG/2 ML INJ IV SCH ×3 (06:37→21:50)
--- NOTE | 2020-10-07 09:35 | Progress Note ---
Assessment and Plan 60 y/o female with acute respiratory failure secondary to COVID 19 pneumonia, unvaccinated. 10/07/20: Wean for sats >88%. Still agree with walk test today to assess oxygen needs. Same taper as listed below. Hopeful discharge in the next 24-48 hours. 10/06/20: Agree with going to cannula. Suggest walk test tomorrow to assess oxygen need if any. Would be ok with discharge in the next 24 to 48 hours with the following steroid taper: Pred 60 daily for 4 days, 40 daily for 4 days, 20 daily for 4 days, then 10 daily for 4 days then stop. 10/05/20: Do not understand RT note from yesterday regarding placing patient on salter. will decrease HFNC myself this am. Continue to prone. Continue solumedrol 40q8 10/04/20: Will speak with RT about weaning FiO2 and flow. I think patient could tolerate salter, maybe 10-15 liters. Sats of 88-92% are acceptable. Continue current dose of steroids. 10/03/20: Continue aggressively wean HFNC, should be ready for at least a salter today. Continue steroids at current dosing. Consider switching to oral anticoagulation. Will need 6 minute walk prior to discharge and prolonged steroid taper. Continue to prone. 10/02/20: Continue weaning of HFNC, will drop FiO2 down again today. Given improvement, feel patient can be transported to the COVID floor. Continue steroids and proning during the day as well as sleeping prone at night. 10/01/20: Stressed the importance of proning again. Dropped FiO2 to 60%. Asked RT to drop Flow down to 20-25 in about an hour. Prognosis still remains guarded. Maybe ready for transfer to floor over the weekend. 09/30/20: Continue to wean FiO2 for sats >88%. Prone, IV steroids and Remdesivir. Guarded prognosis. 09/29/20: Continue proning, weaned to fiO2 of 90 09/28/20: Once patient awake will ask her to prone again and sleep prone at [facility]. Continue IV steroids. Guarded prognosis. 09/27/20: Continue proning. Continue Remdesivir and IV steroids. Monitor fluid intake and fluid balance. Guarded prognosis. 1. Long discussion at bedside about proning. Patient has agreed to do so and numbers are better already. Wean for sats >88% 2. Continue IV steroids 3. Continue Remdesivir 4. Follow up ID recs 5. Agree with full dose anticoagulation Guarded prognosis. Subjective Date of service: 10/07/20 Principal diagnosis: Covid-19 Interval history: Down to 6 liters with good sats. Can be weaned more. Objective Vital Signs - 12hr 10/06/20 10/07/20 22:09 05:29 Temperature 98.0 F 97.8 F Pulse Rate 61 59 L Respiratory 20 20 Rate Blood Pressure 126/63 124/63 O2 Sat by Pulse 97 97 Oximetry CBC and BMP: 10/07/20 05:35 10/06/20 04:35 ABG, PT/INR, D-dimer: PT/INR, D-dimer PT 13.3 Sec. (12.2-14.9) 10/03/20 10:02 INR 0.95 (0.87-1.13) 10/03/20 10:02 D-Dimer 374.17 ng/mlDDU (0-234) H 10/05/20 11:13 Abnormal lab findings: Abnormal Labs 09/22/20 09/22/20 09/22/20 15:17 15:17 15:30 WBC RBC Hgb Hct MCHC Lymph % (Auto) 8.0 L [place] % (Auto) Lymph # (Auto) 0.5 L [place] # (Auto) Seg Neutrophils % 84.8 H Seg Neuts % (Manual) Lymphocytes % (Manual) Seg Neutrophils # Seg Neutrophils # Man Lymphocytes # (Manual) D-Dimer 1693.52 H Sodium 134 L Potassium 5.3 H Carbon Dioxide BUN Glucose 101 H Calcium 8.1 L Magnesium Ferritin AST 60 H Lactate Dehydrogenase 666 H C-Reactive Protein 14.50 H Total Protein Albumin 2.9 L Coronavirus (PCR) 09/22/20 09/23/20 09/23/20 15:30 06:16 06:16 WBC 3.7 L RBC Hgb Hct MCHC Lymph % (Auto) 12.3 L [place] % (Auto) 7.6 H Lymph # (Auto) 0.4 L [place] # (Auto) Seg Neutrophils % 79.5 H Seg Neuts % (Manual) Lymphocytes % (Manual) Seg Neutrophils # Seg Neutrophils # Man Lymphocytes # (Manual) D-Dimer Sodium Potassium Carbon Dioxide BUN Glucose 110 H Calcium 8.2 L Magnesium Ferritin 723.4 H AST 52 H Lactate Dehydrogenase C-Reactive Protein Total Protein Albumin 3.2 L Coronavirus (PCR) 09/23/20 09/23/20 09/24/20 15:28 Unknown 15:20 WBC RBC Hgb Hct MCHC Lymph % (Auto) [place] % (Auto) Lymph # (Auto) [place] # (Auto) Seg Neutrophils % Seg Neuts % (Manual) Lymphocytes % (Manual) Seg Neutrophils # Seg Neutrophils # Man Lymphocytes # (Manual) D-Dimer Sodium 133 L Potassium 5.8 H D Carbon Dioxide 20 L BUN 20 H 26 H Glucose 115 H 111 H Calcium 8.2 L 8.2 L Magnesium Ferritin AST 49 H Lactate Dehydrogenase C-Reactive Protein Total Protein Albumin 3.1 L 3.3 L Coronavirus (PCR) Positive A 09/24/20 09/24/20 09/25/20 15:20 15:20 05:10 WBC 11.1 H RBC Hgb Hct MCHC Lymph % (Auto) 5.5 L [place] % (Auto) 8.1 H Lymph # (Auto) 0.6 L [place] # (Auto) 0.9 H Seg Neutrophils % 85.7 H Seg Neuts % (Manual) Lymphocytes % (Manual) Seg Neutrophils # 9.6 H Seg Neutrophils # Man Lymphocytes # (Manual) D-Dimer Sodium Potassium Carbon Dioxide BUN 27 H Glucose 104 H Calcium Magnesium 3.10 H Ferritin AST Lactate Dehydrogenase C-Reactive Protein Total Protein Albumin 3.1 L Coronavirus (PCR) 09/25/20 09/25/20 09/25/20 05:10 05:10 05:10 WBC RBC Hgb Hct MCHC Lymph % (Auto) [place] % (Auto) Lymph # (Auto) [place] # (Auto) Seg Neutrophils % Seg Neuts % (Manual) Lymphocytes % (Manual) Seg Neutrophils # Seg Neutrophils # Man Lymphocytes # (Manual) D-Dimer 1267.92 H Sodium Potassium Carbon Dioxide BUN Glucose Calcium Magnesium Ferritin 847.4 H AST Lactate Dehydrogenase C-Reactive Protein 4.10 H Total Protein Albumin Coronavirus (PCR) 09/26/20 09/28/20 09/28/20 10:35 09:07 09:07 WBC RBC Hgb Hct MCHC Lymph % (Auto) [place] % (Auto) Lymph # (Auto) [place] # (Auto) Seg Neutrophils % Seg Neuts % (Manual) Lymphocytes % (Manual) Seg Neutrophils # Seg Neutrophils # Man Lymphocytes # (Manual) D-Dimer 1161.67 H Sodium Potassium Carbon Dioxide BUN 30 H Glucose 102 H Calcium Magnesium Ferritin 795.8 H AST 53 H Lactate Dehydrogenase C-Reactive Protein Total Protein Albumin 3.4 L Coronavirus (PCR) 09/28/20 09/30/20 09/30/20 09:07 04:39 04:39 WBC 12.3 H RBC Hgb Hct MCHC 35 H Lymph % (Auto) [place] % (Auto) Lymph # (Auto) [place] # (Auto) Seg Neutrophils % Seg Neuts % (Manual) 91.0 H Lymphocytes % (Manual) 6.0 L Seg Neutrophils # Seg Neutrophils # Man 11.2 H Lymphocytes # (Manual) 0.7 L D-Dimer Sodium 136 L Potassium Carbon Dioxide BUN 26 H Glucose 112 H Calcium Magnesium Ferritin AST Lactate Dehydrogenase 455 H C-Reactive Protein Total Protein 5.8 L Albumin 2.8 L Coronavirus (PCR) 10/02/20 10/02/20 10/02/20 11:04 11:04 11:04 WBC RBC Hgb Hct MCHC Lymph % (Auto) [place] % (Auto) Lymph # (Auto) [place] # (Auto) Seg Neutrophils % Seg Neuts % (Manual) Lymphocytes % (Manual) Seg Neutrophils # Seg Neutrophils # Man Lymphocytes # (Manual) D-Dimer 784.81 H Sodium Potassium Carbon Dioxide BUN Glucose Calcium Magnesium Ferritin 890.5 H AST Lactate Dehydrogenase 371 H C-Reactive Protein Total Protein Albumin Coronavirus (PCR) 10/03/20 10/05/20 10/05/20 10:02 05:48 11:13 WBC 21.3 H 23.7 H RBC 5.25 H Hgb 15.4 H 14.4 H Hct 47.7 H 44.4 H MCHC Lymph % (Auto) [place] % (Auto) Lymph # (Auto) [place] # (Auto) Seg Neutrophils % Seg Neuts % (Manual) Lymphocytes % (Manual) Seg Neutrophils # Seg Neutrophils # Man Lymphocytes # (Manual) D-Dimer 374.17 H Sodium Potassium Carbon Dioxide BUN Glucose Calcium Magnesium Ferritin AST Lactate Dehydrogenase C-Reactive Protein Total Protein Albumin Coronavirus (PCR) 10/05/20 10/05/20 10/07/20 11:13 11:13 05:35 WBC 19.1 H RBC Hgb Hct MCHC Lymph % (Auto) [place] % (Auto) Lymph # (Auto) [place] # (Auto) Seg Neutrophils % Seg Neuts % (Manual) Lymphocytes % (Manual) Seg Neutrophils # Seg Neutrophils # Man Lymphocytes # (Manual) D-Dimer Sodium Potassium Carbon Dioxide BUN Glucose Calcium Magnesium Ferritin 846.6 H AST Lactate Dehydrogenase 254 H C-Reactive Protein Total Protein Albumin Coronavirus (PCR)
[2020-10-07] MEDS: ASCORBIC ACID 500 MG TAB PO SCH ×2 (11:30→21:49)
[2020-10-07] MEDS: APIXABAN 5 MG TAB PO SCH ×2 (11:45→21:49)
[2020-10-07] MEDS: CHOLECALCIFEROL (VIT D3) 1000 UNIT (25 mcg) TAB PO SCH (12:10)
[2020-10-07] MEDS: ZINC SULFATE 220 MG CAP PO SCH ×2 (12:10→21:49)
[2020-10-07] MEDS: LORazepam 2 MG/ML VIAL IV PRN (18:06)
--- NOTE | 2020-10-07 19:12 | Progress Note ---
Assessment and Plan Assessment and plan: 60-year-old female patient with ongoing tobacco use obesity hypoventilation obesity was admitted with COVID-19 bilateral pneumonia with significant hypoxemia requiring high flow oxygen, ID and pulmonary evaluated medications optimized, patient continues to require high flow oxygen though the requirement significantly reduced to 20 L. Hypoxia is previously improving, will continue to wean as tolerated She is generally feeling and doing well. Mentating very well and hemodynamically stable disposition; discharge when O2 requirement improves to below 5 L and medically stable Anticipating discharge in 24 to 48 hours. Pulmonary is following. Discussed with the patient and nursing staff. History Interval history: Patient reports that she is breathing better. Tolerating diet. Generally feels better. Hypoxia much improved. However she has difficulty ambulating due to desaturation. Hospitalist Physical - Constitutional Vitals: Temp Pulse Resp BP Pulse Ox 97.9 F 61 22 103/52 95 10/07/20 17:50 10/07/20 17:50 10/07/20 17:50 10/07/20 17:50 10/07/20 17:50 General appearance: Present: no acute distress, well-nourished, obese, other (On high flow nasal cannula oxygen 15 L) - EENT Eyes: Present: PERRL, EOM intact ENT: clear oral mucosa - Neck Neck: Present: supple. Absent: masses or JVD - Respiratory Respiratory: bilateral: diminished - Cardiovascular Rhythm: regular - Extremities Extremities: No edema - Abdominal General gastrointestinal: soft, non-tender, normal bowel sounds - Integumentary Integumentary: Absent: rash - Psychiatric Psychiatric: appropriate mood/affect - Neurologic Neurologic: moves all extremities Results - Labs CBC & Chem 7: 10/07/20 05:35 10/06/20 04:35 Labs: Laboratory Last Values WBC 19.1 K/mm3 (4.5-11.0) H 10/07/20 05:35 RBC 4.67 M/mm3 (3.65-5.03) 10/07/20 05:35 Hgb 14.0 gm/dl (10.1-14.3) 10/07/20 05:35 Hct 42.5 % (30.3-42.9) 10/07/20 05:35 MCV 91 fl (79-97) 10/07/20 05:35 MCH 30 pg (28-32) 10/07/20 05:35 MCHC 33 % (30-34) 10/07/20 05:35 RDW 13.9 % (13.2-15.2) 10/07/20 05:35 Plt Count 234 K/mm3 (140-440) 10/07/20 05:35 Lymph % (Auto) 5.5 % (13.4-35.0) L 09/24/20 15:20 [place] % (Auto) 8.1 % (0.0-7.3) H 09/24/20 15:20 Eos % (Auto) 0.0 % (0.0-4.3) 09/24/20 15:20 Baso % (Auto) 0.7 % (0.0-1.8) 09/24/20 15:20 Lymph # (Auto) 0.6 K/mm3 (1.2-5.4) L 09/24/20 15:20 [place] # (Auto) 0.9 K/mm3 (0.0-0.8) H 09/24/20 15:20 Eos # (Auto) 0.0 K/mm3 (0.0-0.4) 09/24/20 15:20 Baso # (Auto) 0.1 K/mm3 (0.0-0.1) 09/24/20 15:20 Add Manual Diff Complete 09/30/20 04:39 Total Counted 100 09/30/20 04:39 Seg Neutrophils % [facility] Term Care Pharmacist 09/30/20 04:39 Seg Neuts % (Manual) 91.0 % (40.0-70.0) H 09/30/20 04:39 Lymphocytes % (Manual) 6.0 % (13.4-35.0) L 09/30/20 04:39 Monocytes % (Manual) 3.0 % (0.0-7.3) 09/30/20 04:39 Nucleated RBC % Not Reportable 09/30/20 04:39 Seg Neutrophils # 9.6 K/mm3 (1.8-7.7) H 09/24/20 15:20 Seg Neutrophils # Man 11.2 K/mm3 (1.8-7.7) H 09/30/20 04:39 Band Neutrophils # 0.0 K/mm3 09/30/20 04:39 Lymphocytes # (Manual) 0.7 K/mm3 (1.2-5.4) L 09/30/20 04:39 Abs React Lymphs (Man) 0.0 K/mm3 09/30/20 04:39 Monocytes # (Manual) 0.4 K/mm3 (0.0-0.8) 09/30/20 04:39 Eosinophils # (Manual) 0.0 K/mm3 (0.0-0.4) 09/30/20 04:39 Basophils # (Manual) 0.0 K/mm3 (0.0-0.1) 09/30/20 04:39 Metamyelocytes # 0.0 K/mm3 09/30/20 04:39 Myelocytes # 0.0 K/mm3 09/30/20 04:39 Promyelocytes # 0.0 K/mm3 09/30/20 04:39 Blast Cells # 0.0 K/mm3 09/30/20 04:39 WBC Morphology Not Reportable 09/30/20 04:39 Hypersegmented Neuts Not Reportable 09/30/20 04:39 Hyposegmented Neuts Not Reportable 09/30/20 04:39 Hypogranular Neuts Not Reportable 09/30/20 04:39 Smudge Cells Not Reportable 09/30/20 04:39 Toxic Granulation Not Reportable 09/30/20 04:39 Toxic Vacuolation Not Reportable 09/30/20 04:39 Dohle Bodies Not Reportable 09/30/20 04:39 Pelger-Huet Anomaly Not Reportable 09/30/20 04:39 Gemini Rods Not Reportable 09/30/20 04:39 Platelet Estimate Consistent w auto 09/30/20 04:39 Clumped Platelets Not Reportable 09/30/20 04:39 Plt Clumps, EDTA Not Reportable 09/30/20 04:39 Large Platelets Not Reportable 09/30/20 04:39 Giant Platelets Not Reportable 09/30/20 04:39 Platelet Satelliting Not Reportable 09/30/20 04:39 Plt Morphology Comment Not Reportable 09/30/20 04:39 RBC Morphology Normal 09/30/20 04:39 Dimorphic RBCs Not Reportable 09/30/20 04:39 Polychromasia Not Reportable 09/30/20 04:39 Hypochromasia Not Reportable 09/30/20 04:39 Poikilocytosis Not Reportable 09/30/20 04:39 Anisocytosis Not Reportable 09/30/20 04:39 Microcytosis Not Reportable 09/30/20 04:39 Macrocytosis Not Reportable 09/30/20 04:39 Spherocytes Not Reportable 09/30/20 04:39 Pappenheimer Bodies Not Reportable 09/30/20 04:39 Sickle Cells Not Reportable 09/30/20 04:39 Target Cells Not Reportable 09/30/20 04:39 Tear Drop Cells Not Reportable 09/30/20 04:39 Ovalocytes Not Reportable 09/30/20 04:39 Helmet Cells Not Reportable 09/30/20 04:39 [place] Bodies Not Reportable 09/30/20 04:39 [place] Rings Not Reportable 09/30/20 04:39 Chemult Cells Not Reportable 09/30/20 04:39 Bite Cells Not Reportable 09/30/20 04:39 Crenated Cell Not Reportable 09/30/20 04:39 Elliptocytes Not Reportable 09/30/20 04:39 Acanthocytes (Spur) Not Reportable 09/30/20 04:39 Rouleaux Not Reportable 09/30/20 04:39 Hemoglobin C Crystals Not Reportable 09/30/20 04:39 Schistocytes Not Reportable 09/30/20 04:39 Malaria parasites Not Reportable 09/30/20 04:39 Tor Bodies Not Reportable 09/30/20 04:39 Hem Pathologist Commnt No 09/30/20 04:39 PT 13.3 Sec. (12.2-14.9) 10/03/20 10:02 INR 0.95 (0.87-1.13) 10/03/20 10:02 APTT 29.0 Sec. (24.2-36.6) 10/03/20 10:02 D-Dimer 374.17 ng/mlDDU (0-234) H 10/05/20 11:13 Sodium 136 mmol/L (137-145) L 09/30/20 04:39 Potassium 4.6 mmol/L (3.6-5.0) 09/30/20 04:39 Chloride 103.7 mmol/L (98-107) 09/30/20 04:39 Carbon Dioxide 26 mmol/L (22-30) 09/30/20 04:39 Anion Gap 11 mmol/L 09/30/20 04:39 BUN 26 mg/dL (7-17) H 09/30/20 04:39 Creatinine 0.7 mg/dL (0.6-1.2) 10/06/20 04:35 Estimated GFR > 60 ml/min 10/06/20 04:35 BUN/Creatinine Ratio 37 % 09/30/20 04:39 Glucose 112 mg/dL (65-100) H 09/30/20 04:39 Lactic Acid 1.10 mmol/L (0.7-2.0) 09/22/20 18:17 Calcium 8.4 mg/dL (8.4-10.2) 09/30/20 04:39 Magnesium 3.10 mg/dL (1.7-2.3) H 09/24/20 15:20 Ferritin 846.6 ng/mL (10.0-200.0) H 10/05/20 11:13 Total Bilirubin 0.40 mg/dL (0.1-1.2) 09/30/20 04:39 AST 32 units/L (5-40) 09/30/20 04:39 ALT 51 units/L (7-56) 09/30/20 04:39 Alkaline Phosphatase 81 units/L (35-129) 09/30/20 04:39 Lactate Dehydrogenase 254 units/L (91-180) H 10/05/20 11:13 C-Reactive Protein 0.00 mg/dL (0.00-1.30) 10/05/20 11:13 Total Protein 5.8 g/dL (6.3-8.2) L 09/30/20 04:39 Albumin 2.8 g/dL (3.9-5) L 09/30/20 04:39 Albumin/Globulin Ratio 0.9 % 09/30/20 04:39 Procalcitonin 0.06 ng/mL (<0.15) 09/22/20 18:17 Coronavirus (PCR) Positive (Negative) A 09/23/20 Unknown [place]/IV: Voiding Method External Female Catheter Active Medications - Current Medications Current Medications: Generic Name Dose Route Start Last Admin Trade Name Freq PRN Reason Stop Dose Admin Acetaminophen 650 mg 09/22/20 18:16 09/27/20 22:07 Acetaminophen 325 Mg Tab PO 650 mg Q4H PRN Administration Pain MILD(1-3)/Fever >100.5/GRAMAJO Apixaban 5 mg 10/03/20 22:00 10/07/20 11:45 Apixaban 5 Mg Tab PO 5 mg Q12HR SAYDA Administration Protocol Ascorbic Acid 500 mg 09/22/20 22:00 10/07/20 11:30 Ascorbic Acid 500 Mg Tab PO 500 mg BID SAYDA Administration Bisacodyl 10 mg 10/02/20 10:19 Bisacodyl 10 Mg Rect Supp [place] QDAY PRN Constipation Cholecalciferol 1,000 unit 09/23/20 10:00 10/07/20 12:10 Cholecalciferol (Vit D3) 1000 Unit (25 Mcg) Tab PO 1,000 unit QDAY SAYDA Administration Guaifenesin 10 ml 09/29/20 08:56 10/06/20 13:41 Guaifenesin Dm 200/20 Mg Oral Liqd 10 Ml PO 10 ml Q4H PRN Administration Cough Hydromorphone HCl 0.5 mg 09/22/20 18:16 10/05/20 14:07 Hydromorphone 1 Mg/1 Ml Inj IV 0.5 mg Q12H PRN Administration Pain , Severe (7-10) Lorazepam 1 mg 09/27/20 12:59 10/07/20 18:06 Lorazepam 2 Mg/Ml Vial IV 1 mg Q4H PRN Administration Anxiety Magnesium Hydroxide 30 ml 10/02/20 10:19 10/07/20 16:11 Magnesium Hydroxide (Mom) Oral Liqd Udc PO 30 ml QDAY PRN Administration Constipation Methylprednisolone Sodium Succinate 40 mg 09/28/20 06:00 10/07/20 14:11 Methylprednisolone Sod Succinate 125 Mg/2 Ml Inj IV 10/07/20 22:01 40 mg Q8H SAYDA Administration Ondansetron HCl 4 mg 09/22/20 18:16 09/23/20 10:34 Ondansetron 4 Mg/2 Ml Inj IV 4 mg Q8H PRN Administration Nausea And Vomiting Oxycodone/Acetaminophen 1 tab 09/22/20 18:16 09/30/20 20:50 Oxycodone /Acetaminophen 5-325mg Tab PO 1 tab Q12H PRN Administration Pain, Moderate (4-6) Sodium Chloride 10 ml 09/22/20 22:00 10/07/20 16:09 Sodium Chloride 0.9% 10 Ml Flush Syringe IV 10 ml BID SAYDA Administration Sodium Chloride 10 ml 09/22/20 18:16 Sodium Chloride 0.9% 10 Ml Flush Syringe IV PRN PRN LINE FLUSH Sodium Chloride 2 spray 10/01/20 12:36 10/02/20 05:55 Sodium Chloride Nasal [place] 44ml NS 2 spray PRN PRN Administration Dry Nasal Passages Zinc Sulfate 220 mg 09/22/20 22:00 10/07/20 12:10 Zinc Sulfate 220 Mg Cap PO 220 mg BID SAYDA Administration Nutrition/Malnutrition Assess - Dietary Evaluation Nutrition/Malnutrition Findings: Nutrition Notes Start: 09/27/20 15:17 Freq: Status: Active Protocol: Document 10/05/20 12:30 (Rec: 10/05/20 12:35 [id number]) Nutrition Notes Initial or Follow up Reassessment Current Diagnosis Respiratory Failure Other Pertinent Diagnosis COVID-19 pneu Current Diet Cardiac + Ensure Enlive daily Labs/Tests Reviewed Pertinent Medications Reviewed Height 5 ft 7 in Weight 107.4 kg Usual Body Weight 109.09 kg [place] Body Weight (kg) 61.36 BMI 37.0 Weight change and time frame 1.5% wt loss in 3 weeks (not significant) Weight Status Obese Subjective/Other Information Pt reports eating 25-50% of meals and drinking 100% of 1 ONS. She typically only eats the meat for lunch and dinner. Percent of energy/protein needs met: 72%/73%% Burn Absent Trauma Absent Current % PO Poor (25-49%) Minimum of two criteria No #1 Nutrition Diagnosis Inadequate oral intake Comments: CHANGED Etiology COVID-19 pneu As Evidenced by Signs and Symptoms pt meeting 72%/73% if energy and protein needs Is patient on ventilator? No Is Patient Ambulatory and/or Out of Bed No REE-([facility]-confined to bed) 2027.228 Kcal/Kg value to use for calculation 14 Approximate Energy Requirements Using 1504 kcal/Kg Additional Notes Pro needs 0.8-1g/kg adjBW: 66- 83g/day Fluid needs 1ml/kcal Nutrition Intervention Change Diet Order: Continue current diet order Add Supplement/Snack (indicate name/kcal Ensure BID /protein ) Provides kCal: 700 Provides Protein (gm) 40 Goal #1 PO tolerance Goal #2 PO intake of meals plus ONS to meet at least 75% energy and pro needs Anticipated Discharge Needs: Unable to identify at this time Follow-Up By: 10/11/20 Additional Comments F/U: stable intakes and ONS tolerance
--- NOTE | 2020-10-08 08:13 | Progress Note ---
Assessment and Plan Assessment and plan: Patient O2 requirement decreased to 3 L nasal cannula check 6-minute walk O2 sats, set up home oxygen if needed Follow PT OT evaluation, and discharge home tomorrow if stable -- Acute hypoxemic respiratory failure/on high flow oxygen/BiPAP Current Visit: Yes Status: Acute prone positioning while in bed as much as possible Currently on 3 L nasal cannula oxygen saturating well Home O2 evaluation, set up home O2 as needed --Elevated D-dimers; Current Visit: Yes Status: Acute Patient on empiric anticoagulation with Eliquis Will check CTA chest and decide the need for anticoagulation at discharge Patient is currently on 3 L nasal cannula -- Bilateral pneumonia Current Visit: Yes Status: Acute Empiric antibiotics discontinued As procalcitonin level is normal --COVID-19 virus infection Current Visit: Yes Status: Acute Isolation droplet and contact, Patient is hypoxic, on high flow nasal cannula oxygen Completed remdesivir, s/p Actemra Completed 10 days of Solu-Medrol Inflammatory markers trending down, Prone positioning, home O2 evaluation pulmonary and ID following Continue zinc, vitamin D, ascorbic acid --Hyperkalemia; resolved Current Visit: Yes Status: Acute Monitor electrolytes -- Obesity hypoventilation syndrome/BMI 36.0 Current Visit: Yes Status: Acute Dietary modification , exercise as tolerated , lifestyle changes Weight reduction when medically stable Outpatient sleep study to rule out obstructive sleep apnea --Severe protein calorie malnutrition; hypoalbuminemia Current Visit: Yes Status: Chronic Nutrition supplements, nutrition consult -- DVT prophylaxis Current Visit: Yes Status: Acute Full dose therapeutic anticoagulation with Lovenox Follow PT OT evaluation Follow 6-minute walk O2 sat assessment Possible discharge home today/tomorrow pending above tests. Plan of care reviewed with the patient and her nurse Daily management 09/23/2020; Positive COVID-19, Hypoxemia on high flow oxygen Morbidly obese, ID following Continue therapies per protocol Pulmonary consulted Resumed service; 09/28/2020; Patient continues to require high flow nasal cannula oxygen with intermittent BiPAP Wean as tolerated, home O2 evaluation at discharge 09/29/2020 ; Patient remains on high flow nasal cannula oxygen at 30 L/90% FiO2/93 O2 sats Wean as tolerated, evaluation for home oxygen prior to discharge 09/30/2020; Patient remains on high flow oxygen 30 L/FiO2 80% Wean as tolerated Overall prognosis poor 10/02/2020; Patient remains on high flow oxygen but significantly improved Today she is on 20 L/50%/99 FiO2 Wean further as tolerated Constipated, advised MOM and Dulcolax Enema if no improvement after 2 doses 10/03/2020; On high flow oxygen decreased 15 L/40 FiO2/93 O2 sats Wean further as tolerated Empiric therapeutic anticoagulation with Lovenox Changed to Eliquis 5 mg twice a day 10/04/2020; Patient remains on high flow oxygen Slightly better, advise proning Wean as tolerated 10/05/2020; High flow oxygen today 20 L/50% FiO2./100% saturation Wean as tolerated Resumed service; 10/08/2020; patient's O2 requirements come down to 3 L of nasal cannula Follow PT OT, on empiric full dose anticoagulation, will check CTA chest And decide about the need for anticoagulation at discharge PT OT recommend acute versus subacute rehab placement Patient has no resources DC planning per case management 10/08/20 15:17 - Case Management Note by JOYA TALAVERA Acct Num: [id number] : 1960 Patient Age: 60 Nurse to complete Oxygen Qualification Exercise for possible home oxygen 1. Room Air resting-----85% 2. Room Air walking-----69% 3. 02 _LPM walking exercise-----82-85% on 4L N/C History Interval history: I have seen and examined the patient at the bedside Patient's chart and medications reviewed Patient's oxygen requirement significantly improved to 3 L via nasal cannula PT OT working with her Patient complains of severe weakness Vital signs noted Hospitalist Physical - Constitutional Vitals: Temp Pulse Resp BP Pulse Ox 97.6 F 55 L 20 113/51 96 10/08/20 04:33 10/08/20 04:33 10/08/20 04:33 10/08/20 04:33 10/08/20 04:33 General appearance: Present: no acute distress, well-nourished, obese, other (On high flow nasal cannula oxygen 15 L) - EENT Eyes: Present: PERRL, EOM intact - Neck Neck: Present: supple, normal ROM - Respiratory Respiratory effort: normal Respiratory: bilateral: diminished, rhonchi, negative: rales, wheezing - Cardiovascular Rhythm: regular Heart Sounds: Present: S1 & S2 - Extremities Extremities: no ischemia, No edema - Abdominal General gastrointestinal: soft, non-tender, non-distended, normal bowel sounds - Integumentary Integumentary: Present: clear, warm - Psychiatric Psychiatric: appropriate mood/affect, cooperative - Neurologic Neurologic: CNII-XII intact, moves all extremities Results - Labs CBC & Chem 7: 10/07/20 05:35 10/06/20 04:35 Labs: Laboratory Last Values WBC 19.1 K/mm3 (4.5-11.0) H 10/07/20 05:35 RBC 4.67 M/mm3 (3.65-5.03) 10/07/20 05:35 Hgb 14.0 gm/dl (10.1-14.3) 10/07/20 05:35 Hct 42.5 % (30.3-42.9) 10/07/20 05:35 MCV 91 fl (79-97) 10/07/20 05:35 MCH 30 pg (28-32) 10/07/20 05:35 MCHC 33 % (30-34) 10/07/20 05:35 RDW 13.9 % (13.2-15.2) 10/07/20 05:35 Plt Count 234 K/mm3 (140-440) 10/07/20 05:35 Lymph % (Auto) 5.5 % (13.4-35.0) L 09/24/20 15:20 Burt % (Auto) 8.1 % (0.0-7.3) H 09/24/20 15:20 Eos % (Auto) 0.0 % (0.0-4.3) 09/24/20 15:20 Baso % (Auto) 0.7 % (0.0-1.8) 09/24/20 15:20 Lymph # (Auto) 0.6 K/mm3 (1.2-5.4) L 09/24/20 15:20 [place] # (Auto) 0.9 K/mm3 (0.0-0.8) H 09/24/20 15:20 Eos # (Auto) 0.0 K/mm3 (0.0-0.4) 09/24/20 15:20 Baso # (Auto) 0.1 K/mm3 (0.0-0.1) 09/24/20 15:20 Add Manual Diff Complete 09/30/20 04:39 Total Counted 100 09/30/20 04:39 Seg Neutrophils % Traffic Worker 09/30/20 04:39 Seg Neuts % (Manual) 91.0 % (40.0-70.0) H 09/30/20 04:39 Lymphocytes % (Manual) 6.0 % (13.4-35.0) L 09/30/20 04:39 Monocytes % (Manual) 3.0 % (0.0-7.3) 09/30/20 04:39 Nucleated RBC % Not Reportable 09/30/20 04:39 Seg Neutrophils # 9.6 K/mm3 (1.8-7.7) H 09/24/20 15:20 Seg Neutrophils # Man 11.2 K/mm3 (1.8-7.7) H 09/30/20 04:39 Band Neutrophils # 0.0 K/mm3 09/30/20 04:39 Lymphocytes # (Manual) 0.7 K/mm3 (1.2-5.4) L 09/30/20 04:39 Abs React Lymphs (Man) 0.0 K/mm3 09/30/20 04:39 Monocytes # (Manual) 0.4 K/mm3 (0.0-0.8) 09/30/20 04:39 Eosinophils # (Manual) 0.0 K/mm3 (0.0-0.4) 09/30/20 04:39 Basophils # (Manual) 0.0 K/mm3 (0.0-0.1) 09/30/20 04:39 Metamyelocytes # 0.0 K/mm3 09/30/20 04:39 Myelocytes # 0.0 K/mm3 09/30/20 04:39 Promyelocytes # 0.0 K/mm3 09/30/20 04:39 Blast Cells # 0.0 K/mm3 09/30/20 04:39 WBC Morphology Not Reportable 09/30/20 04:39 Hypersegmented Neuts Not Reportable 09/30/20 04:39 Hyposegmented Neuts Not Reportable 09/30/20 04:39 Hypogranular Neuts Not Reportable 09/30/20 04:39 Smudge Cells Not Reportable 09/30/20 04:39 Toxic Granulation Not Reportable 09/30/20 04:39 Toxic Vacuolation Not Reportable 09/30/20 04:39 Dohle Bodies Not Reportable 09/30/20 04:39 Pelger-Huet Anomaly Not Reportable 09/30/20 04:39 Gemini Rods Not Reportable 09/30/20 04:39 Platelet Estimate Consistent w auto 09/30/20 04:39 Clumped Platelets Not Reportable 09/30/20 04:39 Plt Clumps, EDTA Not Reportable 09/30/20 04:39 Large Platelets Not Reportable 09/30/20 04:39 Giant Platelets Not Reportable 09/30/20 04:39 Platelet Satelliting Not Reportable 09/30/20 04:39 Plt Morphology Comment Not Reportable 09/30/20 04:39 RBC Morphology Normal 09/30/20 04:39 Dimorphic RBCs Not Reportable 09/30/20 04:39 Polychromasia Not Reportable 09/30/20 04:39 Hypochromasia Not Reportable 09/30/20 04:39 Poikilocytosis Not Reportable 09/30/20 04:39 Anisocytosis Not Reportable 09/30/20 04:39 Microcytosis Not Reportable 09/30/20 04:39 Macrocytosis Not Reportable 09/30/20 04:39 Spherocytes Not Reportable 09/30/20 04:39 Pappenheimer Bodies Not Reportable 09/30/20 04:39 Sickle Cells Not Reportable 09/30/20 04:39 Target Cells Not Reportable 09/30/20 04:39 Tear Drop Cells Not Reportable 09/30/20 04:39 Ovalocytes Not Reportable 09/30/20 04:39 Helmet Cells Not Reportable 09/30/20 04:39 [place] Bodies Not Reportable 09/30/20 04:39 [place] Rings Not Reportable 09/30/20 04:39 Evelio Cells Not Reportable 09/30/20 04:39 Bite Cells Not Reportable 09/30/20 04:39 Crenated Cell Not Reportable 09/30/20 04:39 Elliptocytes Not Reportable 09/30/20 04:39 Acanthocytes (Spur) Not Reportable 09/30/20 04:39 Rouleaux Not Reportable 09/30/20 04:39 Hemoglobin C Crystals Not Reportable 09/30/20 04:39 Schistocytes Not Reportable 09/30/20 04:39 Malaria parasites Not Reportable 09/30/20 04:39 Tor Bodies Not Reportable 09/30/20 04:39 Hem Pathologist Commnt No 09/30/20 04:39 PT 13.3 Sec. (12.2-14.9) 10/03/20 10:02 INR 0.95 (0.87-1.13) 10/03/20 10:02 APTT 29.0 Sec. (24.2-36.6) 10/03/20 10:02 D-Dimer 374.17 ng/mlDDU (0-234) H 10/05/20 11:13 Sodium 136 mmol/L (137-145) L 09/30/20 04:39 Potassium 4.6 mmol/L (3.6-5.0) 09/30/20 04:39 Chloride 103.7 mmol/L (98-107) 09/30/20 04:39 Carbon Dioxide 26 mmol/L (22-30) 09/30/20 04:39 Anion Gap 11 mmol/L 09/30/20 04:39 BUN 26 mg/dL (7-17) H 09/30/20 04:39 Creatinine 0.7 mg/dL (0.6-1.2) 10/06/20 04:35 Estimated GFR > 60 ml/min 10/06/20 04:35 BUN/Creatinine Ratio 37 % 09/30/20 04:39 Glucose 112 mg/dL (65-100) H 09/30/20 04:39 Lactic Acid 1.10 mmol/L (0.7-2.0) 09/22/20 18:17 Calcium 8.4 mg/dL (8.4-10.2) 09/30/20 04:39 Magnesium 3.10 mg/dL (1.7-2.3) H 09/24/20 15:20 Ferritin 846.6 ng/mL (10.0-200.0) H 10/05/20 11:13 Total Bilirubin 0.40 mg/dL (0.1-1.2) 09/30/20 04:39 AST 32 units/L (5-40) 09/30/20 04:39 ALT 51 units/L (7-56) 09/30/20 04:39 Alkaline Phosphatase 81 units/L (35-129) 09/30/20 04:39 Lactate Dehydrogenase 254 units/L (91-180) H 10/05/20 11:13 C-Reactive Protein 0.00 mg/dL (0.00-1.30) 10/05/20 11:13 Total Protein 5.8 g/dL (6.3-8.2) L 09/30/20 04:39 Albumin 2.8 g/dL (3.9-5) L 09/30/20 04:39 Albumin/Globulin Ratio 0.9 % 09/30/20 04:39 Procalcitonin 0.06 ng/mL (<0.15) 09/22/20 18:17 Coronavirus (PCR) Positive (Negative) A 09/23/20 Unknown Dhillon/IV: Voiding Method Bedside Commode Active Medications - Current Medications Current Medications: Generic Name Dose Route Start Last Admin Trade Name Freq PRN Reason Stop Dose Admin Acetaminophen 650 mg 09/22/20 18:16 09/27/20 22:07 Acetaminophen 325 Mg Tab PO 650 mg Q4H PRN Administration Pain MILD(1-3)/Fever >100.5/GRAMAJO Apixaban 5 mg 10/03/20 22:00 10/07/20 21:49 Apixaban 5 Mg Tab PO 5 mg Q12HR SAYDA Administration Protocol Ascorbic Acid 500 mg 09/22/20 22:00 10/07/20 21:49 Ascorbic Acid 500 Mg Tab PO 500 mg BID SAYDA Administration Bisacodyl 10 mg 10/02/20 10:19 Bisacodyl 10 Mg Rect Supp WA QDAY PRN Constipation Cholecalciferol 1,000 unit 09/23/20 10:00 10/07/20 12:10 Cholecalciferol (Vit D3) 1000 Unit (25 Mcg) Tab PO 1,000 unit QDAY SAYDA Administration Guaifenesin 10 ml 09/29/20 08:56 10/06/20 13:41 Guaifenesin Dm 200/20 Mg Oral Liqd 10 Ml PO 10 ml Q4H PRN Administration Cough Hydromorphone HCl 0.5 mg 09/22/20 18:16 10/05/20 14:07 Hydromorphone 1 Mg/1 Ml Inj IV 0.5 mg Q12H PRN Administration Pain , Severe (7-10) Lorazepam 1 mg 09/27/20 12:59 10/07/20 18:06 Lorazepam 2 Mg/Ml Vial IV 1 mg Q4H PRN Administration Anxiety Magnesium Hydroxide 30 ml 10/02/20 10:19 10/07/20 16:11 Magnesium Hydroxide (Mom) Oral Liqd Udc PO 30 ml QDAY PRN Administration Constipation Ondansetron HCl 4 mg 09/22/20 18:16 09/23/20 10:34 Ondansetron 4 Mg/2 Ml Inj IV 4 mg Q8H PRN Administration Nausea And Vomiting Oxycodone/Acetaminophen 1 tab 09/22/20 18:16 09/30/20 20:50 Oxycodone /Acetaminophen 5-325mg Tab PO 1 tab Q12H PRN Administration Pain, Moderate (4-6) Sodium Chloride 10 ml 09/22/20 22:00 10/07/20 21:53 Sodium Chloride 0.9% 10 Ml Flush Syringe IV 10 ml BID SAYDA Administration Sodium Chloride 10 ml 09/22/20 18:16 Sodium Chloride 0.9% 10 Ml Flush Syringe IV PRN PRN LINE FLUSH Sodium Chloride 2 spray 10/01/20 12:36 10/02/20 05:55 Sodium Chloride Nasal Lula 44ml NS 2 spray PRN PRN Administration Dry Nasal Passages Zinc Sulfate 220 mg 09/22/20 22:00 10/07/20 21:49 Zinc Sulfate 220 Mg Cap PO 220 mg BID SAYDA Administration Nutrition/Malnutrition Assess - Dietary Evaluation Nutrition/Malnutrition Findings: Nutrition Notes Start: 09/27/20 15:17 Freq: Status: Active Protocol: Document 10/05/20 12:30 (Rec: 10/05/20 12:35 [id number]) Nutrition Notes Initial or Follow up Reassessment Current Diagnosis Respiratory Failure Other Pertinent Diagnosis COVID-19 pneu Current Diet Cardiac + Ensure Enlive daily Labs/Tests Reviewed Pertinent Medications Reviewed Height 5 ft 7 in Weight 107.4 kg Usual Body Weight 109.09 kg [place] Body Weight (kg) 61.36 BMI 37.0 Weight change and time frame 1.5% wt loss in 3 weeks (not significant) Weight Status Obese Subjective/Other Information Pt reports eating 25-50% of meals and drinking 100% of 1 ONS. She typically only eats the meat for lunch and dinner. Percent of energy/protein needs met: 72%/73%% Burn Absent Trauma Absent Current % PO Poor (25-49%) Minimum of two criteria No #1 Nutrition Diagnosis Inadequate oral intake Comments: CHANGED Etiology COVID-19 pneu As Evidenced by Signs and Symptoms pt meeting 72%/73% if energy and protein needs Is patient on ventilator? No Is Patient Ambulatory and/or Out of Bed No REE-([facility]-confined to bed) 2027.228 Kcal/Kg value to use for calculation 14 Approximate Energy Requirements Using 1504 kcal/Kg Additional Notes Pro needs 0.8-1g/kg adjBW: 66- 83g/day Fluid needs 1ml/kcal Nutrition Intervention Change Diet Order: Continue current diet order Add Supplement/Snack (indicate name/kcal Ensure BID /protein ) Provides kCal: 700 Provides Protein (gm) 40 Goal #1 PO tolerance Goal #2 PO intake of meals plus ONS to meet at least 75% energy and pro needs Anticipated Discharge Needs: Unable to identify at this time Follow-Up By: 10/11/20 Additional Comments F/U: stable intakes and ONS tolerance
[2020-10-08] MEDS: CHOLECALCIFEROL (VIT D3) 1000 UNIT (25 mcg) TAB PO SCH (10:26)
[2020-10-08] MEDS: ZINC SULFATE 220 MG CAP PO SCH ×2 (10:26→22:06)
[2020-10-08] MEDS: APIXABAN 5 MG TAB PO SCH ×2 (10:26→22:06)
[2020-10-08] MEDS: ASCORBIC ACID 500 MG TAB PO SCH ×2 (10:26→22:06)
--- NOTE | 2020-10-08 11:51 | Progress Note ---
Assessment and Plan 60 y/o female with acute respiratory failure secondary to COVID 19 pneumonia, unvaccinated. 10/08/20: Needs walk test to assess need for oxygen if any. Steroids have fallen off APR. Will reorder but taper remains the same as suggest on 10/06/20. IMS to determine anticoagulation based on CTA results. Andrew fox will sign off. She can follow up with us in 10-14 days post discharge. 10/07/20: Wean for sats >88%. Still agree with walk test today to assess oxygen needs. Same taper as listed below. Hopeful discharge in the next 24-48 hours. 10/06/20: Agree with going to cannula. Suggest walk test tomorrow to assess oxygen need if any. Would be ok with discharge in the next 24 to 48 hours with the following steroid taper: Pred 60 daily for 4 days, 40 daily for 4 days, 20 daily for 4 days, then 10 daily for 4 days then stop. 10/05/20: Do not understand RT note from yesterday regarding placing patient on salter. will decrease HFNC myself this am. Continue to prone. Continue solumedrol 40q8 10/04/20: Will speak with RT about weaning FiO2 and flow. I think patient could tolerate salter, maybe 10-15 liters. Sats of 88-92% are acceptable. Continue current dose of steroids. 10/03/20: Continue aggressively wean HFNC, should be ready for at least a salter today. Continue steroids at current dosing. Consider switching to oral anticoagulation. Will need 6 minute walk prior to discharge and prolonged steroid taper. Continue to prone. 10/02/20: Continue weaning of HFNC, will drop FiO2 down again today. Given impro vement, feel patient can be transported to the COVID floor. Continue steroids and proning during the day as well as sleeping prone at night. 10/01/20: Stressed the importance of proning again. Dropped FiO2 to 60%. Asked RT to drop Flow down to 20-25 in about an hour. Prognosis still remains gua rded. Maybe ready for transfer to floor over the weekend. 09/30/20: Continue to wean FiO2 for sats >88%. Prone, IV steroids and Remdesivir. Guarded prognosis. 09/29/20: Continue proning, weaned to fiO2 of 90 09/28/20: Once patient awake will ask her to prone again and sleep prone at night. Continue IV steroids. Guarded prognosis. 09/27/20: Continue proning. Continue Remdesivir and IV steroids. Monitor fluid intake and fluid balance. Guarded prognosis. 1. Long discussion at bedside about proning. Patient has agreed to do so and numbers are better already. Wean for sats >88% 2. Continue IV steroids 3. Continue Remdesivir 4. Follow up ID recs 5. Agree with full dose anticoagulation Guarded prognosis. Subjective Date of service: 10/08/20 Principal diagnosis: Covid-19 Interval history: Patient off floor for CTA ordered by IMS, per note to determine need for anticoagulation. Down to 3 liters but does not appear to have had walk test done. Objective Vital Signs - 12hr 10/08/20 10/08/20 04:33 10:28 Temperature 97.6 F Pulse Rate 55 L Respiratory 20 Rate Blood Pressure 113/51 O2 Sat by Pulse 96 96 Oximetry CBC and BMP: 10/07/20 05:35 10/06/20 04:35 ABG, PT/INR, D-dimer: PT/INR, D-dimer PT 13.3 Sec. (12.2-14.9) 10/03/20 10:02 INR 0.95 (0.87-1.13) 10/03/20 10:02 D-Dimer 200.46 ng/mlDDU (0-234) 10/08/20 08:38 Abnormal lab findings: Abnormal Labs 09/22/20 09/22/20 09/22/20 15:17 15:17 15:30 WBC RBC Hgb Hct MCHC Lymph % (Auto) 8.0 L [place] % (Auto) Lymph # (Auto) 0.5 L [place] # (Auto) Seg Neutrophils % 84.8 H Seg Neuts % (Manual) Lymphocytes % (Manual) Seg Neutrophils # Seg Neutrophils # Man Lymphocytes # (Manual) D-Dimer 1693.52 H Sodium 134 L Potassium 5.3 H Carbon Dioxide BUN Glucose 101 H Calcium 8.1 L Magnesium Ferritin AST 60 H Lactate Dehydrogenase 666 H C-Reactive Protein 14.50 H Total Protein Albumin 2.9 L Coronavirus (PCR) 09/22/20 09/23/20 09/23/20 15:30 06:16 06:16 WBC 3.7 L RBC Hgb Hct MCHC Lymph % (Auto) 12.3 L [place] % (Auto) 7.6 H Lymph # (Auto) 0.4 L [place] # (Auto) Seg Neutrophils % 79.5 H Seg Neuts % (Manual) Lymphocytes % (Manual) Seg Neutrophils # Seg Neutrophils # Man Lymphocytes # (Manual) D-Dimer Sodium Potassium Carbon Dioxide BUN Glucose 110 H Calcium 8.2 L Magnesium Ferritin 723.4 H AST 52 H Lactate Dehydrogenase C-Reactive Protein Total Protein Albumin 3.2 L Coronavirus (PCR) 09/23/20 09/23/20 09/24/20 15:28 Unknown 15:20 WBC RBC Hgb Hct MCHC Lymph % (Auto) [place] % (Auto) Lymph # (Auto) [place] # (Auto) Seg Neutrophils % Seg Neuts % (Manual) Lymphocytes % (Manual) Seg Neutrophils # Seg Neutrophils # Man Lymphocytes # (Manual) D-Dimer Sodium 133 L Potassium 5.8 H D Carbon Dioxide 20 L BUN 20 H 26 H Glucose 115 H 111 H Calcium 8.2 L 8.2 L Magnesium Ferritin AST 49 H Lactate Dehydrogenase C-Reactive Protein Total Protein Albumin 3.1 L 3.3 L Coronavirus (PCR) Positive A 09/24/20 09/24/20 09/25/20 15:20 15:20 05:10 WBC 11.1 H RBC Hgb Hct MCHC Lymph % (Auto) 5.5 L [place] % (Auto) 8.1 H Lymph # (Auto) 0.6 L [place] # (Auto) 0.9 H Seg Neutrophils % 85.7 H Seg Neuts % (Manual) Lymphocytes % (Manual) Seg Neutrophils # 9.6 H Seg Neutrophils # Man Lymphocytes # (Manual) D-Dimer Sodium Potassium Carbon Dioxide BUN 27 H Glucose 104 H Calcium Magnesium 3.10 H Ferritin AST Lactate Dehydrogenase C-Reactive Protein Total Protein Albumin 3.1 L Coronavirus (PCR) 09/25/20 09/25/20 09/25/20 05:10 05:10 05:10 WBC RBC Hgb Hct MCHC Lymph % (Auto) [place] % (Auto) Lymph # (Auto) [place] # (Auto) Seg Neutrophils % Seg Neuts % (Manual) Lymphocytes % (Manual) Seg Neutrophils # Seg Neutrophils # Man Lymphocytes # (Manual) D-Dimer 1267.92 H Sodium Potassium Carbon Dioxide BUN Glucose Calcium Magnesium Ferritin 847.4 H AST Lactate Dehydrogenase C-Reactive Protein 4.10 H Total Protein Albumin Coronavirus (PCR) 09/26/20 09/28/20 09/28/20 10:35 09:07 09:07 WBC RBC Hgb Hct MCHC Lymph % (Auto) [place] % (Auto) Lymph # (Auto) [place] # (Auto) Seg Neutrophils % Seg Neuts % (Manual) Lymphocytes % (Manual) Seg Neutrophils # Seg Neutrophils # Man Lymphocytes # (Manual) D-Dimer 1161.67 H Sodium Potassium Carbon Dioxide BUN 30 H Glucose 102 H Calcium Magnesium Ferritin 795.8 H AST 53 H Lactate Dehydrogenase C-Reactive Protein Total Protein Albumin 3.4 L Coronavirus (PCR) 09/28/20 09/30/20 09/30/20 09:07 04:39 04:39 WBC 12.3 H RBC Hgb Hct MCHC 35 H Lymph % (Auto) [place] % (Auto) Lymph # (Auto) [place] # (Auto) Seg Neutrophils % Seg Neuts % (Manual) 91.0 H Lymphocytes % (Manual) 6.0 L Seg Neutrophils # Seg Neutrophils # Man 11.2 H Lymphocytes # (Manual) 0.7 L D-Dimer Sodium 136 L Potassium Carbon Dioxide BUN 26 H Glucose 112 H Calcium Magnesium Ferritin AST Lactate Dehydrogenase 455 H C-Reactive Protein Total Protein 5.8 L Albumin 2.8 L Coronavirus (PCR) 10/02/20 10/02/20 10/02/20 11:04 11:04 11:04 WBC RBC Hgb Hct MCHC Lymph % (Auto) [place] % (Auto) Lymph # (Auto) [place] # (Auto) Seg Neutrophils % Seg Neuts % (Manual) Lymphocytes % (Manual) Seg Neutrophils # Seg Neutrophils # Man Lymphocytes # (Manual) D-Dimer 784.81 H Sodium Potassium Carbon Dioxide BUN Glucose Calcium Magnesium Ferritin 890.5 H AST Lactate Dehydrogenase 371 H C-Reactive Protein Total Protein Albumin Coronavirus (PCR) 10/03/20 10/05/20 10/05/20 10:02 05:48 11:13 WBC 21.3 H 23.7 H RBC 5.25 H Hgb 15.4 H 14.4 H Hct 47.7 H 44.4 H MCHC Lymph % (Auto) [place] % (Auto) Lymph # (Auto) [place] # (Auto) Seg Neutrophils % Seg Neuts % (Manual) Lymphocytes % (Manual) Seg Neutrophils # Seg Neutrophils # Man Lymphocytes # (Manual) D-Dimer 374.17 H Sodium Potassium Carbon Dioxide BUN Glucose Calcium Magnesium Ferritin AST Lactate Dehydrogenase C-Reactive Protein Total Protein Albumin Coronavirus (PCR) 10/05/20 10/05/20 10/07/20 11:13 11:13 05:35 WBC 19.1 H RBC Hgb Hct MCHC Lymph % (Auto) [place] % (Auto) Lymph # (Auto) [place] # (Auto) Seg Neutrophils % Seg Neuts % (Manual) Lymphocytes % (Manual) Seg Neutrophils # Seg Neutrophils # Man Lymphocytes # (Manual) D-Dimer Sodium Potassium Carbon Dioxide BUN Glucose Calcium Magnesium Ferritin 846.6 H AST Lactate Dehydrogenase 254 H C-Reactive Protein Total Protein Albumin Coronavirus (PCR) 10/08/20 10/08/20 08:38 08:38 WBC RBC Hgb Hct MCHC Lymph % (Auto) [place] % (Auto) Lymph # (Auto) [place] # (Auto) Seg Neutrophils % Seg Neuts % (Manual) Lymphocytes % (Manual) Seg Neutrophils # Seg Neutrophils # Man Lymphocytes # (Manual) D-Dimer Sodium Potassium Carbon Dioxide BUN Glucose Calcium Magnesium Ferritin 1127.0 H AST Lactate Dehydrogenase 221 H C-Reactive Protein Total Protein Albumin Coronavirus (PCR)
--- NOTE | 2020-10-08 16:16 | Cat Scan Report ---
CTA CHEST WITH IV CONTRAST INDICATION: COVID-19/hypoxia/rule out PE Omni 350 100ml . TECHNIQUE: Axial CT images were obtained through the chest after injection of 100 cc IV contrast. 3 plane MIP re constructions were produced. All CT scans at this location are performed using CT dose reduction for ALARA by means of automated exposure control. COMPARISON: None available. FINDINGS: PULMONARY ARTERIES: No pulmonary emboli. THORACIC AORTA: No acute abnormality. HEART: Normal. CORONARY ARTERIES: No significant calcification. PLEURA: No pleural effusion. No pneumothorax. LYMPH NODES: No significant adenopathy. LUNGS: Airspace consolidation characteristic for Covid pneumonia ADDITIONAL FINDINGS: None. UPPER ABDOMEN: No acute findings. SKELETAL STRUCTURES: No significant osseous abnormality. IMPRESSION: 1. No CT evidence for pulmonary embolism. 2. Moderate bilateral Covid pneumonia Signer Name: Omid Alejandra MD Signed: 10/08/2020 4:11 PM Workstation Name: [id number]
[2020-10-08] MEDS: methylPREDNISolone Sod Succinate 40 MG/1 ML INJ IV SCH ×2 (17:08→22:06)
[2020-10-09] MEDS: methylPREDNISolone Sod Succinate 40 MG/1 ML INJ IV SCH ×3 (06:04→23:04)
[2020-10-09 06:32] LABS: Hematocrit 42.1 % (30.3-42.9); Hemoglobin 13.7 gm/dl (10.1-14.3); Mean Corpuscular HGB Conc 33 % (30-34); Mean Corpuscular Volume 91 fl (79-97); Platelet Count 226 K/mm3 (140-440); Red Blood Count 4.62 M/mm3 (3.65-5.03); Red Cell Distribution Width 14.1 % (13.2-15.2)
[2020-10-09] MEDS: CHOLECALCIFEROL (VIT D3) 1000 UNIT (25 mcg) TAB PO SCH (09:01)
[2020-10-09] MEDS: ASCORBIC ACID 500 MG TAB PO SCH ×2 (09:01→23:05)
[2020-10-09] MEDS: APIXABAN 5 MG TAB PO SCH ×2 (09:01→22:55)
[2020-10-09] MEDS: ZINC SULFATE 220 MG CAP PO SCH ×2 (09:01→23:05)
--- NOTE | 2020-10-09 17:02 | Progress Note ---
Assessment and Plan Assessment and plan: Patient O2 requirement decreased to 3 L nasal cannula check 6-minute walk O2 sats, set up home oxygen if needed Follow PT OT evaluation, and discharge home tomorrow if stable -- Acute hypoxemic respiratory failure/on high flow oxygen/BiPAP Current Visit: Yes Status: Acute prone positioning while in bed as much as possible Currently on 3 L nasal cannula oxygen saturating well Home O2 evaluation, set up home O2 as needed --Elevated D-dimers; Current Visit: Yes Status: Acute Patient on empiric anticoagulation with Eliquis Will check CTA chest and decide the need for anticoagulation at discharge Patient is currently on 3 L nasal cannula -- Bilateral pneumonia Current Visit: Yes Status: Acute Empiric antibiotics discontinued As procalcitonin level is normal --COVID-19 virus infection Current Visit: Yes Status: Acute Isolation droplet and contact, Patient is hypoxic, on high flow nasal cannula oxygen Completed remdesivir, s/p Actemra Completed 10 days of Solu-Medrol Inflammatory markers trending down, Prone positioning, home O2 evaluation pulmonary and ID following Continue zinc, vitamin D, ascorbic acid --Hyperkalemia; resolved Current Visit: Yes Status: Acute Monitor electrolytes -- Obesity hypoventilation syndrome/BMI 36.0 Current Visit: Yes Status: Acute Dietary modification , exercise as tolerated , lifestyle changes Weight reduction when medically stable Outpatient sleep study to rule out obstructive sleep apnea --Severe protein calorie malnutrition; hypoalbuminemia Current Visit: Yes Status: Chronic Nutrition supplements, nutrition consult -- DVT prophylaxis Current Visit: Yes Status: Acute Full dose therapeutic anticoagulation with Lovenox Follow PT OT evaluation Follow 6-minute walk O2 sat assessment Possible discharge home today/tomorrow pending above tests. Plan of care reviewed with the patient and her nurse Daily management 09/23/2020; Positive COVID-19, Hypoxemia on high flow oxygen Morbidly obese, ID following Continue therapies per protocol Pulmonary consulted Resumed service; 09/28/2020; Patient continues to require high flow nasal cannula oxygen with intermittent BiPAP Wean as tolerated, home O2 evaluation at discharge 09/29/2020 ; Patient remains on high flow nasal cannula oxygen at 30 L/90% FiO2/93 O2 sats Wean as tolerated, evaluation for home oxygen prior to discharge 09/30/2020; Patient remains on high flow oxygen 30 L/FiO2 80% Wean as tolerated Overall prognosis poor 10/02/2020; Patient remains on high flow oxygen but significantly improved Today she is on 20 L/50%/99 FiO2 Wean further as tolerated Constipated, advised MOM and Dulcolax Enema if no improvement after 2 doses 10/03/2020; On high flow oxygen decreased 15 L/40 FiO2/93 O2 sats Wean further as tolerated Empiric therapeutic anticoagulation with Lovenox Changed to Eliquis 5 mg twice a day 10/04/2020; Patient remains on high flow oxygen Slightly better, advise proning Wean as tolerated 10/05/2020; High flow oxygen today 20 L/50% FiO2./100% saturation Wean as tolerated Resumed service; 10/08/2020; patient's O2 requirements come down to 3 L of nasal cannula Follow PT OT, on empiric full dose anticoagulation, will check CTA chest And decide about the need for anticoagulation at discharge PT OT recommend acute versus subacute rehab placement Patient has no resources DC planning per case management 10/08/20 15:17 - Case Management Note by JOYA TALAVERA Acct Num: [id number] : 1960 Patient Age: 60 Nurse to complete Oxygen Qualification Exercise for possible home oxygen 1. Room Air resting-----85% 2. Room Air walking-----69% 3. 02 _LPM walking exercise-----82-85% on 4L N/C 10/09/2020; Patient on 3 L of nasal cannula oxygen resting however severely hypoxemic on ambulation We will closely monitor, incentive spirometry, prone positioning encouraged DC planning per case management, possible placement versus home with home health when stable History Interval history: I seen and examined the patient at the bedside Patient's chart and medications reviewed Patient feels slightly better is on 3 L nasal cannula oxygen However O2 sats are dropping on resting and ambulatory room is Clear she has no new complaints Vital signs noted Hospitalist Physical - Constitutional Vitals: Temp Pulse Resp BP Pulse Ox 97.9 F 63 22 106/59 95 10/09/20 11:07 10/09/20 11:07 10/09/20 11:07 10/09/20 11:07 10/09/20 11:07 General appearance: Present: no acute distress, well-nourished, obese, other (On high flow nasal cannula oxygen 15 L) - EENT Eyes: Present: PERRL, EOM intact - Neck Neck: Present: supple, normal ROM - Respiratory Respiratory effort: normal Respiratory: bilateral: diminished, rhonchi, negative: rales, wheezing - Cardiovascular Rhythm: regular Heart Sounds: Present: S1 & S2 - Extremities Extremities: no ischemia, No edema - Abdominal General gastrointestinal: soft, non-tender, non-distended, normal bowel sounds - Integumentary Integumentary: Present: clear, warm - Psychiatric Psychiatric: appropriate mood/affect, cooperative - Neurologic Neurologic: CNII-XII intact, moves all extremities Results - Labs CBC & Chem 7: 10/09/20 05:45 10/09/20 05:45 Labs: Laboratory Last Values WBC 12.4 K/mm3 (4.5-11.0) H 10/09/20 05:45 RBC 4.62 M/mm3 (3.65-5.03) 10/09/20 05:45 Hgb 13.7 gm/dl (10.1-14.3) 10/09/20 05:45 Hct 42.1 % (30.3-42.9) 10/09/20 05:45 MCV 91 fl (79-97) 10/09/20 05:45 MCH 30 pg (28-32) 10/09/20 05:45 MCHC 33 % (30-34) 10/09/20 05:45 RDW 14.1 % (13.2-15.2) 10/09/20 05:45 Plt Count 226 K/mm3 (140-440) 10/09/20 05:45 Lymph % (Auto) 5.5 % (13.4-35.0) L 09/24/20 15:20 [place] % (Auto) 8.1 % (0.0-7.3) H 09/24/20 15:20 Eos % (Auto) 0.0 % (0.0-4.3) 09/24/20 15:20 Baso % (Auto) 0.7 % (0.0-1.8) 09/24/20 15:20 Lymph # (Auto) 0.6 K/mm3 (1.2-5.4) L 09/24/20 15:20 [place] # (Auto) 0.9 K/mm3 (0.0-0.8) H 09/24/20 15:20 Eos # (Auto) 0.0 K/mm3 (0.0-0.4) 09/24/20 15:20 Baso # (Auto) 0.1 K/mm3 (0.0-0.1) 09/24/20 15:20 Add Manual Diff Complete 09/30/20 04:39 Total Counted 100 09/30/20 04:39 Seg Neutrophils % Vegetable Buncher 09/30/20 04:39 Seg Neuts % (Manual) 91.0 % (40.0-70.0) H 09/30/20 04:39 Lymphocytes % (Manual) 6.0 % (13.4-35.0) L 09/30/20 04:39 Monocytes % (Manual) 3.0 % (0.0-7.3) 09/30/20 04:39 Nucleated RBC % Not Reportable 09/30/20 04:39 Seg Neutrophils # 9.6 K/mm3 (1.8-7.7) H 09/24/20 15:20 Seg Neutrophils # Man 11.2 K/mm3 (1.8-7.7) H 09/30/20 04:39 Band Neutrophils # 0.0 K/mm3 09/30/20 04:39 Lymphocytes # (Manual) 0.7 K/mm3 (1.2-5.4) L 09/30/20 04:39 Abs React Lymphs (Man) 0.0 K/mm3 09/30/20 04:39 Monocytes # (Manual) 0.4 K/mm3 (0.0-0.8) 09/30/20 04:39 Eosinophils # (Manual) 0.0 K/mm3 (0.0-0.4) 09/30/20 04:39 Basophils # (Manual) 0.0 K/mm3 (0.0-0.1) 09/30/20 04:39 Metamyelocytes # 0.0 K/mm3 09/30/20 04:39 Myelocytes # 0.0 K/mm3 09/30/20 04:39 Promyelocytes # 0.0 K/mm3 09/30/20 04:39 Blast Cells # 0.0 K/mm3 09/30/20 04:39 WBC Morphology Not Reportable 09/30/20 04:39 Hypersegmented Neuts Not Reportable 09/30/20 04:39 Hyposegmented Neuts Not Reportable 09/30/20 04:39 Hypogranular Neuts Not Reportable 09/30/20 04:39 Smudge Cells Not Reportable 09/30/20 04:39 Toxic Granulation Not Reportable 09/30/20 04:39 Toxic Vacuolation Not Reportable 09/30/20 04:39 Dohle Bodies Not Reportable 09/30/20 04:39 Pelger-Huet Anomaly Not Reportable 09/30/20 04:39 Gemini Rods Not Reportable 09/30/20 04:39 Platelet Estimate Consistent w auto 09/30/20 04:39 Clumped Platelets Not Reportable 09/30/20 04:39 Plt Clumps, EDTA Not Reportable 09/30/20 04:39 Large Platelets Not Reportable 09/30/20 04:39 Giant Platelets Not Reportable 09/30/20 04:39 Platelet Satelliting Not Reportable 09/30/20 04:39 Plt Morphology Comment Not Reportable 09/30/20 04:39 RBC Morphology Normal 09/30/20 04:39 Dimorphic RBCs Not Reportable 09/30/20 04:39 Polychromasia Not Reportable 09/30/20 04:39 Hypochromasia Not Reportable 09/30/20 04:39 Poikilocytosis Not Reportable 09/30/20 04:39 Anisocytosis Not Reportable 09/30/20 04:39 Microcytosis Not Reportable 09/30/20 04:39 Macrocytosis Not Reportable 09/30/20 04:39 Spherocytes Not Reportable 09/30/20 04:39 Pappenheimer Bodies Not Reportable 09/30/20 04:39 Sickle Cells Not Reportable 09/30/20 04:39 Target Cells Not Reportable 09/30/20 04:39 Tear Drop Cells Not Reportable 09/30/20 04:39 Ovalocytes Not Reportable 09/30/20 04:39 Helmet Cells Not Reportable 09/30/20 04:39 Fuchs-Colonia Bodies Not Reportable 09/30/20 04:39 [place] Rings Not Reportable 09/30/20 04:39 [place] Cells Not Reportable 09/30/20 04:39 Bite Cells Not Reportable 09/30/20 04:39 Crenated Cell Not Reportable 09/30/20 04:39 Elliptocytes Not Reportable 09/30/20 04:39 Acanthocytes (Spur) Not Reportable 09/30/20 04:39 Rouleaux Not Reportable 09/30/20 04:39 Hemoglobin C Crystals Not Reportable 09/30/20 04:39 Schistocytes Not Reportable 09/30/20 04:39 Malaria parasites Not Reportable 09/30/20 04:39 Tor Bodies Not Reportable 09/30/20 04:39 Hem Pathologist Commnt No 09/30/20 04:39 PT 13.3 Sec. (12.2-14.9) 10/03/20 10:02 INR 0.95 (0.87-1.13) 10/03/20 10:02 APTT 29.0 Sec. (24.2-36.6) 10/03/20 10:02 D-Dimer 200.46 ng/mlDDU (0-234) 10/08/20 08:38 Sodium 136 mmol/L (137-145) L 09/30/20 04:39 Potassium 4.6 mmol/L (3.6-5.0) 09/30/20 04:39 Chloride 103.7 mmol/L (98-107) 09/30/20 04:39 Carbon Dioxide 26 mmol/L (22-30) 09/30/20 04:39 Anion Gap 11 mmol/L 09/30/20 04:39 BUN 26 mg/dL (7-17) H 09/30/20 04:39 Creatinine 0.7 mg/dL (0.6-1.2) 10/09/20 05:45 Estimated GFR > 60 ml/min 10/09/20 05:45 BUN/Creatinine Ratio 37 % 09/30/20 04:39 Glucose 112 mg/dL (65-100) H 09/30/20 04:39 Lactic Acid 1.10 mmol/L (0.7-2.0) 09/22/20 18:17 Calcium 8.4 mg/dL (8.4-10.2) 09/30/20 04:39 Magnesium 3.10 mg/dL (1.7-2.3) H 09/24/20 15:20 Ferritin 1127.0 ng/mL (10.0-200.0) H 10/08/20 08:38 Total Bilirubin 0.40 mg/dL (0.1-1.2) 09/30/20 04:39 AST 32 units/L (5-40) 09/30/20 04:39 ALT 51 units/L (7-56) 09/30/20 04:39 Alkaline Phosphatase 81 units/L (35-129) 09/30/20 04:39 Lactate Dehydrogenase 221 units/L (91-180) H 10/08/20 08:38 C-Reactive Protein 0.00 mg/dL (0.00-1.30) 10/08/20 08:38 Total Protein 5.8 g/dL (6.3-8.2) L 09/30/20 04:39 Albumin 2.8 g/dL (3.9-5) L 09/30/20 04:39 Albumin/Globulin Ratio 0.9 % 09/30/20 04:39 Procalcitonin 0.06 ng/mL (<0.15) 09/22/20 18:17 Coronavirus (PCR) Positive (Negative) A 09/23/20 Unknown [place]/IV: Voiding Method External Female Catheter Active Medications - Current Medications Current Medications: Generic Name Dose Route Start Last Admin Trade Name Freq PRN Reason Stop Dose Admin Acetaminophen 650 mg 09/22/20 18:16 09/27/20 22:07 Acetaminophen 325 Mg Tab PO 650 mg Q4H PRN Administration Pain MILD(1-3)/Fever >100.5/GRAMAJO Apixaban 5 mg 10/03/20 22:00 10/09/20 09:01 Apixaban 5 Mg Tab PO 5 mg Q12HR SAYDA Administration Protocol Ascorbic Acid 500 mg 09/22/20 22:00 10/09/20 09:01 Ascorbic Acid 500 Mg Tab PO 500 mg BID SAYDA Administration Bisacodyl 10 mg 10/02/20 10:19 Bisacodyl 10 Mg Rect Supp IN QDAY PRN Constipation Cholecalciferol 1,000 unit 09/23/20 10:00 10/09/20 09:01 Cholecalciferol (Vit D3) 1000 Unit (25 Mcg) Tab PO 1,000 unit QDAY SAYDA Administration Guaifenesin 10 ml 09/29/20 08:56 10/06/20 13:41 Guaifenesin Dm 200/20 Mg Oral Liqd 10 Ml PO 10 ml Q4H PRN Administration Cough Hydromorphone HCl 0.5 mg 09/22/20 18:16 10/05/20 14:07 Hydromorphone 1 Mg/1 Ml Inj IV 0.5 mg Q12H PRN Administration Pain , Severe (7-10) Lorazepam 1 mg 09/27/20 12:59 10/07/20 18:06 Lorazepam 2 Mg/Ml Vial IV 1 mg Q4H PRN Administration Anxiety Magnesium Hydroxide 30 ml 10/02/20 10:19 10/07/20 16:11 Magnesium Hydroxide (Mom) Oral Liqd Udc PO 30 ml QDAY PRN Administration Constipation Methylprednisolone Sodium Succinate 40 mg 10/08/20 14:00 10/09/20 13:14 Methylprednisolone Sod Succinate 40 Mg/1 Ml Inj IV 40 mg Q8HR SAYDA Administration Ondansetron HCl 4 mg 09/22/20 18:16 09/23/20 10:34 Ondansetron 4 Mg/2 Ml Inj IV 4 mg Q8H PRN Administration Nausea And Vomiting Oxycodone/Acetaminophen 1 tab 09/22/20 18:16 09/30/20 20:50 Oxycodone /Acetaminophen 5-325mg Tab PO 1 tab Q12H PRN Administration Pain, Moderate (4-6) Sodium Chloride 10 ml 09/22/20 22:00 10/09/20 09:01 Sodium Chloride 0.9% 10 Ml Flush Syringe IV 10 ml BID SAYDA Administration Sodium Chloride 10 ml 09/22/20 18:16 Sodium Chloride 0.9% 10 Ml Flush Syringe IV PRN PRN LINE FLUSH Sodium Chloride 2 spray 10/01/20 12:36 10/02/20 05:55 Sodium Chloride Nasal [place] 44ml NS 2 spray PRN PRN Administration Dry Nasal Passages Zinc Sulfate 220 mg 09/22/20 22:00 10/09/20 09:01 Zinc Sulfate 220 Mg Cap PO 220 mg BID SAYDA Administration Nutrition/Malnutrition Assess - Dietary Evaluation Nutrition/Malnutrition Findings: Nutrition Notes Start: 09/27/20 15:17 Freq: Status: Active Protocol: Document 10/05/20 12:30 MK (Rec: 10/05/20 12:35 MK [id number]) Nutrition Notes Initial or Follow up Reassessment Current Diagnosis Respiratory Failure Other Pertinent Diagnosis COVID-19 pneu Current Diet Cardiac + Ensure Enlive daily Labs/Tests Reviewed Pertinent Medications Reviewed Height 5 ft 7 in Weight 107.4 kg Usual Body Weight 109.09 kg [place] Body Weight (kg) 61.36 BMI 37.0 Weight change and time frame 1.5% wt loss in 3 weeks (not significant) Weight Status Obese Subjective/Other Information Pt reports eating 25-50% of meals and drinking 100% of 1 ONS. She typically only eats the meat for lunch and dinner. Percent of energy/protein needs met: 72%/73%% Burn Absent Trauma Absent Current % PO Poor (25-49%) Minimum of two criteria No #1 Nutrition Diagnosis Inadequate oral intake Comments: CHANGED Etiology COVID-19 pneu As Evidenced by Signs and Symptoms pt meeting 72%/73% if energy and protein needs Is patient on ventilator? No Is Patient Ambulatory and/or Out of Bed No REE-([facility]-confined to bed) 2027.228 Kcal/Kg value to use for calculation 14 Approximate Energy Requirements Using 1504 kcal/Kg Additional Notes Pro needs 0.8-1g/kg adjBW: 66- 83g/day Fluid needs 1ml/kcal Nutrition Intervention Change Diet Order: Continue current diet order Add Supplement/Snack (indicate name/kcal Ensure BID /protein ) Provides kCal: 700 Provides Protein (gm) 40 Goal #1 PO tolerance Goal #2 PO intake of meals plus ONS to meet at least 75% energy and pro needs Anticipated Discharge Needs: Unable to identify at this time Follow-Up By: 10/11/20 Additional Comments F/U: stable intakes and ONS tolerance
[2020-10-09] MEDS: LORazepam 2 MG/ML VIAL IV PRN (23:15)
[2020-10-10] MEDS: methylPREDNISolone Sod Succinate 40 MG/1 ML INJ IV SCH ×3 (05:08→22:31)
[2020-10-10 08:28] LABS: Alanine Aminotransferase 70 units/L (7-56); Albumin 3.1 g/dL (3.9-5); Blood Urea Nitrogen 30 mg/dL (7-17); Calcium 8.9 mg/dL (8.4-10.2); Hemolysis Index 6
[2020-10-10 08:43] LABS: BUN/Creatinine Ratio 50
[2020-10-10] MEDS: APIXABAN 5 MG TAB PO SCH ×2 (10:52→22:32)
[2020-10-10] MEDS: ASCORBIC ACID 500 MG TAB PO SCH ×2 (10:53→22:31)
[2020-10-10] MEDS: ZINC SULFATE 220 MG CAP PO SCH ×2 (10:53→22:31)
[2020-10-10] MEDS: CHOLECALCIFEROL (VIT D3) 1000 UNIT (25 mcg) TAB PO SCH (10:53)
--- NOTE | 2020-10-10 13:10 | Progress Note ---
Assessment and Plan Assessment and plan: Patient O2 requirement decreased to 3 L nasal cannula check 6-minute walk O2 sats, set up home oxygen if needed Follow PT OT evaluation, and discharge home tomorrow if stable -- Acute hypoxemic respiratory failure/on high flow oxygen/BiPAP Current Visit: Yes Status: Acute prone positioning while in bed as much as possible Currently on 3 L nasal cannula oxygen saturating well Home O2 evaluation, set up home O2 as needed --Elevated D-dimers; Current Visit: Yes Status: Acute Patient on empiric anticoagulation with Eliquis Will check CTA chest and decide the need for anticoagulation at discharge Patient is currently on 3 L nasal cannula -- Bilateral pneumonia Current Visit: Yes Status: Acute Empiric antibiotics discontinued As procalcitonin level is normal --COVID-19 virus infection Current Visit: Yes Status: Acute Isolation droplet and contact, Patient is hypoxic, on high flow nasal cannula oxygen Completed remdesivir, s/p Actemra Completed 10 days of Solu-Medrol Inflammatory markers trending down, Prone positioning, home O2 evaluation pulmonary and ID following Continue zinc, vitamin D, ascorbic acid --Hyperkalemia; resolved Current Visit: Yes Status: Acute Monitor electrolytes -- Obesity hypoventilation syndrome/BMI 36.0 Current Visit: Yes Status: Acute Dietary modification , exercise as tolerated , lifestyle changes Weight reduction when medically stable Outpatient sleep study to rule out obstructive sleep apnea --Severe protein calorie malnutrition; hypoalbuminemia Current Visit: Yes Status: Chronic Nutrition supplements, nutrition consult -- DVT prophylaxis Current Visit: Yes Status: Acute Full dose therapeutic anticoagulation with Lovenox Follow PT OT evaluation Follow 6-minute walk O2 sat assessment Possible discharge home today/tomorrow pending above tests. Plan of care reviewed with the patient and her nurse Daily management 09/23/2020; Positive COVID-19, Hypoxemia on high flow oxygen Morbidly obese, ID following Continue therapies per protocol Pulmonary consulted Resumed service; 09/28/2020; Patient continues to require high flow nasal cannula oxygen with intermittent BiPAP Wean as tolerated, home O2 evaluation at discharge 09/29/2020 ; Patient remains on high flow nasal cannula oxygen at 30 L/90% FiO2/93 O2 sats Wean as tolerated, evaluation for home oxygen prior to discharge 09/30/2020; Patient remains on high flow oxygen 30 L/FiO2 80% Wean as tolerated Overall prognosis poor 10/02/2020; Patient remains on high flow oxygen but significantly improved Today she is on 20 L/50%/99 FiO2 Wean further as tolerated Constipated, advised MOM and Dulcolax Enema if no improvement after 2 doses 10/03/2020; On high flow oxygen decreased 15 L/40 FiO2/93 O2 sats Wean further as tolerated Empiric therapeutic anticoagulation with Lovenox Changed to Eliquis 5 mg twice a day 10/04/2020; Patient remains on high flow oxygen Slightly better, advise proning Wean as tolerated 10/05/2020; High flow oxygen today 20 L/50% FiO2./100% saturation Wean as tolerated Resumed service; 10/08/2020; patient's O2 requirements come down to 3 L of nasal cannula Follow PT OT, on empiric full dose anticoagulation, will check CTA chest And decide about the need for anticoagulation at discharge PT OT recommend acute versus subacute rehab placement Patient has no resources DC planning per case management 10/08/20 15:17 - Case Management Note by JOYA TALAVERA Acct Num: [id number] : 1960 Patient Age: 60 Nurse to complete Oxygen Qualification Exercise for possible home oxygen 1. Room Air resting-----85% 2. Room Air walking-----69% 3. 02 _LPM walking exercise-----82-85% on 4L N/C 10/09/2020; Patient on 3 L of nasal cannula oxygen resting however severely hypoxemic on ambulation We will closely monitor, incentive spirometry, prone positioning encouraged DC planning per case management, possible placement versus home with home health when stable 10/10/2020; Patient is on 2 L of nasal cannula oxygen. Feels better Home O2 evaluation prior to discharge DC planning per case management in 1 to 2 days if stable History Interval history: I have seen and examined the patient at the bedside Patient's chart medications reviewed Patient is on 3 L of nasal cannula Hospitalist Physical - Constitutional Vitals: Temp Pulse Resp BP Pulse Ox 97.5 F L 59 L 20 112/50 97 10/10/20 05:55 10/10/20 05:46 10/10/20 05:46 10/10/20 05:46 10/10/20 05:46 General appearance: Present: no acute distress, well-nourished, obese, other (On high flow nasal cannula oxygen 15 L) - EENT Eyes: Present: PERRL, EOM intact - Neck Neck: Present: supple, normal ROM - Respiratory Respiratory effort: normal Respiratory: bilateral: diminished, negative: rales, rhonchi, wheezing - Cardiovascular Rhythm: regular Heart Sounds: Present: S1 & S2 - Extremities Extremities: no ischemia, No edema - Abdominal General gastrointestinal: soft, non-tender, non-distended, normal bowel sounds - Integumentary Integumentary: Present: clear, warm - Psychiatric Psychiatric: appropriate mood/affect, cooperative Results - Labs CBC & Chem 7: 10/09/20 05:45 10/10/20 07:14 Labs: Laboratory Last Values WBC 12.4 K/mm3 (4.5-11.0) H 10/09/20 05:45 RBC 4.62 M/mm3 (3.65-5.03) 10/09/20 05:45 Hgb 13.7 gm/dl (10.1-14.3) 10/09/20 05:45 Hct 42.1 % (30.3-42.9) 10/09/20 05:45 MCV 91 fl (79-97) 10/09/20 05:45 MCH 30 pg (28-32) 10/09/20 05:45 MCHC 33 % (30-34) 10/09/20 05:45 RDW 14.1 % (13.2-15.2) 10/09/20 05:45 Plt Count 226 K/mm3 (140-440) 10/09/20 05:45 Lymph % (Auto) 5.5 % (13.4-35.0) L 09/24/20 15:20 [place] % (Auto) 8.1 % (0.0-7.3) H 09/24/20 15:20 Eos % (Auto) 0.0 % (0.0-4.3) 09/24/20 15:20 Baso % (Auto) 0.7 % (0.0-1.8) 09/24/20 15:20 Lymph # (Auto) 0.6 K/mm3 (1.2-5.4) L 09/24/20 15:20 [place] # (Auto) 0.9 K/mm3 (0.0-0.8) H 09/24/20 15:20 Eos # (Auto) 0.0 K/mm3 (0.0-0.4) 09/24/20 15:20 Baso # (Auto) 0.1 K/mm3 (0.0-0.1) 09/24/20 15:20 Add Manual Diff Complete 09/30/20 04:39 Total Counted 100 09/30/20 04:39 Seg Neutrophils % Test Developer 09/30/20 04:39 Seg Neuts % (Manual) 91.0 % (40.0-70.0) H 09/30/20 04:39 Lymphocytes % (Manual) 6.0 % (13.4-35.0) L 09/30/20 04:39 Monocytes % (Manual) 3.0 % (0.0-7.3) 09/30/20 04:39 Nucleated RBC % Not Reportable 09/30/20 04:39 Seg Neutrophils # 9.6 K/mm3 (1.8-7.7) H 09/24/20 15:20 Seg Neutrophils # Man 11.2 K/mm3 (1.8-7.7) H 09/30/20 04:39 Band Neutrophils # 0.0 K/mm3 09/30/20 04:39 Lymphocytes # (Manual) 0.7 K/mm3 (1.2-5.4) L 09/30/20 04:39 Abs React Lymphs (Man) 0.0 K/mm3 09/30/20 04:39 Monocytes # (Manual) 0.4 K/mm3 (0.0-0.8) 09/30/20 04:39 Eosinophils # (Manual) 0.0 K/mm3 (0.0-0.4) 09/30/20 04:39 Basophils # (Manual) 0.0 K/mm3 (0.0-0.1) 09/30/20 04:39 Metamyelocytes # 0.0 K/mm3 09/30/20 04:39 Myelocytes # 0.0 K/mm3 09/30/20 04:39 Promyelocytes # 0.0 K/mm3 09/30/20 04:39 Blast Cells # 0.0 K/mm3 09/30/20 04:39 WBC Morphology Not Reportable 09/30/20 04:39 Hypersegmented Neuts Not Reportable 09/30/20 04:39 Hyposegmented Neuts Not Reportable 09/30/20 04:39 Hypogranular Neuts Not Reportable 09/30/20 04:39 Smudge Cells Not Reportable 09/30/20 04:39 Toxic Granulation Not Reportable 09/30/20 04:39 Toxic Vacuolation Not Reportable 09/30/20 04:39 Dohle Bodies Not Reportable 09/30/20 04:39 Pelger-Huet Anomaly Not Reportable 09/30/20 04:39 Gemini Rods Not Reportable 09/30/20 04:39 Platelet Estimate Consistent w auto 09/30/20 04:39 Clumped Platelets Not Reportable 09/30/20 04:39 Plt Clumps, EDTA Not Reportable 09/30/20 04:39 Large Platelets Not Reportable 09/30/20 04:39 Giant Platelets Not Reportable 09/30/20 04:39 Platelet Satelliting Not Reportable 09/30/20 04:39 Plt Morphology Comment Not Reportable 09/30/20 04:39 RBC Morphology Normal 09/30/20 04:39 Dimorphic RBCs Not Reportable 09/30/20 04:39 Polychromasia Not Reportable 09/30/20 04:39 Hypochromasia Not Reportable 09/30/20 04:39 Poikilocytosis Not Reportable 09/30/20 04:39 Anisocytosis Not Reportable 09/30/20 04:39 Microcytosis Not Reportable 09/30/20 04:39 Macrocytosis Not Reportable 09/30/20 04:39 Spherocytes Not Reportable 09/30/20 04:39 Pappenheimer Bodies Not Reportable 09/30/20 04:39 Sickle Cells Not Reportable 09/30/20 04:39 Target Cells Not Reportable 09/30/20 04:39 Tear Drop Cells Not Reportable 09/30/20 04:39 Ovalocytes Not Reportable 09/30/20 04:39 Helmet Cells Not Reportable 09/30/20 04:39 [place] Bodies Not Reportable 09/30/20 04:39 [place] Rings Not Reportable 09/30/20 04:39 [place] Cells Not Reportable 09/30/20 04:39 Bite Cells Not Reportable 09/30/20 04:39 Crenated Cell Not Reportable 09/30/20 04:39 Elliptocytes Not Reportable 09/30/20 04:39 Acanthocytes (Spur) Not Reportable 09/30/20 04:39 Rouleaux Not Reportable 09/30/20 04:39 Hemoglobin C Crystals Not Reportable 09/30/20 04:39 Schistocytes Not Reportable 09/30/20 04:39 Malaria parasites Not Reportable 09/30/20 04:39 Tor Bodies Not Reportable 09/30/20 04:39 Hem Pathologist Commnt No 09/30/20 04:39 PT 13.3 Sec. (12.2-14.9) 10/03/20 10:02 INR 0.95 (0.87-1.13) 10/03/20 10:02 APTT 29.0 Sec. (24.2-36.6) 10/03/20 10:02 D-Dimer 200.46 ng/mlDDU (0-234) 10/08/20 08:38 Sodium 135 mmol/L (137-145) L 10/10/20 07:14 Potassium 5.1 mmol/L (3.6-5.0) H 10/10/20 07:14 Chloride 100.2 mmol/L (98-107) 10/10/20 07:14 Carbon Dioxide 29 mmol/L (22-30) 10/10/20 07:14 Anion Gap 11 mmol/L 10/10/20 07:14 BUN 30 mg/dL (7-17) H 10/10/20 07:14 Creatinine 0.6 mg/dL (0.6-1.2) 10/10/20 07:14 Estimated GFR > 60 ml/min 10/10/20 07:14 BUN/Creatinine Ratio 50 % 10/10/20 07:14 Glucose 133 mg/dL (65-100) H 10/10/20 07:14 Lactic Acid 1.10 mmol/L (0.7-2.0) 09/22/20 18:17 Calcium 8.9 mg/dL (8.4-10.2) 10/10/20 07:14 Magnesium 2.50 mg/dL (1.7-2.3) H 10/10/20 07:14 Ferritin 1127.0 ng/mL (10.0-200.0) H 10/08/20 08:38 Total Bilirubin 0.30 mg/dL (0.1-1.2) 10/10/20 07:14 AST 15 units/L (5-40) 10/10/20 07:14 ALT 70 units/L (7-56) H 10/10/20 07:14 Alkaline Phosphatase 67 units/L (35-129) 10/10/20 07:14 Lactate Dehydrogenase 221 units/L (91-180) H 10/08/20 08:38 C-Reactive Protein 0.00 mg/dL (0.00-1.30) 10/08/20 08:38 Total Protein 6.0 g/dL (6.3-8.2) L 10/10/20 07:14 Albumin 3.1 g/dL (3.9-5) L 10/10/20 07:14 Albumin/Globulin Ratio 1.1 % 10/10/20 07:14 Procalcitonin 0.06 ng/mL (<0.15) 09/22/20 18:17 Coronavirus (PCR) Positive (Negative) A 09/23/20 Unknown Dhillon/IV: Voiding Method External Female Catheter Active Medications - Current Medications Current Medications: Generic Name Dose Route Start Last Admin Trade Name Freq PRN Reason Stop Dose Admin Acetaminophen 650 mg 09/22/20 18:16 09/27/20 22:07 Acetaminophen 325 Mg Tab PO 650 mg Q4H PRN Administration Pain MILD(1-3)/Fever >100.5/GRAMAJO Apixaban 5 mg 10/03/20 22:00 10/10/20 10:52 Apixaban 5 Mg Tab PO 5 mg Q12HR SAYDA Administration Protocol Ascorbic Acid 500 mg 09/22/20 22:00 10/10/20 10:53 Ascorbic Acid 500 Mg Tab PO 500 mg BID SAYDA Administration Bisacodyl 10 mg 10/02/20 10:19 Bisacodyl 10 Mg Rect Supp [place] QDAY PRN Constipation Cholecalciferol 1,000 unit 09/23/20 10:00 10/10/20 10:53 Cholecalciferol (Vit D3) 1000 Unit (25 Mcg) Tab PO 1,000 unit QDAY SAYDA Administration Guaifenesin 10 ml 09/29/20 08:56 10/06/20 13:41 Guaifenesin Dm 200/20 Mg Oral Liqd 10 Ml PO 10 ml Q4H PRN Administration Cough Hydromorphone HCl 0.5 mg 09/22/20 18:16 10/05/20 14:07 Hydromorphone 1 Mg/1 Ml Inj IV 0.5 mg Q12H PRN Administration Pain , Severe (7-10) Lorazepam 1 mg 09/27/20 12:59 10/09/20 23:15 Lorazepam 2 Mg/Ml Vial IV 1 mg Q4H PRN Administration Anxiety Magnesium Hydroxide 30 ml 10/02/20 10:19 10/07/20 16:11 Magnesium Hydroxide (Mom) Oral Liqd Udc PO 30 ml QDAY PRN Administration Constipation Methylprednisolone Sodium Succinate 40 mg 10/08/20 14:00 10/10/20 05:08 Methylprednisolone Sod Succinate 40 Mg/1 Ml Inj IV 40 mg Q8HR SAYDA Administration Ondansetron HCl 4 mg 09/22/20 18:16 09/23/20 10:34 Ondansetron 4 Mg/2 Ml Inj IV 4 mg Q8H PRN Administration Nausea And Vomiting Oxycodone/Acetaminophen 1 tab 09/22/20 18:16 09/30/20 20:50 Oxycodone /Acetaminophen 5-325mg Tab PO 1 tab Q12H PRN Administration Pain, Moderate (4-6) Sodium Chloride 10 ml 09/22/20 22:00 10/10/20 10:53 Sodium Chloride 0.9% 10 Ml Flush Syringe IV 10 ml BID SAYDA Administration Sodium Chloride 10 ml 09/22/20 18:16 Sodium Chloride 0.9% 10 Ml Flush Syringe IV PRN PRN LINE FLUSH Sodium Chloride 2 spray 10/01/20 12:36 10/02/20 05:55 Sodium Chloride Nasal [place] 44ml NS 2 spray PRN PRN Administration Dry Nasal Passages Zinc Sulfate 220 mg 09/22/20 22:00 10/10/20 10:53 Zinc Sulfate 220 Mg Cap PO 220 mg BID SAYDA Administration Nutrition/Malnutrition Assess - Dietary Evaluation Nutrition/Malnutrition Findings: Nutrition Notes Start: 09/27/20 15 :17 Freq: Status: Active Protocol: Document 10/05/20 12:30 MK (Rec: 10/05/20 12:35 MK [id number]) Nutrition Notes Initial or Follow up Reassessment Current Diagnosis Respiratory Failure Other Pertinent Diagnosis COVID-19 pneu Current Diet Cardiac + Ensure Enlive daily Labs/Tests Reviewed Pertinent Medications Reviewed Height 5 ft 7 in Weight 107.4 kg Usual Body Weight 109.09 kg [place] Body Weight (kg) 61.36 BMI 37.0 Weight change and time frame 1.5% wt loss in 3 weeks (not significant) Weight Status Obese Subjective/Other Information Pt reports eating 25-50% of meals and drinking 100% of 1 ONS. She typically only eats the meat for lunch and dinner. Percent of energy/protein needs met: 72%/73%% Burn Absent Trauma Absent Current % PO Poor (25-49%) Minimum of two criteria No #1 Nutrition Diagnosis Inadequate oral intake Comments: CHANGED Etiology COVID-19 pneu As Evidenced by Signs and Symptoms pt meeting 72%/73% if energy and protein needs Is patient on ventilator? No Is Patient Ambulatory and/or Out of Bed No REE-([facility]-confined to bed) 2027.228 Kcal/Kg value to use for calculation 14 Approximate Energy Requirements Using 1504 kcal/Kg Additional Notes Pro needs 0.8-1g/kg adjBW: 66- 83g/day Fluid needs 1ml/kcal Nutrition Intervention Change Diet Order: Continue current diet order Add Supplement/Snack (indicate name/kcal Ensure BID /protein ) Provides kCal: 700 Provides Protein (gm) 40 Goal #1 PO tolerance Goal #2 PO intake of meals plus ONS to meet at least 75% energy and pro needs Anticipated Discharge Needs: Unable to identify at this time Follow-Up By: 10/11/20 Additional Comments F/U: stable intakes and ONS tolerance
[2020-10-10] MEDS: LORazepam 2 MG/ML VIAL IV PRN (22:31)
[2020-10-11] MEDS: methylPREDNISolone Sod Succinate 40 MG/1 ML INJ IV SCH ×3 (05:36→23:42)
[2020-10-11] MEDS: APIXABAN 5 MG TAB PO SCH ×2 (09:12→23:42)
[2020-10-11] MEDS: CHOLECALCIFEROL (VIT D3) 1000 UNIT (25 mcg) TAB PO SCH (09:12)
[2020-10-11] MEDS: ASCORBIC ACID 500 MG TAB PO SCH ×2 (09:12→23:43)
[2020-10-11] MEDS: ZINC SULFATE 220 MG CAP PO SCH ×2 (09:12→23:43)
--- NOTE | 2020-10-11 11:06 | Progress Note ---
Assessment and Plan Assessment and plan: Patient O2 requirement decreased to 2-3 L nasal cannula check 6-minute walk O2 sats, set up home oxygen if needed Follow negative for PE negative for PE PT OT evaluation, and discharge home when stable -- Acute hypoxemic respiratory failure/ requiring high flow oxygen/BiPAP Current Visit: Yes Status: Acute prone positioning while in bed as much as possible Currently on 3 L nasal cannula oxygen saturating well Home O2 evaluation, set up home O2 as needed --Elevated D-dimers; Current Visit: Yes Status: Acute Continue empiric anticoagulation with Eliquis CTA chest negative for PE , follow lower extremity Doppler to rule out DVT Patient is currently on 3 L nasal cannula -- Bilateral pneumonia Current Visit: Yes Status: Acute Empiric antibiotics discontinued As procalcitonin level is normal --COVID-19 virus infection Current Visit: Yes Status: Acute Isolation droplet and contact, Patient is hypoxic, on high flow nasal cannula oxygen Completed remdesivir, s/p Actemra Completed 10 days of Solu-Medrol Inflammatory markers trending down, Prone positioning, home O2 evaluation pulmonary and ID following Continue zinc, vitamin D, ascorbic acid --Hyperkalemia; resolved Current Visit: Yes Status: Acute Monitor electrolytes -- Obesity hypoventilation syndrome/BMI 36.0 Current Visit: Yes Status: Acute Dietary modification , exercise as tolerated , lifestyle changes Weight reduction when medically stable Outpatient sleep study to rule out obstructive sleep apnea --Severe protein calorie malnutrition; hypoalbuminemia Current Visit: Yes Status: Chronic Nutrition supplements, nutrition consult -- DVT prophylaxis Current Visit: Yes Status: Acute Full dose therapeutic anticoagulation with Lovenox Follow PT OT evaluation Follow 6-minute walk O2 sat assessment Possible discharge home today/tomorrow pending above tests. Plan of care reviewed with the patient and her nurse Daily management 09/23/2020; Positive COVID-19, Hypoxemia on high flow oxygen Morbidly obese, ID following Continue therapies per protocol Pulmonary consulted Resumed service; 09/28/2020; Patient continues to require high flow nasal cannula oxygen with intermittent BiPAP Wean as tolerated, home O2 evaluation at discharge 09/29/2020 ; Patient remains on high flow nasal cannula oxygen at 30 L/90% FiO2/93 O2 sats Wean as tolerated, evaluation for home oxygen prior to discharge 09/30/2020; Patient remains on high flow oxygen 30 L/FiO2 80% Wean as tolerated Overall prognosis poor 10/02/2020; Patient remains on high flow oxygen but significantly improved Today she is on 20 L/50%/99 FiO2 Wean further as tolerated Constipated, advised MOM and Dulcolax Enema if no improvement after 2 doses 10/03/2020; On high flow oxygen decreased 15 L/40 FiO2/93 O2 sats Wean further as tolerated Empiric therapeutic anticoagulation with Lovenox Changed to Eliquis 5 mg twice a day 10/04/2020; Patient remains on high flow oxygen Slightly better, advise proning Wean as tolerated 10/05/2020; High flow oxygen today 20 L/50% FiO2./100% saturation Wean as tolerated Resumed service; 10/08/2020; patient's O2 requirements come down to 3 L of nasal cannula Follow PT OT, on empiric full dose anticoagulation, will check CTA chest And decide about the need for anticoagulation at discharge PT OT recommend acute versus subacute rehab placement Patient has no resources DC planning per case management 10/08/20 15:17 - Case Management Note by [facility] Num[facility] [id number] : 1960 Patient Age: 60 Nurse to complete Oxygen Qualification Exercise for possible home oxygen 1. Room Air resting-----85% 2. Room Air walking-----69% 3. 02 _LPM walking exercise-----82-85% on 4L N/C 10/09/2020; Patient on 3 L of nasal cannula oxygen resting however severely hypoxemic on ambulation We will closely monitor, incentive spirometry, prone positioning encouraged DC planning per case management, possible placement versus home with home health when stable 10/10/2020; Patient is on 2 L of nasal cannula oxygen. Feels better Home O2 evaluation prior to discharge DC planning per case management in 1 to 2 days if stable 10/11/20; Home O2 evaluation today Continue 2 to 3 L of nasal cannula oxygen Continue empiric anticoagulation with Eliquis Ambulate as tolerated Possible discharge home tomorrow with home oxygen if needed History Interval history: I seen and examined the patient at the bedside Patient's chart and medications reviewed Patient is requiring 2 to 3 L of nasal cannula oxygen Patient has no new complaints Hospitalist Physical - Constitutional Vitals: Temp Pulse Resp BP Pulse Ox 97.7 F 60 20 122/47 96 10/11/20 04:53 10/11/20 04:53 10/11/20 04:53 10/11/20 04:53 10/11/20 09:30 General appearance: Present: no acute distress, well-nourished, obese, other (On high flow nasal cannula oxygen 15 L) - EENT Eyes: Present: PERRL - Neck Neck: Present: supple, normal ROM - Respiratory Respiratory effort: normal Respiratory: bilateral: diminished, rhonchi, negative: rales, wheezing - Cardiovascular Rhythm: regular Heart Sounds: Present: S1 & S2 - Extremities Extremities: no ischemia, No edema - Abdominal General gastrointestinal: soft, non-tender, non-distended, normal bowel sounds - Integumentary Integumentary: Present: clear, warm - Psychiatric Psychiatric: appropriate mood/affect, cooperative - Neurologic Neurologic: moves all extremities Results - Labs CBC & Chem 7: 10/09/20 05:45 10/10/20 07:14 Labs: Laboratory Last Values WBC 12.4 K/mm3 (4.5-11.0) H 10/09/20 05:45 RBC 4.62 M/mm3 (3.65-5.03) 10/09/20 05:45 Hgb 13.7 gm/dl (10.1-14.3) 10/09/20 05:45 Hct 42.1 % (30.3-42.9) 10/09/20 05:45 MCV 91 fl (79-97) 10/09/20 05:45 MCH 30 pg (28-32) 10/09/20 05:45 MCHC 33 % (30-34) 10/09/20 05:45 RDW 14.1 % (13.2-15.2) 10/09/20 05:45 Plt Count 226 K/mm3 (140-440) 10/09/20 05:45 Lymph % (Auto) 5.5 % (13.4-35.0) L 09/24/20 15:20 Smith % (Auto) 8.1 % (0.0-7.3) H 09/24/20 15:20 Eos % (Auto) 0.0 % (0.0-4.3) 09/24/20 15:20 Baso % (Auto) 0.7 % (0.0-1.8) 09/24/20 15:20 Lymph # (Auto) 0.6 K/mm3 (1.2-5.4) L 09/24/20 15:20 Smith # (Auto) 0.9 K/mm3 (0.0-0.8) H 09/24/20 15:20 Eos # (Auto) 0.0 K/mm3 (0.0-0.4) 09/24/20 15:20 Baso # (Auto) 0.1 K/mm3 (0.0-0.1) 09/24/20 15:20 Add Manual Diff Complete 09/30/20 04:39 Total Counted 100 09/30/20 04:39 Seg Neutrophils % Care Assistant 09/30/20 04:39 Seg Neuts % (Manual) 91.0 % (40.0-70.0) H 09/30/20 04:39 Lymphocytes % (Manual) 6.0 % (13.4-35.0) L 09/30/20 04:39 Monocytes % (Manual) 3.0 % (0.0-7.3) 09/30/20 04:39 Nucleated RBC % Not Reportable 09/30/20 04:39 Seg Neutrophils # 9.6 K/mm3 (1.8-7.7) H 09/24/20 15:20 Seg Neutrophils # Man 11.2 K/mm3 (1.8-7.7) H 09/30/20 04:39 Band Neutrophils # 0.0 K/mm3 09/30/20 04:39 Lymphocytes # (Manual) 0.7 K/mm3 (1.2-5.4) L 09/30/20 04:39 Abs React Lymphs (Man) 0.0 K/mm3 09/30/20 04:39 Monocytes # (Manual) 0.4 K/mm3 (0.0-0.8) 09/30/20 04:39 Eosinophils # (Manual) 0.0 K/mm3 (0.0-0.4) 09/30/20 04:39 Basophils # (Manual) 0.0 K/mm3 (0.0-0.1) 09/30/20 04:39 Metamyelocytes # 0.0 K/mm3 09/30/20 04:39 Myelocytes # 0.0 K/mm3 09/30/20 04:39 Promyelocytes # 0.0 K/mm3 09/30/20 04:39 Blast Cells # 0.0 K/mm3 09/30/20 04:39 WBC Morphology Not Reportable 09/30/20 04:39 Hypersegmented Neuts Not Reportable 09/30/20 04:39 Hyposegmented Neuts Not Reportable 09/30/20 04:39 Hypogranular Neuts Not Reportable 09/30/20 04:39 Smudge Cells Not Reportable 09/30/20 04:39 Toxic Granulation Not Reportable 09/30/20 04:39 Toxic Vacuolation Not Reportable 09/30/20 04:39 Dohle Bodies Not Reportable 09/30/20 04:39 Pelger-Huet Anomaly Not Reportable 09/30/20 04:39 Gemini Rods Not Reportable 09/30/20 04:39 Platelet Estimate Consistent w auto 09/30/20 04:39 Clumped Platelets Not Reportable 09/30/20 04:39 Plt Clumps, EDTA Not Reportable 09/30/20 04:39 Large Platelets Not Reportable 09/30/20 04:39 Giant Platelets Not Reportable 09/30/20 04:39 Platelet Satelliting Not Reportable 09/30/20 04:39 Plt Morphology Comment Not Reportable 09/30/20 04:39 RBC Morphology Normal 09/30/20 04:39 Dimorphic RBCs Not Reportable 09/30/20 04:39 Polychromasia Not Reportable 09/30/20 04:39 Hypochromasia Not Reportable 09/30/20 04:39 Poikilocytosis Not Reportable 09/30/20 04:39 Anisocytosis Not Reportable 09/30/20 04:39 Microcytosis Not Reportable 09/30/20 04:39 Macrocytosis Not Reportable 09/30/20 04:39 Spherocytes Not Reportable 09/30/20 04:39 Pappenheimer Bodies Not Reportable 09/30/20 04:39 Sickle Cells Not Reportable 09/30/20 04:39 Target Cells Not Reportable 09/30/20 04:39 Tear Drop Cells Not Reportable 09/30/20 04:39 Ovalocytes Not Reportable 09/30/20 04:39 Helmet Cells Not Reportable 09/30/20 04:39 Fuchs-Delton Bodies Not Reportable 09/30/20 04:39 [place] Rings Not Reportable 09/30/20 04:39 Evelio Cells Not Reportable 09/30/20 04:39 Bite Cells Not Reportable 09/30/20 04:39 Crenated Cell Not Reportable 09/30/20 04:39 Elliptocytes Not Reportable 09/30/20 04:39 Acanthocytes (Spur) Not Reportable 09/30/20 04:39 Rouleaux Not Reportable 09/30/20 04:39 Hemoglobin C Crystals Not Reportable 09/30/20 04:39 Schistocytes Not Reportable 09/30/20 04:39 Malaria parasites Not Reportable 09/30/20 04:39 Tor Bodies Not Reportable 09/30/20 04:39 Hem Pathologist Commnt No 09/30/20 04:39 PT 13.3 Sec. (12.2-14.9) 10/03/20 10:02 INR 0.95 (0.87-1.13) 10/03/20 10:02 APTT 29.0 Sec. (24.2-36.6) 10/03/20 10:02 D-Dimer 200.46 ng/mlDDU (0-234) 10/08/20 08:38 Sodium 135 mmol/L (137-145) L 10/10/20 07:14 Potassium 5.1 mmol/L (3.6-5.0) H 10/10/20 07:14 Chloride 100.2 mmol/L (98-107) 10/10/20 07:14 Carbon Dioxide 29 mmol/L (22-30) 10/10/20 07:14 Anion Gap 11 mmol/L 10/10/20 07:14 BUN 30 mg/dL (7-17) H 10/10/20 07:14 Creatinine 0.6 mg/dL (0.6-1.2) 10/10/20 07:14 Estimated GFR > 60 ml/min 10/10/20 07:14 BUN/Creatinine Ratio 50 % 10/10/20 07:14 Glucose 133 mg/dL (65-100) H 10/10/20 07:14 Lactic Acid 1.10 mmol/L (0.7-2.0) 09/22/20 18:17 Calcium 8.9 mg/dL (8.4-10.2) 10/10/20 07:14 Magnesium 2.50 mg/dL (1.7-2.3) H 10/10/20 07:14 Ferritin 1127.0 ng/mL (10.0-200.0) H 10/08/20 08:38 Total Bilirubin 0.30 mg/dL (0.1-1.2) 10/10/20 07:14 AST 15 units/L (5-40) 10/10/20 07:14 ALT 70 units/L (7-56) H 10/10/20 07:14 Alkaline Phosphatase 67 units/L (35-129) 10/10/20 07:14 Lactate Dehydrogenase 221 units/L (91-180) H 10/08/20 08:38 C-Reactive Protein 0.00 mg/dL (0.00-1.30) 10/08/20 08:38 Total Protein 6.0 g/dL (6.3-8.2) L 10/10/20 07:14 Albumin 3.1 g/dL (3.9-5) L 10/10/20 07:14 Albumin/Globulin Ratio 1.1 % 10/10/20 07:14 Procalcitonin 0.06 ng/mL (<0.15) 09/22/20 18:17 Coronavirus (PCR) Positive (Negative) A 09/23/20 Unknown Dhillon/IV: Voiding Method Incontinent Active Medications - Current Medications Current Medications: Generic Name Dose Route Start Last Admin Trade Name Freq PRN Reason Stop Dose Admin Acetaminophen 650 mg 09/22/20 18:16 09/27/20 22:07 Acetaminophen 325 Mg Tab PO 650 mg Q4H PRN Administration Pain MILD(1-3)/Fever >100.5/GRAMAJO Apixaban 5 mg 10/03/20 22:00 10/11/20 09:12 Apixaban 5 Mg Tab PO 5 mg Q12HR SAYDA Administration Protocol Ascorbic Acid 500 mg 09/22/20 22:00 10/11/20 09:12 Ascorbic Acid 500 Mg Tab PO 500 mg BID SAYDA Administration Bisacodyl 10 mg 10/02/20 10:19 Bisacodyl 10 Mg Rect Supp TN QDAY PRN Constipation Cholecalciferol 1,000 unit 09/23/20 10:00 10/11/20 09:12 Cholecalciferol (Vit D3) 1000 Unit (25 Mcg) Tab PO 1,000 unit QDAY SAYDA Administration Guaifenesin 10 ml 09/29/20 08:56 10/06/20 13:41 Guaifenesin Dm 200/20 Mg Oral Liqd 10 Ml PO 10 ml Q4H PRN Administration Cough Hydromorphone HCl 0.5 mg 09/22/20 18:16 10/05/20 14:07 Hydromorphone 1 Mg/1 Ml Inj IV 0.5 mg Q12H PRN Administration Pain , Severe (7-10) Lorazepam 1 mg 09/27/20 12:59 10/10/20 22:31 Lorazepam 2 Mg/Ml Vial IV 1 mg Q4H PRN Administration Anxiety Magnesium Hydroxide 30 ml 10/02/20 10:19 10/07/20 16:11 Magnesium Hydroxide (Mom) Oral Liqd Udc PO 30 ml QDAY PRN Administration Constipation Methylprednisolone Sodium Succinate 40 mg 10/08/20 14:00 10/11/20 05:36 Methylprednisolone Sod Succinate 40 Mg/1 Ml Inj IV 40 mg Q8HR SAYDA Administration Ondansetron HCl 4 mg 09/22/20 18:16 09/23/20 10:34 Ondansetron 4 Mg/2 Ml Inj IV 4 mg Q8H PRN Administration Nausea And Vomiting Oxycodone/Acetaminophen 1 tab 09/22/20 18:16 09/30/20 20:50 Oxycodone /Acetaminophen 5-325mg Tab PO 1 tab Q12H PRN Administration Pain, Moderate (4-6) Sodium Chloride 10 ml 09/22/20 22:00 10/11/20 09:12 Sodium Chloride 0.9% 10 Ml Flush Syringe IV 10 ml BID SAYDA Administration Sodium Chloride 10 ml 09/22/20 18:16 Sodium Chloride 0.9% 10 Ml Flush Syringe IV PRN PRN LINE FLUSH Sodium Chloride 2 spray 10/01/20 12:36 10/02/20 05:55 Sodium Chloride Nasal [place] 44ml NS 2 spray PRN PRN Administration Dry Nasal Passages Zinc Sulfate 220 mg 09/22/20 22:00 10/11/20 09:12 Zinc Sulfate 220 Mg Cap PO 220 mg BID SAYDA Administration Nutrition/Malnutrition Assess - Dietary Evaluation Nutrition/Malnutrition Findings: Nutrition Notes Start: 09/27/20 15:17 Freq: Status: Active Protocol: Document 10/05/20 12:30 MK (Rec: 10/05/20 12:35 [id number]) Nutrition Notes Initial or Follow up Reassessment Current Diagnosis Respiratory Failure Other Pertinent Diagnosis COVID-19 pneu Current Diet Cardiac + Ensure Enlive daily Labs/Tests Reviewed Pertinent Medications Reviewed Height 5 ft 7 in Weight 107.4 kg Usual Body Weight 109.09 kg [place] Body Weight (kg) 61.36 BMI 37.0 Weight change and time frame 1.5% wt loss in 3 weeks (not significant) Weight Status Obese Subjective/Other Information Pt reports eating 25-50% of meals and drinking 100% of 1 ONS. She typically only eats the meat for lunch and dinner. Percent of energy/protein needs met: 72%/73%% Burn Absent Trauma Absent Current % PO Poor (25-49%) Minimum of two criteria No #1 Nutrition Diagnosis Inadequate oral intake Comments: CHANGED Etiology COVID-19 pneu As Evidenced by Signs and Symptoms pt meeting 72%/73% if energy and protein needs Is patient on ventilator? No Is Patient Ambulatory and/or Out of Bed No REE-([facility]-confined to bed) 2027.228 Kcal/Kg value to use for calculation 14 Approximate Energy Requirements Using 1504 kcal/Kg Additional Notes Pro needs 0.8-1g/kg adjBW: 66- 83g/day Fluid needs 1ml/kcal Nutrition Intervention Change Diet Order: Continue current diet order Add Supplement/Snack (indicate name/kcal Ensure BID /protein ) Provides kCal: 700 Provides Protein (gm) 40 Goal #1 PO tolerance Goal #2 PO intake of meals plus ONS to meet at least 75% energy and pro needs Anticipated Discharge Needs: Unable to identify at this time Follow-Up By: 10/11/20 Additional Comments F/U: stable intakes and ONS tolerance
[2020-10-12] MEDS: LORazepam 2 MG/ML VIAL IV PRN ×2 (00:33→15:06)
[2020-10-12] MEDS: CHOLECALCIFEROL (VIT D3) 1000 UNIT (25 mcg) TAB PO SCH (09:45)
[2020-10-12] MEDS: APIXABAN 5 MG TAB PO SCH ×2 (09:45→23:24)
[2020-10-12] MEDS: ASCORBIC ACID 500 MG TAB PO SCH ×2 (09:45→23:24)
[2020-10-12] MEDS: ZINC SULFATE 220 MG CAP PO SCH ×2 (09:45→23:24)
[2020-10-12] MEDS: methylPREDNISolone Sod Succinate 40 MG/1 ML INJ IV SCH ×3 (09:47→23:24)
--- NOTE | 2020-10-12 09:54 | Discharge Summary ---
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 Patient reports I have not been feeling well". Patient states that she has experienced mixed dry and productive cough, shortness of breath, subjective fever, chills, body aches, chest discomfort, malaise, fatigue over the past 1 week with persistent and worsening symptoms over the same timeframe. Patient acknowledges loss of sense of smell, as well as loss of sense of taste. EMS was notified and upon arrival the patient was found to be in distress and subsequently transported to [facility] for further care and evaluation of the aforementioned symptoms. The patient was seen and evaluated in the emergency department. All lab and imaging studies reviewed. Patient was found to have a pulse oximetry of 70% percent on room air which is consistent with acute hypoxemic respiratory failure. Patient was placed on supplemental oxygen with mild improvement in symptoms. Chest x-ray revealed bilateral pneumonia. Patient admitted to medical floor and initiated on pneumonia protocol as well as coronavirus protocol. Patient denies chest pain, palpitation, skin rash, recent ill contacts. No prior admission for review. NO medication listed at time of admission. Patient was admitted to the hospital COVID-19 test was positive, evaluated by ID, managed per COVID-19 guidelines and protocols Patient had very high D-dimers and severely hypoxemic, not stable to go for imaging study, restarted empiric full dose anticoagulation per COVID-19 guidelines And transition to Eliquis, patient CT CTA done recently is negative for PE, so we will continue Eliquis 2.5 mg twice a day for 1 more month upon discharge Patient required high flow oxygen for many days, gradually titrated to nasal cannula oxygen, today saturating well on 3 L of oxygen Patient received physical therapy occupational therapy who recommended home PT Today patient is comfortable no new complaints vital signs stable physical examination unremarkable DC planning per case management ID and pulmonary cleared for discharge, and follow-up with them per schedule on tapering dose of steroids and other medications Patient is stable at discharge DC planning per case management, home with home health and home oxygen Discharge diagnosis: -- Acute hypoxemic respiratory failure/ requiring high flow oxygen/BiPAP Current Visit: Yes Status: Acute prone positioning while in bed as much as possible Currently on 3 L nasal cannula oxygen saturating well Home O2 evaluation, set up home O2 as needed --Elevated D-dimers; Current Visit: Yes Status: Acute Continue empiric anticoagulation with Eliquis CTA chest negative for PE , follow lower extremity Doppler to rule out DVT Patient is currently on 3 L nasal cannula -- Bilateral pneumonia Current Visit: Yes Status: Acute Empiric antibiotics discontinued As procalcitonin level is normal --COVID-19 virus infection Current Visit: Yes Status: Acute Isolation droplet and contact, Patient is hypoxic, on high flow nasal cannula oxygen Completed remdesivir, s/p Actemra Completed 10 days of Solu-Medrol Inflammatory markers trending down, Prone positioning, home O2 evaluation pulmonary and ID following Continue zinc, vitamin D, ascorbic acid --Hyperkalemia; resolved Current Visit: Yes Status: Acute Monitor electrolytes -- Obesity hypoventilation syndrome/BMI 36.0 Current Visit: Yes Status: Acute Dietary modification , exercise as tolerated , lifestyle changes Weight reduction when medically stable Outpatient sleep study to rule out obstructive sleep apnea --Severe protein calorie malnutrition; hypoalbuminemia Current Visit: Yes Status: Chronic Nutrition supplements, nutrition consult Stable at discharge Disposition: 01 HOME / SELF CARE / HOMELESS Final Discharge Diagnosis (Prints w/discharge instructions): Acute hypoxic respiratory failure. Due to COVID-19 infection. Supplemental oxygen 2 to 4 L nasal cannula. Bilateral pneumonia. Elevated D-dimers. Obesity BMI 37.1. Obesity hypoventilation syndrome. Severe protein calorie malnutrition. Hypoalbuminemia Time spent for discharge: 35 min Core Measure Documentation - Palliative Care Palliative Care/ Comfort Measures: Not Applicable - Core Measures Any of the following diagnoses?: none Exam - Constitutional Vitals: Temp Pulse Resp BP Pulse Ox 97.6 F 84 20 133/63 99 10/12/20 03:15 10/12/20 03:15 10/12/20 03:15 10/12/20 03:15 10/12/20 08:10 General appearance: Present: no acute distress, well-nourished - EENT Eyes: Present: PERRL, EOM intact - Neck Neck: Present: supple, normal ROM - Respiratory Respiratory effort: normal Respiratory: bilateral: diminished, negative: rales, rhonchi, wheezing - Cardiovascular Rhythm: regular Heart Sounds: Present: S1 & S2 - Extremities Extremities: no ischemia, No edema - Abdominal General gastrointestinal: Present: soft, non-tender, non-distended, normal bowel sounds - Integumentary Integumentary: Present: clear, warm - Musculoskeletal Musculoskeletal: strength equal bilaterally, generalized weakness - Psychiatric Psychiatric: appropriate mood/affect, cooperative - Neurologic Neurologic: CNII-XII intact, moves all extremities Plan Activity: advance as tolerated, fall precautions Diet: regular Additional Instructions: Advised to follow COVID-19 precautions, isolation, quarantine, masking, social distancing and other COVID-19 guidelines,. If you have worsening symptoms contact MD or go to the emergency room as needed. Advised diet modification exercise as tolerated and weight reduction when you are medically stable. Advised to follow primary care physician, infectious diseases per schedule, Follow up with: PRIMARY CARE, [Primary Care Provider] - 3-5 Days EDDIE CASTANEDA MD [Staff Physician] - 14 Days TAM ALATORRE MD [Staff Physician] - 7 Days Prescriptions: Apixaban [Eliquis] 2.5 mg PO BID #60 tablet guaiFENesin DM [Guaifenesin Dm Syrup] 10 ml PO Q4H PRN #1 bottle PRN Reason: Cough oxyCODONE /ACETAMINOPHEN [Percocet 5/325 mg] 1 tab PO Q12H PRN #8 tablet PRN Reason: Pain, Moderate (4-6) predniSONE 10 mg PO QDAY #52 tab Ascorbic Acid [Vitamin C] 500 mg PO BID #30 tablet Cholecalciferol Vit D3 [Vitamin D3 1,000 UNIT TAB] 1,000 unit PO QDAY #15 tablet Zinc Sulfate 220 mg PO BID #30 capsule
[2020-10-12 22:26] VITALS: BP 129/51
== END 2020-10-13 06:10 | disposition home or self-care (01) | DRG 177 ==
LOC: ED 12:41 → 3A 18:16 → IMCU 09-26 06:35 → 3A 10-02 17:31
PROVIDERS: ADMIT Internal Medicine; ATTEND Internal Medicine
PROC: 5A09557 Assistance with Respiratory Ventilation, Greater than 96 Consecutive Hours, Continuous Positive Airway Pressure (ICD-10-PCS; principal; 2020-09-23)
PROC: XW033E5 Introduction of Remdesivir Anti-infective into Peripheral Vein, Percutaneous Approach, New Technology Group 5 (ICD-10-PCS; 2020-09-23)
PROC: XW033H5 Introduction of Tocilizumab into Peripheral Vein, Percutaneous Approach, New Technology Group 5 (ICD-10-PCS; 2020-09-23)
DX: U07.1 COVID-19 (principal); J96.01 Acute respiratory failure with hypoxia; E43 Unspecified severe protein-calorie malnutrition; J12.82 Pneumonia due to coronavirus disease 2019; E66.2 Morbid (severe) obesity with alveolar hypoventilation; Z68.36 Body mass index [BMI] 36.0-36.9, adult; E87.5 Hyperkalemia; Z82.49 Family history of ischemic heart disease and other diseases of the circulatory system; F17.200 Nicotine dependence, unspecified, uncomplicated
CPT/HCPCS: 36415; 71045; 71275; 80053; 82140; 82565; 82728; 83615; 83735; 84145; 85007; 85025; 85027; 85379; 85610; 85730; 86140; 87040; 93005; 94660; 94760; G0378; J0456; J0610; J0696; J1100; J1170; J1644; J1650; J2060; J2405; J2920; J2930; J7030; J7050; Q9967; U0003

== ENCOUNTER 2021-03-09 08:10 | Outpatient (CLI) | payer OTHER | END 2021-03-09 08:11 | disposition home or self-care (01) | LOC: PF 08:10 | PROVIDERS: ATTEND Internal Medicine | DX: Z02.71 Encounter for disability determination (principal); J18.9 Pneumonia, unspecified organism; R09.02 Hypoxemia; F41.9 Anxiety disorder, unspecified | CPT/HCPCS: 94010; 94729 ==